=== PATIENT | female | born 1985 ===

== ENCOUNTER 2020-04-27 14:31 | Outpatient (REF) | payer MEDICAID, SELFPAY ==
--- NOTE | 2020-04-27 | US_ITS ---
EXAMINATION: MM DIAGNOSTIC DIGITAL BREAST TOMOSYNTHESIS, BILATERAL US DIAGNOSTIC ULTRASOUND BREAST, RIGHT CLINICAL INFORMATION: 35-year-old with subtle perceived discoloration skin just superolateral to right areola. No palpable mass or discharge. No prior breast imaging. No family history breast cancer. Mild bilateral nipple retraction is a chronic finding, not of current complaint. The lifetime risk of breast cancer based on the Tyrer-Cuzick Model is 9%. COMPARISON: None (current study represents initial baseline exam). TECHNIQUE: Digital breast tomosynthesis is performed in both the craniocaudal and mediolateral oblique views along with computer-aided detection (CAD). Synthesized 2D images are generated from the tomosynthesis. Ultrasound right breast is targeted to the area of clinical concern. Patient is able to point to area of concern at time of imaging. Grayscale imaging and color Doppler are performed without and with harmonics. FINDINGS: There are scattered areas of fibroglandular density (ACR BI-RADS breast composition Category b). Parenchymal pattern is unremarkable. There is no significant mass or duct ectasia, architectural abnormality, or abnormal calcifications. There is no adenopathy. No skin thickening or coarsening of the Saij's ligaments. There is mild bilateral nipple retraction, chronic unremarkable finding as noted by patient. Ultrasound right breast demonstrates no skin thickening or intradermal lesion. There is no duct ectasia or solid mass or architectural abnormality. No edema tracking in soft tissue planes. There are 2 incidental tiny cysts retroareolar right breast, 4 mm and 3 mm, respectively. Results are discussed with the patient at time of visit, using an control system computer scientist. IMPRESSION: 1. No mammographic evidence of malignancy or inflammatory changes. 2. Unremarkable targeted right breast ultrasound ASSESSMENT: BI-RADS 2: Benign RECOMMENDATION: 1. Patient's perceived skin changes may be managed based on the clinical impression. Dermatologic consult may be considered for further assessment. 2. Otherwise, routine annual screening mammography, beginning age 40, or earlier as clinical risk factors warrant. This patient's information was entered into a reminder system with a target due date for their next mammogram.
== END 2020-04-27 14:32 | disposition home or self-care (01) ==
LOC: HO.MAMMO 14:31
PROVIDERS: PCP Internal Medicine Geriatric Medicine; Visit Provider Internal Medicine Geriatric Medicine
DX: R23.4 Changes in skin texture (principal)
CPT/HCPCS: 76641; 77062; 77066; 78013

== ENCOUNTER 2020-05-06 10:07 | Outpatient (REF) | payer MEDICAID, SELFPAY | END 2020-05-06 10:08 | disposition home or self-care (01) | LOC: HO.LAB 10:07 | PROVIDERS: PCP Internal Medicine Geriatric Medicine; Visit Provider Internal Medicine | DX: Z20.828 Contact with and (suspected) exposure to other viral communicable diseases (principal) | CPT/HCPCS: 87635 ==

== ENCOUNTER 2020-05-15 16:03 | Outpatient (REF) | payer MEDICAID, SELFPAY | END 2020-05-15 16:04 | disposition home or self-care (01) | LOC: HO.LAB 16:03 | PROVIDERS: Visit Provider Internal Medicine | DX: Z20.828 Contact with and (suspected) exposure to other viral communicable diseases (principal) | CPT/HCPCS: U0003 ==

== ENCOUNTER 2020-05-23 14:04 | Outpatient (REF) | payer MEDICAID, SELFPAY | END 2020-05-23 14:05 | disposition home or self-care (01) | LOC: HO.LAB 14:04 | PROVIDERS: PCP Internal Medicine Geriatric Medicine; Visit Provider Internal Medicine | DX: Z20.828 Contact with and (suspected) exposure to other viral communicable diseases (principal) | CPT/HCPCS: C9803; U0003 ==

== ENCOUNTER 2020-07-24 16:35 | Outpatient (REF) | payer MEDICAID, SELFPAY | END 2020-07-24 16:36 | disposition home or self-care (01) | LOC: HO.LAB 16:35 | PROVIDERS: Visit Provider Internal Medicine | DX: Z20.828 Contact with and (suspected) exposure to other viral communicable diseases (principal) | CPT/HCPCS: 36415; C9803; U0003 ==

== ENCOUNTER 2020-10-18 14:09 | Emergency (ER) | payer MEDICAID, SELFPAY ==
--- NOTE | ~2020-10-18 | XR_ITS ---
EXAMINATION: XR CHEST CLINICAL INFORMATION: Intermittent chest pain and dizziness COMPARISON: 12/25/2017 TECHNIQUE: Frontal view of the chest was obtained. FINDINGS: No significant abnormality is noted involving the heart, lungs, mediastinum, bony thorax or soft tissues. XR/XR chest 1V IMPRESSION: Unremarkable examination.
[2020-10-18 15:06] VITALS: BP 121/72; PULSE 58; RESP 18; TEMP 36.8; O2SAT 100; BMI 32.3
[2020-10-18 16:18] LABS: MANUAL DIFF FLAG NO
[2020-10-18 16:23] LABS: Glucose Urine UA NEG (NEG); Leukocyte Esterase Urine 2+ (NEG); Nitrite Urine NEG (NEG); UACC Culture Trigger YES; Urine Blood NEG (NEG); Urine Ketones NEG (NEG); Urine Protein NEG (NEG-TRACE)
[2020-10-18 16:23] LABS: Basophils Percent Auto 0.7 % (0-2); Eosinophils Absolute Auto 0.1 X10*3/uL (0.0-0.4); Eosinophils Percent Auto 2.1 % (0-4); Hematocrit 39.1 % (37-47); Hemoglobin 13.2 g/dl (12.0-16.0); Imm Gran Abs Auto 0.01 X10*3/uL (0.00-0.03); Imm Gran Pct Auto 0.2 % (0.0-0.4); Lymphocytes Absolute Auto 2.2 X10*3/uL (1.2-4.9); Lymphocytes Percent Auto 36.5 % (20-40); Mean Corpuscular HGB Conc 33.8 g/dl (31.0-35.0); Mean Corpuscular Hemoglobin 30.1 pg (27.0-33.0); Mean Corpuscular Volume 89.3 fL (80-98); Mean Platelet Volume 9.8 fL (9.4-12.3); Monocytes Absolute Auto 0.5 X10*3/uL (0.1-1.2); Monocytes Percent Auto 8.5 % (2-11); Neutrophils Absolute Auto 3.2 X10*3/uL (2.0-8.3); Platelet Count 264 X10*3/uL (160-400); Red Blood Count 4.38 X10*6/uL (4.20-5.50); Red Cell Distribution Width 12.2 % (11.0-16.0); White Blood Count 6.1 X10*3/uL (4.8-10.8)
[2020-10-18 16:26] LABS: Appearance Urine HAZY; Color Urine YELLOW
[2020-10-18 16:42] LABS: Bacteria Urine 2+ /LPF; RBC Urine 0 /HPF (0); Squamous Epithelial Cell Urine 3+ /LPF
[2020-10-18 17:00] LABS: Blood Urea Nitrogen 16 mg/dL (9-16)
--- NOTE | 2020-10-18 17:06 | ECG_ITS ---
Test Reason : DIZZY Blood Pressure : / mmHG Vent. Rate : 050 BPM Atrial Rate : 050 BPM P-R Int : 150 ms QRS Dur : 080 ms QT Int : 462 ms P-R-T Axes : 032 -06 006 degrees QTc Int : 421 ms Sinus bradycardia Voltage criteria for left ventricular hypertrophy Abnormal ECG When compared with ECG of 25-DEC-2017 20:59, No significant change was found Referred By: Sherita Keita Electronically Signed By:LUIS MANUEL CHAPIN MD
--- NOTE | 2020-10-18 17:16 | ED.DIZZY ---
HPI - Dizziness General Chief Complaint: Dizziness Stated Complaint: DIZZY Time Seen by Provider: 10/18/20 16:39 Source: patient Mode of arrival: ambulatory History of Present Illness HPI Narrative: 35-year-old female with a past medical history of eclampsia, HTN, tubal ligation, appendectomy, presenting to the ED complaining intermittent room spinning dizziness worsen with position changes/fast movements. Also reports generalized fatigue, intermittent palpitations/chest discomfort & SOB x a couple days. Admits symptoms became more constant today. Denies associated headache, vision changes, nausea/vomiting Related Data Home Medications Medication Instructions Recorded Confirmed chlorthalidone 25 mg tablet 25 mg PO DAILY 05/15/20 fexofenadine 180 mg tablet 180 mg PO DAILY 05/15/20 Previous Rx's Medication Instructions Recorded meclizine 25 mg PO TID PRN #14 tab 10/18/20 nitrofurantoin monohyd/m-cryst 100 mg PO Q12H 5 Days #10 cap 10/18/20 [Macrobid] Allergies Allergy/AdvReac Type Severity Reaction Status Date / Time No Known Allergies Allergy Verified 05/15/20 14:18 Review of Systems Review of Systems: Constitutional: No Fever, No Chills, No Fatigue, No Malaise ENT/Mouth: No Hearing loss, No Ear Pain, No Swallowing Difficulty Eyes: No Eye Pain, +Intermittent Blurry vision Cardiovascular: + Chest Pain, + SOB, No Dyspnea on Exertion, No Edema, + Palpitations Respiratory: No Cough, No Dyspnea Gastrointestinal: No Nausea, No Vomiting, No Abdominal pain Genitourinary: No Dysuria, No Urinary Frequency, No Hematuria, No Flank Pain Musculoskeletal: No joint pain, No Myalgias, No Joint Swelling Skin: No Skin Lesions, No rash Neuro: +Generalized Weakness, No Paresthesias, No Loss of Consciousness, + Dizziness, No Headache Yes all other systems are reviewed and are negative Neurologic: Denies Abnormal speech present [facility] Past Medical History Attestation statement: The following information was validated with the patient. Medical History History of eclampsia History of high blood pressure Surgical History Hx of appendectomy Hx of tubal ligation Family History Family History Father CVD (cardiovascular disease) Mother Asthma History of anxiety History of fibromyalgia Social History Social History Alcohol intake: current Alcohol intake frequency: holidays/special occasions only Smoking Status: Never smoker Advance Directives: No Advance Directives Information Provided: Yes Sexual orientation: Straight/Heterosexual Gender identity: female Physical Exam Vital Signs: Vital Signs: Last Vital Signs Temp 98.2 F 10/18/20 15:06 Pulse 58 10/18/20 15:06 Resp 18 10/18/20 15:06 BP 121/72 10/18/20 15:06 Pulse Ox 100 10/18/20 15:06 Body Mass Index 32.3 Const: General: cooperative, healthy appearing, comfortable and no acute distress Orientation/consciousness: patient oriented x3 Limitations: no limitations HENMT: Head: Yes normal to inspection Ears: hearing grossly normal bilaterally General nose exam: Normal external nose present Face and sinus: Yes normal facial exam Mouth: Normal oral and palatal mucosa present Throat: Yes posterior oropharynx normal Eyes: General: appearance normal, both eyes and all related structures Pupils: Equal, round and reactive pupils present EOM: EOMs intact bilaterally Neck: Neck: Yes normal visual inspection and Yes no meningeal signs Resp: Effort & Inspection: normal respiratory effort Auscultation: clear to auscultation bilaterally Cardio: Rate: regular rate Heart sounds: S1 normal heart sound present and S2 normal heart sound present GI: Inspection: Yes normal to inspection Palpation (GI): Soft to palpation, nontender, no guarding and not rigid Skin: Rashes: no rashes Wounds: no wounds Neuro: General: patient oriented x3, gait normal, tone normal, moves all extremities, no meningeal signs, no focal motor deficits and CN's II-XI intact bilaterally Cranial nerves: Yes Equal, round and reactive pupils present Cognition (Neuro): normal cognition Speech: No Abnormal speech present Gait exam (Neuro): Normal gait present Motor exam (neuro): 5/5 motor strength present throughout, Pronator motor function not present and no tremor noted Coordination: [id number] test normal Extrem: General: Yes normal to inspection Course Course Course Narrative: -troponin negative, labs otherwise unremarkable -UA contaminated but with multiple wbc's and positive leuks > patient denies UTI symptoms however with shared decision making would like to have antibiotic prescribed at this time -1900--potassium slightly low at 3.2 > p.o. repletion ordered XR chest 1V IMPRESSION: Unremarkable examination -Results discussed with patient with ophthalmic pathologist, reports symptomatic improvement in the ED after medications. Recommended follow-up with PCP and ENT. Worrisome signs and symptoms and strict return precautions discussed. Patient verbalized understanding feel safe for discharge home -Orthostatic VS negative MDM - Dizziness MDM Narrative Medical decision making narrative: 35-year-old female with a past medical history of eclampsia, HTN, tubal ligation, appendectomy, presenting to the ED complaining intermittent room spinning dizziness worsen with position changes/fast movements. Also reports generalized fatigue, intermittent palpitations/chest discomfort & SOB x a couple days. On exam VSS, NAD, well appearing, no focal neuro deficits, ambulating with steady gait. Likely BPPV/vertigo. Lower concern for SAH/CVT or ICH/central vertigo causing dizziness as well as symptoms being intermittent. Rule out ACS/metabolic abnormalities vs viral syndrome/COVID-19 Plan: EKG, labs, UA, CXR, orthostatics, symptomatic treatment, reassess Medical Records Attestation: I reviewed the patient's medical records. Lab Data Attestation: I reviewed the patient's lab results. Result diagrams: 10/18/20 16:12 10/18/20 16:12 Labs: Lab Results 10/18/20 10/18/20 10/18/20 Range/Units 16:09 16:09 16:12 WBC 6.1 (4.8-10.8) X10*3/uL RBC 4.38 (4.20-5.50) X10*6/uL Hgb 13.2 (12.0-16.0) g/dl Hct 39.1 (37-47) % MCV 89.3 (80-98) fL MCH 30.1 (27.0-33.0) pg MCHC 33.8 (31.0-35.0) g/dl RDW 12.2 (11.0-16.0) % Plt Count 264 (160-400) X10*3/uL MPV 9.8 (9.4-12.3) fL Immature Gran % (Auto) 0.2 (0.0-0.4) % Neut % (Auto) 52.0 (45-73) % Lymph % (Auto) 36.5 (20-40) % [place] % (Auto) 8.5 (2-11) % Eos % (Auto) 2.1 (0-4) % Baso % (Auto) 0.7 (0-2) % Lymph # (Auto) 2.2 (1.2-4.9) X10*3/uL [place] # (Auto) 0.5 (0.1-1.2) X10*3/uL Eos # (Auto) 0.1 (0.0-0.4) X10*3/uL Baso # (Auto) 0.0 (0.0-0.2) X10*3/uL Abs Immat Gran (auto) 0.01 (0.00-0.03) X10*3/uL Absolute Neuts (auto) 3.2 (2.0-8.3) X10*3/uL Absolute Nucleated RBC 0.000 (0.0-0.012) X10*3/uL Nucleated RBC % (auto) 0.0 (0.0-0.2) /100WBC Hold Blue Top Sodium (135-145) mmol/L Potassium (3.3-5.1) mmol/L Chloride (96-108) mmol/L Carbon Dioxide (22-29) mmol/L Anion Gap (12-20) BUN (9-16) mg/dL Creatinine (0.5-1.4) mg/dL Estim Creat Clear Calc Estimated GFR Random Glucose (60-115) mg/dL Calcium (8.4-10.2) mg/dL Magnesium (1.6-2.6) mg/dL Total Bilirubin (0.0-1.0) mg/dL Direct Bilirubin (0.0-0.5) mg/dL AST (5-31) U/L ALT (0-31) U/L Alkaline Phosphatase (39-117) U/L Troponin I High Sens (<3.5-17.0) ng/L Total Protein (6.5-8.0) g/dL Albumin (3.5-5.0) g/dL Urine Color YELLOW Urine Appearance HAZY Urine pH 7.0 (5.0-8.0) Ur Specific [place] 1.020 (1.005-1.025) Urine Protein NEG (NEG-TRACE) MG/DL Urine Glucose (UA) NEG (NEG) MG/DL Urine Ketones NEG (NEG) MG/DL Urine Blood NEG (NEG) Urine Nitrite NEG (NEG) Ur Leukocyte Esterase 2+ H (NEG) Urine RBC 0 (0) /HPF Urine WBC 15-29 H (0-4) /HPF Ur Squamous Epith Cells 3+ /LPF Urine Bacteria 2+ /LPF Urine Test NEGATIVE (NEGATIVE) COVID-19 (FRACISCO) (Negative) COVID-19 Clin Com 10/18/20 10/18/20 10/18/20 Range/Units 16:12 16:12 16:12 WBC (4.8-10.8) X10*3/uL RBC (4.20-5.50) X10*6/uL Hgb (12.0-16.0) g/dl Hct (37-47) % MCV (80-98) fL MCH (27.0-33.0) pg MCHC (31.0-35.0) g/dl RDW (11.0-16.0) % Plt Count (160-400) X10*3/uL MPV (9.4-12.3) fL Immature Gran % (Auto) (0.0-0.4) % Neut % (Auto) (45-73) % Lymph % (Auto) (20-40) % [place] % (Auto) (2-11) % Eos % (Auto) (0-4) % Baso % (Auto) (0-2) % Lymph # (Auto) (1.2-4.9) X10*3/uL [place] # (Auto) (0.1-1.2) X10*3/uL Eos # (Auto) (0.0-0.4) X10*3/uL Baso # (Auto) (0.0-0.2) X10*3/uL Abs Immat Gran (auto) (0.00-0.03) X10*3/uL Absolute Neuts (auto) (2.0-8.3) X10*3/uL Absolute Nucleated RBC (0.0-0.012) X10*3/uL Nucleated RBC % (auto) (0.0-0.2) /100WBC Hold Blue Top SEE NOTE Sodium 139 (135-145) mmol/L Potassium 3.2 L (3.3-5.1) mmol/L Chloride 101 (96-108) mmol/L Carbon Dioxide 32 H (22-29) mmol/L Anion Gap 9 L (12-20) BUN 16 (9-16) mg/dL Creatinine 0.73 (0.5-1.4) mg/dL Estim Creat Clear Calc 96.9 Estimated GFR > 60 Random Glucose 79 (60-115) mg/dL Calcium 9.1 (8.4-10.2) mg/dL Magnesium 2.3 (1.6-2.6) mg/dL Total Bilirubin 0.3 (0.0-1.0) mg/dL Direct Bilirubin 0.2 (0.0-0.5) mg/dL AST 18 (5-31) U/L ALT 28 (0-31) U/L Alkaline Phosphatase 49 (39-117) U/L Troponin I High Sens < 3.5 (<3.5-17.0) ng/L Total Protein 7.5 (6.5-8.0) g/dL Albumin 4.4 (3.5-5.0) g/dL Urine Color Urine Appearance Urine pH (5.0-8.0) Ur Specific [place] (1.005-1.025) Urine Protein (NEG-TRACE) MG/DL Urine Glucose (UA) (NEG) MG/DL Urine Ketones (NEG) MG/DL Urine Blood (NEG) Urine Nitrite (NEG) Ur Leukocyte Esterase (NEG) Urine RBC (0) /HPF Urine WBC (0-4) /HPF Ur Squamous Epith Cells /LPF Urine Bacteria /LPF Urine Test (NEGATIVE) COVID-19 (FRACISCO) (Negative) COVID-19 Clin Com 10/18/20 Range/Units 18:12 WBC (4.8-10.8) X10*3/uL RBC (4.20-5.50) X10*6/uL Hgb (12.0-16.0) g/dl Hct (37-47) % MCV (80-98) fL MCH (27.0-33.0) pg MCHC (31.0-35.0) g/dl RDW (11.0-16.0) % Plt Count (160-400) X10*3/uL MPV (9.4-12.3) fL Immature Gran % (Auto) (0.0-0.4) % Neut % (Auto) (45-73) % Lymph % (Auto) (20-40) % [place] % (Auto) (2-11) % Eos % (Auto) (0-4) % Baso % (Auto) (0-2) % Lymph # (Auto) (1.2-4.9) X10*3/uL [place] # (Auto) (0.1-1.2) X10*3/uL Eos # (Auto) (0.0-0.4) X10*3/uL Baso # (Auto) (0.0-0.2) X10*3/uL Abs Immat Gran (auto) (0.00-0.03) X10*3/uL Absolute Neuts (auto) (2.0-8.3) X10*3/uL Absolute Nucleated RBC (0.0-0.012) X10*3/uL Nucleated RBC % (auto) (0.0-0.2) /100WBC Hold Blue Top Sodium (135-145) mmol/L Potassium (3.3-5.1) mmol/L Chloride (96-108) mmol/L Carbon Dioxide (22-29) mmol/L Anion Gap (12-20) BUN (9-16) mg/dL Creatinine (0.5-1.4) mg/dL Estim Creat Clear Calc Estimated GFR Random Glucose (60-115) mg/dL Calcium (8.4-10.2) mg/dL Magnesium (1.6-2.6) mg/dL Total Bilirubin (0.0-1.0) mg/dL Direct Bilirubin (0.0-0.5) mg/dL AST (5-31) U/L ALT (0-31) U/L Alkaline Phosphatase (39-117) U/L Troponin I High Sens (<3.5-17.0) ng/L Total Protein (6.5-8.0) g/dL Albumin (3.5-5.0) g/dL Urine Color Urine Appearance Urine pH (5.0-8.0) Ur Specific [place] (1.005-1.025) Urine Protein (NEG-TRACE) MG/DL Urine Glucose (UA) (NEG) MG/DL Urine Ketones (NEG) MG/DL Urine Blood (NEG) Urine Nitrite (NEG) Ur Leukocyte Esterase (NEG) Urine RBC (0) /HPF Urine WBC (0-4) /HPF Ur Squamous Epith Cells /LPF Urine Bacteria /LPF Urine Test (NEGATIVE) COVID-19 (FRACISCO) Negative (Negative) COVID-19 Clin Com See Note ECG Data Attestation: I personally reviewed and interpreted this ECG as follows: ECG interpretation date: 10/18/20 ECG interpretation time: 17:19 Interpretation: EKG sinus bradycardia with a rate of 50. Nonischemic, no STEMI, unchanged from priors Discharge Plan Discharge Clinical Impression: Dizziness, Generalized weakness Patient Disposition: Home, Self-Care Instructions: Dizziness (ED) Additional Instructions: Your blood work, chest x-ray were reassuring today in the emergency department. Her COVID-19 was negative. It is important that her stay hydrated at. Your urine was contaminated however did have elements of of an infection, Macrobid is an antibiotic, take as prescribed. Meclizine to help with nausea/dizziness. You need to follow-up with her primary care doctor as well as ENT specialist if your symptoms persist or worsen, become constant, chest pain, shortness of breath, nausea/or vomiting return to the ED Kim an?lisis de dara, la radiograf?a de t?rax fueron reconfortantes hoy en el departamento de emergencias. Kim COVID-19 fue negativo. Es importante que se mantenga hidratada. Kim orina estaba contaminada, sin embargo, ten?a elementos de gumaro infecci?n, Macrobid es un antibi?karen, t?chao seg?n lo prescrito. Meclizina para ayudar con las n?useas / mareos. Debe hacer un seguimiento con kim m?dico de atenci?n primaria y con el otorrinolaring?logo si luz s?ntomas persisten o empeoran, se vuelven constantes, dolor de pecho, dificultad para respirar, n?useas o v?mitos que regresan al servicio de urgencias Prescriptions: New nitrofurantoin monohyd/m-cryst [Macrobid] 100 mg capsule 100 mg PO Q12H 5 Days Qty: 10 RF: 0 meclizine 25 mg tablet 25 mg PO TID PRN (Reason: dizziness) Qty: 14 RF: 0 No Action fexofenadine [Jenny Allergy] 180 mg tablet 180 mg PO DAILY RF: 0 chlorthalidone 25 mg tablet 25 mg PO DAILY RF: 0 Referrals: Xavier Ferrera [Physician] - 1 week Name,MD Jemal [Primary Care Provider] - 2 days
[2020-10-18 17:34] LABS: Alanine Aminotransferase 28 U/L (0-31); Albumin Level 4.4 g/dL (3.5-5.0); Alkaline Phosphatase 49 U/L (39-117); Aspartate Amino Transferase 18 U/L (5-31); Bilirubin Direct 0.2 mg/dL (0.0-0.5); Bilirubin Total 0.3 mg/dL (0.0-1.0); Magnesium 2.3 mg/dL (1.6-2.6); Total Protein 7.5 g/dL (6.5-8.0)
[2020-10-18 17:59] LABS: Troponin-I High Sensitivity < 3.5 ng/L (<3.5-17.0)
[2020-10-18 18:03] LABS: UPreg QC Valid YES; Urine Pregnancy NEGATIVE (NEGATIVE)
[2020-10-18] MEDS: 0.9 % Sodium Chloride 1,000 ML 999 ML IVCONT (18:06)
[2020-10-18] MEDS: ondansetron HCL 4 MG/2 ML VIAL IVPUSH (18:06)
[2020-10-18] MEDS: diphenhydrAMINE HCL 50 MG/ML VIAL 12.5 MG IVPUSH (18:06)
[2020-10-18] MEDS: Meclizine HCl 25 MG TABLET PO (18:06)
[2020-10-18 18:32] LABS: COVID-19 Test Negative (Negative)
[2020-10-18 18:43] LABS: Anion Gap 9 (12-20); Calcium 9.1 mg/dL (8.4-10.2); Carbon Dioxide 32 mmol/L (22-29); Chloride 101 mmol/L (96-108); Creatinine Clr Calc Pharmacy 96.9; Estimated Glomerular Filt Rate > 60; Glucose Random 79 mg/dL (60-115); Potassium 3.2 mmol/L (3.3-5.1); Sodium 139 mmol/L (135-145)
[2020-10-18 19:09] VITALS: BP 130/79; PULSE 56
[2020-10-18 19:10] VITALS: BP 137/85; PULSE 57
[2020-10-18 19:12] VITALS: BP 123/77; PULSE 58
[2020-10-18 19:18] LABS: TSH reflex Free T4 1.13 uIU/mL (0.32-4.0)
== END 2020-10-18 19:37 | disposition home or self-care (01) ==
PROVIDERS: Physician Assistant; Emergency Provider Emergency Medicine; PCP Internal Medicine Geriatric Medicine
DX: R42 Dizziness and giddiness (principal); R53.1 Weakness; I10 Essential (primary) hypertension; Z20.822 Contact with and (suspected) exposure to COVID-19
CPT/HCPCS: 36415; 71045; 80048; 80076; 81001; 81003; 81025; 83735; 84443; 84484; 85025; 87086; 87147; 87635; 93005; 96365; 96375; 99283; 99284; J1200; J2405

== ENCOUNTER 2020-11-20 07:41 | Outpatient (REF) | payer MEDICAID, SELFPAY | END 2020-11-20 07:42 | disposition home or self-care (01) | LOC: HO.LAB 07:41 | PROVIDERS: Visit Provider Internal Medicine | DX: Z20.822 Contact with and (suspected) exposure to COVID-19 (principal) | CPT/HCPCS: C9803; U0003; U0005 ==

== ENCOUNTER 2021-03-09 15:13 | Emergency (ER) | payer MEDICAID, SELFPAY ==
--- NOTE | ~2021-03-09 | XR_ITS ---
EXAMINATION: XR CHEST CLINICAL INFORMATION: Chest pain COMPARISON: Previous chest x-ray October 2020 TECHNIQUE: Frontal view of the chest was obtained. FINDINGS: No significant abnormality is noted involving the heart, lungs, mediastinum, bony thorax or soft tissues. XR/XR chest 1V IMPRESSION: Unremarkable examination.
--- NOTE | 2021-03-09 15:21 | ECG_ITS ---
Test Reason : CHEST PAIN Blood Pressure : / mmHG Vent. Rate : 062 BPM Atrial Rate : 062 BPM P-R Int : 154 ms QRS Dur : 088 ms QT Int : 418 ms P-R-T Axes : 045 -01 021 degrees QTc Int : 424 ms Normal sinus rhythm Moderate voltage criteria for LVH, may be normal variant Borderline ECG When compared with ECG of 18-OCT-2020 17:19, No significant change was found Referred By: Generic ED Physician Electronically Signed By:THALIA NORTON
[2021-03-09 15:33] VITALS: BP 160/76; PULSE 66; RESP 18; TEMP 36.8; O2SAT 98; BMI 30.2
[2021-03-09 15:41] LABS: MANUAL DIFF FLAG NO
[2021-03-09 15:43] LABS: Basophils Percent Auto 0.4 % (0-2); Eosinophils Absolute Auto 0.2 X10*3/uL (0.0-0.4); Eosinophils Percent Auto 2.2 % (0-4); Hematocrit 38.8 % (37-47); Imm Gran Abs Auto 0.01 X10*3/uL (0.00-0.03); Imm Gran Pct Auto 0.1 % (0.0-0.4); Lymphocytes Absolute Auto 2.5 X10*3/uL (1.2-4.9); Lymphocytes Percent Auto 34.3 % (20-40); Mean Corpuscular HGB Conc 33.5 g/dl (31.0-35.0); Mean Corpuscular Hemoglobin 29.6 pg (27.0-33.0); Mean Corpuscular Volume 88.4 fL (80-98); Mean Platelet Volume 9.4 fL (9.4-12.3); Monocytes Absolute Auto 0.6 X10*3/uL (0.1-1.2); Monocytes Percent Auto 7.7 % (2-11); Neutrophils Percent Auto 55.3 % (45-73); Platelet Count 275 X10*3/uL (160-400); Red Blood Count 4.39 X10*6/uL (4.20-5.50); Red Cell Distribution Width 12.2 % (11.0-16.0); White Blood Count 7.2 X10*3/uL (4.8-10.8)
[2021-03-09 16:09] LABS: Anion Gap 11 (12-20); Blood Urea Nitrogen 15 mg/dL (9-16); Calcium 9.5 mg/dL (8.4-10.2); Carbon Dioxide 31 mmol/L (22-29); Chloride 103 mmol/L (96-108); Creatinine Clr Calc Pharmacy 89.9; Estimated Glomerular Filt Rate > 60; Glucose Random 83 mg/dL (60-115); Potassium 3.1 mmol/L (3.3-5.1); Sodium 142 mmol/L (135-145)
[2021-03-09 16:13] LABS: Troponin-I High Sensitivity < 3.5 ng/L (<3.5-17.0)
[2021-03-09 18:06] LABS: Influenza A PCR NEGATIVE (Negative); Influenza B PCR NEGATIVE (Negative); Resp Syncy Virus RNA Qual PCR NEGATIVE (Negative); SARS COV2 PCR INHOUSE NEGATIVE (Negative)
--- NOTE | 2021-03-09 19:20 | PC.NURSE ---
EKG OBTAINED PREVIOUSLY. PT ON MONITOR WITH HR 58, PT C/O CHEST PAIN, PT SPEAKING LITTLE ZAMBIAN. PT ALERT, RESPIRATIONS EASY, N/L. SKIN W/D. PT AWAITING FOR MD'S EVAL. WILL CONTINUE TO MONITOR PT.
--- NOTE | 2021-03-09 19:45 | ED.CHESTPAIN ---
HPI - Chest Pain General Chief Complaint: Chest Pain Stated Complaint: chest pain arm pain Time Seen by Provider: 03/09/21 19:45 Source: patient Mode of arrival: ambulatory History of Present Illness HPI narrative: 36F with history of hypertension presents with left upper anterior chest wall pain that has been ongoing since Friday and has not been associated with fever, chills, recent travel, control use, calf pain/swelling. Patient states that this has been intermittent and is exacerbated by deep inspiration as well as movement of the left upper extremity. 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 Pain is reproducible on palpation. Related Data Home Medications Medication Instructions Recorded Confirmed chlorthalidone 25 mg tablet 25 mg PO DAILY 05/15/20 fexofenadine 180 mg tablet 180 mg PO DAILY 05/15/20 (Jenny Allergy) Previous Rx's Medication Instructions Recorded meclizine 25 mg tablet 25 mg PO TID PRN #14 tab 10/18/20 nitrofurantoin 100 mg PO Q12H 5 Days #10 cap 10/18/20 monohydrate/macrocrystals 100 mg capsule (Macrobid) nitrofurantoin 100 mg PO Q12H 5 Days #10 cap 03/09/21 monohydrate/macrocrystals 100 mg capsule (Macrobid) Allergies Allergy/AdvReac Type Severity Reaction Status Date / Time No Known Allergies Allergy Verified 03/09/21 15:32 Review of Systems Review of Systems: Pertinent positives and negatives as stated in HPI 10 point review of systems is otherwise negative. [facility] Past Medical History Source: nursing notes reviewed Medical History History of eclampsia History of high blood pressure Surgical History Hx of appendectomy Hx of tubal ligation Family History Family History Father CVD (cardiovascular disease) Mother Asthma History of anxiety History of fibromyalgia Social History Social History Alcohol intake: current Alcohol intake frequency: holidays/special occasions only Advance Directives: No Advance Directives Information Provided: Yes Patient : No Sexual orientation: Straight/Heterosexual Gender identity: Female Physical Exam Vital Signs: Vital Signs: Last Vital Signs Temp 98.2 F 03/09/21 15:33 Pulse 66 03/09/21 15:33 Resp 18 03/09/21 15:33 BP 160/76 H 03/09/21 15:33 Pulse Ox 98 03/09/21 15:33 Body Mass Index 30.2 VITAL SIGNS: Reviewed. GENERAL: Well developed, well nourished, in no acute distress. HEAD: Normocephalic/atraumatic EYES: PERRLA, EOMI OROPHARYNX: no oral lesions noted, posterior pharynx clear LUNGS: Normal breath sounds. No adventitious sounds or accessory muscle use. SpO2<98>, tenderness on palpation at mid to outer upper left anterior chest wall without crepitus/deformity/erythema CARDIOVASCULAR: Regular rate and rhythm without noted murmurs ABDOMEN: Soft, non-tender, non-distended with bowel sounds. SKIN: Inspection of the skin reveals no rashes NEUROLOGIC: Alert and oriented x 4. Strength and sensation to light touch were grossly intact x 4. Course Course Course Narrative: 36-year-old female with history and clinical presentation most consistent with a costochondritis/anterior chest wall muscle strain and doubt cardiopulmonary etiology. On review of all investigations there are no acute findings, patient was treated with combination analgesics and re-evaluated. On review of urinalysis there is evidence of UTI and patient will be provided with initial antibiotics and then discharged on remaining course. MDM - Chest Pain Lab Data Result diagrams: 03/09/21 15:32 03/09/21 15:32 Labs: Lab Results 03/09/21 03/09/21 03/09/21 Range/Units 15:31 15:32 15:32 WBC 7.2 (4.8-10.8) X10*3/uL RBC 4.39 (4.20-5.50) X10*6/uL Hgb 13.0 (12.0-16.0) g/dl Hct 38.8 (37-47) % MCV 88.4 (80-98) fL MCH 29.6 (27.0-33.0) pg MCHC 33.5 (31.0-35.0) g/dl RDW 12.2 (11.0-16.0) % Plt Count 275 (160-400) X10*3/uL MPV 9.4 (9.4-12.3) fL Immature Gran % (Auto) 0.1 (0.0-0.4) % Neut % (Auto) 55.3 (45-73) % Lymph % (Auto) 34.3 (20-40) % [place] % (Auto) 7.7 (2-11) % Eos % (Auto) 2.2 (0-4) % Baso % (Auto) 0.4 (0-2) % Lymph # (Auto) 2.5 (1.2-4.9) X10*3/uL [place] # (Auto) 0.6 (0.1-1.2) X10*3/uL Eos # (Auto) 0.2 (0.0-0.4) X10*3/uL Baso # (Auto) 0.0 (0.0-0.2) X10*3/uL Abs Immat Gran (auto) 0.01 (0.00-0.03) X10*3/uL Absolute Neuts (auto) 4.0 (2.0-8.3) X10*3/uL Absolute Nucleated RBC 0.000 (0.0-0.012) X10*3/uL Nucleated RBC % (auto) 0.0 (0.0-0.2) /100WBC Sodium 142 (135-145) mmol/L Potassium 3.1 L (3.3-5.1) mmol/L Chloride 103 (96-108) mmol/L Carbon Dioxide 31 H (22-29) mmol/L Anion Gap 11 L (12-20) BUN 15 (9-16) mg/dL Creatinine 0.78 (0.5-1.4) mg/dL Estim Creat Clear Calc 89.9 Estimated GFR > 60 Random Glucose 83 (60-115) mg/dL Calcium 9.5 (8.4-10.2) mg/dL Troponin I High Sens < 3.5 (<3.5-17.0) ng/L Urine Color Urine Appearance Urine pH (5.0-8.0) Ur Specific [place] (1.005-1.025) Urine Protein (NEG-TRACE) MG/DL Urine Glucose (UA) (NEG) MG/DL Urine Ketones (NEG) MG/DL Urine Blood (NEG) Urine Nitrite (NEG) Ur Leukocyte Esterase (NEG) Urine RBC (0) /HPF Urine WBC (0-4) /HPF Ur Squamous Epith Cells /LPF Amorphous Sediment /LPF Urine Bacteria /LPF Urine Mucus /LPF Coronavirus (PCR) (Negative) Influenza Type A (PCR) (Negative) Influenza Type B (PCR) (Negative) RSV RNA Qual (PCR) (Negative) 03/09/21 03/09/21 Range/Units 15:36 20:21 WBC (4.8-10.8) X10*3/uL RBC (4.20-5.50) X10*6/uL Hgb (12.0-16.0) g/dl Hct (37-47) % MCV (80-98) fL MCH (27.0-33.0) pg MCHC (31.0-35.0) g/dl RDW (11.0-16.0) % Plt Count (160-400) X10*3/uL MPV (9.4-12.3) fL Immature Gran % (Auto) (0.0-0.4) % Neut % (Auto) (45-73) % Lymph % (Auto) (20-40) % [place] % (Auto) (2-11) % Eos % (Auto) (0-4) % Baso % (Auto) (0-2) % Lymph # (Auto) (1.2-4.9) X10*3/uL [place] # (Auto) (0.1-1.2) X10*3/uL Eos # (Auto) (0.0-0.4) X10*3/uL Baso # (Auto) (0.0-0.2) X10*3/uL Abs Immat Gran (auto) (0.00-0.03) X10*3/uL Absolute Neuts (auto) (2.0-8.3) X10*3/uL Absolute Nucleated RBC (0.0-0.012) X10*3/uL Nucleated RBC % (auto) (0.0-0.2) /100WBC Sodium (135-145) mmol/L Potassium (3.3-5.1) mmol/L Chloride (96-108) mmol/L Carbon Dioxide (22-29) mmol/L Anion Gap (12-20) BUN (9-16) mg/dL Creatinine (0.5-1.4) mg/dL Estim Creat Clear Calc Estimated GFR Random Glucose (60-115) mg/dL Calcium (8.4-10.2) mg/dL Troponin I High Sens (<3.5-17.0) ng/L Urine Color YELLOW Urine Appearance HAZY Urine pH 7.0 (5.0-8.0) Ur Specific [place] 1.025 (1.005-1.025) Urine Protein NEG (NEG-TRACE) MG/DL Urine Glucose (UA) NEG (NEG) MG/DL Urine Ketones NEG (NEG) MG/DL Urine Blood NEG (NEG) Urine Nitrite NEG (NEG) Ur Leukocyte Esterase 1+ H (NEG) Urine RBC 0-2 (0) /HPF Urine WBC 0-2 (0-4) /HPF Ur Squamous Epith Cells 2+ /LPF Amorphous Sediment 2+ /LPF Urine Bacteria NONE /LPF Urine Mucus 1+ /LPF Coronavirus (PCR) NEGATIVE (Negative) Influenza Type A (PCR) NEGATIVE (Negative) Influenza Type B (PCR) NEGATIVE (Negative) RSV RNA Qual (PCR) NEGATIVE (Negative) Discharge Plan Discharge Clinical Impression: Atypical chest pain, Costochondritis, UTI (urinary tract infection) Patient Disposition: Home, Self-Care Instructions: Urinary Tract Infection in Women (ED), Costochondritis (ED) Additional Instructions: 1. Reanude todos los medicamentos caseros seg?n lo prescrito. 2. Incrementar la hidrataci?n de los fluidos especialmente con agua. 3. Tylenol 1000 mg, por v?a oral, cada 6 horas seg?n sea necesario para controlar el dolor. No exceda los 4000 mg en 24 horas. 4. Ibuprofeno 400 mg, por v?a oral con leche o alimentos, cada 6 horas seg?n sea necesario para controlar el dolor. 5. Recomiende el parche de lidoca?na de venta trey, estos est?n disponibles en todos los [facility] / [facility] / [facility], apl?quelo en el ?hakeem de m?xima sensibilidad prateek se indica en el empaque exterior. 6. Realice un seguimiento con muñiz proveedor de atenci?n primaria en los pr?ximos 2-3 d?as para gumaro reevaluaci?n adicional para el manejo ambulatorio. Regrese a la padma de emergencias si luz s?ntomas empeoran de manera aguda. Prescriptions: New nitrofurantoin monohyd/m-cryst [Macrobid] 100 mg capsule 100 mg PO Q12H 5 Days Qty: 10 RF: 0 No Action nitrofurantoin monohyd/m-cryst [Macrobid] 100 mg capsule 100 mg PO Q12H 5 Days Qty: 10 RF: 0 meclizine 25 mg tablet 25 mg PO TID PRN (Reason: dizziness) Qty: 14 RF: 0 fexofenadine [Jenny Allergy] 180 mg tablet 180 mg PO DAILY RF: 0 chlorthalidone 25 mg tablet 25 mg PO DAILY RF: 0 Referrals: Jmeal Briggs MD [Primary Care Provider] - 2 days Print Language: Bermudian
[2021-03-09] MEDS: Acetaminophen 325 MG TABLET 975 MG PO (20:01)
[2021-03-09] MEDS: Lidocaine 4 % Patch ADH..PATCH 1 PATCH TRANSDERMA (20:02)
[2021-03-09] MEDS: Ibuprofen 400 MG TABLET PO (20:02)
[2021-03-09 20:28] LABS: Glucose Urine UA NEG (NEG); Leukocyte Esterase Urine 1+ (NEG); Nitrite Urine NEG (NEG); Specific Gravity - Urine 1.025 (1.005-1.025); UACC Culture Trigger YES; Urine Blood NEG (NEG); Urine Ketones NEG (NEG); Urine Protein NEG (NEG-TRACE)
[2021-03-09 20:29] LABS: Appearance Urine HAZY; Color Urine YELLOW
[2021-03-09 20:36] LABS: WBC Urine 0-2 /HPF (0-4)
[2021-03-09 20:37] LABS: Amorphous Sediment Urine 2+ /LPF; Mucus Urine 1+ /LPF; RBC Urine 0-2 /HPF (0); Squamous Epithelial Cell Urine 2+ /LPF
--- NOTE | 2021-03-09 20:47 | PC.NURSE ---
pt up to restroom for urine sample to lab for eval.
[2021-03-09] MEDS: Nitrofurantoin Monohyd/M-Cryst 100 MG CAPSULE PO (21:27)
[2021-03-09 21:29] VITALS: BP 109/78; PULSE 68; RESP 16; O2SAT 98
== END 2021-03-09 21:34 | disposition home or self-care (01) ==
PROVIDERS: Emergency Provider Student in an Organized Health Care Education/Training Program; PCP Internal Medicine Geriatric Medicine
DX: R07.89 Other chest pain (principal); M94.0 Chondrocostal junction syndrome [Tietze]; N39.0 Urinary tract infection, site not specified; Z20.822 Contact with and (suspected) exposure to COVID-19; I10 Essential (primary) hypertension; Z79.899 Other long term (current) drug therapy
CPT/HCPCS: 0241U; 36415; 71045; 80048; 81001; 84484; 85025; 87086; 93005; 99284

== ENCOUNTER → 2021-05-24 14:20 | Outpatient (BNVA) | payer MEDICAID, SELFPAY | PROVIDERS: PCP Internal Medicine Geriatric Medicine; Visit Provider Advanced Practice Midwife ==

== ENCOUNTER 2021-08-21 19:27 | Emergency (ER) | payer MEDICAID, SELFPAY ==
--- NOTE | 2021-08-21 | ECG_ITS ---
Test Reason : cp Blood Pressure : / mmHG Vent. Rate : 066 BPM Atrial Rate : 066 BPM P-R Int : 152 ms QRS Dur : 078 ms QT Int : 430 ms P-R-T Axes : 046 -06 000 degrees QTc Int : 450 ms Normal sinus rhythm Moderate voltage criteria for LVH, may be normal variant ( R in aVL , [place] product ) Borderline ECG When compared with ECG of 09-MAR-2021 15:23, No significant change was found Referred By: Generic ED Physician Electronically Signed By:Jhonathan Mason
--- NOTE | ~2021-08-21 | XR_ITS ---
EXAMINATION: XR CHEST CLINICAL INFORMATION: Left chest wall pain COMPARISON: 03/09 21 TECHNIQUE: 2 views of the chest were obtained. FINDINGS: The lungs are clear with no focal consolidation. No evidence of pneumothorax, pulmonary edema, or pleural effusions. The cardiomediastinal silhouette is unremarkable. No acute osseous findings. XR/XR chest 2V IMPRESSION: No acute cardiopulmonary findings.
[2021-08-21 19:36] VITALS: BP 136/78; PULSE 71; RESP 18; TEMP 36.9; O2SAT 98; BMI 30.8
[2021-08-21 19:55] LABS: Basophils Percent Auto 0.4 % (0-2); Eosinophils Absolute Auto 0.2 X10*3/uL (0.0-0.4); Eosinophils Percent Auto 2.6 % (0-4); Hematocrit 37.3 % (37.0-47.0); Imm Gran Abs Auto 0.01 X10*3/uL (0.00-0.03); Imm Gran Pct Auto 0.1 % (0.0-0.4); Lymphocytes Absolute Auto 2.6 X10*3/uL (1.2-4.9); Lymphocytes Percent Auto 33.3 % (20-40); MANUAL DIFF FLAG NO; Mean Corpuscular HGB Conc 34.9 g/dl (31.0-35.0); Mean Corpuscular Hemoglobin 30.5 pg (27.0-33.0); Mean Corpuscular Volume 87.6 fL (80.0-98.0); Mean Platelet Volume 9.8 fL (9.4-12.3); Monocytes Absolute Auto 0.7 X10*3/uL (0.1-1.2); Monocytes Percent Auto 9.4 % (2-11); Neutrophils Absolute Auto 4.2 x10*3/uL (2.0-8.3); Neutrophils Percent Auto 54.2 % (45-73); Platelet Count 268 X10*3/uL (160-400); Red Blood Count 4.26 X10*6/uL (4.20-5.50); Red Cell Distribution Width 12.5 % (11.0-16.0); White Blood Count 7.7 X10*3/uL (4.8-10.8)
[2021-08-21 20:12] LABS: Anion Gap 14 (12-20); Blood Urea Nitrogen 17 mg/dL (9-16); Calcium 9.6 mg/dL (8.4-10.2); Carbon Dioxide 29 mmol/L (22-29); Chloride 100 mmol/L (96-108); Creatinine Clr Calc Pharmacy 86.4; Estimated Glomerular Filt Rate > 60; Glucose Random 89 mg/dL (60-115); Sodium 140 mmol/L (135-145)
[2021-08-21 20:24] LABS: Troponin-I High Sensitivity < 3.5 ng/L (<3.5-17.0)
[2021-08-21 21:55] VITALS: BP 126/73; PULSE 61; RESP 18; TEMP 36.9; O2SAT 99
[2021-08-21 23:52] LABS: HCG Quantitative < 2 mIU/mL
[2021-08-22] VITALS: BP 127/68; PULSE 55; RESP 16; TEMP 36.7; O2SAT 100
--- NOTE | 2021-08-22 00:10 | ED_ITS ---
HPI - Chest Pain General Chief Complaint: Chest Pain Stated Complaint: chest pain Time Seen by Provider: 08/21/21 23:22 Source: patient and interpreter translator Mode of arrival: ambulatory History of Present Illness HPI narrative: 36-year-old female with history of hypertension who presents with onset of left anterior chest wall pain yesterday this started while she was at work and patient states that it is reproducible when palpated and increases with deep inspiration. She states that the pain radiates into her left arm but has not been associated with any shortness of breath, diaphoresis. She states her blood pressures have been under control and that the pain started again today. Patient also describes increased stress with her children's father and at work. Related Data Home Medications Medication Instructions Recorded Confirmed chlorthalidone 25 mg tablet 25 mg PO DAILY 05/15/20 fexofenadine 180 mg tablet 180 mg PO DAILY 05/15/20 (Jenny Allergy) Previous Rx's Medication Instructions Recorded meclizine 25 mg tablet 25 mg PO TID PRN #14 tab 10/18/20 hydroxyzine HCl 25 mg tablet 25 mg PO BID PRN #10 tab 08/22/21 Allergies Allergy/AdvReac Type Severity Reaction Status Date / Time No Known Allergies Allergy Verified 08/21/21 19:36 Review of Systems Review of Systems: Pertinent positives and negatives as stated in HPI 10 point review of systems is otherwise negative. REPLACED BY [facility] Past Medical History Source: nursing notes reviewed Medical History History of eclampsia History of high blood pressure Surgical History Hx of appendectomy Hx of tubal ligation Family History Family History Father CVD (cardiovascular disease) Mother Asthma History of anxiety History of fibromyalgia Social History Social History Alcohol intake: current Alcohol intake frequency: holidays/special occasions only Patient Tobacco Use Status: Never used Tobacco Advance Directives: No Patient : No Sexual orientation: Straight/Heterosexual Gender identity: Female Physical Exam Vital Signs: Vital Signs: Last Vital Signs Temp 98.1 F 08/22/21 00:00 Pulse 55 08/22/21 00:00 Resp 16 08/22/21 00:00 BP 127/68 08/22/21 00:00 Pulse Ox 100 08/22/21 00:00 BMI result Body Mass Index 30.8 VITAL SIGNS: Reviewed. GENERAL: Well developed, well nourished, in no acute distress. HEAD: Normocephalic/atraumatic EYES: PERRLA, EOMI OROPHARYNX: no oral lesions noted, posterior pharynx clear LUNGS: Normal breath sounds. No adventitious sounds or accessory muscle use. SpO2<99>; CHEST WALL: Reproducible pain on palpation over the left anterior chest wall without evidence of erythema CARDIOVASCULAR: Regular rate and rhythm without noted murmurs ABDOMEN: Soft, non-tender, non-distended with bowel sounds. SKIN: Inspection of the skin reveals no rashes NEUROLOGIC: Alert and oriented x 4. Strength and sensation to light touch were grossly intact x 4. Course Course Course Narrative: 36-year-old female with history and clinical presentation most consistent with musculoskeletal pain as well as component of anxiety/stress. On review of all investigations are no acute findings to suggest cardiopulmonary etiology. All results discussed with the patient at bedside and she was discharged home in stable condition. MDM - Chest Pain Lab Data Result diagrams: 08/21/21 19:46 08/21/21 19:46 Labs: Lab Results 08/21/21 08/21/21 08/21/21 Range/Units 19:46 19:46 19:46 WBC 7.7 (4.8-10.8) X10*3/uL RBC 4.26 (4.20-5.50) X10*6/uL Hgb 13.0 (12.0-16.0) g/dl Hct 37.3 (37.0-47.0) % MCV 87.6 (80.0-98.0) fL MCH 30.5 (27.0-33.0) pg MCHC 34.9 (31.0-35.0) g/dl RDW 12.5 (11.0-16.0) % Plt Count 268 (160-400) X10*3/uL MPV 9.8 (9.4-12.3) fL Immature Gran % (Auto) 0.1 (0.0-0.4) % Neut % (Auto) 54.2 (45-73) % Lymph % (Auto) 33.3 (20-40) % [place] % (Auto) 9.4 (2-11) % Eos % (Auto) 2.6 (0-4) % Baso % (Auto) 0.4 (0-2) % Lymph # (Auto) 2.6 (1.2-4.9) X10*3/uL [place] # (Auto) 0.7 (0.1-1.2) X10*3/uL Eos # (Auto) 0.2 (0.0-0.4) X10*3/uL Baso # (Auto) 0.0 (0.0-0.2) X10*3/uL Abs Immat Gran (auto) 0.01 (0.00-0.03) X10*3/uL Absolute Neuts (auto) 4.2 (2.0-8.3) x10*3/uL Absolute Nucleated RBC 0.000 (0.0-0.012) X10*3/uL Nucleated RBC % (auto) 0.0 (0.0-0.2) /100WBC Sodium 140 (135-145) mmol/L Potassium 3.0 L (3.3-5.1) mmol/L Chloride 100 (96-108) mmol/L Carbon Dioxide 29 (22-29) mmol/L Anion Gap 14 (12-20) BUN 17 H (9-16) mg/dL Creatinine 0.82 (0.5-1.4) mg/dL Estim Creat Clear Calc 86.4 Estimated GFR > 60 Random Glucose 89 (60-115) mg/dL Calcium 9.6 (8.4-10.2) mg/dL Troponin I High Sens < 3.5 (<3.5-17.0) ng/L Beta HCG, Quant < 2 mIU/mL 08/22/21 Range/Units 00:22 WBC (4.8-10.8) X10*3/uL RBC (4.20-5.50) X10*6/uL Hgb (12.0-16.0) g/dl Hct (37.0-47.0) % MCV (80.0-98.0) fL MCH (27.0-33.0) pg MCHC (31.0-35.0) g/dl RDW (11.0-16.0) % Plt Count (160-400) X10*3/uL MPV (9.4-12.3) fL Immature Gran % (Auto) (0.0-0.4) % Neut % (Auto) (45-73) % Lymph % (Auto) (20-40) % [place] % (Auto) (2-11) % Eos % (Auto) (0-4) % Baso % (Auto) (0-2) % Lymph # (Auto) (1.2-4.9) X10*3/uL [place] # (Auto) (0.1-1.2) X10*3/uL Eos # (Auto) (0.0-0.4) X10*3/uL Baso # (Auto) (0.0-0.2) X10*3/uL Abs Immat Gran (auto) (0.00-0.03) X10*3/uL Absolute Neuts (auto) (2.0-8.3) x10*3/uL Absolute Nucleated RBC (0.0-0.012) X10*3/uL Nucleated RBC % (auto) (0.0-0.2) /100WBC Sodium (135-145) mmol/L Potassium (3.3-5.1) mmol/L Chloride (96-108) mmol/L Carbon Dioxide (22-29) mmol/L Anion Gap (12-20) BUN (9-16) mg/dL Creatinine (0.5-1.4) mg/dL Estim Creat Clear Calc Estimated GFR Random Glucose (60-115) mg/dL Calcium (8.4-10.2) mg/dL Troponin I High Sens < 3.5 (<3.5-17.0) ng/L Beta HCG, Quant mIU/mL ECG Data ECG #1: Attestation: I personally reviewed and interpreted this ECG as follows: Prior ECG tracings: available for review Interpretation: NSR, HR -66, no STEMI, ME/QRS/QTC is within normal limits and voltage criteria is consistent with LVH. Discharge Plan Discharge Clinical Impression: Atypical chest pain, Hypokalemia, Anxiety Patient Disposition: Home, Self-Care Instructions: Hypokalemia (ED), Anxiety (ED), Chest Wall Pain (ED) Additional Instructions: 1. Fer morales los medicamentos caseros seg?n lo prescrito. 2. Recomendar aumentar las pulido diet?sandi de potasio. 3. Seguimiento con muñiz proveedor de atenci?n primaria seg?n lo programado. Regrese a la padma de emergencias si los s?ntomas empeoran. Prescriptions: New hydroxyzine HCl 25 mg tablet 25 mg PO BID PRN (Reason: anxiety) Qty: 10 0RF No Action meclizine 25 mg tablet 25 mg PO TID PRN (Reason: dizziness) Qty: 14 0RF fexofenadine [Jenny Allergy] 180 mg tablet 180 mg PO DAILY 0RF chlorthalidone 25 mg tablet 25 mg PO DAILY 0RF Print Language: Lithuanian
[2021-08-22] MEDS: Lidocaine 4 % Patch ADH..PATCH 1 PATCH TRANSDERMA (00:15)
[2021-08-22] MEDS: Potassium Chloride ER 20 MEQ TAB.ER.PRT 60 MEQ PO (00:17)
--- NOTE | 2021-08-22 00:19 | PC.NURSE ---
pt medicated as per nat. in room for eval. Repeat Trop being drawn at tbis time. will continue to monitor pt.
[2021-08-22 00:55] LABS: Troponin-I High Sensitivity < 3.5 ng/L (<3.5-17.0)
== END 2021-08-22 02:22 | disposition home or self-care (01) ==
PROVIDERS: Emergency Provider Student in an Organized Health Care Education/Training Program
DX: R07.89 Other chest pain (principal); E87.6 Hypokalemia; F41.1 Generalized anxiety disorder; F43.0 Acute stress reaction; F43.9 Reaction to severe stress, unspecified; Z79.899 Other long term (current) drug therapy
CPT/HCPCS: 36415; 71046; 80048; 84484; 84702; 85025; 93005; 99283

== ENCOUNTER → 2021-11-12 11:11 | Outpatient (REF) | payer MEDICAID, SELFPAY | LOC: HO.CARD 11:11 | PROVIDERS: PCP Internal Medicine Geriatric Medicine; Referring Provider Internal Medicine Geriatric Medicine; Visit Provider Internal Medicine | DX: R00.2 Palpitations (principal); R94.31 Abnormal electrocardiogram [ECG] [EKG]; R07.2 Precordial pain; I51.7 Cardiomegaly | CPT/HCPCS: 99202 ==

== ENCOUNTER → 2021-11-23 12:55 | Outpatient (REF) | payer MEDICAID, SELFPAY ==
--- NOTE | 2021-11-23 13:00 | ECG_ITS ---
Hook-up date: 2021-11-23 12:13:00 Duration: 47:59:00 Test Indications: PALPITATIONS Medications: 528337 QRS complexes 4 Ventricular ectopics which represent <1 % of total QRS comp. 13 Supraventricular ectopics which represent <1 % of total QRS comp. * Paced QRS complexs which represent % of total QRS comp. VENTRICULAR ECTOPY 4 Isolated 0 Bigeminal Cycles 0 Couplets 0 Runs 0 Beats in Runs * Beats LONGEST at * BPM at :: -- * Beats FASTEST at * BPM at :: -- SUPRAVENTRICULAR ECTOPY 6 Isolated 2 Couplets 1 Runs 3 Beats in Runs 3 Beats LONGEST at 78 BPM at 11:06:03 2021-11-24 3 Beats FASTEST at 78 BPM at 11:06:03 2021-11-24 HEART RATES 46 MIN at 04:36:49 2021-11-24 76 AVG 152 MAX at 21:12:25 2021-11-24 LONGEST RR 1.0320 secs at 04:36:39 2021-11-24 S-T LEVELS Channel 1 - 128 mm at 12:13:00 2021-11-23 - 128 mm at 12:13:00 2021-11-23 Channel 2 - 128 mm at 12:13:00 2021-11-23 - 128 mm at 12:13:00 2021-11-23 Channel 3 - 128 mm at 03:13:21 -- - 128 mm at 03:13:21 Basic rhythm Normal sinus rhythm No long pause or profound bradycardia Rare ectopics Patient reported symptoms correlated with NSR Referred By: Ernie Ford Overread By: LUIS MANUEL CHAPIN MD
== END ==
LOC: HO.CARD 12:55
PROVIDERS: PCP Internal Medicine Geriatric Medicine; Visit Provider Internal Medicine
DX: R00.2 Palpitations (principal)
CPT/HCPCS: 93225; 93226

== ENCOUNTER 2021-12-19 22:51 | Emergency (ER) | payer MEDICAID, SELFPAY ==
--- NOTE | ~2021-12-19 | CT_ITS ---
EXAMINATION: CT ABDOMEN AND PELVIS WITHOUT CONTRAST CLINICAL INFORMATION: Flank pain COMPARISON: 01/06/2019 TECHNIQUE: Multidetector volumetric imaging was performed from the superior aspect of the liver through the pubic symphysis. Sagittal and coronal reformatted images were obtained on the technologist's workstation. This CT examination was performed using dose optimization techniques as appropriate, variously including the following: *Automated exposure control *Adjustment of mA and/or kV according to patient size (this includes techniques or standardized protocols for targeted exams where dose is matched to indication/reason for exam; i.e. extremities or head) *Use of iterative reconstruction technique DLP: 628 mGy-cm FINDINGS: LUNG BASES: The visualized lung bases are unremarkable. LIVER, GALLBLADDER, AND BILIARY TREE: The liver is normal in size, shape, and attenuation. No focal hepatic lesion or biliary ductal dilatation is present. Gallbladder unremarkable. PANCREAS: Unremarkable. SPLEEN: Unremarkable. ADRENAL GLANDS: Unremarkable. KIDNEYS AND URETERS: There is a 2 mm calculus proximal left ureter, 4 cm distal to the ureteropelvic junction at the level of L3 associated with mild upstream hydroureter and pelvocaliectasis. No additional urinary calculi. The kidneys are normal in size, shape, and attenuation. No perinephric stranding. BLADDER: Unremarkable. GASTROINTESTINAL TRACT: Scattered left colonic diverticula. No evidence of diverticulitis. Appendectomy. Stomach and small bowel unremarkable. ABDOMINAL WALL: Small fat-containing umbilical hernia. LYMPH NODES: Normal. VASCULAR: Unremarkable. PELVIC VISCERA: Uterus and adnexa unremarkable. OSSEOUS STRUCTURES: Unremarkable. CT/CT abdomen pelvis wo con IMPRESSION: * There is a 2 mm calculus in the proximal LEFT ureter associated mild upstream hydroureter and pelvocaliectasis. * Scattered left colonic diverticula without evidence of diverticulitis. Fleischner guidelines were followed.
[2021-12-19 22:59] VITALS: BP 143/53; PULSE 70; O2SAT 100
[2021-12-19 23:02] VITALS: BP 128/68; PULSE 78; RESP 16; TEMP 36.7; O2SAT 98; BMI 30.4
[2021-12-19] MEDS: Ondansetron ODT 4 MG TAB.RAPDIS TRANSLINGU (23:07)
--- NOTE | 2021-12-19 23:12 | PC.NURSE ---
family translating for pt. pt c/o nausea in WR, medicated with 4mg ODT zofran. pt given urine cup. resting in w/c at this time
[2021-12-19 23:47] LABS: Appearance Urine CLOUDY; Color Urine YELLOW; Glucose Urine UA NEG (NEG); Leukocyte Esterase Urine NEG (NEG); Nitrite Urine NEG (NEG); Specific Gravity - Urine 1.025 (1.005-1.025); UACC Culture Trigger NO; Urine Blood 3+ (NEG); Urine Ketones NEG (NEG); Urine Protein NEG (NEG-TRACE)
[2021-12-19 23:55] LABS: Bacteria Urine TRACE /LPF; Calcium Oxalate Crystals Urine 2+ /LPF; Mucus Urine TRACE /LPF; RBC Urine 30-49 /HPF (0); Squamous Epithelial Cell Urine 1+ /LPF; WBC Urine 0 /HPF (0-4)
--- NOTE | 2021-12-20 00:59 | ED_ITS ---
HPI - Abdominal Pain General Chief Complaint: Abdominal Pain Stated Complaint: L Flank Pain Time Seen by Provider: 12/20/21 00:00 Source: patient Mode of arrival: ambulatory Limitations: no limitations History of Present Illness HPI narrative: Patient with history of recurrent kidney stones last episode was about 2 years of comes here for acute onset of left flank pain since 8 pm started left flank radiating to the left lower abdomen associated with nausea. No urinary symptoms no hematuria Related Data Home Medications Medication Instructions Recorded Confirmed chlorthalidone 25 mg tablet 25 mg PO DAILY 05/15/20 11/12/21 fexofenadine 180 mg tablet 180 mg PO DAILY 05/15/20 11/12/21 (Jenny Allergy) venlafaxine 37.5 mg 37.5 mg PO DAILY 11/12/21 11/12/21 capsule,extended release 24 hr Previous Rx's Medication Instructions Recorded meclizine 25 mg tablet 25 mg PO TID PRN dizziness #14 tabs 10/18/20 hydroxyzine HCl 25 mg tablet 25 mg PO BID PRN anxiety #10 tabs 08/22/21 Allergies Allergy/AdvReac Type Severity Reaction Status Date / Time No Known Allergies Allergy Verified 11/12/21 11:23 Review of Systems Review of Systems Yes all other systems are reviewed and are negative PMFSH Past Medical History Medical History Depressed History of eclampsia History of high blood pressure Surgical History Hx of appendectomy Hx of tubal ligation Family History Family History Father CVD (cardiovascular disease) Mother Asthma History of anxiety History of fibromyalgia Social History Social History Alcohol intake: current Alcohol intake frequency: does not drink Patient Tobacco Use Status: Never used Tobacco Use of substances other than those prescribed or required for medical reasons: No Advance Directives: No Advance Directives Information Provided: Yes Patient : No Sexual orientation: Straight/Heterosexual Gender identity: Female Physical Exam ED Vital Signs: Vital Signs - 24 hr 12/19/21 23:02 12/20/21 01:03 Temperature 98.1 F 98.2 F Pulse Rate 78 52 Respiratory Rate 16 20 Blood Pressure 128/68 123/75 Pulse Oximetry 98 100 Oxygen Delivery Method Room Air Room Air BMI result Body Mass Index 30.4 Appearance: Alert. Oriented X3. No acute distress. Eyes: PERRLA, No Nystagmus ENT: Pharynx normal. Oral Mucosa moist Neck: Normal inspection. Neck supple. CVS: Normal heart rate and rhythm. Pulses normal. Respiratory: No respiratory distress. Equal air entry bilateral, no wheezing/rales/rhonchi Abdomen: Soft and nontender. Bowel sounds are present, no mass palpable, L CVA tenderness++ Skin: Skin warm and dry. Normal skin color. Normal skin turgor. Extremities: No lower extremity edema. No calf tenderness Neuro: Oriented X 3. No motor deficit. No sensory deficit.No cerebellar signs , cranial nerves II-XII intact MDM - Abdominal Pain MDM Narrative Medical decision making narrative: Patient with left renal colic with history of kidney stone will check the CT scan pain management IV fluids patient signed out to Dr. Mon pending CT scan Lab Data Attestation: I reviewed the patient's lab results. Result diagrams: 12/20/21 01:22 12/20/21 01:22 Labs: Lab Results 12/19/21 12/20/21 12/20/21 Range/Units 23:25 01:22 01:22 WBC 7.0 (4.8-10.8) X10*3/uL RBC 4.35 (4.20-5.50) X10*6/uL Hgb 12.8 (12.0-16.0) g/dl Hct 39.0 (37.0-47.0) % MCV 89.7 (80.0-98.0) fL MCH 29.4 (27.0-33.0) pg MCHC 32.8 (31.0-35.0) g/dl RDW 12.8 (11.0-16.0) % Plt Count 268 (160-400) X10*3/uL MPV 9.4 (9.4-12.3) fL Immature Gran % (Auto) 0.3 (0.0-0.4) % Neut % (Auto) 49.2 (45-73) % Lymph % (Auto) 36.8 (20-40) % [place] % (Auto) 10.6 (2-11) % Eos % (Auto) 2.7 (0-4) % Baso % (Auto) 0.4 (0-2) % Lymph # (Auto) 2.6 (1.2-4.9) X10*3/uL [place] # (Auto) 0.7 (0.1-1.2) X10*3/uL Eos # (Auto) 0.2 (0.0-0.4) X10*3/uL Baso # (Auto) 0.0 (0.0-0.2) X10*3/uL Abs Immat Gran (auto) 0.02 (0.00-0.03) X10*3/uL Absolute Neuts (auto) 3.4 (2.0-8.3) x10*3/uL Absolute Nucleated RBC 0.000 (0.0-0.012) X10*3/uL Nucleated RBC % (auto) 0.0 (0.0-0.2) /100WBC Sodium 142 (135-145) mmol/L Potassium 3.6 (3.3-5.1) mmol/L Chloride 107 (96-108) mmol/L Carbon Dioxide 27 (22-29) mmol/L Anion Gap 12 (12-20) BUN 17 H (9-16) mg/dL Creatinine 0.80 (0.5-1.4) mg/dL Estim Creat Clear Calc 88.0 Estimated GFR > 60 Random Glucose 97 (60-115) mg/dL Calcium 9.1 (8.4-10.2) mg/dL Total Bilirubin < 0.2 (0.0-1.0) mg/dL AST 17 (5-31) U/L ALT 23 (0-31) U/L Alkaline Phosphatase 47 (39-117) U/L Total Protein 7.3 (6.5-8.0) g/dL Albumin 4.2 (3.5-5.0) g/dL Urine Color YELLOW Urine Appearance CLOUDY Urine pH 6.0 (5.0-8.0) Ur Specific [place] 1.025 (1.005-1.025) Urine Protein NEG (NEG-TRACE) MG/DL Urine Glucose (UA) NEG (NEG) MG/DL Urine Ketones NEG (NEG) MG/DL Urine Blood 3+ H (NEG) Urine Nitrite NEG (NEG) Ur Leukocyte Esterase NEG (NEG) Urine RBC 30-49 H (0) /HPF Urine WBC 0 (0-4) /HPF Ur Squamous Epith Cells 1+ /LPF Calcium Oxalate Crystal 2+ /LPF Urine Bacteria TRACE /LPF Urine Mucus TRACE /LPF Discharge Plan Discharge Clinical Impression: Calculus of kidney Patient Disposition: Still a Patient Prescriptions: No Action meclizine 25 mg tablet 25 mg PO TID PRN (Reason: dizziness) Qty: 14 0RF hydroxyzine HCl 25 mg tablet 25 mg PO BID PRN (Reason: anxiety) Qty: 10 0RF fexofenadine [Jenny Allergy] 180 mg tablet 180 mg PO DAILY chlorthalidone 25 mg tablet 25 mg PO DAILY venlafaxine 37.5 mg capsule,extended release 24hr 37.5 mg PO DAILY
[2021-12-20 01:03] VITALS: BP 123/75; PULSE 52; RESP 20; TEMP 36.8; O2SAT 100
[2021-12-20 01:26] LABS: Basophils Percent Auto 0.4 % (0-2); Eosinophils Absolute Auto 0.2 X10*3/uL (0.0-0.4); Eosinophils Percent Auto 2.7 % (0-4); Hemoglobin 12.8 g/dl (12.0-16.0); Imm Gran Abs Auto 0.02 X10*3/uL (0.00-0.03); Imm Gran Pct Auto 0.3 % (0.0-0.4); Lymphocytes Absolute Auto 2.6 X10*3/uL (1.2-4.9); Lymphocytes Percent Auto 36.8 % (20-40); MANUAL DIFF FLAG NO; Mean Corpuscular HGB Conc 32.8 g/dl (31.0-35.0); Mean Corpuscular Hemoglobin 29.4 pg (27.0-33.0); Mean Corpuscular Volume 89.7 fL (80.0-98.0); Mean Platelet Volume 9.4 fL (9.4-12.3); Monocytes Absolute Auto 0.7 X10*3/uL (0.1-1.2); Monocytes Percent Auto 10.6 % (2-11); Neutrophils Absolute Auto 3.4 x10*3/uL (2.0-8.3); Neutrophils Percent Auto 49.2 % (45-73); Platelet Count 268 X10*3/uL (160-400); Red Blood Count 4.35 X10*6/uL (4.20-5.50); Red Cell Distribution Width 12.8 % (11.0-16.0)
[2021-12-20 01:53] LABS: Alanine Aminotransferase 23 U/L (0-31); Albumin Level 4.2 g/dL (3.5-5.0); Alkaline Phosphatase 47 U/L (39-117); Anion Gap 12 (12-20); Aspartate Amino Transferase 17 U/L (5-31); Bilirubin Total < 0.2 mg/dL (0.0-1.0); Blood Urea Nitrogen 17 mg/dL (9-16); Calcium 9.1 mg/dL (8.4-10.2); Carbon Dioxide 27 mmol/L (22-29); Chloride 107 mmol/L (96-108); Estimated Glomerular Filt Rate > 60; Glucose Random 97 mg/dL (60-115); Potassium 3.6 mmol/L (3.3-5.1); Sodium 142 mmol/L (135-145); Total Protein 7.3 g/dL (6.5-8.0)
[2021-12-20 02:21] LABS: HCG Quantitative < 2 mIU/mL
[2021-12-20 02:54] VITALS: BP 117/76; PULSE 51; RESP 20; O2SAT 98
[2021-12-20] MEDS: 0.9 % Sodium Chloride 1,000 ML 999 ML IV (04:56)
[2021-12-20 04:59] VITALS: RESP 16
[2021-12-20] MEDS: Morphine Sulfate 4 MG/ML CARTRIDGE IVPUSH (04:59)
--- NOTE | 2021-12-20 05:05 | PC.NURSE ---
Pt given IV Morphine for 9/10 pain per EMR. Saline running.
[2021-12-20 05:09] VITALS: BP 105/53; PULSE 53; RESP 18; O2SAT 97
[2021-12-20] MEDS: Ondansetron ODT 4 MG TAB.RAPDIS TRANSLINGU (06:21)
[2021-12-20] MEDS: Ketorolac Tromethamine 15 MG/ML VIAL IM (06:22)
--- NOTE | 2021-12-20 06:51 | PC.NURSE ---
Immediately prior to discharge, pt pain increased and pt began vomiting. Zofran and Ketoralac were given per EMR and condition improved. Pt brought via wheelchair to ride home.
== END 2021-12-20 06:39 | disposition home or self-care (01) ==
PROVIDERS: Student in an Organized Health Care Education/Training Program; Emergency Provider Internal Medicine
DX: N20.2 Calculus of kidney with calculus of ureter (principal); R10.9 Unspecified abdominal pain
CPT/HCPCS: 36415; 74176; 80053; 81001; 84702; 85025; 96361; 96372; 96374; 99284; 99285; J1885; J2270

== ENCOUNTER 2022-02-19 13:20 | Outpatient (REF) | payer MEDICAID, SELFPAY ==
--- NOTE | ~2022-02-19 | XR_ITS ---
EXAMINATION: XR ANKLE, LEFT CLINICAL INFORMATION: Left ankle pain COMPARISON: None TECHNIQUE: AP, lateral, and mortise views of the left ankle. FINDINGS: No fracture or dislocation. The malleoli appear intact and the ankle mortise is symmetric. There is no ankle joint narrowing or erosive change or chondrocalcinosis. Talar dome shows no osteochondral lesion. Subtalar joint is unremarkable. The retrocalcaneal recess is preserved. No calcaneal spurring. XR/XR ankle LT min 3V IMPRESSION: Normal left ankle.
== END 2022-02-19 13:21 | disposition home or self-care (01) ==
LOC: HO.XRAY 13:20
PROVIDERS: PCP Internal Medicine Geriatric Medicine; Visit Provider Emergency Medicine
DX: M25.572 Pain in left ankle and joints of left foot (principal)
CPT/HCPCS: 73610

== ENCOUNTER 2022-04-13 12:54 | Emergency (ER) | payer MEDICAID, SELFPAY ==
[2022-04-13 13:29] VITALS: BP 120/64; PULSE 87; RESP 18; TEMP 36.4; O2SAT 99; BMI 30.8
[2022-04-13 13:55] LABS: Strep A Nucleic Acid Negative (Negative)
[2022-04-13 14:25] LABS: Influenza A PCR NEGATIVE (Negative); Influenza B PCR NEGATIVE (Negative); Resp Syncy Virus RNA Qual PCR NEGATIVE (Negative); SARS COV2 PCR INHOUSE NEGATIVE (Negative)
--- NOTE | 2022-04-13 15:29 | ED.GENADULT ---
HPI - General Adult General Chief complaint: Upper Respiratory Symptoms Stated complaint: sore throat headache Time Seen by Provider: 04/13/22 15:28 History of Present Illness HPI narrative: Patient complains of coughing sputum, sinus pain, mild headache, nasal congestion, greenish sputum from the nose and also when she coughs, as well as a sore throat, it hurts to swallow but she is able to swallow, no difficulty breathing no fever Related Data Home Medications Medication Instructions Recorded Confirmed chlorthalidone 25 mg tablet 25 mg PO DAILY 05/15/20 11/12/21 fexofenadine 180 mg tablet 180 mg PO DAILY 05/15/20 11/12/21 (Jenny Allergy) venlafaxine 37.5 mg 37.5 mg PO DAILY 11/12/21 11/12/21 capsule,extended release 24 hr Previous Rx's Medication Instructions Recorded meclizine 25 mg tablet 25 mg PO TID PRN dizziness #14 tabs 10/18/20 hydroxyzine HCl 25 mg tablet 25 mg PO BID PRN anxiety #10 tabs 08/22/21 ketorolac 10 mg tablet 10 mg PO Q6H PRN pain 5 days #20 12/20/21 tabs tamsulosin 0.4 mg capsule (Flomax) 0.4 mg PO BEDTIME #4 caps 12/20/21 acetaminophen 500 mg tablet 1,000 mg PO QID PRN pain #30 tabs 04/13/22 doxycycline hyclate 100 mg capsule 100 mg PO BID 7 days #14 caps 04/13/22 fexofenadine 180 mg tablet 180 mg PO DAILY #14 tabs 04/13/22 (Jenny Allergy) ibuprofen 600 mg tablet 600 mg PO Q6H PRN fever or pain 04/13/22 #20 tabs oxymetazoline 0.05 % nasal spray 2 spray intranasal Q12H PRN nasal 04/13/22 congestion 4 days #22 mL Allergies Allergy/AdvReac Type Severity Reaction Status Date / Time No Known Allergies Allergy Verified 11/12/21 11:23 Review of Systems Review of Systems: Positive for cough runny nose and sore throat Negative no fever no chills no dizziness or weakness no headache no stiff neck no chest pain no shortness of breath no abdominal pain no dysuria no skin rash Yes all other systems are reviewed and are negative PMFSH Past Medical History Source: nursing notes reviewed Medical History Depressed History of eclampsia History of high blood pressure Surgical History Hx of appendectomy Hx of tubal ligation Family History Family History Father CVD (cardiovascular disease) Mother Asthma History of anxiety History of fibromyalgia Social History Social History Alcohol intake: current Alcohol intake frequency: does not drink Patient Tobacco Use Status: Never used Tobacco Advance Directives: No Advance Directives Information Provided: No Sexual orientation: Straight/Heterosexual Gender identity: Female Physical Exam ED Vital Signs: Vital Signs - 24 hr 04/13/22 13:29 Temperature 97.6 F Pulse Rate 87 Respiratory Rate 18 Blood Pressure 120/64 Pulse Oximetry 99 Oxygen Delivery Method Room Air BMI result Body Mass Index 30.8 Genera The eyes no redness or discharge The ears normal The nose no sinus tenderness, but there was congestion The pharynx had redness but no swelling or exudate, voice was normal no drooling mucous membranes moist The neck was supple with no lymphadenopathy Chest clear to auscultation bilateral Heart no murmur Extremities for range of motion x4 Skin no rash Course Course Course Narrative: Well-appearing patient with negative strep negative flu and negative COVID tests was treated with antibiotic for persistent cough with sputum Medical Decision Making Lab Data Labs: Lab Results 04/13/22 04/13/22 Range/Units 13:32 13:33 Influenza Type A (PCR) NEGATIVE (Negative) Influenza Type B (PCR) NEGATIVE (Negative) RSV RNA Qual (PCR) NEGATIVE (Negative) SARS-CoV-2 RNA (RT-PCR) NEGATIVE (Negative) S. pyogenes GrpA RUFUS Negative (Negative) Discharge Plan Discharge Clinical Impression: Bronchitis Patient Disposition: Home, Self-Care Additional Instructions: We are using doxycycline antibiotic You can use decongestant Afrin Tylenol and or Motrin for aches and pains or fever We gave 1 dose of steroid in the emergency room which may relieve throat inflammation Return any time any worse condition or any concerns Follow with her doctor next week if not improving Prescriptions: New doxycycline hyclate 100 mg capsule 100 mg PO BID 7 Days Qty: 14 0RF acetaminophen 500 mg tablet 1,000 mg PO QID PRN (Reason: pain) Qty: 30 0RF oxymetazoline 0.05 % spray,non-aerosol 2 spray intranasal Q12H PRN (Reason: nasal congestion) 4 Days Qty: 22 0RF ibuprofen 600 mg tablet 600 mg PO Q6H PRN (Reason: fever or pain) Qty: 20 0RF fexofenadine [Jenny Allergy] 180 mg tablet 180 mg PO DAILY Qty: 14 0RF No Action meclizine 25 mg tablet 25 mg PO TID PRN (Reason: dizziness) Qty: 14 0RF hydroxyzine HCl 25 mg tablet 25 mg PO BID PRN (Reason: anxiety) Qty: 10 0RF ketorolac 10 mg tablet 10 mg PO Q6H PRN (Reason: pain) 5 Days Qty: 20 0RF Rx Instructions: Patient received Toradol in the emergency room. tamsulosin [Flomax] 0.4 mg capsule 0.4 mg PO BEDTIME Qty: 4 0RF fexofenadine [Jenny Allergy] 180 mg tablet 180 mg PO DAILY chlorthalidone 25 mg tablet 25 mg PO DAILY venlafaxine 37.5 mg capsule,extended release 24hr 37.5 mg PO DAILY Stand Alone Forms: Work/School Release Interventions: ED Discharge Assessment Last Done: 04/13/22 15:42 Discharge Date/Time: 04/13/22 15:42
[2022-04-13] MEDS: dexAMETHasone 2 MG TABLET 10 MG PO (15:40)
[2022-04-13] MEDS: Ibuprofen 600 MG TABLET PO (15:40)
== END 2022-04-13 15:42 | disposition home or self-care (01) ==
PROVIDERS: Emergency Provider Emergency Medicine; PCP Internal Medicine Geriatric Medicine
DX: J40 Bronchitis, not specified as acute or chronic (principal); Z20.822 Contact with and (suspected) exposure to COVID-19; J02.9 Acute pharyngitis, unspecified; R51.9 Headache, unspecified
CPT/HCPCS: 0241U; 87651; 99283; J8540

== ENCOUNTER 2022-09-06 13:07 | Outpatient (REF) | payer MEDICAID, SELFPAY ==
--- NOTE | ~2022-09-06 | MM_ITS ---
EXAMINATION: MM DIAGNOSTIC DIGITAL BREAST TOMOSYNTHESIS, BILATERAL US DIAGNOSTIC ULTRASOUND BREAST, BILATERAL CLINICAL INFORMATION: 37-year-old with one-month history bilateral breast pain, currently subsided. No palpable mass, erythema, discharge. No known family history breast cancer. TC score 8%. COMPARISON: Mammography: 04/27/2020, right breast ultrasound 04/27/2020. TECHNIQUE: Digital breast tomosynthesis is performed in both the craniocaudal and mediolateral oblique views along with computer-aided detection (CAD). Synthesized 2D images are generated from the tomosynthesis. Additional magnification right CC and magnification right ML views are obtained. Ultrasound bilateral breasts is targeted to the areas of clinical concern, outer left breast and outer right breast, respectively. Grayscale imaging and color Doppler are performed without and with harmonics. FINDINGS: The breasts are heterogeneously dense, which may obscure small masses (ACR BI-RADS breast composition Category c). Breast tissue composition borders on average fibroglandular. Left breast parenchymal pattern is similar to prior exam. There is no developing density or interval mass or architectural abnormality. No abnormal calcifications. The bilateral axilla and skin contours are unremarkable. No skin thickening or coarsening of the Saji's ligaments. Right breast has 2 3 tightly grouped calcifications posterior central 1:00 position. On additional magnification views, these are coarse and benign. Right tomography demonstrates circumscribed nodule mid 9:00 position under 1 cm with smaller adjacent satellite nodule. No architectural abnormality. Ultrasound left breast demonstrates no cystic or solid mass, architectural abnormality, or focal duct ectasia. No skin thickening or edema tracking in soft tissue planes. No hyperemia. Ultrasound right breast demonstrates anechoic bilobed cyst under 1 cm central breast with increased through-transmission of sound and no associated color flow corresponding to the mammographic finding on tomography there is no solid mass or architectural abnormality. No skin thickening or duct ectasia or focal hyperemia. Results are discussed with the patient at time of visit. MM/MM tomosynthesis diagnostic BI IMPRESSION: 1. No mammographic evidence of malignancy or inflammatory changes. 2. Incidental cyst central right breast under 1 cm. Left breast ultrasound unremarkable. ASSESSMENT: BI-RADS 2: Benign RECOMMENDATION: 1. Patient's mastodynia may be managed based on the clinical impression. 2. Otherwise, routine annual screening mammography, beginning age 40, or earlier as clinical risk factors warrant. This patient's information was entered into a reminder system with a target due date for their next mammogram.
== END 2022-09-06 13:08 | disposition home or self-care (01) ==
LOC: HO.MAMMO 13:07
PROVIDERS: Visit Provider Advanced Practice Midwife
DX: N64.4 Mastodynia (principal)
CPT/HCPCS: 76642; 77062; 77066

== ENCOUNTER 2022-09-18 13:57 | Outpatient (REF) | payer MEDICAID, SELFPAY ==
--- NOTE | ~2022-09-18 | US_ITS ---
EXAMINATION: US SOFT TISSUE HEAD/NECK CLINICAL INFORMATION: Tender lymph node on palpation. Right submandibular lump level 2/3. COMPARISON: None TECHNIQUE: Linear transducer grayscale and color Doppler examination of the right submandibular lump, level 2/3. FINDINGS: There are numerous lymph nodes seen at the right submandibular lump, level 2/3. The largest lymph node measures 2.6 x 1.2 x 1.5 cm with increased vascularity. US/US soft tiss head and/or neck IMPRESSION: Multiple lymph nodes in the right submandibular lump. The largest lymph node measures 2.6 x 1.2 x 1.5 cm. These may be secondary to inflammatory or infectious etiology. Correlate with clinical exam
== END 2022-09-18 13:58 | disposition home or self-care (01) ==
LOC: HO.US 13:57
PROVIDERS: PCP Internal Medicine Geriatric Medicine; Visit Provider Registered Nurse
DX: R59.1 Generalized enlarged lymph nodes (principal)
CPT/HCPCS: 76536

== ENCOUNTER 2022-09-18 14:59 | Outpatient (REF) | payer MEDICAID, SELFPAY ==
[2022-09-18 17:31] LABS: CT PCR NOT DETECTED (Not Detect.); NG PCR NOT DETECTED (Not Detect.)
[2022-09-19 09:38] LABS: BV Int Neg Control Negative (Negative)
[2022-09-19 09:39] LABS: BV Int Pos Control Positive (Positive)
== END 2022-09-18 15:00 | disposition home or self-care (01) ==
LOC: HO.LNP 14:59
PROVIDERS: Visit Provider Advanced Practice Midwife
DX: Z11.3 Encounter for screening for infections with a predominantly sexual mode of transmission (principal)
CPT/HCPCS: 0353U; 87480; 87510; 87660

== ENCOUNTER 2022-09-27 14:41 | Outpatient (REF) | payer MEDICAID, SELFPAY ==
--- NOTE | ~2022-09-27 | US_ITS ---
EXAMINATION: US PELVIS CLINICAL INFORMATION: Pelvic and perineal pain, LMP 09/21/2022. COMPARISON: CT abdomen/pelvis 12/20/2021. TECHNIQUE: Ultrasound of the pelvis is performed using both transabdominal and transvaginal transducers along with Doppler. Transvaginal imaging is performed due to inadequate visualization transabdominally. FINDINGS: Uterus is anteverted and anteflexed measuring 7.6 x 4.5 x 5.2 cm. No uterine lesion. Endometrium measures 0.5 cm in thickness without discrete focal abnormality. The ovaries are normal in morphology with preserved flow on color Doppler at the moment of this examination. The right ovary measures 4.3 x 1.9 x 2.1 cm, 9 mL and the left ovary measures 3.1 x 2 x 2.5 cm, 8.1 mL. Small amount of free fluid in the cul-de-sac, likely physiologic. Small nabothian cysts in the cervix. US/US pelvic and transvaginal IMPRESSION: No acute sonographic abnormalities to explain the patient's symptoms. If symptoms persist, consider correlation with a pelvic MRI.
== END 2022-09-27 14:42 | disposition home or self-care (01) ==
LOC: HO.US 14:41
PROVIDERS: PCP Internal Medicine Geriatric Medicine; Visit Provider Advanced Practice Midwife
DX: R10.2 Pelvic and perineal pain (principal)
CPT/HCPCS: 76830; 76856

== ENCOUNTER → 2022-10-31 09:03 | Outpatient (BNVA) | payer MEDICAID, SELFPAY | PROVIDERS: PCP Internal Medicine Geriatric Medicine; Visit Provider Advanced Practice Midwife | DX: R10.2 Pelvic and perineal pain (principal) | CPT/HCPCS: 99212 ==

== ENCOUNTER 2023-01-29 15:19 | Emergency (ER) | payer MEDICAID, SELFPAY ==
--- NOTE | ~2023-01-29 | US_ITS ---
EXAMINATION: US ABDOMEN LIMITED CLINICAL INFORMATION: Right upper quadrant pain. COMPARISON: CT abdomen/pelvis 12/20/2021. TECHNIQUE: Real-time imaging of the right upper quadrant abdominal viscera. FINDINGS: PANCREAS: Not well seen due to shadowing from overlying bowel gas. LIVER: The liver is normal in size. The liver contour is normal. Increased parenchymal echogenicity. No focal hepatic lesion. There is no intrahepatic biliary duct dilatation seen. GALLBLADDER: The gallbladder is physiologically distended. Large approximately 1.7 cm nonmobile calculus in the neck. No evidence of gallbladder wall thickening or pericholecystic fluid. COMMON BILE DUCT: Normal in caliber measuring 0.2 cm in diameter. RIGHT KIDNEY: Normal. No hydronephrosis. No renal calculi or focal parenchymal lesions. The kidney measures 9.7 cm in maximum dimension. FREE FLUID: None. US/US abdomen limited IMPRESSION: 1. Cholelithiasis without significant wall thickening or pericholecystic free fluid to suspected acute cholecystitis by ultrasound. 2. Increased hepatic parenchymal echogenicity is nonspecific and could be related with hepatic steatosis or hepatocellular disease. Correlate with liver function tests.
[2023-01-29 15:56] VITALS: BP 142/78; PULSE 84; RESP 16; TEMP 37; O2SAT 100; BMI 30.8
--- NOTE | 2023-01-29 15:56 | ED_ITS ---
HPI - Abdominal Pain General Chief Complaint: Abdominal Pain Stated Complaint: R upper quadrant pain Time Seen by Provider: 01/29/23 19:03 History of Present Illness MD elicited complaint: abdominal pain Pertinent past history: none Onset (ago): hour(s) (6) Pain Consistency: constant Location: RUQ Severity: severe Quality: stabbing Radiation: none Migration to: no migration Exacerbating factors: nothing Relieving factors: nothing Associated symptoms: nausea Related Data Home Medications Medication Instructions Recorded Confirmed chlorthalidone 25 mg tablet 25 mg PO DAILY 05/15/20 10/31/22 venlafaxine 37.5 mg 37.5 mg PO DAILY 11/12/21 10/31/22 capsule,extended release 24 hr Previous Rx's Medication Instructions Recorded meclizine 25 mg tablet 25 mg PO TID PRN dizziness #14 tabs 10/18/20 hydroxyzine HCl 25 mg tablet 25 mg PO BID PRN anxiety #10 tabs 08/22/21 ketorolac 10 mg tablet 10 mg PO Q6H PRN pain 5 days #20 12/20/21 tabs tamsulosin 0.4 mg capsule (Flomax) 0.4 mg PO BEDTIME #4 caps 12/20/21 acetaminophen 500 mg tablet 1,000 mg PO QID PRN pain #30 tabs 04/13/22 doxycycline hyclate 100 mg capsule 100 mg PO BID 7 days #14 caps 04/13/22 fexofenadine 180 mg tablet 180 mg PO DAILY #14 tabs 04/13/22 (Jenny Allergy) ibuprofen 600 mg tablet 600 mg PO Q6H PRN fever or pain 04/13/22 #20 tabs oxymetazoline 0.05 % nasal spray 2 spray intranasal Q12H PRN nasal 04/13/22 congestion 4 days #22 mL Allergies Allergy/AdvReac Type Severity Reaction Status Date / Time No Known Allergies Allergy Verified 01/29/23 15:56 Review of Systems Review of Systems CONSTITUTIONAL: Denies weight loss, fever and chills. HEENT: Denies changes in vision and hearing. RESPIRATORY: Denies SOB and cough. CV: Denies palpitations no CP. GI: + abdominal pain, nausea, - vomiting and diarrhea. : Denies dysuria and urinary frequency. MSK: Denies myalgia and joint pain. SKIN: Denies rash and pruritus. NEUROLOGICAL: Denies headache and syncope. PSYCHIATRIC: Denies recent changes in mood. Denies anxiety and depression. All other ROS are negative unless in HPI PMFSH Past Medical History Medical History Depressed History of eclampsia History of high blood pressure Surgical History Hx of appendectomy Hx of tubal ligation Family History Family History Father CVD (cardiovascular disease) Mother Asthma History of anxiety History of fibromyalgia Social History Social History Alcohol intake: current Alcohol intake frequency: does not drink Patient Tobacco Use Status: Never used Tobacco Sexual orientation: Straight/Heterosexual Gender identity: Female Physical Exam ED Vital Signs: Vital Signs - 24 hr 01/29/23 15:56 01/29/23 20:06 Temperature 98.6 F 98.4 F Pulse Rate 84 72 Respiratory Rate 16 16 Blood Pressure 142/78 H 129/85 Pulse Oximetry 100 99 Oxygen Delivery Method Room Air Room Air BMI result Body Mass Index 30.8 GEN: Well developed, no acute distress, alert, oriented HEENT: Normocephalic, atraumatic, normal external ears, nose appears normal, no oropharyngeal edema or exudates Eyes: Normal to appearance Neck: Supple, no lymphadenopathy Respiratory: Talks in complete sentences, no respiratory distress, clear to auscultation bilaterally Cardiovascular: Regular rate and rhythm, no murmurs rubs or gallops Abdomen: Soft, right upper quadrant tenderness, nondistended, no guarding, no rebound, positive Aquino sign Back: No CVA tenderness Extremities: No clubbing cyanosis or edema Neurologic: No focal neurologic deficits, cranial nerves 2-12 intact, strength is 5/5 bilaterally Skin: No rash Course Course Course Narrative: 38 year old korean speaking patient with history of appendectomy several years ago presents today with c/o 10/10 abdominal pain since last night with nausea. Denies fever, vomiting, diarrhea. Started as epigastric pain but now is generalized abdominal pain. Vital signs normal, bowel sounds throughout, abdomen soft. Plan: Basic labs. holding on imaging for now. Reevaluation(s) Reevaluation #1: The workup is complete. Ultrasounds consistent with gallstones. Patient is likely having biliary colic. We discussed treatment and referral to surgery. We also discussed reasons to return to the emergency department. We discussed appropriate diet. Time: 21:18 Medical Decision Making Medical Decision Making [facility] Narrative: 38-year-old female presents with abdominal pain. Pain started today associated with nausea. Examination revealed right upper quadrant tenderness with no rebound or guarding. There is a positive Aquino sign. She has a history of an appendectomy. Suspect biliary colic or acute cholecystitis. Plan will be to obtain routine laboratory analysis including a CBC, CMP, lipase. Will order an ultrasound as this is the most sensitive test for biliary colic. Differential Diagnosis Differential Diagnoses: The differential diagnosis associated with the presentation includes (See above) Biliary colic Admission/Observation Consideration of admission/observation: Escalation of care including admission/observation considered Lab Data [facility] Lab Attestation statement: I reviewed the patient's lab results. 01/29/23 16:17 01/29/23 16:17 Labs: Lab Results 01/29/23 01/29/23 01/29/23 Range/Units 16:17 16:17 17:24 WBC 12.2 H (4.8-10.8) X10*3/uL RBC 4.50 (4.20-5.50) X10*6/uL Hgb 13.4 (12.0-16.0) g/dl Hct 40.4 (37.0-47.0) % MCV 89.8 (80.0-98.0) fL MCH 29.8 (27.0-33.0) pg MCHC 33.2 (31.0-35.0) g/dl RDW 12.9 (11.0-16.0) % Plt Count 261 (160-400) X10*3/uL MPV 9.6 (9.4-12.3) fL Immature Gran % (Auto) 0.2 (0.0-0.4) % Neut % (Auto) 78.3 H (45-73) % Lymph % (Auto) 13.7 L (20-40) % [place] % (Auto) 6.8 (2-11) % Eos % (Auto) 0.8 (0-4) % Baso % (Auto) 0.2 (0-2) % Lymph # (Auto) 1.7 (1.2-4.9) X10*3/uL [place] # (Auto) 0.8 (0.1-1.2) X10*3/uL Eos # (Auto) 0.1 (0.0-0.4) X10*3/uL Baso # (Auto) 0.0 (0.0-0.2) X10*3/uL Abs Immat Gran (auto) 0.03 (0.00-0.03) X10*3/uL Absolute Neuts (auto) 9.5 H (2.0-8.3) x10*3/uL Absolute Nucleated RBC 0.000 (0.0-0.012) X10*3/uL Nucleated RBC % (auto) 0.0 (0.0-0.2) /100WBC Sodium 137 (135-145) mmol/L Potassium 4.0 (3.3-5.1) mmol/L Chloride 104 (96-108) mmol/L BUN 10 (9-16) mg/dL Creatinine 0.77 (0.5-1.4) mg/dL Estim Creat Clear Calc 90.2 Estimated GFR > 60 Random Glucose 87 (60-115) mg/dL Calcium 9.3 (8.4-10.2) mg/dL Magnesium 2.2 (1.6-2.6) mg/dL Total Bilirubin 0.8 (0.0-1.0) mg/dL Direct Bilirubin 0.3 (0.0-0.5) mg/dL AST 17 (5-31) U/L ALT 24 (0-31) U/L Alkaline Phosphatase 63 (39-117) U/L Total Protein 7.6 (6.5-8.0) g/dL Albumin 4.3 (3.5-5.0) g/dL Lipase 34 (8-78) U/L Urine Color Yellow Urine Appearance Cloudy Urine pH 6.0 (5.0-9.0) Ur Specific Lipan 1.025 (1.005-1.025) Urine Protein Trace (Neg-Trace) mg/dL Urine Glucose (UA) Negative (Negative) mg/dL Urine Ketones 15 (Negative) mg/dL Urine Blood Negative (Negative) Urine Nitrite Negative (Negative) Ur Leukocyte Esterase Trace H (Negative) Urine RBC 0-2 (0-2) /HPF Urine WBC 0-5 (0-5) /HPF Ur Squamous Epith Cells 11-20 (0-2) /HPF Urine Bacteria 4+ (None Seen) Hyaline Casts 0-2 (0-2) /LPF Urine Test (NEGATIVE) 01/29/23 Range/Units 17:24 WBC (4.8-10.8) X10*3/uL RBC (4.20-5.50) X10*6/uL Hgb (12.0-16.0) g/dl Hct (37.0-47.0) % MCV (80.0-98.0) fL MCH (27.0-33.0) pg MCHC (31.0-35.0) g/dl RDW (11.0-16.0) % Plt Count (160-400) X10*3/uL MPV (9.4-12.3) fL Immature Gran % (Auto) (0.0-0.4) % Neut % (Auto) (45-73) % Lymph % (Auto) (20-40) % [place] % (Auto) (2-11) % Eos % (Auto) (0-4) % Baso % (Auto) (0-2) % Lymph # (Auto) (1.2-4.9) X10*3/uL [place] # (Auto) (0.1-1.2) X10*3/uL Eos # (Auto) (0.0-0.4) X10*3/uL Baso # (Auto) (0.0-0.2) X10*3/uL Abs Immat Gran (auto) (0.00-0.03) X10*3/uL Absolute Neuts (auto) (2.0-8.3) x10*3/uL Absolute Nucleated RBC (0.0-0.012) X10*3/uL Nucleated RBC % (auto) (0.0-0.2) /100WBC Sodium (135-145) mmol/L Potassium (3.3-5.1) mmol/L Chloride (96-108) mmol/L BUN (9-16) mg/dL Creatinine (0.5-1.4) mg/dL Estim Creat Clear Calc Estimated GFR Random Glucose (60-115) mg/dL Calcium (8.4-10.2) mg/dL Magnesium (1.6-2.6) mg/dL Total Bilirubin (0.0-1.0) mg/dL Direct Bilirubin (0.0-0.5) mg/dL AST (5-31) U/L ALT (0-31) U/L Alkaline Phosphatase (39-117) U/L Total Protein (6.5-8.0) g/dL Albumin (3.5-5.0) g/dL Lipase (8-78) U/L Urine Color Urine Appearance Urine pH (5.0-9.0) Ur Specific Lipan (1.005-1.025) Urine Protein (Neg-Trace) mg/dL Urine Glucose (UA) (Negative) mg/dL Urine Ketones (Negative) mg/dL Urine Blood (Negative) Urine Nitrite (Negative) Ur Leukocyte Esterase (Negative) Urine RBC (0-2) /HPF Urine WBC (0-5) /HPF Ur Squamous Epith Cells (0-2) /HPF Urine Bacteria (None Seen) Hyaline Casts (0-2) /LPF Urine Test NEGATIVE (NEGATIVE) Independent Interpretation I performed an independent interpretation of an: Ultrasound (No gallbladder wall thickening or pericholecystic fluid. She does have gallstones.) Radiology Impression Discussion of test interpretation with radiology: I have reviewed the radiologist's reading. Radiologist Impression: US/US abdomen limited IMPRESSION: 1.? Cholelithiasis without significant wall thickening or pericholecystic free fluid to suspected acute cholecystitis by ultrasound. 2.? Increased hepatic parenchymal echogenicity is nonspecific and could be related with hepatic steatosis or hepatocellular disease. Correlate with liver function tests. ? Dictated By: Traci Tam Signed By: <Electronically signed by Traci? Anel in OV> 01/29/232026 Medications Administered Discontinued Medications Generic Name Dose Route Start Last Admin Trade Name Freq PRN Reason Stop Dose Admin Sodium Chloride 1,000 mls @ 999 mls/hr 01/29/23 19:15 01/29/23 19:55 Ns IV 01/29/23 20:15 999 mls/hr .Q1H1M JOSEPH Administration Ketorolac Tromethamine 15 mg 01/29/23 19:11 01/29/23 19:54 Ketorolac Tromethamine 15 Mg/Ml Vial IVPUSH 01/29/23 19:12 15 mg ONCE ONE Administration Ondansetron HCl 4 mg 01/29/23 19:11 01/29/23 19:54 Ondansetron Hcl 4 Mg/2 Ml Vial IVPUSH 01/29/23 19:12 4 mg ONCE ONE Administration Discharge Plan Discharge Clinical Impression: Biliary colic Patient Disposition: Home, Self-Care Instructions: Biliary Colic (ED), Gallstones (ED) Prescriptions: No Action meclizine 25 mg tablet 25 mg PO TID PRN (Reason: dizziness) Qty: 14 0RF hydroxyzine HCl 25 mg tablet 25 mg PO BID PRN (Reason: anxiety) Qty: 10 0RF ketorolac 10 mg tablet 10 mg PO Q6H PRN (Reason: pain) 5 Days Qty: 20 0RF Rx Instructions: Patient received Toradol in the emergency room. tamsulosin [Flomax] 0.4 mg capsule 0.4 mg PO BEDTIME Qty: 4 0RF doxycycline hyclate 100 mg capsule 100 mg PO BID 7 Days Qty: 14 0RF acetaminophen 500 mg tablet 1,000 mg PO QID PRN (Reason: pain) Qty: 30 0RF oxymetazoline 0.05 % spray,non-aerosol 2 spray intranasal Q12H PRN (Reason: nasal congestion) 4 Days Qty: 22 0RF ibuprofen 600 mg tablet 600 mg PO Q6H PRN (Reason: fever or pain) Qty: 20 0RF fexofenadine [Jenny Allergy] 180 mg tablet 180 mg PO DAILY Qty: 14 0RF chlorthalidone 25 mg tablet 25 mg PO DAILY venlafaxine 37.5 mg capsule,extended release 24hr 37.5 mg PO DAILY Referrals: Yudelka Brock MD [Physician] - 1 week Print Language: Romanian
[2023-01-29 16:23] LABS: MANUAL DIFF FLAG NO
[2023-01-29 16:35] LABS: Basophils Percent Auto 0.2 % (0-2); Eosinophils Absolute Auto 0.1 X10*3/uL (0.0-0.4); Eosinophils Percent Auto 0.8 % (0-4); Hematocrit 40.4 % (37.0-47.0); Hemoglobin 13.4 g/dl (12.0-16.0); Imm Gran Abs Auto 0.03 X10*3/uL (0.00-0.03); Imm Gran Pct Auto 0.2 % (0.0-0.4); Lymphocytes Absolute Auto 1.7 X10*3/uL (1.2-4.9); Lymphocytes Percent Auto 13.7 % (20-40); Mean Corpuscular HGB Conc 33.2 g/dl (31.0-35.0); Mean Corpuscular Hemoglobin 29.8 pg (27.0-33.0); Mean Corpuscular Volume 89.8 fL (80.0-98.0); Mean Platelet Volume 9.6 fL (9.4-12.3); Monocytes Absolute Auto 0.8 X10*3/uL (0.1-1.2); Monocytes Percent Auto 6.8 % (2-11); Neutrophils Absolute Auto 9.5 x10*3/uL (2.0-8.3); Neutrophils Percent Auto 78.3 % (45-73); Platelet Count 261 X10*3/uL (160-400); Red Cell Distribution Width 12.9 % (11.0-16.0); White Blood Count 12.2 X10*3/uL (4.8-10.8)
[2023-01-29 16:41] LABS: Alanine Aminotransferase 24 U/L (0-31); Albumin Level 4.3 g/dL (3.5-5.0); Alkaline Phosphatase 63 U/L (39-117); Aspartate Amino Transferase 17 U/L (5-31); Bilirubin Direct 0.3 mg/dL (0.0-0.5); Blood Urea Nitrogen 10 mg/dL (9-16); Calcium 9.3 mg/dL (8.4-10.2); Chloride 104 mmol/L (96-108); Creatinine Clr Calc Pharmacy 90.2; Estimated Glomerular Filt Rate > 60; Glucose Random 87 mg/dL (60-115); Lipase 34 U/L (8-78); Magnesium 2.2 mg/dL (1.6-2.6); Sodium 137 mmol/L (135-145); Total Protein 7.6 g/dL (6.5-8.0)
[2023-01-29 16:53] LABS: Bilirubin Total 0.8 mg/dL (0.0-1.0)
[2023-01-29 17:32] LABS: Appearance Urine Cloudy; Color Urine Yellow; Glucose Urine UA Negative (Negative); Leukocyte Esterase Urine Trace (Negative); Nitrite Urine Negative (Negative); Specific Gravity - Urine 1.025 (1.005-1.025); UMIC TRIGGER UACC YES; Urine Blood Negative (Negative); Urine Ketones 15 mg/dL (Negative); Urine Protein Trace mg/dL (Neg-Trace)
[2023-01-29 17:33] LABS: UPreg QC Valid YES; Urine Pregnancy NEGATIVE (NEGATIVE)
[2023-01-29 17:34] LABS: Bacteria Urine 4+ (None Seen); Hyaline Casts Urine 0-2 /LPF (0-2); RBC Urine 0-2 /HPF (0-2); WBC Urine 0-5 /HPF (0-5)
[2023-01-29] MEDS: ondansetron HCL 4 MG/2 ML VIAL IVPUSH (19:54)
[2023-01-29] MEDS: Ketorolac Tromethamine 15 MG/ML VIAL IVPUSH (19:54)
[2023-01-29] MEDS: 0.9 % Sodium Chloride 1,000 ML 999 ML IV (19:55)
[2023-01-29 20:06] VITALS: BP 129/85; PULSE 72; RESP 16; TEMP 36.9; O2SAT 99
[2023-01-29 21:35] LABS: Carbon Dioxide 20 mmol/L (22-29)
[2023-01-29 21:44] VITALS: BP 133/77; PULSE 70; RESP 18; TEMP 37; O2SAT 98
== END 2023-01-29 21:59 | disposition home or self-care (01) ==
PROVIDERS: Physician Assistant; Emergency Provider Emergency Medicine; PCP Internal Medicine Geriatric Medicine
DX: K80.50 Calculus of bile duct without cholangitis or cholecystitis without obstruction (principal); R10.11 Right upper quadrant pain; I10 Essential (primary) hypertension; Z79.899 Other long term (current) drug therapy
CPT/HCPCS: 36415; 76705; 80048; 80076; 81001; 81025; 83690; 83735; 85025; 96374; 96375; 99284; J1885; J2405

== ENCOUNTER 2023-01-29 17:44 | Outpatient (REF) | payer MEDICAID, SELFPAY | END 2023-01-29 17:45 | disposition home or self-care (01) | LOC: HO.HHCLNP 17:44 | PROVIDERS: PCP Internal Medicine; Visit Provider Internal Medicine | DX: R10.12 Left upper quadrant pain (principal) | CPT/HCPCS: 87086 ==

== ENCOUNTER 2023-02-04 14:39 | Outpatient (AMB) | payer MEDICAID, SELFPAY ==
[2023-02-04 14:43] VITALS: BP 153/88; PULSE 66; BMI 30.2
--- NOTE | 2023-02-04 14:43 | MHC.OFFVIS ---
Intake Vital Signs 02/04/23 14:43 Height 5 ft 1 in Weight 160 lb BMI 30.2 BP 153/88 H Blood Pressure Location Rt brachial Position Sitting Pulse 66 Intake Visit Reasons: Gallstones Intake Note: Patient referred for gallstones. Recent Abd US on 01-29-23. Patient report RUQ pain. On and off nausea. Family Support Specialist Required: No Accompanied by: Spouse Allergies No Known Allergies Allergy (Verified 02/04/23 14:45) HPI HPI Comments History of Present Illness Details Patient was recently seen emergency department for about of biliary colic. She has had episodes of right upper quadrant pain radiating around to her back. She is unsure there is diet related to this. She otherwise has regular bowel habits. She has never been jaundiced before. Chart was reviewed and patient evaluated. No prior surgeries. [facility], [facility] Medical History Depressed History of eclampsia History of high blood pressure Surgical History Hx of appendectomy Hx of tubal ligation Family History Father CVD (cardiovascular disease) Mother Asthma History of anxiety History of fibromyalgia Social History (Updated 02/04/23 @ 14:46 by JOSE Zimmer) Alcohol intake: current Alcohol intake frequency: holidays/special occasions only Patient Tobacco Use Status: Never used Tobacco Sexual orientation: Straight/Heterosexual Gender identity: Female Female Reproductive History Menstrual Age of Menarche: 10 Physical Exam Vital Signs: Last Vital Signs Pulse 66 02/04/23 14:43 BP 153/88 H 02/04/23 14:43 BMI result Body Mass Index 30.2 Eyes Other: Anicteric Chest Other: Chest sounds bilaterally, HS 1 in 2 GI Other: Abdomen soft, mildly corpulent, nontender. Assessment & Plan Assessment & Plan (1) Recurrent biliary colic: Code(s): K80.50 - Calculus of bile duct without cholangitis or cholecystitis without obstruction Plan Risks, benefits, alternatives of laparoscopic possible open cholecystectomy reviewed the patient and her significant other was present and included but not limited to bleeding, infection, recurrence of symptoms, numbness, pain, scarring, bowel or bile duct injury or leak and patient wishes to proceed. All questions were answered. Arrangements were made for this. Coding Level of Care Code New Pt Level 5 (67354) Diagnoses Recurrent biliary colic K80.50
== END 2023-02-04 15:04 | disposition home or self-care (01) ==
PROVIDERS: PCP Internal Medicine; Referring Provider Internal Medicine; Visit Provider Surgery
DX: K80.50 Calculus of bile duct without cholangitis or cholecystitis without obstruction (principal)
CPT/HCPCS: 99205

== ENCOUNTER → 2023-02-04 14:39 | Outpatient (BNVA) | payer MEDICAID, SELFPAY | PROVIDERS: PCP Internal Medicine; Referring Provider Internal Medicine; Visit Provider Surgery | DX: K80.50 Calculus of bile duct without cholangitis or cholecystitis without obstruction (principal) | CPT/HCPCS: 99202 ==

== ENCOUNTER 2023-02-28 07:33 | Day surgery (SDC) | payer MEDICAID, SELFPAY ==
[2023-02-26 09:49] VITALS: BMI 29.5
--- NOTE | 2023-02-27 09:33 | MHC.SHP ---
Pre-Procedural Eval Section A Date of Service: 02/27/23 The patient is an INPATIENT: No Changes since office visit: No Cold of Flu in the past 2 weeks, No New Medical Problems, No Changes in Medication and No Patient answered all questions The History & Physical has been completed within 30 days and I have reviewed it.: Yes Section B Chief Complaint: Calculus of bile duct without cholangitis or clara Allergies: Allergies Allergy/AdvReac Type Severity Reaction Status Date / Time No Known Allergies Allergy Verified 02/04/23 14:45 Plan I have reviewed the history and physical and performed a pertinent physical examination on my patient. No changes have occurred unless specified. Time Spent With Patient Time: Total time managing care of this patient today ____ minutes.
[2023-02-28] VITALS (17 sets, daily range): BP systolic 85–167; BP diastolic 39–94; PULSE 57–95; RESP 14–19; TEMP 36.1–36.5; O2SAT 94–100
[2023-02-28] MEDS: Lactated Ringers 1,000 ML 100 ML IVCONT (08:07)
--- NOTE | 2023-02-28 08:35 | P.CONAN_ITS ---
Documented by User: Helene Bucio NP 02/27/23 09:02 HPI - Anesthesia Eval Consult details Narrative: 38yo F for Cholecystectomy Laparoscopic,poss open Eval by cardiology 2021 for atypical CP. Nml Holter. No recurrance of symptoms since. PMFSH Active Problems Active Problems: All Active Problems (Updated 01/30/23 @ 00:02 by Hattie Westbrook) Recurrent biliary colic (Acute) Pelvic pain (Acute) Breast cancer screening (Acute) Cervical cancer screening (Acute) Well woman exam with routine gynecological exam (Acute) Encounter for annual routine gynecological examination (Acute) Heart palpitations (Acute) Abnormal EKG (Acute) Precordial chest pain (Acute) LVH (left ventricular hypertrophy) (Acute) Past Medical History Medical History Depressed History of eclampsia History of high blood pressure Family History Family History Father CVD (cardiovascular disease) Mother Asthma History of anxiety History of fibromyalgia Surgical History Surgical History Hx of appendectomy Hx of tubal ligation Social History Social History Are you a 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 critical care unit nurse to a 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 other at home: Yes Do you presently have visiting nurse or other home services: No Alcohol intake: current Alcohol intake frequency: a few times a month Patient Tobacco Use Status: Never used Tobacco Use of substances other than those prescribed or required for medical reasons: No Are you DNR?: No Advance Directives: No Advance Directives Information Provided: Yes Advance Directives on File: No Recently lost weight without trying: No Nutrition Risks: No Nutritional Risk Patient : No : No Poor oral hygiene: No Sexual orientation: Straight/Heterosexual Gender identity: Female Meds Allergies Allergy/AdvReac Type Severity Reaction Status Date / Time No Known Allergies Allergy Verified 02/04/23 14:45 Home Medications Medication Instructions Recorded Confirmed Last Taken Type chlorthalidone 25 mg tablet 25 mg PO DAILY 05/15/20 02/26/23 02/28/23 History Exam Exam Date and Time: February 27, 2023 0859 Height,Weight and Vital Signs: Height 5 ft 1 in Weight 70.76 kg Pertinent Lab Results Pertinent Lab Results: Laboratory Tests 01/29/23 01/29/23 16:17 16:17 WBC 12.2 H Hgb 13.4 Hct 40.4 Plt Count 261 Sodium 137 Potassium 4.0 Chloride 104 Carbon Dioxide 20 L BUN 10 Creatinine 0.77 Assessment and Plan Assessment Anesthesia Assessment: Chart Reviewed Documented by User: Arlen Yan DO 02/28/23 09:06 [facility] Past Medical History Medical History Depressed History of eclampsia History of high blood pressure Functional capacity: independent ambulation Family History Family History Father CVD (cardiovascular disease) Mother Asthma History of anxiety History of fibromyalgia Family history of problems with anesthesia: No Surgical History Surgical History Hx of appendectomy Hx of tubal ligation History of Problems with Anesthesia: No Social History Social History Are you a primary critical care unit nurse to a significant other at home: Yes Do you presently have visiting nurse or other home services: No Alcohol intake: current Alcohol intake frequency: a few times a month Patient Tobacco Use Status: Never used Tobacco Use of substances other than those prescribed or required for medical reasons: No Are you DNR?: No Advance Directives: No Advance Directives Information Provided: Yes Advance Directives on File: No Recently lost weight without trying: No Nutrition Risks: No Nutritional Risk Patient : No : No Poor oral hygiene: No Sexual orientation: Straight/Heterosexual Gender identity: Female Meds Allergies Allergy/AdvReac Type Severity Reaction Status Date / Time No Known Allergies Allergy Verified 02/04/23 14:45 Home Medications Medication Instructions Recorded Confirmed Last Taken Type chlorthalidone 25 mg tablet 25 mg PO DAILY 05/15/20 02/26/23 02/28/23 History Exam Exam Date and Time: February 28, 2023 0830 Height,Weight and Vital Signs: Height 5 ft 1 in Weight 70.76 kg Vital Signs Temperature 97.7 F 02/28/23 07:59 Pulse Rate 75 02/28/23 07:59 Respiratory Rate 16 02/28/23 07:59 Blood Pressure 134/86 02/28/23 07:59 Pulse Oximetry 97 02/28/23 07:59 Oxygen Delivery Method Room Air 02/28/23 07:59 Temperature 97.7 F 02/28/23 07:59 Pulse Rate 75 02/28/23 07:59 Respiratory Rate 16 02/28/23 07:59 Blood Pressure 134/86 02/28/23 07:59 Pulse Oximetry 97 02/28/23 07:59 Oxygen Delivery Method Room Air 02/28/23 07:59 Airway Mallampati Class: I TM Dist: >3cm Neck ROM: Full Loose/Missing/Broken Teeth: No Heart: S1S2 Lungs: CTAB Assessment and Plan Assessment Anesthesia Assessment: Anesthesia Plan Discussed and Chart Reviewed Final Anesthetic Review Family History of Problems with Anesthesia: No History of Problems with Anesthesia: No NPO: Yes ASA Class: II Final Preanesthetic Review: No Changes in Pt Med Stat, Meds/Allgs Chart Reviewed, Consent Obtained/Reviewed (real estate services coordinator at bedside for translation) and Anes Risks/Benef Reviewed Patient Risk: Low Procedure Risk: Low Anesthetic Plan Anesthetic Plan: GA and Agree w/ Assess. and Plan Disposition: Standard PACU
--- NOTE | 2023-02-28 09:29 | W.PM.OPN ---
Operative Note Operative Note Date of Service: 02/28/23 Narrative: Preoperative diagnosis: [] Recurrent biliary colic Postop diagnosis: [] Same Procedure [] laparoscopic cholecystectomy Surgeon: [] Mir Supervisor Packing Room: [] KWAKU Charles Type of Anesthesia: [] General Indication for surgery: [] Gallbladder with omental adhesions to it. Findings: [] Patient brought to the operating room, placed on operative table supine position, after adequate level of general anesthesia was induced, the patient's abdomen was prepped and draped in usual sterile fashion. Using a supraumbilical curvilinear incision, Calderon technique was used to insufflate the abdominal cavity to 15 mm of CO2. Upper midline and right subcostal ports were placed under direct laparoscopic view, and the patient was placed in reverse Trendelenburg position, and tilted to the left. Gallbladder was grasped using laparoscopic graspers, and retracted superiorly and laterally. Soft omental adhesions were swept off the gallbladder, where it's was hilum was approached. Common bile duct was identified and preserved throughout the procedure. Cystic artery and cystic duct were each identified, circumferentially skeletonized, each traced directly to the gallbladder, and critical view obtained. Each was clipped proximally x2, distally x1, and transected. Gallbladder was then cauterized from the gallbladder fossa using Bovie. Specimen was placed in an Endo-Catch bag, a retrieved through the umbilical port. The abdominal cavity was very copiously irrigated, and secured hemostasis. All ports removed under direct laparoscopic view. Wounds were closed in the following manner; umbilical wound had its fascia reapproximated using interrupted 0 Vicryl sutures. Skin wounds were closed using subcuticular 4-0 Vicryl sutures followed by Steri-Strips and sterile dressings. Wounds were infiltrated 0.5% Marcaine at completion. Sponge, needle, and instrument counts reported to be correct. Patient tolerated the procedure well and emerged anesthesia stable condition. EBL minimal
[2023-02-28] MEDS: fentaNYL citrate/PF 100 MCG/2 ML VIAL 50 MCG IVPUSH (09:55)
--- NOTE | 2023-02-28 12:19 | PC.NURSE ---
cleared by Dr. Warner and Dr. Yan for discharge
== END 2023-02-28 12:45 | disposition home or self-care (01) ==
PROVIDERS: PCP Internal Medicine Geriatric Medicine; Visit Provider Surgery
PROC: 0FT44ZZ Resection of Gallbladder, Percutaneous Endoscopic Approach (ICD-10-PCS; CPT 47562; principal; 2023-02-28 09:00)
DX: K80.10 Calculus of gallbladder with chronic cholecystitis without obstruction (principal); K82.8 Other specified diseases of gallbladder; I10 Essential (primary) hypertension; F32.A Depression, unspecified; Z79.899 Other long term (current) drug therapy
CPT/HCPCS: 47562; 88304; J0131; J0690; J1885; J2371; J2550; J3010

== ENCOUNTER → 2023-02-28 07:33 | Outpatient (BNV) | payer MEDICAID, SELFPAY | PROVIDERS: PCP Internal Medicine Geriatric Medicine; Visit Provider Surgery | DX: K80.50 Calculus of bile duct without cholangitis or cholecystitis without obstruction (principal) | CPT/HCPCS: 47562 ==

== ENCOUNTER 2023-03-10 10:05 | Outpatient (AMB) | payer MEDICAID, SELFPAY ==
[2023-03-10 10:12] VITALS: BP 144/84; PULSE 80
--- NOTE | 2023-03-10 10:12 | MHC.OFFVIS ---
Intake Vital Signs 03/10/23 10:12 BP 144/84 H Blood Pressure Location Lt brachial Position Sitting Pulse 80 Intake Visit Reasons: S/P lap clara Intake Note: Patient here s/p lap clara. Noticed some bleeding in one incision area after first night after procedure. C/o itching along scar. Allergies No Known Allergies Allergy (Verified 02/04/23 14:45) HPI HPI Comments History of Present Illness Details Patient presents for postop. She is doing well. She is slowly but steadily increasing her activity level. She is tolerating a diet. Having normal bowel habits. Patient has improving incisional discomfort. 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 All wounds clean dry and intact. Assessment & Plan Assessment & Plan (1) Recurrent biliary colic: Code(s): K80.50 - Calculus of bile duct without cholangitis or cholecystitis without obstruction Plan Patient will be given a note for 2 weeks off from work and then 2 weeks light duty when she recommenced this. Meantime, any issues or complaints she is to contact the office or will otherwise follow up p.r.n. Coding Level of Care Code Global (69753) Diagnoses Recurrent biliary colic K80.50
== END 2023-03-10 10:19 | disposition home or self-care (01) ==
PROVIDERS: PCP Internal Medicine; Visit Provider Surgery
DX: K80.50 Calculus of bile duct without cholangitis or cholecystitis without obstruction (principal)
CPT/HCPCS: 99024

== ENCOUNTER → 2023-03-10 10:05 | Outpatient (BNVA) | payer MEDICAID, SELFPAY | PROVIDERS: PCP Internal Medicine; Visit Provider Surgery ==

== ENCOUNTER 2023-07-12 22:41 | Emergency (ER) | payer MEDICAID, SELFPAY ==
[2023-07-13 00:16] VITALS: BP 146/79; PULSE 68; RESP 18; TEMP 36.7; O2SAT 98; BMI 30.9
[2023-07-13 00:40] LABS: MANUAL DIFF FLAG NO
[2023-07-13 00:42] LABS: Basophils Absolute Auto 0.1 X10*3/uL (0.0-0.2); Basophils Percent Auto 0.7 % (0-2); Eosinophils Absolute Auto 0.4 X10*3/uL (0.0-0.4); Eosinophils Percent Auto 5.1 % (0-4); Hematocrit 40.8 % (37.0-47.0); Imm Gran Abs Auto 0.01 X10*3/uL (0.00-0.03); Imm Gran Pct Auto 0.1 % (0.0-0.4); Lymphocytes Percent Auto 25.8 % (20-40); Mean Corpuscular HGB Conc 34.3 g/dl (31.0-35.0); Mean Corpuscular Hemoglobin 29.5 pg (27.0-33.0); Mean Corpuscular Volume 86.1 fL (80.0-98.0); Mean Platelet Volume 9.3 fL (9.4-12.3); Monocytes Absolute Auto 0.5 X10*3/uL (0.1-1.2); Monocytes Percent Auto 6.8 % (2-11); Neutrophils Absolute Auto 4.7 x10*3/uL (2.0-8.3); Neutrophils Percent Auto 61.5 % (45-73); Platelet Count 295 X10*3/uL (160-400); Red Blood Count 4.74 X10*6/uL (4.20-5.50); Red Cell Distribution Width 11.9 % (11.0-16.0); White Blood Count 7.6 X10*3/uL (4.8-10.8)
[2023-07-13 00:57] LABS: Alanine Aminotransferase 27 U/L (0-31); Albumin Level 4.3 g/dL (3.5-5.0); Alkaline Phosphatase 67 U/L (39-117); Anion Gap 14 (12-20); Aspartate Amino Transferase 20 U/L (5-31); Bilirubin Total 0.4 mg/dL (0.0-1.0); Blood Urea Nitrogen 11 mg/dL (9-16); Calcium 9.5 mg/dL (8.4-10.2); Carbon Dioxide 26 mmol/L (22-29); Chloride 104 mmol/L (96-108); Creatinine Clr Calc Pharmacy 97.9; Estimated Glomerular Filt Rate > 60; Glucose Random 97 mg/dL (60-115); Potassium 3.5 mmol/L (3.3-5.1); Sodium 140 mmol/L (135-145); Total Protein 7.9 g/dL (6.5-8.0)
[2023-07-13 05:28] VITALS: BP 143/72; PULSE 57; RESP 17; TEMP 36.5; O2SAT 97
== END 2023-07-13 08:00 | disposition left against medical advice (07) ==
PROVIDERS: Emergency Provider Emergency Medicine; PCP Internal Medicine Geriatric Medicine
DX: R11.2 Nausea with vomiting, unspecified (principal); R42 Dizziness and giddiness; Z79.899 Other long term (current) drug therapy
CPT/HCPCS: 36415; 80053; 85025; 99281; 99283

== ENCOUNTER 2023-07-14 18:14 | Emergency (ER) | payer MEDICAID, SELFPAY ==
--- NOTE | 2023-07-14 18:39 | ED_ITS ---
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 Patient states she has a cough which is productive of thick yellow sputum. Patient has had chest pain which she states is worse with breathing and with coughing. Patient has had nausea and vomiting. She is also complaining of room spinning dizziness. She states she has had vertigo in the past and the dizziness feels similar to her vertigo. She denied fever, chills, frequency, urgency or dysuria Related Data Home Medications Medication Instructions Recorded Confirmed chlorthalidone 25 mg tablet 25 mg PO DAILY 05/15/20 03/10/23 Previous Rx's Medication Instructions Recorded fexofenadine 180 mg tablet 180 mg PO DAILY #14 tabs 04/13/22 (Jenny Allergy) ibuprofen 600 mg tablet 600 mg PO Q6H PRN fever or pain 04/13/22 #20 tabs hydrocodone 5 mg-acetaminophen 325 1 tab PO Q4-6H PRN pain #30 tabs 02/28/23 mg tablet amoxicillin 500 mg capsule 1,000 mg (2 x 500 mg) PO TID 5 07/15/23 days #30 caps meclizine 25 mg tablet (Dramamine 25 mg PO TID PRN dizziness #20 tabs 07/15/23 Less Drowsy) ondansetron 4 mg disintegrating 4 mg PO Q6-8H PRN nausea and 07/15/23 tablet vomiting #14 tabs Allergies Allergy/AdvReac Type Severity Reaction Status Date / Time No Known Allergies Allergy Verified 07/14/23 18:44 Review of Systems 2 Review of Systems: Yes all other systems are reviewed and are negative [facility] Past Medical History [facility] Narrative: social history: She denies tobacco use. She occasionally drinks alcohol. She denies drug use. Onset Date is defined in the Problem List Problems that require an onset date and time if occurred within 24 hrs of arrival to the ED Aortic Dissection and Rupture; Neurologic impairment; Cardiopulmonary Arrest; Endotracheal Intubation; Insertion or Replacement of Mechanical Circulatory Assist Device Medical History Depressed History of eclampsia History of high blood pressure Surgical History History of laparoscopic cholecystectomy (02/28/23) Hx of appendectomy Hx of tubal ligation Family History Family History Father CVD (cardiovascular disease) Mother Asthma History of anxiety History of fibromyalgia Social History Social History 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: Yes Do you presently have visiting nurse or other home services: No Alcohol intake: current Alcohol intake frequency: a few times a month Patient Tobacco Use Status: Never used Tobacco Advance Directives: No Advance Directives Information Provided: No Sexual orientation: Straight/Heterosexual Gender identity: Female Physical Exam 2 Vital Signs: Vital Signs: Last Vital Signs Temp 97.1 F 07/14/23 18:41 Pulse 71 07/14/23 18:41 Resp 20 07/14/23 18:41 BP 153/85 H 07/14/23 18:41 Pulse Ox 98 07/14/23 18:41 O2 Del Method Room Air 07/14/23 18:41 BMI result Body Mass Index 30.9 Vital signs revealed elevated blood pressure 153/85 otherwise unremarkable exam: General: Awake, alert in no distress Head: Normocephalic, atraumatic EENT: PERRL, Lids normal, sclera normal, conjunctiva normal, nose normal , ears normal, throat without erythema or exudates Neck: Supple, no adenopathy, no trachea midline or C-spine tenderness Lung: breath sounds symmetric, no wheezing, rales or rhonchi Chest: symmetric movement, nontender Heart: regular rate and rhythm, normal S1, S2 no murmurs or rubs Abdomen: soft, non-tender, nondistended, normal bowel sounds Back: no vertebral tenderness, no CVAT Extremities: no deformities, moves all extremities symmetrically Neuro: Awake, alert, oriented, normal speech, cranial nerves intact, moves all extremities symmetrically , good coazim-ab-tbhf-to-finger, good rapid finger movement, normal heel to mcelroy, inducible vertigo with position change with lateral nystagmus Psych: Pleasant, cooperative Course Course Course Narrative: This is a rapid medical exam. Deferred additional HPI, ROS, PE to primary provider. 38 yo female with history of HTN, seasonal allergies here with complaints of nausea, dizziness, headache since 06/12 2pm. Recently had URI symptoms. Will obtain labs, EKG, viral testing, UA/ur preg VSS Medical Decision Making Medical Decision Making [facility] Narrative: 38-year-old female with history of hypertension and vertigo who presents emergency department for evaluation of 3 days of cough, pleuritic chest pain, headache, nausea, vomiting and vertigo. Vital signs revealed an elevated blood pressure otherwise unremarkable. Physical examination did reveal inducible vertigo with position change and this diagnosis. Following evaluation was ordered: CBC, BMP, liver panel, troponin, COVID-19, influenza, RSV, urinalysis, urine test, EKG 12:03 my interpretation patient's laboratory evaluation is as follows: CBC was normal. CMP was normal. High sensitive troponin I was below detectable limits. COVID-19, RSV and influenza were negative. Urine test was negative. Urinalysis and microscopic were consistent with non clean catch urine -patient is asymptomatic therefore I doubt urinary tract infection patient's symptoms are consistent with acute bronchitis which is triggered her vertigo. Patient was treated emergency depart with amoxicillin 1000 mg orally, meclizine 25 mg orally and Zofran ODT 4 mg orally. Patient was prescribed amoxicillin 1000 mg 3 times a day for 5 days, meclizine t.i.d. as needed for dizziness and Zofran ODT 4 mg every 6-8 hours as needed for nausea and vomiting. She was given printed and verbal instructions and discharged home Differential Diagnosis Differential Diagnoses: The differential diagnosis associated with the presentation includes differential diagnosis includes was not limited to pneumonia, bronchitis, vertigo Admission/Observation Consideration of admission/observation: Escalation of care including admission/observation considered Lab Data [facility] Lab Attestation statement: I reviewed the patient's lab results. see MDM above 07/14/23 19:24 07/14/23 19:24 Labs: Lab Results 07/14/23 07/14/23 Range/Units 19:24 21:39 WBC 7.6 (4.8-10.8) X10*3/uL RBC 4.48 (4.20-5.50) X10*6/uL Hgb 13.2 (12.0-16.0) g/dl Hct 38.9 (37.0-47.0) % MCV 86.8 (80.0-98.0) fL MCH 29.5 (27.0-33.0) pg MCHC 33.9 (31.0-35.0) g/dl RDW 12.2 (11.0-16.0) % Plt Count 264 (160-400) X10*3/uL MPV 9.2 L (9.4-12.3) fL Immature Gran % (Auto) 0.3 (0.0-0.4) % Neut % (Auto) 63.2 (45-73) % Lymph % (Auto) 23.2 (20-40) % [place] % (Auto) 7.2 (2-11) % Eos % (Auto) 5.4 H (0-4) % Baso % (Auto) 0.7 (0-2) % Lymph # (Auto) 1.8 (1.2-4.9) X10*3/uL [place] # (Auto) 0.6 (0.1-1.2) X10*3/uL Eos # (Auto) 0.4 (0.0-0.4) X10*3/uL Baso # (Auto) 0.1 (0.0-0.2) X10*3/uL Abs Immat Gran (auto) 0.02 (0.00-0.03) X10*3/uL Absolute Neuts (auto) 4.8 (2.0-8.3) x10*3/uL Absolute Nucleated RBC 0.000 (0.0-0.012) X10*3/uL Nucleated RBC % (auto) 0.0 (0.0-0.2) /100WBC Sodium 143 (135-145) mmol/L Potassium 3.7 (3.3-5.1) mmol/L Chloride 109 H (96-108) mmol/L Carbon Dioxide 28 (22-29) mmol/L Anion Gap 10 L (12-20) BUN 12 (9-16) mg/dL Creatinine 0.76 (0.5-1.4) mg/dL Estim Creat Clear Calc 91.5 Estimated GFR > 60 Random Glucose 105 (60-115) mg/dL Calcium 8.8 D (8.4-10.2) mg/dL Total Bilirubin 0.4 (0.0-1.0) mg/dL Direct Bilirubin 0.1 (0.0-0.5) mg/dL AST 19 (5-31) U/L ALT 24 (0-31) U/L Alkaline Phosphatase 63 (39-117) U/L Troponin I High Sens < 2.7 (<3.5-17.0) ng/L Total Protein 7.1 (6.5-8.0) g/dL Albumin 3.9 (3.5-5.0) g/dL Urine Color Yellow Urine Appearance Cloudy Urine pH 6.0 (5.0-9.0) Ur Specific [place] 1.025 (1.005-1.025) Urine Protein Negative (Neg-Trace) mg/dL Urine Glucose (UA) Negative (Negative) mg/dL Urine Ketones Negative (Negative) mg/dL Urine Blood Negative (Negative) Urine Nitrite Negative (Negative) Ur Leukocyte Esterase Trace H (Negative) Urine RBC 0-2 (0-2) /HPF Urine WBC 0-5 (0-5) /HPF Ur Squamous Epith Cells 6-10 (0-2) /HPF Urine Bacteria 4+ (None Seen) Hyaline Casts 0-2 (0-2) /LPF Urine Test NEGATIVE (NEGATIVE) Influenza Type A (PCR) NEGATIVE (Negative) Influenza Type B (PCR) NEGATIVE (Negative) RSV RNA Qual (PCR) NEGATIVE (Negative) SARS-CoV-2 RNA (RT-PCR) NEGATIVE (Negative) Independent Interpretation I performed an independent interpretation of an: EKG Interpretation: My independent interpretation patient's 12 EKG done at 19:37 hours is as follows: Sinus bradycardia with a rate of 59, normal ID interval, QRS duration QTC interval, no ST segment elevation, no ST segment depression, inverted T-wave in lead 3, no PACs, no PVCs Independent Historian Clinical information obtained from an independent historian. History obtained from or confirmed by: Parent Prescription Management I considered prescription management with: Antibiotic Chronic Conditions Patient?s care impacted by: Hypertension Discharge Plan Discharge Clinical Impression: Vertigo Acute bronchitis Qualifiers: Bronchitis organism: other organism Qualified Code(s): J20.8 - Acute bronchitis due to other specified organisms Vomiting Qualifiers: Vomiting type: unspecified Nausea presence: with nausea Qualified Code(s): R 11.2 - Nausea with vomiting, unspecified Patient Disposition: Home, Self-Care Instructions: Vertigo (ED), Acute Bronchitis (ED) Additional Instructions: your blood work was unremarkable. Your EKG was normal. Your COVID-19, influenza and RSV were negative. Your symptoms are consistent with bronchitis and vertigo. Take amoxicillin 500 mg pills, 2 pills, every 6 hours (3 times a day) for 5 days. Take meclizine 25 mg pills, 1 pill 3 times a day for the next 3 days for dizziness then as needed for dizziness. This medication will make you sleepy. Do not drive or work while taking this medication. Take Zofran ODT 4 mg pills, 1 pill dissolved in your mouth every 8 hours as needed for nausea and vomiting. Follow-up with your doctor in 2 days. Please return to the emergency department if your symptoms get worse or if you develop any symptoms that are concerning to you. Prescriptions: New amoxicillin 500 mg capsule 1,000 mg PO TID 5 Days Qty: 30 0RF meclizine [Dramamine Less Drowsy] 25 mg tablet 25 mg PO TID PRN (Reason: dizziness) Qty: 20 0RF ondansetron 4 mg tablet,disintegrating 4 mg PO Q6-8H PRN (Reason: nausea and vomiting) Qty: 14 0RF No Action ibuprofen 600 mg tablet 600 mg PO Q6H PRN (Reason: fever or pain) Qty: 20 0RF fexofenadine [Jenny Allergy] 180 mg tablet 180 mg PO DAILY Qty: 14 0RF hydrocodone-acetaminophen 5-325 mg tablet 1 tab PO Q4-6H PRN (Reason: pain) Qty: 30 0RF Rx Instructions: Partial Fill upon patient request. chlorthalidone 25 mg tablet 25 mg PO DAILY
[2023-07-14 18:41] VITALS: BP 153/85; PULSE 71; RESP 20; TEMP 36.2; O2SAT 98; BMI 30.9
--- NOTE | 2023-07-14 18:42 | ECG_ITS ---
Test Reason : dizziness Blood Pressure : / mmHG Vent. Rate : 059 BPM Atrial Rate : 059 BPM P-R Int : 144 ms QRS Dur : 090 ms QT Int : 446 ms P-R-T Axes : 048 005 033 degrees QTc Int : 441 ms Sinus bradycardia Minimal voltage criteria for LVH, may be normal variant ( R in aVL ) Borderline ECG When compared with ECG of 21-AUG-2021 19:45, Nonspecific T wave abnormality has replaced inverted T waves in Inferior leads Referred By: Esperanza Ji Electronically Signed By:Jhonathan Mason
[2023-07-14 19:29] LABS: MANUAL DIFF FLAG NO
[2023-07-14 19:30] LABS: Basophils Absolute Auto 0.1 X10*3/uL (0.0-0.2); Basophils Percent Auto 0.7 % (0-2); Eosinophils Absolute Auto 0.4 X10*3/uL (0.0-0.4); Eosinophils Percent Auto 5.4 % (0-4); Hematocrit 38.9 % (37.0-47.0); Hemoglobin 13.2 g/dl (12.0-16.0); Imm Gran Abs Auto 0.02 X10*3/uL (0.00-0.03); Imm Gran Pct Auto 0.3 % (0.0-0.4); Lymphocytes Absolute Auto 1.8 X10*3/uL (1.2-4.9); Lymphocytes Percent Auto 23.2 % (20-40); Mean Corpuscular HGB Conc 33.9 g/dl (31.0-35.0); Mean Corpuscular Hemoglobin 29.5 pg (27.0-33.0); Mean Corpuscular Volume 86.8 fL (80.0-98.0); Mean Platelet Volume 9.2 fL (9.4-12.3); Monocytes Absolute Auto 0.6 X10*3/uL (0.1-1.2); Monocytes Percent Auto 7.2 % (2-11); Neutrophils Absolute Auto 4.8 x10*3/uL (2.0-8.3); Neutrophils Percent Auto 63.2 % (45-73); Platelet Count 264 X10*3/uL (160-400); Red Blood Count 4.48 X10*6/uL (4.20-5.50); Red Cell Distribution Width 12.2 % (11.0-16.0); White Blood Count 7.6 X10*3/uL (4.8-10.8)
--- NOTE | 2023-07-14 19:42 | MHC.EDTECH ---
PATIENT BLOOD DRAWN AND RSV /COVID SWAB AND SENT TO LAB ,EKG TAKEN AND WAS READ BY PROVIDER.
[2023-07-14 19:52] LABS: Alanine Aminotransferase 24 U/L (0-31); Albumin Level 3.9 g/dL (3.5-5.0); Alkaline Phosphatase 63 U/L (39-117); Anion Gap 10 (12-20); Aspartate Amino Transferase 19 U/L (5-31); Bilirubin Direct 0.1 mg/dL (0.0-0.5); Bilirubin Total 0.4 mg/dL (0.0-1.0); Blood Urea Nitrogen 12 mg/dL (9-16); Calcium 8.8 mg/dL (8.4-10.2); Carbon Dioxide 28 mmol/L (22-29); Chloride 109 mmol/L (96-108); Creatinine Clr Calc Pharmacy 91.5; Estimated Glomerular Filt Rate > 60; Glucose Random 105 mg/dL (60-115); Potassium 3.7 mmol/L (3.3-5.1); Sodium 143 mmol/L (135-145); Total Protein 7.1 g/dL (6.5-8.0)
[2023-07-14 20:01] LABS: Troponin-I High Sensitivity < 2.7 ng/L (<3.5-17.0)
[2023-07-14 20:09] LABS: Influenza A PCR NEGATIVE (Negative); Influenza B PCR NEGATIVE (Negative); Resp Syncy Virus RNA Qual PCR NEGATIVE (Negative); SARS COV2 PCR INHOUSE NEGATIVE (Negative)
--- NOTE | 2023-07-14 21:40 | MHC.EDTECH ---
URINE SAMPLE COLLECTED AND SENT TO LAB .
[2023-07-14 22:01] LABS: Appearance Urine Cloudy; Color Urine Yellow; Glucose Urine UA Negative (Negative); Leukocyte Esterase Urine Trace (Negative); Nitrite Urine Negative (Negative); Specific Gravity - Urine 1.025 (1.005-1.025); UMIC TRIGGER UACC YES; UPreg QC Valid YES; Urine Blood Negative (Negative); Urine Ketones Negative (Negative); Urine Pregnancy NEGATIVE (NEGATIVE); Urine Protein Negative (Neg-Trace)
[2023-07-14 22:05] LABS: Bacteria Urine 4+ (None Seen); Hyaline Casts Urine 0-2 /LPF (0-2); RBC Urine 0-2 /HPF (0-2); WBC Urine 0-5 /HPF (0-5)
[2023-07-15] VITALS: BP 123/75; PULSE 66
[2023-07-15 00:01] VITALS: BP 134/74; PULSE 71
[2023-07-15 00:02] VITALS: BP 141/87; PULSE 69
[2023-07-15 00:03] VITALS: O2SAT 98
[2023-07-15] MEDS: Meclizine HCl 25 MG TABLET PO (00:12)
[2023-07-15] MEDS: Ondansetron ODT 4 MG TAB.RAPDIS TRANSLINGU (00:12)
[2023-07-15] MEDS: Amoxicillin 500 MG CAPSULE 1000 MG PO (00:12)
== END 2023-07-15 00:48 | disposition home or self-care (01) ==
PROVIDERS: Nurse Practitioner Family; Emergency Provider Emergency Medicine Emergency Medical Services; PCP Internal Medicine Geriatric Medicine
DX: R42 Dizziness and giddiness (principal); J20.8 Acute bronchitis due to other specified organisms; R11.2 Nausea with vomiting, unspecified; Z20.822 Contact with and (suspected) exposure to COVID-19; Z20.828 Contact with and (suspected) exposure to other viral communicable diseases; I10 Essential (primary) hypertension; Z79.899 Other long term (current) drug therapy
CPT/HCPCS: 0241U; 80048; 80076; 81001; 81003; 81025; 84484; 85025; 93005; 99283; 99285

== ENCOUNTER → 2023-07-14 18:42 | Outpatient (BNV) | payer MEDICAID, SELFPAY | PROVIDERS: Emergency Provider Emergency Medicine Emergency Medical Services; PCP Internal Medicine Geriatric Medicine; Visit Provider Internal Medicine Cardiovascular Disease | DX: R42 Dizziness and giddiness (principal) | CPT/HCPCS: 93010 ==

== ENCOUNTER 2023-10-20 14:05 | Outpatient (REF) | payer MEDICAID, SELFPAY ==
--- NOTE | ~2023-10-20 | US_ITS ---
EXAMINATION: US ABDOMEN COMPLETE CLINICAL INFORMATION: Epigastric pain. COMPARISON: Ultrasound abdomen 01/29/2023 TECHNIQUE: Real-time imaging of the abdominal viscera. FINDINGS: PANCREAS: Normal. ABDOMINAL AORTA: The proximal, mid, and distal segments are normal in caliber. INFERIOR VENA CAVA: Visualized portions are normal. LIVER: The liver is normal in size. The liver contour is normal. There is diffuse increased liver parenchymal echogenicity, consistent with hepatic steatosis. No focal hepatic lesion. There is no intrahepatic biliary duct dilatation seen. GALLBLADDER: Surgically absent since prior study of 01/29/2023. COMMON BILE DUCT: Normal in caliber measuring 0.5 cm in diameter. RIGHT KIDNEY: Normal. No hydronephrosis. No renal calculi or focal parenchymal lesions. The kidney measures 10.3 cm in maximum dimension. LEFT KIDNEY: No hydronephrosis. No renal calculi. 2 benign Bosniak class I renal cysts are noted, the largest measuring 1.2 cm which require no additional imaging or follow-up. No solid renal masses are seen. The kidney measures 10.6 cm in maximum dimension. SPLEEN: Normal. The spleen measures 9.5 cm in maximum dimension. FREE FLUID: None. US/US abdomen complete IMPRESSION: Hepatic steatosis.
== END 2023-10-20 14:06 | disposition home or self-care (01) ==
LOC: HO.HMGCX 14:05
PROVIDERS: PCP Internal Medicine Geriatric Medicine; Visit Provider Student in an Organized Health Care Education/Training Program
DX: R10.13 Epigastric pain (principal)
CPT/HCPCS: 76700

== ENCOUNTER 2023-10-31 14:52 | Outpatient (REF) | payer MEDICAID, SELFPAY ==
[2023-11-01 09:50] LABS: CT PCR NOT DETECTED (Not Detect.); NG PCR NOT DETECTED (Not Detect.)
[2023-11-01 13:08] LABS: BV Int Neg Control Negative (Negative); BV Int Pos Control Positive (Positive)
[2023-11-06 22:43] LABS: HPV 16 RNA NOT DETECTED (NOT DETECTED); HPV mRNA E6/E7 rflx Detected (Not Detected)
== END 2023-10-31 14:53 | disposition home or self-care (01) ==
LOC: HO.LNP 14:52
PROVIDERS: PCP Internal Medicine Geriatric Medicine; Visit Provider Advanced Practice Midwife
DX: Z01.419 Encounter for gynecological examination (general) (routine) without abnormal findings (principal); Z11.51 Encounter for screening for human papillomavirus (HPV); N89.8 Other specified noninflammatory disorders of vagina
CPT/HCPCS: 0353U; 87480; 87510; 87624; 87625; 87660; 88142; 99395

== ENCOUNTER 2023-10-31 14:52 | Outpatient (AMB) | payer MEDICAID, SELFPAY ==
--- NOTE | 2023-10-31 15:00 | A.OFFVIS_ITS ---
Vital Signs 10/31/23 15:03 Height 5 ft 1 in Weight 169 lb BMI 31.9 Intake Visit Reasons: Annual Intake Note: Has been having weird periods Wire Spiral Binder Required: Yes Wire Spiral Binder Language: Scottish Information Interpreted: non-clinical & clinical Prison Officer: Prison Officer Present (Lacey) Allergies No Known Allergies Allergy (Verified 10/31/23 15:05) Medication List - Last Reconciled 10/31/23 by Eva Canada CNM albuterol sulfate 90 mcg/actuation (Ventolin HFA) inhalation Q4H PRN chlorthalidone 25 mg PO DAILY fexofenadine (Jenny Allergy) 180 mg PO DAILY fluconazole 150 mg PO Q3D 2 doses fluticasone propionate 50 mcg/actuation intranasal hydrocodone-acetaminophen 5-325 mg 1 tab PO Q4-6H PRN ibuprofen 600 mg PO Q6H PRN ketotifen fumarate 0.025%(0.035%) 1 drp ophthalmic (eye) BID PRN meclizine (Dramamine Less Drowsy) 25 mg PO TID PRN montelukast 10 mg PO DAILY Is last menstrual period known: Yes Last menstrual period: 10/20/23 HPI HPI Annual: Details: 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 She has an partner for the last year feels like she has been getting infections like she was before with a previous partner things are very good with him. She showed me tattoos that she has that signified a relationship. At 1st she declined STI testing but there was a little bit of a yellowish bubbly discharge so I did recommend that we did the vaginal testing at least. She thought she had had a Pap smear last year but last Pap smear was in 2019. Her periods are normal. Though her last period came October 15 or and then stop for a day or 2 and then restarted again on the and finished on the 12t h. [facility] Medical History Depressed History of eclampsia History of high blood pressure Surgical History History of laparoscopic cholecystectomy (02/28/23) Hx of appendectomy Hx of tubal ligation Family History Father CVD (cardiovascular disease) Mother Asthma History of anxiety History of fibromyalgia Social History Are you a primary career services officer to a significant other at home: Yes Do you presently have visiting nurse or other home services: No Alcohol intake: current Alcohol intake frequency: a few times a month Patient Tobacco Use Status: Never used Tobacco Sexual orientation: Straight/Heterosexual Gender identity: Female Female Reproductive History Menstrual Age of Menarche: 10 Duration of menses: 3-5 days Date of last menstrual period: 10/20/23 control method: other (tubal ligation) Total pregnancies: 3 Full term: 2 Number of Living Children: 2 Date of last pap smear: 10/27/18 (negative) History of abnormal pap smear: No Date of Mammogram: 09/06/22 Physical Exam Vital Signs: BMI result Body Mass Index 31.9 Const General: healthy appearing, comfortable, no acute distress, well developed and alert Nutritional Appearance: average body habitus Orientation/consciousness: patient oriented x3 Limitations: no limitations HEENT Head: Yes normocephalic Neck Neck: Yes normal visual inspection Chest Chest palpation & inspection: normal inspection of the chest Breast/axilla inspection: normal inspection of the breasts and normal inspection of the axillae Breast/axilla palpation: normal palpation of the breasts and normal palpation of the axillae Resp Effort & Inspection: normal respiratory effort GI Inspection: Yes normal to inspection, No Abdominal wall edema and No distended Palpation (GI): Soft to palpation and nontender Other: External speculum exam within normal limits vagina pink and moist there was a slightly yellowish whitish bubbly discharge so testing was done today. Cervix is multiparous pink smooth mobile nontender uterus mobile nontender anteverted. Patient did have fear vaginal tone with attempted Kegel. Recommend she practice at home. General: Yes bladder normal to palpation External Female Exam: normal external appearance and normal appearance of the urethra Speculum Exam - Vagina: normal appearance of the vagina, normal palpation and normal vaginal discharge Speculum Exam - Cervix: normal appearance of the cervix, normal palpation and nontender Bimanual exam- vagina & uterus: normal bimanual exam, normal palpation, uterine size normal, bladder normal to palpation, consistency normal, normal palpation, uterine mobility normal, uterine shape normal, No Cervical tenderness present, non-tender and no cervical motion tenderness Bimanual Exam- Adnexa, other: normal adnexae, no masses, normal and No adnexal tenderness Neuro General: patient oriented x3 Assessment & Plan Assessment & Plan (1) Breast cancer screening: Code(s): Z12.39 - Encounter for other screening for malignant neoplasm of breast Category: Medical (2) Cervical cancer screening: Comment: pap neg 2019 w neg hpv, next pap 2023 Code(s): Z12.4 - Encounter for screening for malignant neoplasm of cervix Category: Medical (3) Well woman exam with routine gynecological exam: Code(s): Z01.419 - Encounter for gynecological examination (general) (routine) without abnormal findings Category: Medical (4) Vaginal discharge: Code(s): N89.8 - Other specified noninflammatory disorders of vagina Category: Medical Plan -----Discussed in this visit the following: healthy balanced diet, regular and consistent exercise, getting recommended health screens, doing the best she can for her particular health concerns, kegel exercises, pap smear screening and followup recommendations, mammography screening and SBE, normal changes in cycles in her life stage--- . She declined STI testing but I encouraged vaginal testing cuss her discharge was a little yellowish in bubbly. She did accept that but declined blood work. Pap smear was done as it was due. When she turns 39 in December she be due to start mammograms she says she has had a couple already and they were fine because she had some little finding. She is going to be scheduling a primary care appoint ment this year as somehow something happened with last year's appointment in it got missed but she will schedule that and she says that she will ask him about mammograms when that occurs. She had gallbladder surgery this past year and her symptoms overall have improved she does notice that is there something she which can cause her to still have to use the bathroom more often but that was worse before she had the surgery. Discussed some variation in normal menstrual cycles and there can often be a case were periods starts and then stops and starts again. she still describes it within the range of normal. 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
[2023-10-31 15:03] VITALS: BMI 31.9
== END 2023-10-31 15:41 | disposition home or self-care (01) ==
LOC: HO.HWSM 14:52
PROVIDERS: PCP Internal Medicine Geriatric Medicine; Visit Provider Advanced Practice Midwife
DX: Z12.39 Encounter for other screening for malignant neoplasm of breast (principal); Z12.4 Encounter for screening for malignant neoplasm of cervix; Z01.419 Encounter for gynecological examination (general) (routine) without abnormal findings; N89.8 Other specified noninflammatory disorders of vagina
CPT/HCPCS: 99395

== ENCOUNTER 2024-04-02 15:34 | Outpatient (REF) | payer MEDICAID, SELFPAY ==
--- NOTE | ~2024-04-02 | MM_ITS ---
EXAMINATION: MM SCREENING DIGITAL BREAST TOMOSYNTHESIS, BILATERAL CLINICAL INFORMATION: Screening. Asymptomatic. COMPARISON: Mammography: Comparison is made with available priors TECHNIQUE: Digital breast mammography with tomosynthesis is performed in both the craniocaudal and mediolateral oblique views along with computer-aided detection (CAD). FINDINGS: There are scattered areas of fibroglandular density (ACR BI-RADS breast composition Category b). There are no significant masses, abnormal calcifications, or other abnormalities. MM/MM tomosynthesis screening BI IMPRESSION: No mammographic evidence of malignancy. ASSESSMENT: BI-RADS BI-RADS 1 - Negative RECOMMENDATION: Routine annual mammography screening. 1 year F/U This examination should not preclude the clinical evaluation of a suspicious palpable abnormality. This patient's information was entered into a reminder system with a target due date for their next mammogram. Electronically signed by: Anabelle Quinones DO 04/15/2024 08:38 AM EDT
== END 2024-04-02 15:35 | disposition home or self-care (01) ==
LOC: HO.MAMMO 15:34
PROVIDERS: PCP Internal Medicine Geriatric Medicine; Visit Provider Internal Medicine Geriatric Medicine
DX: Z12.31 Encounter for screening mammogram for malignant neoplasm of breast (principal)
CPT/HCPCS: 77063; 77067

== ENCOUNTER → 2024-04-02 15:45 | Outpatient (BNV) | payer MEDICAID, SELFPAY | PROVIDERS: PCP Internal Medicine Geriatric Medicine; Visit Provider Internal Medicine | DX: Z12.31 Encounter for screening mammogram for malignant neoplasm of breast (principal) | CPT/HCPCS: 77063; 77067 ==

== ENCOUNTER 2024-04-27 15:25 | Outpatient (REF) | payer MEDICAID, SELFPAY ==
--- NOTE | ~2024-04-27 | XR_ITS ---
EXAMINATION: XR RIBS, LEFT and frontal chest x-ray CLINICAL INFORMATION: Left anterior rib pain COMPARISON: None available. TECHNIQUE: A frontal radiograph of the chest and 4 views of the left ribs were obtained. FINDINGS: Lungs are clear. No consolidation, pneumothorax, or pleural effusion. The cardiomediastinal silhouette and pulmonary vasculature are normal. Osseous structures are unremarkable. Ribs are intact. No fractures are identified. XR/XR ribs LT min 3V w CXR1V IMPRESSION: Unremarkable examination. Electronically signed by: Stephon Kurtz MD 04/27/2024 04:43 PM EDT
== END 2024-04-27 15:26 | disposition home or self-care (01) ==
LOC: HO.HHCX 15:25
PROVIDERS: Visit Provider Internal Medicine
DX: R07.81 Pleurodynia (principal)
CPT/HCPCS: 71101

== ENCOUNTER 2024-05-06 15:30 | Outpatient (REF) | payer MEDICAID, SELFPAY | END 2024-05-06 15:31 | disposition home or self-care (01) | LOC: HO.LNP 15:30 | PROVIDERS: PCP Internal Medicine Geriatric Medicine; Visit Provider Obstetrics & Gynecology | DX: R87.610 Atypical squamous cells of undetermined significance on cytologic smear of cervix (ASC-US) (principal); R87.810 Cervical high risk human papillomavirus (HPV) DNA test positive | CPT/HCPCS: 57454; 81025; 88305 ==

== ENCOUNTER 2024-05-06 15:30 | Outpatient (AMB) | payer MEDICAID, SELFPAY ==
--- NOTE | 2024-05-06 15:29 | MHC.OFFVIS ---
Vital Signs 05/06/24 15:32 Height 5 ft 1 in Weight 167 lb 8.821 oz BMI 31.7 Intake Visit Reasons: colpo Silviculture Professor Required: Yes Silviculture Professor Language: Associate Account Director Services: Silviculture Professor Present (in person) Silviculture Professor Name: Aurora GARCIA Information Interpreted: non-clinical & clinical Rn Flight: Rn Flight Present (Aurora GARCIA) Accompanied by: Self / Same As Patient Allergies No Known Allergies Allergy (Verified 05/06/24 15:34) Is last menstrual period known: Yes Last menstrual period: 04/28/24 HPI Comments Details: Presenting for abnormal Pap smear done in 11/04 showing ascus/HPV E6 E7 positive. The patient missed appointment because of insurance reasons. [facility] Medical History Depressed History of eclampsia History of high blood pressure Surgical History History of laparoscopic cholecystectomy (02/28/23) Hx of appendectomy Hx of tubal ligation Family History Father CVD (cardiovascular disease) Mother Asthma History of anxiety History of fibromyalgia Social History Are you a primary career services director to a significant other at home: Yes Do you presently have visiting nurse or other home services: No Alcohol intake: current Alcohol intake frequency: a few times a month Patient Tobacco Use Status: Never used Tobacco Sexual orientation: Straight/Heterosexual Gender identity: Female Female Reproductive History Menstrual Age of Menarche: 10 Date of last menstrual period: 04/28/24 Review of Systems Const All systems reviewed & are unremarkable except as noted in HPI and below Reports as per HPI and Reports no additional complaints GI Reports no additional complaints Reports no additional complaints Office Procedures Colposcopy Colposcopy: Pre-Procedure Counseling: Before beginning the procedure, I conducted comprehensive counseling with the patient. We thoroughly discussed the procedure itself, including its details, alternatives, and all associated risks. This included but not limited to the following complications such as bleeding, infection, and injury to the vagina, bladder, and vessels, as well as the potential need for transfusion with all its associated risks. Subsequently, the patient sign the consent. Pap smear result: Ascus/HPV E6 E7 positive. Urine test in office = Negative Procedure: During the procedure, the following steps were performed: A speculum was inserted, and acetic acid was applied. Colposcopy was conducted, allowing visualization of the transformation zone. Acetowhite lesions were identified at the 7+9+12+1+3 o'clock position. Cervical biopsies were obtained from the 7+9+12+1+3 o'clock position, followed by an endocervical curettage (ECC). Vaginoscopy of the upper vagina revealed no evidence of aceto-white lesions. Hemostasis was achieved using Monsel solution, and the patient tolerated the procedure well. Post-Procedure Instructions: The patient was advised to promptly contact the office or the after hours answering service or go to the emergency room if experiencing a temperature exceeding 100.4?F, abdominal pain, nausea/vomiting, or bleeding. Additionally, the patient was instructed to abstain from vaginal intercourse and bathtub use. The patient confirmed understanding of these instructions. Discharge Instructions: The patient was instructed to schedule a follow-up appointment in 2 weeks for further evaluation and management. Please note that this note was generated using a voice recognition program, and errors may have occurred during senior quality control inspector. 44791-Avoovlcyr of cervix including upper vagina with biopsy and ECC Procedure code (CPT) selection complete Assessment & Plan Assessment & Plan (1) ASCUS with positive high risk HPV cervical: Code(s): R87.610 - Atypical squamous cells of undetermined significance on cytologic smear of cervix (ASC-US); R87.810 - Cervical high risk human papillomavirus (HPV) DNA test positive Category: Medical Plan: Discussed with the patient the result of her abnormal pap, its significance, risk of progression, persistence, and regression. the false positive/negative rate of a Pap smear as a screening test in detecting cervical cancer and the indication for a diagnostic test -colposcopy, biopsy, endocervical curettage. The patient verbalized understanding and agreed with the plan, all questions answered. Colpo/ biopsy/ECC done, see procedure note Orders: Orders AMB HCG Urine Test Today Z32.02 - Encounter for test, result negative AMB Colposcopy Today R87.610 - Atypical squamous cells of undetermined significance on cytologic smear of cervix (ASC-US), R87.810 - Cervical high risk human papillomavirus (HPV) DNA test positive Coding Level of Care Code Procedure Only Diagnoses ASCUS with positive high risk HPV cervical R87.610; R87.810 CPT Codes Colposcopy - CPT: 28153-Nnjucrekh of cervix including upper vagina with biopsy and ECC ([id number])
[2024-05-06 15:32] VITALS: BMI 31.7
== END 2024-05-06 15:48 | disposition home or self-care (01) ==
PROVIDERS: PCP Internal Medicine Geriatric Medicine; Visit Provider Obstetrics & Gynecology
DX: R87.610 Atypical squamous cells of undetermined significance on cytologic smear of cervix (ASC-US) (principal); R87.810 Cervical high risk human papillomavirus (HPV) DNA test positive; Z32.02 Encounter for pregnancy test, result negative
CPT/HCPCS: 57454

== ENCOUNTER 2024-05-19 15:36 | Outpatient (REF) | payer MEDICAID, SELFPAY | END 2024-05-19 15:37 | disposition home or self-care (01) | LOC: HO.US 15:36 | PROVIDERS: PCP Internal Medicine Geriatric Medicine; Visit Provider Internal Medicine Geriatric Medicine | DX: M54.9 Dorsalgia, unspecified (principal) | CPT/HCPCS: 76775 ==

== ENCOUNTER 2024-05-27 16:17 | Outpatient (AMB) | payer MEDICAID, SELFPAY ==
--- NOTE | 2024-05-27 16:18 | MHC.OFFVIS ---
Intake Visit Reasons: colpo follow up Chairman & Ceo Required: Yes Chairman & Ceo Language: E Commerce Solution Architect Services: Chairman & Ceo Present (in person) Chairman & Ceo Name: Aurora GARCIA Information Interpreted: non-clinical & clinical Allergies No Known Allergies Allergy (Verified 05/06/24 15:34) HPI Comments Details: The patient is scheduled a telehealth visit post colpo for follow-up. The patient is doing well with no complaints. The pathology showed the following: A. Endocervix, curettage: - Low-grade squamous intraepithelial lesion (ANDERSON 1). - Fragments of endocervical epithelium within normal limits; mucoinflammatory material. B. Cervix, 1 o'clock, biopsy: Few superficial fragments of endocervical mucosa within normal limits; no squamous epithelium identified. C. Cervix, 3 o'clock, biopsy: Squamous epithelium within normal limits; no endocervical epithelium identified. D. Cervix, 7 o'clock, biopsy: Squamous epithelium within normal limits; no endocervical epithelium identified. E. Cervix, 9 o'clock, biopsy: Squamous epithelium within normal limits; scant strips of endocervical epithelium within normal limits. F. Cervix, 12 o'clock, biopsy: Inflamed cervical transformation zone mucosa with reactive changes. [facility] Medical History Depressed History of eclampsia History of high blood pressure Surgical History History of laparoscopic cholecystectomy (02/28/23) Hx of appendectomy Hx of tubal ligation Family History Father CVD (cardiovascular disease) Mother Asthma History of anxiety History of fibromyalgia Social History Are you a primary primary care sales representative to a significant other at home: Yes Do you presently have visiting nurse or other home services: No Alcohol intake: current Alcohol intake frequency: a few times a month Patient Tobacco Use Status: Never used Tobacco Sexual orientation: Straight/Heterosexual Gender identity: Female Female Reproductive History Menstrual Age of Menarche: 10 Review of Systems Const All systems reviewed & are unremarkable except as noted in HPI and below Reports as per HPI and Reports no additional complaints GI Reports no additional complaints Reports no additional complaints Telehealth Telehealth Telehealth Platform: Telephone Location of provider rendering services: practice address Location of patient: address on file Patient Identification confirmed using: Name, : Yes Telehealth method: video Patient verbally consented to treatment: Yes Patient verbally consented to billing insurance company: Yes Patient informed of any privacy concerns related to visit: Yes Assessment & Plan Assessment & Plan (1) Dysplasia of cervix, low grade (ANDERSON 1): Code(s): N87.0 - Mild cervical dysplasia Category: Medical Plan: Discussed with the patient the pathology results of the colposcopy biopsies & endocervical curettage ( mild dysplasia-ANDERSON 1). Discussed with the patient the sensitivity specificity, positive and negative predictive value in detecting cervical cancer in addition discussed the regression, persistence and progression rates. Recommended co-testing in 12 months, if cytology and or HPV are abnormal will proceed was colposcopy biopsy and endocervical curettage, if lesions gets worse or stays persistent for 2 years will proceed with loop electric excision procedure. Instructions given to the patient to schedule a co test appointment in 1 year. All questions answered the patient verbalized understanding. I spent a total of 20 minutes reviewing the chart, talking to the patient via video and documenting in the medical record. Coding Level of Care Code Tele Est Pt Level 1 (40188) Diagnoses Dysplasia of cervix, low grade (ANDERSON 1) N87.0
== END 2024-05-27 16:32 | disposition home or self-care (01) ==
LOC: HO.HWS 16:18
PROVIDERS: PCP Internal Medicine Geriatric Medicine; Visit Provider Obstetrics & Gynecology
DX: N87.0 Mild cervical dysplasia (principal)
CPT/HCPCS: 99211

== ENCOUNTER 2024-08-10 05:42 | Outpatient (REF) | payer MEDICAID, SELFPAY ==
--- NOTE | 2024-08-10 | EMG_ITS ---
Bilateral median and ulnar motor and sensory studies were performed. Bilateral radial and median and lateral antecubital brachial sensory studies were performed and paraspinal muscles were tested with a needle. IMPRESSION: 1. Mild right median neuropathy across carpal tunnel. 2. Mild left ulnar neuropathy across cubital tunnel. MD CORINA Paul/KORY / [id number]
== END 2024-08-10 05:43 | disposition home or self-care (01) ==
LOC: HO.NEURO 05:42
PROVIDERS: PCP Internal Medicine Geriatric Medicine; Visit Provider Internal Medicine Geriatric Medicine
DX: R20.0 Anesthesia of skin (principal)
CPT/HCPCS: 95886; 95913

== ENCOUNTER 2024-09-08 13:43 | Outpatient (AMB) | payer MEDICAID, SELFPAY ==
[2024-09-08 13:58] VITALS: BP 118/60; PULSE 73; BMI 32.5
--- NOTE | 2024-09-08 13:58 | MHC.OFFVIS ---
Vital Signs 09/08/24 13:58 Height 5 ft 1 in Weight 171 lb 15.369 oz BMI 32.5 BP 118/60 Blood Pressure Location Lt brachial Position Sitting Pulse 73 Pulse Source Monitor Intake Visit Reasons: f/u requested by dr diop dx: chest discomfort Restoration Ecologist Required: Yes Restoration Ecologist Name: LEIGH [id number] Allergies No Known Allergies Allergy (Verified 09/08/24 15:30) Medication List - Last Reconciled 09/08/24 by Ernie Ford MD albuterol sulfate 90 mcg/actuation (Ventolin HFA) inhalation Q4H PRN chlorthalidone 25 mg PO DAILY fexofenadine (Jenny Allergy) 180 mg PO DAILY fluticasone propionate 50 mcg/actuation intranasal hydrocodone-acetaminophen 5-325 mg 1 tab PO Q4-6H PRN ibuprofen 600 mg PO Q6H PRN ketotifen fumarate 0.025%(0.035%) 1 drp ophthalmic (eye) BID PRN meclizine (Dramamine Less Drowsy) 25 mg PO TID PRN montelukast 10 mg PO DAILY HPI Comments Details: Shannan has been referred back. In 2021, she was referred for palpitations. At that time, there was also concern for chest pressure. Echocardiogram and Holter were ordered but not pursued. She is now returning with complaints of chest discomfort. Can happen any time. With and without activity. Sometimes she feels that while at work. Overall, seems somewhat nonspecific. Not clear if it is all anxiety or something truly cardiac. However, no documented cardiac issues previously. On chlorthalidone for blood pressure. [facility] Medical History Depressed History of eclampsia History of high blood pressure Surgical History History of laparoscopic cholecystectomy (02/28/23) Hx of appendectomy Hx of tubal ligation Family History Father CVD (cardiovascular disease) Mother Asthma History of anxiety History of fibromyalgia Social History Are you a primary health care attorney to a significant other at home: Yes Do you presently have visiting nurse or other home services: No Alcohol intake: current Alcohol intake frequency: a few times a month Patient Tobacco Use Status: Never used Tobacco Sexual orientation: Straight/Heterosexual Gender identity: Female Female Reproductive History Menstrual Age of Menarche: 10 Review of Systems Const Denies weakness ENT Denies dizziness Card Reports chest pain, Denies chest pain with activity, Denies syncope, Denies rapid heart rate, Denies pedal edema, Denies edema, Denies leg edema, Denies lightheadedness, Denies palpitations, Reports dyspnea, Reports dyspnea on exertion and Denies orthopnea Resp Denies cough, Reports dyspnea and Reports dyspnea on exertion GI Denies hematochezia and Denies change in stool character Musc Denies abnormal gait, Denies muscle cramps, Denies muscle weakness, Denies numbness, Denies radiating pain into limb and Denies tingling Neuro Denies abnormal gait, Denies dizziness, Denies syncope, Denies numbness, Denies tingling and Denies weakness Endo Denies palpitations Physical Exam Vital Signs: Last Vital Signs Pulse 73 09/08/24 13:58 BP 118/60 09/08/24 13:58 BMI result Body Mass Index 32.5 Const General: comfortable and no acute distress Orientation/consciousness: patient oriented x3 HEENT Other: Unremarkable Head: Yes normal to inspection Neck Neck: Yes normal visual inspection Chest Chest palpation & inspection: normal inspection of the chest Resp Auscultation: clear to auscultation bilaterally Cardio Palpation: normal PMI Heart sounds: S1 normal heart sound present, S2 normal heart sound present, no gallops, no murmurs and no rubs GI Palpation (GI): Soft to palpation Back/Spine/Pelvis Other: unremarkable Skin General skin exam: no rashes or lesions noted Neuro General: patient oriented x3 Extrem General: Yes normal to inspection Psych Mental Status: mental status grossly normal Office Procedures EKG Details: EKG with underlying sinus rhythm at 73/Min; no significant ST-T changes and otherwise unremarkable. [place]. [id number], Complete Results AMB Urinalysis, Automated UA Leukoctes 15 Anthony/uL Last Edit by Norma Ortega on 09/08/24 15:09 UA Nitrite Negative Last Edit by Norma Ortega on 09/08/24 15:09 UA Urobilinogen 0.2 mg/dL Last Edit by Norma Ortega on 09/08/24 15:09 UA Protein 15 mg/dL Last Edit by Norma Fernandestiz on 09/08/24 15:09 UA pH 6.0 Last Edit by Norma Fernandestiz on 09/08/24 15:09 UA Blood 200 Ghulam/uL Last Edit by Norma Fernandestiz on 09/08/24 15:09 UA Specific [place] 1.025 Last Edit by Norma Fernandestiz on 09/08/24 15:09 UA Ketone Negative Last Edit by Norma Fernandestiz on 09/08/24 15:09 UA Bilirubin 1 mg/dL Last Edit by Norma Fernandestiz on 09/08/24 15:09 UA Glucose 0 mg/dL Last Edit by Norma Fernandestiz on 09/08/24 15:09 Assessment & Plan Assessment & Plan (1) Precordial chest pain: Code(s): R07.2 - Precordial pain Category: Medical Plan Today's EKG is unremarkable but can prior studies, there was evidence of left ventricular hypertrophy. Available high sensitivity troponins are unremarkable. Overall, atypical sounding chest pains. Obtain echocardiogram/ETT for further evaluation. If any overt abnormalities, we will assess. Orders: Orders CA echo transthoracic complete Today R07.2 - Precordial pain CA stress test Today R07.2 - Precordial pain Coding Level of Care Code New Pt Level 4 (20122) Diagnoses Precordial chest pain R07.2 CPT Codes EKG - CPT: 71388-Qsbogkyfrqotytros, Complete ([id number])
--- OUTSIDE RECORDS SUMMARY | 2024-09-08 16:52 | XMS_ITS | Encounter Summary ---
Author Organization [employer] Address [address] [facility] 7t [place] [address] Care Team Providers Care Medical And Health Services Manager Name Role Phone Name, Jemal HARMON Primary Care Provider [phone] Reason for Visit * Reason Onset Date Comments Follow-up 06/13/2022 Encounter Details Date Type Department Care Team ([facility] Contact Info) Description 06/13/[address] [facility] MEDIC[facility] [address] [place], [place] [phone] Name, MD Jemal [address] [place] [address] Follow-up Social History Tobacco Use Types Packs/Day Years Used Date Smoking Tobacco: Never Assessed Comments Unknown Sex and Gender Information Value Date Recorded Sex Assigned at Female 05/13/2022 10:33 AM EDT Legal Sex Female 10:33 AM EDT Gender Identity Female 05/13/2022 10:33 AM EDT Sexual Orientation Straight 05/13/2022 10 :33 AM EDT documented as of this encounter Miscellaneous Notes * Telephone Encounter - Freida Guzman RN - 06/13/2022 12:03 PM EST T/C to pt for status check and to assess current symptoms via [employer] #[id number]. sidney Padron/josie left to return call. * Telephone Encounter - Sully Chintan - 06/13/2022 10:09 AM EST Tc from Pt stated came in the Walk in [place] on 06/04 they found a Bacteria in the Urine. Pt statedprovider told her to contact PCP for follow up. PCP Name documented in this encounter Plan of Treatment Not on file documented as of this encounter Visit Diagnoses Not on filedocumented in this encounter Care Teams Medical And Health Services Manager Relationship Specialty Start Date End Date Name, MD Jemal [address] [place] [id number] PCP - General Family Medicine 12/24/17 documented as of this encounter
--- OUTSIDE RECORDS SUMMARY | 2024-09-08 16:53 | XMS_ITS | Encounter Summary ---
Author Organization [employer] Address [address] [facility] 7[address] [place] [address] Care Team Providers Care Human Resources Department Supervisor Name Role Phone Jemal Martin MD Primary Care Provider [phone] Reason for Referral * Consultation (Routine) - Authorized Specialty Diagnoses / Procedures Referred By Mindi miranda Referred To Contact Hand Surgery Diagnoses Carpal tunnel syndrome, unspecified laterality Jemal Martin MD [address] [place] [address] Phone: tel: fax: [facility] [address] [place] [address] Phone: tel: Referral ID Status Reason Start Date Expiration Date Visits Requested Visits Authorized [id number] Authorized Specialty Services Required 08/23/2024 08/23/2025 6 6 Reason for Visit * Reason Onset Date Comments Results 08/23/2024 Encounter Details Date Type Department Care Team (Late st Contact Info) Description 08/23/2024 Telephone [facility] MEDICINE [address] [place] [address] Jemal Martin MD [address] [place] [address] [phone] Results Social History Tobacco Use Types Packs/Day Years Used Date Smoking Tobacco: Never Passive Smoke Exposure: Never Smokeless Tobacco: Never Alcohol Use Standard Drinks/Week Comments Never 0 (1 standard drink = 0.6 oz pur e alcohol) Depression Answer Date Recorded Patient Health Questionnaire-9 Score 0 05/12/2024 Patient Health Questionnaire-9 Score 0 05/12/2024 Last PHQ-9: Questionnaire Data Not on file 1 Housing Stability Answer Date Recorded What is your housing situation today? I have nick marinelli 05/05/[address] you li ve. Do you have problems with any of the following? None of the above 05/05/2024 Food Insecurity Answer Date Recorded Within the past 12 months, y ou worried that your food would run out before you got money to buy more: Never True 05/05/2024 Within the past 12 months,th e food you bought just didn't last and you didn't have enough money to get more: Never True Transportation Answer Date Recorded In the past 12 months, has l ack of transportation kept you from medical appts, meetings, work or from getting things needed for daily living? No 05/05/2024 Utilities Answer Date Recorded In the past 12 months, has t he electric, gas, oil or water company threatened to shut off services in your home? No 05/05/2024 Depression Answer Date Recorded Patient Health Questionnaire-2 Score 0 05/12/2024 Internet Access Answer Date Recorded Internet Access Q1 Yes 05/05/2024 Internet Access Q2 Not on file 05/05/2024 Comments No Sex and Gender Information Value Date Recorded Sex Assigned at Female 05/13/2022 10:33 AM EDT Legal Sex Female 10:33 AM EDT Gender Identity Female 05/13/2022 10:33 AM EDT Sexual Orientation Straight 05/13/2022 10 :33 AM EDT documented as of this encounter Miscellaneous Notes * Addendum Note - Jemal Martin MD - 08/23/2024 12:18 PM ESTAddended by: JEMAL MARTIN on: 08/23/2024 12:18 PM Modules accepted: Orders * Telephone Encounter - Jemal Martin MD - 08/23/2024 12:16 PM EST I will refer to hand surgery She will be contacted with the appt as soon as possible * Telephone Encounter - Monica Fisher RN - 08/23/2024 12:00 PM EST TC placed to pt via [employer] rubbish collector (ID#) to advise of below PCP message, She had mild carpal tunnel syndrome as suspected on her previous visit. If she is not better with the use of wrist splint atbedtime I would suggest referral to hand surgeon for evaluation and treatment recommendations. Let me know. RN informed pt of above message from PCP. Pt reports she purchased a splint for her right hand and uses at bedtime. Pt reports she has not purchased a splint for the left hand due to the cost. Pt reports the splint has not provided relief and is experiencing a lot of discomfort. Pt qaincuj50/10 pain in the right hand and 8/10 pain in the left hand. 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 Message forwarded to PCP to review and advise. * Telephone Encounter - Jemal Martin MD - 08/23/2024 10:38 AM EST She had mild carpal tunnel syndrome as suspected on her previous visit. If she is not better with the use of wrist splint at bedtime I would suggest referral to hand surgeon for evaluation and treatment recommendations. Let me know. * Telephone Encounter - Tevin Marte - 08/23/2024 9:18 AM EST TC from pt requesting call back regarding Results. Type of results: Hand Test Date when done: 08/10/24 Facility: [facility] Contact pt at [phone] documented in this encounter Plan of Treatment Scheduled Referrals Name Type Priority Associated Diagnoses Orde r Schedule Referral to Hand Surgery Outpatient Referral Routine Carpal tunnel syndrome, unspecified laterality Expected: 08/23/2024 (Approximate), Expires: 08/23/2025 documented as of this encounter Visit Diagnoses Diagnosis Carpal tunnel syndrome, unspecified laterality- Primary documented in this encounter Additional Health Concerns Assessment Noted Time PHQ-9 Depression Total Score: 0 05/12/20 24 10:51 AM EDT documented as of this encounter Care Teams Human Resources Department Supervisor Relationship Specialty Start Date End Date Name, MD Jemal [address] [place] [address] PCP - General Family Medicine 12/24/17 documented as of this encounter
--- OUTSIDE RECORDS SUMMARY | 2024-09-08 16:53 | XMS_ITS | Encounter Summary ---
Author Organization [employer] Address [address] [place] [address] Care Team Providers Care Assistant Real Estate Manager Name Role Phone Name, Jemal HARMON Primary Care Provider Reason for Visit * Reason Onset Date Comments Results 07/22/2023 Encounter Details Date Type Department Care Team ([facility] Contact Info) Description 07/22/2023 Telephone [facility] MEDICINE [address] [place], [place] [phone] Name, MD Jemal [address] [place] [address] Results Social History Tobacco Use Types Packs/Day Years Used Date Smoking Tobacco: Never Passive Smoke Exposure: Never Alcohol Use Standard Drinks/Week Comments Never 0 (1 standard drink = 0.6 oz pur e alcohol) Depression Answer Date Recorded Patient Health Questionnaire-9 Score 0 02/04/2023 Housing Stability Answer Date Recorded What is your housing situation today? I have nikc marinelli 05/19/[address] you li ve. Do you have problems with any of the following? None of the above 05/19/2023 Food Insecurity Answer Date Recorded Within the past 12 months, y ou worried that your food would run out before you got money to buy more: Never True 05/19/2023 Within the past 12 months,th e food you bought just didn't last and you didn't have enough money to get more: Never True 12/2022 Transportation Answer Date Recorded In the past 12 months, has l ack of transportation kept you from medical appts, meetings, work or from getting things needed for daily living? No 05/19/2023 Utilities Answer Date Recorded In the past 12 months, has t he electric, gas, oil or water [employer] threatened to shut off services in your home? No 05/19/2023 Depression Answer Date Recorded Patient Health Questionnaire-2 Score 0 02/04/2023 Comments No Sex and Gender Information Value Date Recorded Sex Assigned at Female 05/13/2022 10:33 AM EDT Legal Sex Female 10:33 AM EDT Gender Identity Female 05/13/2022 10:33 AM EDT Sexual Orientation Straight 05/13/2022 10 :33 AM EDT documented as of this encounter Miscellaneous Notes * Telephone Encounter - Freida Guzman RN - 07/22/2023 4:35 PM EST T/c placed to pt via [employer] #[id number]. Advised of benign result for right cervicallymph node FNA biopsy. Pt verbalized understanding. Pt states she forgot to mention at appointment yesterday that she developed a a rash, tiny red bumps on her hands and legs 2 days after starting Amoxicillin rx in ED. Reports rash lasted 2 days and she completed 5 full days of Amoxicillin directed. Reports pmh of similar rash when previously rx amoxicillin for UTI. No s/s of rash currently. Advised will update pcp. * Telephone Encounter - Carolin Bolton - 07/22/2023 3:55 PM EST TC from pt requesting call back regarding Results. Type of results: biopsy Date when done: 07/16 Facility: [facility] Please contact pt at [phone] documented in this encounter Plan of Treatment Not on file documented as of this encounter Visit Diagnoses Not on filedocumented in this encounter Additional Health Concerns Assessment Noted Time PHQ-9 Depression Total Score: 0 02/05/20 23 9:16 AM EDT documented as of this encounter Care Teams Assistant Real Estate Manager Relationship Specialty Start Date End Date Name, MD Jemal [address] [place] [address] PCP - General Family Medicine 12/24/17 documented as of this encounter
--- OUTSIDE RECORDS SUMMARY | 2024-09-08 16:53 | XMS_ITS | Encounter Summary ---
Author Organization [employer] Address [address] [facility] [address] [address] [place] [address] Care Team Providers Care Day [employer] Unit Leader Name Role Phone Name, Jemal HARMON Primary Care Provider [phone] Reason for Visit * Reason Onset Date Comments Nurse Triage 08/12/2023 Encounter Details Date Type Department Care Team ([facility] Contact Info) Description 08/12/2023 Telephone [facility] MEDICINE [address] [place], [place] [phone] Name, MD Jemal [address] [place] [address] Nurse Triage Social History Tobacco Use Types Packs/Day Years Used Date Smoking Tobacco: Never Passive Smoke Exposure: Never Alcohol Use Standard Drinks/Week Comments Never 0 (1 standard drink = 0.6 oz pur e alcohol) Depression Answer Date Recorded Patient Health Questionnaire-9 Score 0 02/04/2023 Housing Stability Answer Date Recorded What is your housing situation today? I have nick marinelli 05/19/[address] you [...] t he electric, gas, oil or water [address] threatened to shut off services in your [...] encounter Miscellaneous Notes * Telephone Encounter - Randa Salas RN - 08/12/2023 12:03 PM EST Triage call with [employer] worker [place] [id number] Pt reports cough, sore throat. nasal congestion, ears with congestion and headache. Pt has started these symptoms about 2 days ago. 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 Pt has not tested for Covid. Pt denies fever, difficulty breathing or GI sx. Pt does report chest hurts with coughing and production of yellow sputum present. Pt is drinking water about 32 oz but is advised to increase liquids including warm drinks. Pt reports has been taking nyquil which helps Pt sleep but, Pt wakes up feeling worse. Pt is advised to come to [facility] today which is open till 8pm and Pt agrees with disposition and home care reviewed. Insurance is verified as active. Protocol Used: Cough (Adult) Protocol-Based Disposition: See in Office or Video Visit Today or Tomorrow Video visit not offered Positive Triage Question: * Patient wants to be seen * All higher-acuity triage questions were negative Care Advice Discussed: * Reassurance and Education - Cough * Cough Medicines * Coughing Spells * Prevent Dehydration * Humidifier * Reasons To Call Back - Difficulty breathing - Cough lasts more than 3 weeks - Fever lasts more than 3 days - You become worse * Telephone Encounter - Carolin Hoang - 08/12/2023 10:22 AM EST Symptoms: Cough, Sore Throat, Eye Pain - Not From Injury Outcome: Schedule an urgent appointment (within 4 hours) or talk to a nurse or provider soon Reason: Getting worse The caller accepted this outcome Please contact pt at [phone] (Ethiopian) documented in this encounter Plan of Treatment Not on file documented as of this encounter Visit Diagnoses Not on filedocumented in this encounter Additional Health Concerns Assessment Noted Time PHQ-9 Depression Total Score: 0 02/05/20 23 9:16 AM EDT documented as of this encounter Care Teams Day Camp Unit Leader Relationship Specialty Start Date End Date Name, MD Jemal [address] [place] [address] PCP - General Family Medicine 12/24/17 documented as of this encounter
--- OUTSIDE RECORDS SUMMARY | 2024-09-08 16:53 | XMS_ITS | Clinical Summary ---
Author Organization [employer] Address [address] [place] [address] Care Team Providers Care Police Records Clerk Name Role Phone Name, Jemal HARMON Primary Care Provider [phone] Allergies Active Allergy Reactions Criticality Noted Date Comments Gramineae Pollens 04/08/2024 Medications fexofenadine (Jenny) 180 MG tablet Take 1 tablet by mouth at bed time. 0 Active oxymetazoline (Afrin Nasal [place]) 0.05 % nasal spray Administer 2 sprays into each nostril every 12 (twelve) hours if needed for congestion for up to 2 days. Do not use for more than 3 days. 30 mL 4 Active omeprazole OTC (PriLOSEC OTC) 20 MG EC tablet Take 1 tablet (20 mg) by mouth before breakfast. Do not crush, chew, or split. 30 tablet 11 4 10/20/19 25 Active fluticasone (Flonase) 50 MCG/ACT nasal spray ADMINISTER 2 SPRAYS INTO EACH NOSTRIL TWICE A DAY. SHAKE GENTLY. BEFORE FIRST USE, PRIME PUMP. AFTER USE CLEAN TIP AND REPLACE CAP. 48 g 4 Active chlorthalidone (Hygroton) 25 MG tabletIndications :Essential hypertension TAKE 1 TABLET BY MOUTH EVERY DAY 90 tablet 1 4 Active montelukast (Singulair) 10 MG tablet TOME 1 TABLETA POR V A ORAL TODOS LOS D 4 Active meloxicam (Mobic) 15 MG tabletIndications :Rib pain on left side Take 1 tablet (15 mg) by mouth Once per day. 30 tablet 11 4 04/27/20 25 Active SUMAtriptan (Imitrex) 25 MG tabletIndications :Migraine without aura and without status migrainosus, not intractable TAKE 1 TABLET BY MOUTH 1 TIME IF NEEDED FOR MIGRAINE FOR UP TO 1 DOSE. MAY REPEAT DOSE ONCE IN 2 HOURS IF NO RELIEF. DO NOT EXCEED 2 DOSES IN 24 HOURS. 9 tablet 4 Active sodium chloride (Ray Nasal [place]) 0.65 % nasal sprayIndications: Nasal congestion 1-2 sprays on each nostril every 2-3 hours as needed for nasal congestion 30 mL 1 4 Active amitriptyline (Elavil) 10 MG tabletIndications :Migraine without aura and without status migrainosus, not intractable Take 1 tablet (10 mg) by mouth at bedtime. 30 tablet 11 5 11/03/19 25 Active Active Problems Problem Noted Date Diagnosed Date Migraine without aura and wi thout status migrainosus, not intractable 08/04/2024 Costochondritis, acute 05/27/2024 Assessment & Plan (05/27/2024 2:00 PM EST): Warm compress on affected area Ibuprofen PRN Short course of flexeril Rib pain on left side 04/27/2024 Assessment & Plan (04/27/2024 3:22 PM EDT): Symptomatology and exam suggestive of costochondritis Plan: Plain films left rib cage NSAIDS Follow up if no improvement EKG: NSR, early repo disturbance, referred for ECHO Chest discomfort 04/27/2024 Assessment & Plan (04/27/2024 3:18 PM EDT): 39 yr old female with a Pmhx significant for HTN, here today with c/o intermittent left sided chest discomfort, associated with intermittent palpitations. EKG today shows NSR, suggestive of repolarization disturbance Plan: At a minimum she would need an ECHO. Will also refer to cardiology for Holter monitor Left upper quadrant abdominal pain 01/29/2023 Right upper quadrant abdominal pain 01/29/2023 Assessment & Plan (01/29/2023 2:59 PM EDT): I decided to refer patient to the emergency room at [facility] case presented to provider Nolvia Left anterior fascicular block 08/06/2022 Left ventricular hypertrophy 08/06/2022 Mixed anxiety and depressive disorder 08/06/2022 Palpitations 08/06/2022 Seasonal allergic reaction 12/21/2018 Overview (04/08/2024): Following with NIKOLAY for allergy injections Assessment & Plan (04/08/2024 6:55 PM EDT): - No acute concerns on evaluation this evening, symptoms improved compared to initial reaction. Reassurance provided. - Encouraged to continue with Jenny and montelukast. Benadryl PRN - Also encouraged to discuss most recent rxn from injections and possible Epi Pen rx through circuit walker during upcoming appt in 1-2 weeks - Follow up precautions reviewed Kidney stone 02/10/2018 Essential hypertension 12/24/2017 Resolved Problems Problem Noted Date Diagnosed Date Resolved Date COVID-19 01/30/2023 04/07/2024 Assessment & Plan (03/03/2024 11:08 AM EDT): -COVID-19 positive, symptoms mild to moderate -no evidence of respiratory distress -discussed risk and benefits of Paxlovid, pt will decide if she wants to take it. -supportive care with fluids, rest and OTC analgesics -isolation discussed -work/school note given -seek medical attention for worsening symptoms Influenza due to influenza A virus 01/30/2023 04/07/2024 Viral upper respiratory tract infection 01/30/2023 04/07/2024 Inflammatory disorder of upp er respiratory tract 08/06/2022 04/07/2024 Encounters Date Type Department Care Team Description 08/23/2024 Telephone [facility] [address] [place] [address] Name, MD Jemal Results 08/04/2024 3:30 PM EST Office Visit [facility] [address] [place] [address] Name, MD Jemal Migraine without aura and without status migrainosus, not intractable (Primary Dx); Kidney stone; Bilateral hand numbness 07/13/2024 10:40 AM EST Office Visit [facility] [address] [place] [address] Amanda Yoder ANP Earache (Primary Dx); Nasal congestion; Acute cough 06/30/2024 7:00 PM EST Office Visit [facility] [address] [place] [address] Nathan Tejada MD Pain of left heel (Primary Dx) 06/30/2024 Travel 06/30/2024 Telephone [facility] [address] [place] [phone] Jemal Briggs MD Nurse Triage 06/09/2024 Refill [facility] [address] [place] [phone] Jemal Briggs MD Migraine without aura and without status migrainosus, not intractable from Last 3 Months Immunizations Name Administration Dates Next Due Influenza injectable quadriv alent IIV4 with preservative 05/12/2018 Influenza injectable quadrivalent preservative f ree 04/18/2020,07/21/2019 Influenza, seasonal, injectable, preservative fr ee 05/12/2024,05/07/2012 TD (adult), 2 Lf tetanus tox oid, preservative free, adsorbed 12/28/2021 Tdap 08/15/2011 Social History Tobacco Use Types Packs/Day Years Used Date Smoking Tobacco: Never Passive Smoke Exposure: Never Smokeless Tobacco: Never Tobacco Cessation:Counseling Given: Not Answered Alcohol Use Standard Drinks/Week Comments Never 0 [...] Orientation Straight 05/13/2022 10 :33 AM EDT Last Filed Vital Signs Vital Sign Reading Time Taken Comments Blood Pressure 132/83 08/04/2024 3:46 PM EST Pulse 83 08/04/2024 3:46 PM EST Temperature 35.6 ??C (96.1 ??F) 08/04/2024 3:46 PM ES T Respiratory Rate 16 08/04/2024 3:46 PM EST Oxygen Saturation 98% 08/04/2024 3:46 PM EST Inhaled Oxygen Concentration - - Weight 80.3 kg (177 lb) 08/04/2024 3:46 PM EST Height 154.9 cm (5' 1 ) 08/04/2024 3:46 PM EST Body Mass Index 33.44 08/04/2024 3:46 PM EST Plan of Treatment Health Maintenance Due Date Last Done Comments Family Planning (PISQ) 01/06/1999 Hepatitis B Vaccines (1 of 3 - 19+ 3-dose series) 01/06/2003 Cervical Cancer Screening 11/06/2023 HPV/Cotest 11/06/2023 11/05/2018 COVID-19 Vaccine ( season) 2024 05/15/2021, 04/24/2021 SDOH Screening 05/05/2025 05/05/2024 Alcohol/Substance Use Screening 05/12/2025 05/12/2024 Depression Screening 05/12/2025 05/12/2024, 05/12/20 Lipid Panel 07/24/2025 07/24/2020 Tobacco Screening 08/04/2025 08/04/2024 Mammogram 04/02/2026 04/02/2024, /10/2022, 09/06/2022, Additional history exists Pap Smear 10/30/2028 10/31/2023, 11/05/2018 DTaP/Tdap/Td Vaccines (3 - Td or Tdap) 12/29/2031 12/28/2021, 08/15/2011 Zoster Vaccines (1 of 2) 01/06/2034 RSV Patients and Patients Aged 60 years or older (1 - 1-dose 75+ series) 01/06/2059 HIV Screening Completed 08/09/2022 Hepatitis C Screening Completed 08/09/2022 Influenza Vaccine Completed 05/12/2024, , 07/21/2019, Additional history exists HIB Vaccines Aged Out No longer eligi ble based on patient's age to complete this topic HPV Vaccines Aged Out No longer eligi ble based on patient's age to complete this topic Hepatitis A Vaccines Aged Out No long er eligible based on patient's age to complete this topic IPV Vaccines Aged Out No longer eligi ble based on patient's age to complete this topic Meningococcal Vaccine Aged Out No claude giuseppe eligible based on patient's age to complete this topic Pneumococcal Vaccine: Pediatrics (0 to 5 Years) and At-Risk Patients (6 to 49) Years) Aged Out No longer eligible based on patient's age to complete this topic RSV under 20 months Aged Out No longe r eligible based on patient's age to complete this topic Rotavirus Vaccines Aged Out No longer eligible based on patient's age to complete this topic Procedures Procedure Name Priority Date/Time Associated Diagnosis Comments POCT INFLUENZA A (ID NOW RAPID MOLECULAR) Routine 07/13/2024 11:28 AM EST Nasal congestion POC RICO ID NOW STREP A Routine 07/13/2024 11:27 AM EST Nasal congestion POCT RAPID COVID ANTIGEN Routine 07/13/2024 11:27 AM EST Nasal congestion BI MAMMOGRAM SCREENING TOMOSYNTHESIS BILATERAL Routine 04/02/2024 3:45 PM EDT Encounter for screening mammogram for malignant neoplasm of breast PAP SMEAR Routine 10/31/2023 3:49 PM EDT HEPATITIS C AB W/REFL TO HCV RNA, QN, PCR Routine 08/09/2022 10:19 AM EST Vaginal discharge HIV 1/2 ANTIGEN/ANTIBODY, FOURTH GENERATION W/RFL Routine 08/09/2022 10:19 AM EST Vaginal discharge LIPID PANEL, STANDARD Routine 07/24/2020 3:40 PM EST HM PAP/HPV Routine 11/05/2018 from Last 3 Months or Most Recently Relevant to Health Maintenance Results * POCT Rapid Influenza A RICO ID NOW (07/13/2024 11:28 AM EST) Influenza A Negative Negative, Indeterminate [facility] QC Media Lot # [id number] [facility] Lot# Expiration Date [facility] Swab 07/13/2024 11:2 8 AM EST us Amanda HERNADEZ POINT OF CARE TEST ENTER/EDIT OR DERABLES Final Result [facility] [address] [place] [phone] * POCT Rapid Strep A RICO ID NOW (07/13/2024 11:27 AM EST) Rapid Strep A Screen Negative Negative, None Detected QC Media Lot # [id number] Lot# Expiration Date 925, Swab 07/13/2024 11:2 7 AM EST us Amanda Yoder ANP POINT OF CARE TEST ENTER/EDIT OR DERABLES Final Result * POCT Rapid Covid-19 BinaxNOW (07/13/2024 11:27 AM EST) Rapid COVID Ag Negative QC Media Lot # [id number] Lot# Expiration Date ,026 Swab 07/13/2024 11:2 7 AM EST us Amanda HERNADEZ POINT OF CARE TEST ENTER/EDIT OR DERABLES Final Result * BI Mammogram Screening Tomosynthesis Bilateral (04/02/2024 3:45 PM EDT) Anatomical Region Laterality Modality Breast Bilateral Mammography 04/02/2024 3:45 PM EDT Narrative 04/15/2024 8:41 AM EDT ? [facility] ? [address] ?[place] [address] ? Mammography Report ? Signed ? Patient: Jacobsen,Shannan ?MR#: [id number] ?? 08 ? : 1985 ?Acct:[id number] ? Age/Sex: 39 / F ?ADM Date: 04/02/ ? Loc: HO.MAMMO ? Attending Dr: Jemal Name MD ? Ordering Physician: Name,Jemal MD ?Results: 1Negative ? Date of Service: 04/02/ ?Follow Up: 1 Year From Orig ?? inal Mammogram ? Procedure(s): MM tomosynthesis screening BI ?? Accession Number(s): [id number] ? cc: Name,Jemal HARMON ? EXAMINATION: ?? MM SCREENING DIGITAL BREAST TOMOSYNTHESIS, BILATERAL ? CLINICAL INFORMATION: ? Screening. Asymptomatic. ? COMPARISON: ?? Mammography: Comparison is made with available priors ? TECHNIQUE: ?? Digital breast mammography with tomosynthesis is performed in both the ?? craniocaudal and mediolateral oblique views along with computer-aided ?? detection (CAD). ? FINDINGS: ?? There are scattered areas of fibroglandular density (ACR BI-RADS breast ?? composition Category b). ? There are no significant masses, abnormal calcifications, or other ?? abnormalities. ? MM/MM tomosynthesis screening BI ?? IMPRESSION: ?? No mammographic evidence of malignancy. ? ASSESSMENT: ? BI-RADS BI-RADS 1 - Negative ? RECOMMENDATION: ?? Routine annual mammography screening. ? 1 year F/U ? This examination should not preclude the clinical evaluation of a ?? suspicious palpable abnormality. ? This patient's information was entered into a reminder system with a ?? target due date for their next mammogram. ? Electronically signed by: ??Anabelle Quinones DO ??04/15/2024 08:38 AM EDT ? Dictated By: ?Anabelle Quinones DO ? Signed By: ?<Electronically signed by Anabelle Quinones DO in OV> ? 04/15/24 0838 ? DD/ 1545 ? TD/TT: 04/02/24 1604 ? Seasonal Warehouse Associate: ? Procedure Note Brigido, Image - 04/15/2024 [facility] [address] [place] [address] Dr. Saenz, JIMMY [address] Mammography Report Signed Patient: Yazmin Jacobsen#: [id number] 08 : 1985Acct:[id number] Age/Sex: 39 / FADM Date: 04/02/24 Loc: [facility] Attending Dr: Jemal Briggs MD Ordering Physician: Jemal Briggsesults: 1Negative Date of Service: 04/02/24Follow Up: 1 Year From [facility] Mammogram Procedure(s): MM tomosynthesis screening BI Accession Number(s): [id number] cc: Name,Jemal HARMON EXAMINATION: MM SCREENING DIGITAL BREAST TOMOSYNTHESIS, BILATERAL CLINICAL INFORMATION: Screening. Asymptomatic. COMPARISON: Mammography: Comparison is made with available priors TECHNIQUE: Digital breast mammography with tomosynthesis is performed in both the craniocaudal and mediolateral oblique views along with computer-aided detection (CAD). FINDINGS: There are scattered areas of fibroglandular density (ACR BI-RADS breast composition Category b). There are no significant masses, abnormal calcifications, or other abnormalities. MM/MM tomosynthesis screening BI IMPRESSION: No mammographic evidence of malignancy. ASSESSMENT: BI-RADS BI-RADS 1 - Negative RECOMMENDATION: Routine annual mammography screening. 1 year F/U This examination should not preclude the clinical evaluation of a suspicious palpable abnormality. This patient's information was entered into a reminder system with a target due date for their next mammogram. Electronically signed by: Anabelle Quinones DO 04/15/2024 08:38 AM EDT Dictated By: Anabelle Quinones DO Signed By: <Electronically signed by Anabelle Quinones DO in OV> 04/15/24 0838 DD/ 1545 TD/TT: 04/02/24 1604 Seasonal Warehouse Associate: Jemal CLOUD BI PROCEDURES Edited Result - Final * Pap Smear (10/31/2023 3:49 PM EDT) 10/31/2023 3:49 PM EDT 11/03/2023 11:30 AM EDT [facility] - 11/18/2023 4:52 PM EDT ----- ------- Name: Shannan Jacobsen ? Age/Sex: 38/F ? : 1985 Unit#: [id number] ?? Attend Dr: Eva Canada CNM ?Re10/31/23 ?Status: DEP REF ? Location: HO.LNP ?Disch: ? ----- ------- SPEC : [id number] ? RECD: 11/03/23-113 ? STATUS: ??SOUT ? REQ NUM: [id number] ? HERMELINDA: 10/31/23-1549 ? SUBM DR: Eva Canada CNM ? ENTERED: ??11/03/23-9904 ?SP TYPE: Pap Smr ?OTHR : NameJemal MD ? ORDERED: ??Pap Smear, PAP path review ? Interpretation ?? Satisfactory for evaluation; endocervical component present. ?? Atypical squamous of undetermined significance. ?? Coccobacilli consistent with shift in vaginal brynn. ? HPV mRNA E6/E7: ?DETECTED ? This assay detects E6/E7 viral messenger RNA (mRNA) from 14 high-risk HPV types (16, 18, ?? 31, 33, 35, 39, 45, 51, 52, 56, 58, 59, 66, 68) ? HPV Type 16 RNA: ?Not Detected ?? HPV Type 18/45 RNA: ? Not Detected ? HPV testing performed by [facility], [place], [place]. ??See reference laboratory ?? portion of the EMR for entire report. ?Clinical Information LMP: 10/20/23 Previous PAP test: 11/06/18, WNL ? Material Received ?? ThinPrep-Cervical Copies To: ?? Name,Jemal HARMON ?? [address] [facility] [facility] ?? [place] [id number] ?? [phone] ?? Eva Canada CNM ?? [address] [place] ?? [place] [address] ?? [phone] ----- ------- Signed (signature on file) Thania Savage MD 11/18/23 5916 ? ----- ------- ? END OF REPORT ? us Generic External Data Provider LAB CYTOLOGY BLANCA PETERSON Final Result Performing Organization Address City/[facility]/ZIP Co de Phone Number [facility] [address] [place] [phone] * Hepatitis C Antibody with Reflex to HCV, RNA, Quantitative, Real-Time PCR (08/09/2022 10:19 AM EST) Hepatitis C Antibody NON-REACT JOSE NON-REACT JOSE [facility] [employer] [place] [employer] Index <0.02 <1.00 [facility] [employer] Comment: HCV antibody was non-reactive. There is no laboratory evidence of HCV infection. In most cases, no further action is required. However, if recent HCV exposure is suspected, a test for HCV RNA (test code 23682) is suggested. For additional information please refer to http://education.Handpressions/faq/JAV80j7 (This link is being provided for informational/ educational purposes only.) Blood Venous blood specimen / Unknown 08/09/2022 10:19 AM EST 08/09/2022 10:20 AM EST Narrative [facility] - 08/12/2022 6:40 PM EST FASTING:UNKNOWN FASTING: UNKNOWN us Janet Mak [employer] LAB BLOOD ORDERABLES Final Res ult Performing Organization Address City/[facility]/ZIP Co de Phone Number [facility] [address] [facility], [place] [address] [facility] [employer] [place] [employer] [address] [facility], ([address]) [place] [address] * HIV-1/2 Antigen and Antibodies, Fourth Generation, with Reflexes (08/09/2022 10:19 AM EST) [facility] HIV Antigen/Antibody, 4th Generation NON-REAC TIVE NON-REAC TIVE [facility] Comment: HIV-1 antigen and HIV-1/HIV-2 antibodies were not detected. There is no laboratory evidence of HIV infection. PLEASE NOTE: This information has been disclosed to you from records whose confidentiality may be protected by state law. ??If your state requires such protection, then the state law prohibits you from making any further disclosure of the information without the specific written consent of the person to whom it pertains, or as otherwise permitted by law. A general authorization for the release of medical or other information is NOT sufficient for this purpose. ?? For additional information please refer to http://education.Handpressions/faq/XVJ234 (This link is being provided for informational/ educational purposes only.) The performance of this assay has not been clinically validated in patients less than 2 years old. Blood Venous blood specimen / Unknown 08/09/2022 10:19 AM EST 08/09/2022 10:20 AM EST Narrative [facility] - 08/12/2022 6:40 PM EST FASTING:UNKNOWN FASTING: UNKNOWN Janet Mak [facility] LAB BLOOD ORDERABLES Final Res ult [facility] [address], [place] [address] [facility] [address] [facility], ([address]) [place] [address] * (ABNORMAL) LIPID PANEL, STANDARD (07/24/2020 3:40 PM EST) [facility] Chol/HDLC Ratio 3.2 <5.0 (calc) [facility] Cholesterol, Total 159 <200 mg/dL [facility] HDL Cholesterol 49(L) > OR = 50 mg/dL [facility] LDL Cholesterol 88 mg/dL (calc) [facility] Comment: Reference range: <100 ?? Desirable range <100 mg/dL for primary prevention; ?? <70 mg/dL for patients with CHD or diabetic patients ?? with > or = 2 CHD risk factors. ?? LDL-C is now calculated using the Pastora ?? calculation, which is a validated novel method providing ?? better accuracy than the Friedewald equation in the ?? estimation of LDL-C. ?? Xavier CABRERA et al. SCOTT. 2013;310(19): 2798-5624 ?? (http://education.Nervogrid/faq/LMW666) Non-HDL Cholesterol 110 <130 mg/dL (calc) [facility] Comment: For patients with diabetes plus 1 major ASCVD risk ?? factor, treating to a non-HDL-C goal of <100 mg/dL ?? (LDL-C of <70 mg/dL) is considered a therapeutic ?? option. Triglycerides 128 <150 mg/dL [facility] 07/24/2020 3:40 PM EST Jemal Name LAB BLOOD ORDERABLES Final Resul t [facility] [address] * Pap Smear (11/05/2018) Pap Negative for intraephithelial lesion or malignancy Negative for intraephithelial lesion or malignancy, Other HPV Not Detected Undetected, Indeterminate, Quantitative, Not Detected Historical Provider HEALTH MAINTENANCE Final Result from Last 3 Months or Most Recently Relevant to Health Maintenance [facility] Care Teams Police Records Clerk Relationship Specialty Start Date End Date Name, MD Jemal [address] [place] [address] PCP - General Family Medicine 12/24/17
== END 2024-09-08 14:29 | disposition home or self-care (01) ==
PROVIDERS: PCP Internal Medicine Geriatric Medicine; Visit Provider Internal Medicine
DX: R07.2 Precordial pain (principal)
CPT/HCPCS: 93010; 99214

== ENCOUNTER → 2024-09-08 13:43 | Outpatient (BNVA) | payer MEDICAID, SELFPAY | PROVIDERS: PCP Internal Medicine Geriatric Medicine; Visit Provider Internal Medicine | DX: N20.0 Calculus of kidney (principal); R07.2 Precordial pain | CPT/HCPCS: 81003; 93005; 99212 ==

== ENCOUNTER 2024-09-08 14:46 | Outpatient (AMB) | payer MEDICAID, SELFPAY ==
--- NOTE | 2024-09-08 14:53 | MHC.OFFVIS ---
Intake Visit Reasons: nephrolithiasis Intake Note: New Patient presents for initial visit for nephrolithiasis Urology Medications: none Blood Thinner:none Rn Plastics Required: Yes Rn Plastics Services: Rn Plastics Present Rn Plastics Name: Christopher Rosario No Known Allergies Allergy (Verified 09/08/24 15:30) Medication List - Last Reconciled 09/08/24 by CRIS WuP- albuterol sulfate 90 mcg/actuation (Ventolin HFA) inhalation Q4H PRN chlorthalidone 25 mg PO DAILY fexofenadine (Jenny Allergy) 180 mg PO DAILY fluticasone propionate 50 mcg/actuation intranasal hydrocodone-acetaminophen 5-325 mg 1 tab PO Q4-6H PRN ibuprofen 600 mg PO Q6H PRN ketotifen fumarate 0.025%(0.035%) 1 drp ophthalmic (eye) BID PRN meclizine (Dramamine Less Drowsy) 25 mg PO TID PRN montelukast 10 mg PO DAILY HPI Comments Details: Shannan is a very pleasant 39-year-old Turkish-speaking female patient of . She has a past medical history of depression and hypertension. She presents to the office today as a new patient for question nephrolithiasis versus angiolipoma. In discussion with the patient today she reports having followed up with her PCP for ongoing back pain and flank pain she had been experiencing at which time a renal ultrasound was ordered and recommendations were made for urology referral for further assessment evaluation. These results were reviewed with the patient today. 06/06 right kidney with 0.7 cm mid pole hyper focus possibly representing nonobstructive calculus verses angiolipoma but difficult to characterize due to sizing. No hydronephrosis noted bilaterally. When asked she does continue to report bilateral flank pain left side greater than right. No CVA tenderness noted bilaterally. She does report a previous history of nephrolithiasis however never requiring surgical intervention. She does report following up with a previous urologist however is unaware as to who this provider was or where she went. When asked she currently denies any bothersome urinary issues. She denies urinary urgency, urinary frequency, incontinence, nocturia, hematuria, dysuria, foul smelling urine, changes to urinary stream, flank pain, fever, and or chills. She is happy with her current voiding parameters. In office urinalysis results reviewed with the patient today 3+ microscopic hematuria however patient reports currently being on her menses. We discussed at length angiolipoma verses nephrolithiasis. We discussed obtaining CT KUB for further assessment evaluation. She otherwise offers no other issues or concerns at this time. [facility] Medical History Depressed History of eclampsia History of high blood pressure Surgical History History of laparoscopic cholecystectomy (02/28/23) Hx of appendectomy Hx of tubal ligation Family History Father CVD (cardiovascular disease) Mother Asthma History of anxiety History of fibromyalgia Social History Are you a primary home care and home health aides teacher to a significant other at home: Yes Do you presently have visiting nurse or other home services: No Alcohol intake: current Alcohol intake frequency: a few times a month Patient Tobacco Use Status: Never used Tobacco Sexual orientation: Straight/Heterosexual Gender identity: Female Female Reproductive History Menstrual Age of Menarche: 10 Review of Systems Const All systems reviewed & are unremarkable except as noted in HPI and below Physical Exam Const General: cooperative, healthy appearing, comfortable, no acute distress, well developed, alert and awake Nutritional Appearance: overweight Orientation/consciousness: patient oriented x3 Limitations: no limitations HEENT Head: Yes normal to inspection, Yes normocephalic and Yes atraumatic Ears: hearing grossly normal bilaterally Eyes General: appearance normal, both eyes and all related structures Neck Neck: Yes normal visual inspection and Yes trachea midline Chest Chest palpation & inspection: normal inspection of the chest Resp Effort & Inspection: normal respiratory effort and able to speak in complete sentences Cardio Rate: regular rate GI Inspection: Yes normal to inspection General: Yes no CVA tenderness Back/Spine/Pelvis Back: no CVA tenderness Skin General skin exam: no rashes or lesions noted Neuro General: patient oriented x3 Extrem General: Yes normal to inspection Psych Appearance: grossly normal and well kempt Mental Status: mental status grossly normal Speech and movement: Normal speech and movement present and Clear speech present Affect: normal affect Attitude: cooperative Thought process: Normal thought process present Thought content: Normal thought content present Insight: Fair insight present (Psych) Judgement: Fair judgement present (Psych) Results AMB Urinalysis, Automated UA Leukoctes 15 Anthony/uL Last Edit by Crystal Ortega on 09/08/24 15:09 UA Nitrite Negative Last Edit by Crystal Ortega on 09/08/24 15:09 UA Urobilinogen 0.2 mg/dL Last Edit by Crystal Ortega on 09/08/24 15:09 UA Protein 15 mg/dL Last Edit by Crystal Ortega on 09/08/24 15:09 UA pH 6.0 Last Edit by Crystal Ortega on 09/08/24 15:09 UA Blood 200 Ghulam/uL Last Edit by Crystal Ortega on 09/08/24 15:09 UA Specific [place] 1.025 Last Edit by Crystal Ortega on 09/08/24 15:09 UA Ketone Negative Last Edit by Crystal Ortega on 09/08/24 15:09 UA Bilirubin 1 mg/dL Last Edit by Crystal Ortega on 09/08/24 15:09 UA Glucose 0 mg/dL Last Edit by Crystal Ortega on 09/08/24 15:09 Results Reviewed Results Reviewed: Laboratory Last Values Urine pH (Auto) 6.0 09/08/24 14:54 Specific [place] (Auto) 1.025 09/08/24 14:54 Urine Protein (Auto) 15 mg/dL 09/08/24 14:54 Glucose (UA)(Auto) 0 mg/dL 09/08/24 14:54 Urine Ketones (Auto) Negative 09/08/24 14:54 Urine Blood (Auto) 200 Ghulam/uL 09/08/24 14:54 Urine Nitrite (Auto) Negative 09/08/24 14:54 Urine Bilirubin (Auto) 1 mg/dL 09/08/24 14:54 Urine Urobilinogen (Auto) 0.2 mg/dL 09/08/24 14:54 Leukocyte Esterase (Auto) 15 Anthony/uL 09/08/24 14:54 Date of Service: 05/19/24 EXAMINATION: US RETROPERITONEAL LIMITED (RENAL ONLY) FINDINGS: RIGHT KIDNEY: 10.7 x 6.3 x 5.4 cm (SAG x AP x TRV). RIGHT renal 0.7 cm midpole hyperechoic focus, possibly representing a nonobstructive calculus versus echogenic renal lesion such as an angiomyolipoma, but difficult to characterize due to small size and limited visualization. No hydronephrosis. Renal cortical thickness is normal. Limited visualization. LEFT KIDNEY: 10.8 x 5.4 x 4.8 cm (SAG x AP x TRV). No hydronephrosis. No renal calculi. Renal cortical thickness is normal. Limited visualization. A 1.0 cm lower pole cyst with benign features. There is no indication for follow-up imaging. IMPRESSION: RIGHT renal 0.7 cm midpole hyperechoic focus, possibly representing a nonobstructive calculus versus echogenic renal lesion such as an angiomyolipoma, but difficult to characterize due to small size and limited visualization. This lesion was not identified on prior exams. No hydronephrosis. Assessment & Plan Assessment & Plan (1) Calculus of kidney: Code(s): N20.0 - Calculus of kidney Category: Medical Plan In office urinalysis results reviewed with the patient today; she is currently on her menses Recent renal imaging results reviewed with the patient today; as noted above. Will obtain CT KUB for further assessment evaluation. We discussed at length importance of adequate hydration relation to nephrolithiasis as well as overall health and well-being. She currently denies any bothersome lower urinary tract symptoms. She reports be happy with current voiding parameters. Follow-up in 1-3 months with imaging to be completed prior; or sooner with any issues, concerns, and or questions. Orders: Orders AMB Urinalysis Automated Today Z13.9 - Encounter for screening, unspecified CT kidney stone Today D17.9 - Benign lipomatous neoplasm, unspecified, N20.0 - Calculus of kidney, R10.9 - Unspecified abdominal pain Patient Instructions: The patient had an opportunity to ask questions regarding the treatment plan. All questions were answered. Physical exam, labs, and imaging were discussed and reviewed in detail. As well as risks, benefits, and discussion of treatment choices. No major barriers to understanding were identified. The patient expressed understanding and agreement with the above treatment plan. The patient was made aware they should contact our office by phone for worsening of their current condition, the appearance of new symptoms, or with any questions or concerns. Compliance is encouraged with any medications and follow up testing that is ordered. It is a privilege to be allowed the opportunity to participate in? your urological care.? Again, if you have any questions or concerns If you have any questions or concerns please do not hesitate to contact me. The office is [phone]. This note is constructed using voice recognition software. While every effort has been made to ensure accuracy career technical education teacher errors may have been included. Yours sincerely, NADIA Wu Coding Level of Care Code New Pt Level 3 (94113) Diagnoses Calculus of kidney N20.0
--- OUTSIDE RECORDS SUMMARY | 2024-09-08 18:13 | XMS_ITS | Encounter Summary ---
Author Organization [employer] Address [address] [facility] 7t [place] [address] Care Team Providers Care Grooving Lathe Tender Name Role Phone Name, Jemal HARMON Primary Care Provider [phone] Reason for Visit * Reason Onset Date Comments Follow-up 06/13/2022 Encounter Details Date Type Department Care Team ([facility] Contact Info) Description 06/13/2022 Telephone [facility] [address] [place], [place] [phone] Name, MD Jemal [address] [place] [address] Follow-up Social History Tobacco Use Types Packs/Day [...] check and to assess current symptoms via [employer] Manager Donell #[id number]. sidney Padron/josie left to return call. * Telephone Encounter - Sully Chintan - 06/13/2022 10:09 AM EST Tc from Pt stated came in the Walk in [place] on 06/04 they found a Bacteria in the Urine. Pt statedprovider told her to contact PCP for follow up. PCP Name documented in this encounter Plan of Treatment Not on file documented as of this encounter Visit Diagnoses Not on filedocumented in this encounter Care Teams Grooving Lathe Tender Relationship Specialty Start Date End Date Name, MD Jemal [address] [place] [phone] PCP - General Family Medicine 12/24/17 documented as of this encounter
--- OUTSIDE RECORDS SUMMARY | 2024-09-08 18:14 | XMS_ITS | Encounter Summary ---
Author Organization [employer] Address [address] [facility] 7t [place] [address] Care Team Providers Care Furnace Puncher Name Role Phone Jemal Martin MD Primary Care Provider [phone] Reason for Referral * Consultation (Routine) - Authorized Specialty Diagnoses / Procedures Referred By Mindi miranda Referred To Contact Hand Surgery Diagnoses Carpal tunnel syndrome, unspecified laterality Jemal Martin MD [address] [place] [address] Phone: tel: fax: [facility] [address] [place] [address] Phone: tel: Referral ID Status Reason Start Date Expiration Date Visits Requested Visits Authorized [id number] Authorized Specialty Services Required 08/23/2024 08/23/2025 6 6 Reason for Visit * Reason Onset Date Comments Results 08/23/2024 Encounter Details Date Type Department Care Team (Late st Contact Info) Description 08/23/2024 Telephone [facility] [address] [place] [address] Jemal Martin MD [address] [place] [address] [phone] Results Social History Tobacco Use Types Packs/Day [...] PM EST TC placed to pt via [employer] iso coordinator (ID#) to advise of below PCP message, [...] is experiencing a lot of discomfort. Pt [id number] pain in the right hand and 8/10 [...] Hand Test Date when done: 08/10/24 Facility: [facility] Contact pt at [phone] documented in this encounter Plan of Treatment [...] documented as of this encounter Care Teams Furnace Puncher Relationship Specialty Start Date End Date Name, MD Jemal [address] [place] [address] PCP - General Family Medicine 12/24/17 documented as of this encounter
--- OUTSIDE RECORDS SUMMARY | 2024-09-08 18:14 | XMS_ITS | Encounter Summary ---
Author Organization [employer] Address [address] [facility] [address] [place] [address] Care Team Providers Care Validation Architect Name Role Phone Name, Jemal HARMON Primary Care Provider [phone] Reason for Visit * Reason Onset Date Comments Nurse Triage 08/12/2023 Encounter Details Date Type Department Care Team ([facility] Contact Info) Description 08/12/2023 Telephone [facility] [address] [place], [place] [phone] Name, MD Jemal [address] [place] [address] Nurse Triage Social History Tobacco Use Types [...] t he electric, gas, oil or water [employer] threatened to shut off services in your [...] 08/12/2023 12:03 PM EST Triage call with my[employer]Helper diplomatic interpreter [place] [id number] Pt reports cough, sore throat. nasal congestion, [...] worse. Pt is advised to come to [facility] today which is open till 8pm and [...] accepted this outcome Please contact pt at [phone] (Cypriot) documented in this encounter Plan of Treatment Not on file documented as of this encounter Visit Diagnoses Not on filedocumented in this encounter Additional Health Concerns Assessment Noted Time PHQ-9 Depression Total Score: 0 02/05/20 23 9:16 AM EDT documented as of this encounter Care Teams Validation Architect Relationship Specialty Start Date End Date Name, MD Jemal [address] [place] [address] PCP - General Family Medicine 12/24/17 documented as of this encounter
--- OUTSIDE RECORDS SUMMARY | 2024-09-08 18:14 | XMS_ITS | Encounter Summary ---
Author Organization [employer] Address [address] [facility] [address] [place] [address] Care Team Providers Care Frit Coater Name Role Phone Name, Jemal HARMON Primary Care Provider [phone] Reason for Visit * Reason Onset Date Comments Results 07/22/2023 Encounter Details Date Type Department Care Team ([facility] Contact Info) Description 07/22/2023 Telephone [facility] [address] [place], [place] [phone] Name, MD Jemal 230 [place] [address] Results Social History Tobacco Use Types Packs/Day [...] t he electric, gas, oil or water [employer] threatened to shut off services in your [...] PM EST T/c placed to pt via [employer] #[id number]. Advised of benign result for right cervicallymph [...] Facility: [facility] Please contact pt at [phone] documented in this encounter Plan of Treatment Not on file documented as of this encounter Visit Diagnoses Not on filedocumented in this encounter Additional Health Concerns Assessment Noted Time PHQ-9 Depression Total Score: 0 02/05/20 23 9:16 AM EDT documented as of this encounter Care Teams Frit Coater Relationship Specialty Start Date End Date Name, MD Jemal [address] [place] [address] PCP - General Family Medicine 12/24/17 documented as of this encounter
--- OUTSIDE RECORDS SUMMARY | 2024-09-08 18:14 | XMS_ITS | Clinical Summary ---
Author Organization [employer] Address [address] [facility] [address] 7t [place] [address] Care Team Providers Care Banquet Chef Name Role Phone Name, Jemal HARMON Primary Care Provider [phone] Allergies Active Allergy Reactions Criticality Noted Date Comments Gramineae Pollens 04/08/2024 Medications fexofenadine (Jenny) 180 MG tablet Take 1 tablet by mouth at bed time. 0 Active oxymetazoline (Afrin Nasal [place]) 0.05 % nasal spray Administer 2 sprays [...] HOURS. 9 tablet 4 Active sodium chloride (Garretson Nasal [place]) 0.65 % nasal sprayIndications: Nasal congestion 1-2 [...] refer patient to the emergency room at [facility] case presented to provider Nolvia Left anterior [...] injections and possible Epi Pen rx through machine tender during upcoming appt in 1-2 weeks - [...] Type Department Care Team Description 08/23/2024 Telephone [facility] [address] [place] [address] Name, MD Jemal Results 08/04/2024 3:30 PM EST Office Visit [facility] [address] [place] [address] Name, MD Jemal Migraine without aura and without status migrainosus, not intractable (Primary Dx); Kidney stone; Bilateral hand numbness 07/13/2024 10:40 AM EST Office Visit [facility] [address] [place] [address] Amanda Yoder ANP Earache (Primary Dx); Nasal congestion; Acute cough 06/30/2024 7:00 PM EST Office Visit [facility] [address] [place] [address] Nathan Tejada MD Pain of left heel (Primary Dx) 06/30/2024 Travel 06/30/2024 Telephone [facility] [address] [place] [address] Jemal Briggs MD Nurse Triage 06/09/2024 Refill [facility] [address] [place] [address] Jemal Briggs MD Migraine without aura and [...] AM EST) Influenza A Negative Negative, Indeterminate [facility] QC Media Lot # [id number] [facility] Lot# Expiration Date [facility] Swab 07/13/2024 11:2 8 AM EST us Amanda HERNADEZ POINT OF CARE TEST ENTER/EDIT OR DERABLES Final Result [facility] [address] [place] [phone] * POCT Rapid Strep A RICO ID NOW (07/13/2024 11:27 AM EST) Rapid Strep A Screen Negative Negative, None Detected QC Media Lot # [id number] Lot# Expiration Date 873, Swab 07/13/2024 11:2 7 AM EST us [...] EDT Narrative 04/15/2024 8:41 AM EDT ? [facility] ? [address] ?[place] [address] ? Mammography Report ? Signed ? Patient: Jacobsen,Shannan ?MR#: [id number] ?? 08 ? : 1985 ?Acct:[id number] ? Age/Sex: 39 / F ?ADM Date: 04/02/ ? Loc: HO.MAMMO ? Attending Dr: Jemal Name MD ? Ordering Physician: Name,Jemal MD ?Results: 1Negative ? Date of Service: 04/02/ ?Follow Up: 1 Year From Orig ?? inal Mammogram ? Procedure(s): MM tomosynthesis screening BI ?? Accession Number(s): [id number] ? cc: Name,Jemal HARMON ? EXAMINATION: ?? [...] DD/ 1545 ? TD/TT: 04/02/24 1604 ? Wire Mesh Filter Fabricator: ? Procedure Note Brigido, Image - 04/15/2024 [facility] [address] [place] [address] Dr. [place], [place] [address] Mammography Report Signed Patient: Yazmin Jacobsen#: [id number] 08 : 1985Acct:[id number] Age/Sex: 39 / FADM Date: 04/02/24 Loc: [facility] Attending Dr: Jemal Briggs MD Ordering Physician: Jemal Briggsesults: 1Negative Date of Service: 04/02/24Follow Up: 1 Year From [facility] Mammogram Procedure(s): MM tomosynthesis screening BI Accession Number(s): [id number] cc: Name,Jemal HARMON EXAMINATION: MM SCREENING DIGITAL [...] 04/15/24 0838 DD/ 1545 TD/TT: 04/02/24 1604 Wire Mesh Filter Fabricator: Jemal CLOUD BI PROCEDURES Edited Result - Final * Pap Smear (10/31/2023 3:49 PM EDT) 10/31/2023 3:49 PM EDT 11/03/2023 11:30 AM EDT [facility] - 11/18/2023 4:52 PM EDT ----- ------- Name: Shannan Jacobsen ? Age/Sex: 38/F ? : 1985 Unit#: [id number] ?? Attend Dr: Eva Canada CNM ?Re10/31/23 ?Status: DEP REF ? Location: HO.LNP ?Disch: ? ----- ------- SPEC : [id number] ? RECD: 11/03/23-113 ? STATUS: ??SOUT ? REQ NUM: [id number] ? HERMELINDA: 10/31/23-1549 ? SUBM DR: Eva Canada CNM ? ENTERED: ??11/03/23-8549 ?SP TYPE: Pap Smr ?OTHR : NameJemal [...] Not Detected ? HPV testing performed by [facility], [place], [place]. ??See reference laboratory ?? portion of the EMR for entire report. ?Clinical Information LMP: 10/20/23 Previous PAP test: 11/06/18, WNL ? Material Received ?? ThinPrep-Cervical Copies To: ?? Name,Jemal HARMON ?? [address] [facility] ?? [place] [address] ?? [phone] ?? Eva Canada CNM ?? [address] [place] [place] ?? [place] [address] ?? [phone] ----- ------- Signed (signature on file) Thania Savage MD 11/18/23 1328 ? ----- ------- ? END OF REPORT ? us Generic External Data Provider LAB CYTOLOGY BLANCA PETERSON Final Result Performing Organization Address City/[facility]/ZIP Co de Phone Number [facility] [address] [place] [phone] * Hepatitis C Antibody with Reflex to HCV, RNA, Quantitative, Real-Time PCR (08/09/2022 10:19 AM EST) Hepatitis C Antibody NON-REACT JOSE NON-REACT JOSE [facility] [place] [employer] Index <0.02 <1.00 [facility] [place] [employer] Comment: HCV antibody was non-reactive. There is no laboratory evidence of HCV infection. In most cases, no further action is required. However, if recent HCV exposure is suspected, a test for HCV RNA (test code 51883) is suggested. For additional information please refer to http://education.Racemi/faq/FVD94i2 (This link is being provided for informational/ educational purposes only.) Blood Venous blood specimen / Unknown 08/09/2022 10:19 AM EST 08/09/2022 10:20 AM EST Narrative [facility] - 08/12/2022 6:40 PM EST FASTING:UNKNOWN FASTING: UNKNOWN us Janet Mak DIE SINKING MACHINE OPERATOR LAB BLOOD ORDERABLES Final Res ult Performing Organization Address City/[facility]/ZIP Co de Phone Number [facility] [address] [facility], [place] [address] [facility] [place] [employer] [address] [facility], (Nl2) [place] [address] * HIV-1/2 Antigen and Antibodies, Fourth Generation, with Reflexes (08/09/2022 10:19 AM EST) [facility] HIV Antigen/Antibody, 4th Generation NON-REAC TIVE NON-REAC TIVE [facility] Comment: HIV-1 antigen and HIV-1/HIV-2 antibodies [...] ?? For additional information please refer to http://education.Racemi/faq/QQO927 (This link is being provided for informational/ educational purposes only.) The performance of this assay has not been clinically validated in patients less than 2 years old. Blood Venous blood specimen / Unknown 08/09/2022 10:19 AM EST 08/09/2022 10:20 AM EST Narrative [facility] - 08/12/2022 6:40 PM EST FASTING:UNKNOWN FASTING: UNKNOWN Janet Mak [facility] LAB BLOOD ORDERABLES Final Res ult [facility] [address], [place] [address] [facility] [address] [facility], (Nl2) [place] [address] * (ABNORMAL) LIPID PANEL, STANDARD (07/24/2020 3:40 PM EST) [facility] Chol/HDLC Ratio 3.2 <5.0 (calc) [facility] [...] ?? Xavier CABRERA et al. SCOTT. 2013;310(19): 8285-7250 ?? (http://education.Deluux/faq/XKR960) Non-HDL Cholesterol 110 <130 mg/dL (calc) [facility] Comment: For patients with diabetes plus 1 major ASCVD risk ?? factor, treating to a non-HDL-C goal of <100 mg/dL ?? (LDL-C of <70 mg/dL) is considered a therapeutic ?? option. Triglycerides 128 <150 mg/dL [facility] 07/24/2020 3:40 PM EST Jemal Name LAB BLOOD ORDERABLES Final Resul t [facility] Any[address] * Pap Smear (11/05/2018) Pap Negative for intraephithelial lesion or malignancy Negative for intraephithelial lesion or malignancy, Other HPV Not Detected Undetected, Indeterminate, Quantitative, Not Detected Historical Provider HEALTH MAINTENANCE Final Result from Last 3 Months or Most Recently Relevant to Health Maintenance [facility] Care Teams Banquet Chef Relationship Specialty Start Date End Date Name, MD Jemal [address] [place] [address] PCP - General Family Medicine 12/24/17
== END 2024-09-08 15:32 | disposition home or self-care (01) ==
PROVIDERS: PCP Internal Medicine Geriatric Medicine; Visit Provider Nurse Practitioner Family
DX: Z13.9 Encounter for screening, unspecified (principal); N20.0 Calculus of kidney
CPT/HCPCS: 99203

== ENCOUNTER → 2024-09-30 15:05 | Outpatient (REF) | payer MEDICAID, SELFPAY ==
--- NOTE | 2024-09-30 15:13 | CA_ITS ---
Transthoracic Echocardiogram Patient (Last, First, Middle): Shannan Jacobsen, Gender: Female Date of : 1985 Age: 39 Procedure Date: 09/30/2024 Procedure Type: Transthoracic Echocardiogram Location: OP Height: 154.94 cm Weight: 77.11 kg BSA: 1.76 m2 Heart Rate: bpm BP: 110 / 60 mmHg Asp Developer: TO Referring MD: Ernie Ford MD Hearing Screener: Oumar Macias MD Symptoms: R07.2 - Precordial pain Study Quality: Fair ECG Rhythm: Sinus Conclusions: - Normal study Findings Left Ventricle Normal left ventricular size, thickness, and systolic function. The visually estimated ejection fraction is between 60-65%. Spectral Doppler is indicative of a normal filling pattern. Right Ventricle Normal right ventricular cavity size and systolic function. Atria Both atria are normal in size. There is no evidence of interatrial shunt. Aortic Valve Normal aortic valve structure and function. There is no aortic valve stenosis. There is no aortic valve regurgitation. Mitral Valve Normal mitral valve structure and function. There is trace mitral valve regurgitation. There is no mitral valve stenosis. Pulmonic Valve The pulmonic valve is likely normal. There is no pulmonic valve regurgitation. Tricuspid Valve Normal tricuspid valve structure. There is trace tricuspid valve regurgitation. The right ventricular systolic pressure is normal. The right ventricular systolic pressure is 20 mmHg. Normal right atrial pressure. There is no evidence of pulmonary hypertension. Great Vessels All visible segments of the aorta are normal in size. The pulmonary artery was not well visualized. Venous The inferior vena cava is normal in size and collapses greater than 50% with inspiration. Pericardium/Pleural There is no evidence of pericardial effusion. Prior Study Comparison No prior study available for comparison. Measurements 2D Linear Measurements IVSd: 0.95 0.6-0.9/0.6-1.0 cm LVIDd: 4.34 3.9-5.3/4.2-5.9 cm LVIDd Index: 2.47 2.4-3.2/2.2-3.1 cm/m2 LVIDs: 2.69 2.0-3.6 cm LVPWd: 0.75 0.7-1.1 cm LA Diam: 3.60 2.7-3.8/3.0-4.0 cm LAIDs Index: 2.05 1.5-2.3 cm/m2 LV Mass: 143.69 67-162/88-224 g LV Mass Index: 81.64 43-95/49-115 g/m2 LVOT Diam: 2.00 3.0+(-)1.3 cm 2D Systolic Function EF 4C: 59.50 >55% EF 2C: 66.20 >55% EF BiP: 63.20 >55% Mitral Valve MV Pk E: 0.74 MV PK A: 0.48 MV Decel Time: 180.00 E/A: 1.50 E'Lateral: 12.60 E'Medial: 8.70 E/E' Med: 8.50 E/E' Lat: 5.90 PHT: 53.00 MVA PHT: 4.15 Decel [place]: 4.11 Aortic Valve AoV Pk Stan: 1.65 AoV Mn Stan: 1.09 AoV VTI: 0.34 AoV Pk Grad: 11.00 Aov Mn Grad: 5.00 DORY Cont.VTI: 2.36 LVOT LVOT Pk Stan: 1.23 LVOT Mn Stan: 0.80 LVOT VTI: 0.26 LVOT Pk Grad: 6.00 LVOT Mn Grad: 3.00 LVOT Diam: 2.00 LVOT Area: 3.14 Diastolic Function MV Pk E: 0.74 MV Pk A: 0.48 E/A: 1.50 E'Medial: 8.70 E/E' Med: 8.50 E' Laterial: 12.60 E/E' Lat: 5.90 Right Ventricle TAPSE (mm): 20.00 TVS' Stan: 13.20 Tricuspid Valve TR Pk Stan: 1.74 TR Pk Grad: 12.00 RA Press: 8.00 RVSP: 20.00 Great Vessels Aorta Sinus of Valsalva: 2.63 2.0-3.5 cm Ao Asc: 2.50 2.1-3.4 cm Ao Arch: 2.50 Updated in Other Vendor System with Status of Final Oumar Macias MD electronically signed on 10/01/2024 1:25:50 PM with status of Final
--- OUTSIDE RECORDS SUMMARY | 2024-09-30 17:29 | XMS_ITS | Clinical Summary ---
Author Organization [employer] Address [address] [facility] [address] 7t [place] [address] Care Team Providers Care Water Systems Engineer Name Role Phone Name, Jemal HARMON Primary Care Provider [phone] Allergies Active Allergy Reactions Criticality Noted Date Comments Gramineae Pollens 04/08/2024 Medications fexofenadine (Jenny) 180 MG tablet Take 1 tablet by mouth at bed time. 0 Active oxymetazoline (Afrin Nasal [place]) 0.05 % nasal spray Administer 2 sprays [...] HOURS. 9 tablet 4 Active sodium chloride ([place] Nasal [place]) 0.65 % nasal sprayIndications: Nasal congestion 1-2 [...] refer patient to the emergency room at [facility] case presented to provider Nolvia Left anterior [...] injections and possible Epi Pen rx through operator/assistant foreman during upcoming appt in 1-2 weeks - [...] Encounters Date Type Department Care Team Description 09/24/2024 Population Health Risk Score Community [facility] (C3) Department [address] [place] [id number] Provider, Population Health Generic 08/23/2024 Telephone [facility] [address] [place] [address] Name, MD Jemal Results 08/04/2024 3:30 PM EST Office Visit [facility] [address] [place] [address] Brigitte, MD Jemal Migraine without aura and without status migrainosus, not intractable (Primary Dx); Kidney stone; Bilateral hand numbness 07/13/2024 10:40 AM EST Office Visit [facility] [address] [place] [address] Amanda Yoder ANP Earache (Primary Dx); Nasal congestion; Acute cough from Last 3 Months Immunizations Name Administration [...] is your housing situation today? I have nickmarcy marinelli 05/05/[address] you [...] 05/12/2025 05/12/2024 Depression Screening 05/12/2025 05/12/2024, 05/12/20 24 Lipid Panel 07/24/2025 07/24/2020 Tobacco Screening 08/04/2025 08/04/2024 Mammogram 04/02/2026 04/02/2024, 02/2 10/2022, 09/06/2022, Additional history exists Pap Smear 10/30/2028 [...] RICO ID NOW (07/13/2024 11:28 AM EST) [facility] Influenza A Negative Negative, Indeterminate [facility] QC Media Lot # [id number] [facility] Lot# Expiration Date [facility] Swab 07/13/2024 11:2 8 AM EST us Amanda HERNADEZ POINT OF CARE TEST ENTER/EDIT OR DERABLES Final Result [facility] [address] [place] [address] [phone] * POCT Rapid Strep A RICO ID NOW (07/13/2024 11:27 AM EST) [facility] Rapid Strep A Screen Negative Negative, None Detected QC Media Lot # [id number] Lot# Expiration Date 9,026 Swab 07/13/2024 11:2 7 AM EST us Amanda Yoder ANP POINT OF CARE TEST ENTER/EDIT OR DERABLES Final Result * POCT Rapid Covid-19 BinaxNOW (07/13/2024 11:27 AM EST) [facility] Rapid COVID Ag Negative QC Media Lot # [id number] Lot# Expiration Date 608,026 Swab 07/13/2024 11:2 7 AM EST us Amanda Yoder ANP POINT OF CARE TEST ENTER/EDIT OR DERABLES Final Result * BI Mammogram Screening Tomosynthesis Bilateral (04/02/2024 3:45 PM EDT) Anatomical Region Laterality Modality Breast Bilateral Mammography 04/02/2024 3:45 PM EDT Narrative 04/15/2024 8:41 AM EDT ? [facility] ? [address] ?[place] [address] ? Mammography Report ? Signed ? Patient: Jacobsen,Shannan ?MR#: [id number] ?? 08 ? : 1985 ?Acct:[id number] ? Age/Sex: 39 / F ?ADM Date: 04/02/24 ? Loc: HO.MAMMO ? Attending Dr: Jemal Name MD ? Ordering Physician: Name,Jemal MD ?Results: 1Negative ? Date of Service: 04/02/24 ?Follow Up: 1 Year From Orig ?? inal Mammogram ? Procedure(s): MM tomosynthesis screening BI ?? Accession Number(s): [id number] ? cc: Name,Jeaml ? EXAMINATION: ?? MM SCREENING DIGITAL BREAST [...] ? Signed By: ?<Electronically signed by Anabelle Quinones, DO in OV> ? 04/15/2438 ? DD/ 1545 ? TD/TT: 04/02/24 1604 ? Making Machine Operator: ? Procedure Note Ralph Fofana - 04/15/2024 [facility] [address] [place] [address] Mammography Report Signed Patient: Yazmin Jacobsen#: [id number] 08 : 1985Acct:[id number] Age/Sex: 39 / FADM Date: 04/02/24 Loc: B[facility] Attending Dr: Jemal Briggs MD Ordering Physician: Jemal Briggs MDResults: 1Negative Date of Service: 04/02/24Follow Up: 1 Year From Orig inal Mammogram Procedure(s): MM tomosynthesis screening BI Accession Number(s): [id number] cc: Jemal Briggs MD EXAMINATION: MM SCREENING DIGITAL BREAST TOMOSYNTHESIS, BILATERAL [...] 04/15/24 0838 DD/ 1545 TD/TT: 04/02/24 1604 Making Machine Operator: us Jemal Name MD BUSTAMANTE BI PROCEDURES Edited Result - Final * Pap Smear (10/31/2023 3:49 PM EDT) 10/31/2023 3:49 PM EDT 11/03/2023 11:30 AM EDT [facility] - 11/18/2023 4:52 PM EDT ----- ------- Name: Shannan Jacobsen ? Age/Sex: 38/F ? : 1985 Unit#: [id number] ?? Attend Dr: Eva Canada CNM ?Re10/31/23 ?Status: DEP REF ? Location: HO.LNP ?Disch: ? ----- ------- SPEC : [id number] ? RECD: 11/03/23-1130 ? STATUS: ??SOUT ? REQ NUM: [id number] ? HERMELINDA: 10/31/23-1549 ? SUBM DR: Eva Canada CNM ? ENTERED: ??11/03/23-1404 ?SP TYPE: Pap Smr ?OTHR DR: NameJemal MD ? ORDERED: ??Pap Smear, PAP [...] Not Detected ? HPV testing performed by [facility], [place], [place]. ??See reference laboratory ?? portion of the EMR for entire report. ?Clinical Information LMP: 10/20/23 Previous PAP test: 11/06/18, WNL ? Material Received ?? ThinPrep-Cervical Copies To: ?? Name,Jemal HARMON ?? [address] [facility] ?? [place] [address] ?? [phone] ?? MillerEva Borja CNM ?? [address] [facility] [address] [place] [facility] ?? [place] [address] ?? [phone] ----- ------- Signed (signature on file) Thania Savage MD 11/18/231651 ? ----- ------- ? END OF REPORT ? Generic External Data Provider LAB CYTOLOGY BLANCA PETERSON Final Result [facility] [address] [place], [place] [phone] * Hepatitis C Antibody with Reflex to HCV, RNA, Quantitative, Real-Time PCR (08/09/2022 10:19 AM EST) Hepatitis C Antibody NON-REACT JOSE NON-REACT JOSE [facility] [place] [facility] Index <0.02 <1.00 [facility] [place] [facility] Comment: HCV antibody was non-reactive. There is no laboratory evidence of HCV infection. In most cases, no further action is required. However, if recent HCV exposure is suspected, a test for HCV RNA (test code 20856) is suggested. For additional information please refer to http://Peeky.Playroll/faq/LXM54s4 (This link is being provided for informational/ educational purposes only.) Blood Venous blood specimen / Unknown 08/09/2022 10:19 AM EST 08/09/2022 10:20 AM EST Narrative [facility] - 08/12/2022 6:40 PM EST FASTING:UNKNOWN FASTING: UNKNOWN Janet Mak PRODUCT EXAMINER LAB BLOOD ORDERABLES Final Res ult Performing Organization Address City/[facility]/ZIP Co de Phone Number [facility] [address], [place] [address] [facility] [place] [address] [facility], (Nl2) [place] [address] * HIV-1/2 Antigen and Antibodies, Fourth Generation, with Reflexes (08/09/2022 10:19 AM EST) HIV Antigen/Antibody, 4th Generation NON-REAC TIVE NON-REAC TIVE [facility] [place] [facility] Comment: HIV-1 antigen and HIV-1/HIV-2 antibodies were [...] ?? For additional information please refer to http://Peeky.Playroll/faq/PXS561 (This link is being provided for informational/ educational purposes only.) The performance of this assay has not been clinically validated in patients less than 2 years old. Blood Venous blood specimen / Unknown 08/09/2022 10:19 AM EST 08/09/2022 10:20 AM EST Narrative [facility] - 08/12/2022 6:40 PM EST FASTING:UNKNOWN FASTING: UNKNOWN Janet Mak [facility] LAB BLOOD ORDERABLES Final Res ult [facility] [address], [place] [address] [facility] [address] [facility], (Nl[address]) [place] [address] * (ABNORMAL) LIPID PANEL, STANDARD (07/24/2020 3:40 PM EST) [facility] Signature Chol/HDLC Ratio 3.2 <5.0 (calc) [facility] [...] ?? Xavier CABRERA et al. SCOTT. 2013;310(19): 0501-7551 ?? (http://education.Zoodak.Matthew Kenney Cuisine/faq/DQM490) Non-HDL Cholesterol 110 <130 mg/dL (calc) [facility] Comment: For patients with diabetes plus 1 major ASCVD risk ?? factor, treating to a non-HDL-C goal of <100 mg/dL ?? (LDL-C of <70 mg/dL) is considered a therapeutic ?? option. Triglycerides 128 <150 mg/dL [facility] 07/24/2020 3:40 PM EST Jemal Name LAB BLOOD ORDERABLES Final Resul t [facility] [address] * Pap Smear (11/05/2018) Pap Negative for intraephithelial lesion or malignancy Negative for intraephithelial lesion or malignancy, Other HPV Not Detected Undetected, Indeterminate, Quantitative, Not Detected Historical Provider HEALTH MAINTENANCE Final Result from Last 3 Months or Most Recently Relevant to Health Maintenance Insurance [employer] C3 Care Teams Water Systems Engineer Relationship Specialty Start Date End Date Name, MD Jemal [address] [place] [phone] PCP - General Family Medicine 12/24/17
--- OUTSIDE RECORDS SUMMARY | 2024-09-30 17:29 | XMS_ITS | Encounter Summary ---
Author Organization [employer] Address [address] [facility] [address] [place] [address] Care Team Providers Care Oil Dispenser Name Role Phone Name, Jemal HARMON Primary Care Provider [phone] Reason for Visit * Reason Onset Date Comments Nurse Triage 08/12/2023 Encounter Details Date Type Department Care Team ([facility] Contact Info) Description 08/12/2023 Telephone [facility] MEDICINE [address] [place], [place] [phone] Name, MD Jemal [address] [place] [address] Nurse Triage Social History Tobacco Use Types [...] t he electric, gas, oil or water [employer] threatened to shut off services in your [...] 08/12/2023 12:03 PM EST Triage call with [employer] trend investigator [place] [id number] Pt reports cough, sore throat. nasal congestion, [...] worse. Pt is advised to come to [facility] today which is open till 8pm [...] accepted this outcome Please contact pt at [phone] ([place]) documented in this encounter Plan of Treatment Not on file documented as of this encounter Visit Diagnoses Not on filedocumented in this encounter Additional Health Concerns Assessment Noted Time PHQ-9 Depression Total Score: 0 02/05/20 23 9:16 AM EDT documented as of this encounter Care Teams Oil Dispenser Relationship Specialty Start Date End Date Name, MD Jemal [address] [place] [address] PCP - General Family Medicine 12/24/17 documented as of this encounter
--- OUTSIDE RECORDS SUMMARY | 2024-09-30 17:29 | XMS_ITS | Encounter Summary ---
Author Organization [employer] Address [address] [facility] [address] [place] [address] Care Team Providers Care Hospitalist Program Director Name Role Phone Name, Jemal HARMON Primary Care Provider [phone] Reason for Visit * Reason Onset Date Comments Follow-up 06/13/2022 Encounter Details Date Type Department Care Team ([facility] Contact Info) Description 06/13/2022 Telephone [facility] MEDICINE [address] [place], [place] [phone] Name, MD Jemal [address] [place] [address] Follow-up Social History Tobacco Use Types Packs/Day [...] check and to assess current symptoms via [employer] Client Experience Manager Donell #[id number]. sidney Padron/josie left to return call. * Telephone Encounter - Sully Chintan - 06/13/2022 10:09 AM EST Tc from Pt stated came in the [place] on 06[place]04 they found a Bacteria in the Urine. Pt statedprovider told her to contact PCP for follow up. PCP Name documented in this encounter Plan of Treatment Not on file documented as of this encounter Visit Diagnoses Not on filedocumented in this encounter Care Teams Hospitalist Program Director Relationship Specialty Start Date End Date Name, MD Jemal [address] [place] [id number] PCP - General Family Medicine 12/24/17 documented as of this encounter
--- OUTSIDE RECORDS SUMMARY | 2024-09-30 17:29 | XMS_ITS | Encounter Summary ---
Author Organization [employer] Address [address] [facility] [address] [place] [address] Care Team Providers Care Surgical Services Director Name Role Phone Name, Jemal HARMON Primary Care Provider [phone] Encounter Details Date Type Department Care Team ([facility] st Contact Info) Description 09/24/2024 Population Health Risk Score [facility] ([facility]) Department [address] [facility] [address] [place] [id number] Provider, Population Health Generic Social History Tobacco Use Types Packs/Day Years [...] AM EDT documented as of this encounter Plan of Treatment Not on file documented as of this encounter Visit Diagnoses Not on filedocumented in this encounter Additional Health Concerns Assessment Noted Time PHQ-9 Depression Total Score: 0 05/12/20 24 10:51 AM EDT documented as of this encounter Care Teams Surgical Services Director Relationship Specialty Start Date End Date Name, MD Jemal [address] [place] [id number] PCP - General Family Medicine 12/24/17 documented as of this encounter
--- OUTSIDE RECORDS SUMMARY | 2024-09-30 17:29 | XMS_ITS | Encounter Summary ---
Author Organization [employer] Address [address] [facility] [address] [place] [address] Care Team Providers Care Furniture Sales Associate Name Role Phone Name, Jemal HARMON Primary Care Provider [phone] Reason for Visit * Reason Onset Date Comments Results 07/22/2023 Encounter Details Date Type Department Care Team ([facility] Contact Info) Description 07/22/2023 Telephone [facility] MEDICINE [address] [place], [place] [phone] Name, MD Jemal [address] [place] [address] Results Social History Tobacco Use Types Packs/Day [...] t he electric, gas, oil or water [employer] threatened to shut off services in your [...] PM EST T/c placed to pt via [employer] #[id number]. Advised of benign result for right cervicallymph [...] Facility: [facility] Please contact pt at [phone] documented in this encounter Plan of Treatment Not on file documented as of this encounter Visit Diagnoses Not on filedocumented in this encounter Additional Health Concerns Assessment Noted Time PHQ-9 Depression Total Score: 0 02/05/20 23 9:16 AM EDT documented as of this encounter Care Teams Furniture Sales Associate Relationship Specialty Start Date End Date Name, MD Jemal [address] [place] [address] PCP - General Family Medicine 12/24/17 documented as of this encounter
== END ==
LOC: HO.CARD 15:05
PROVIDERS: PCP Internal Medicine Geriatric Medicine; Visit Provider Internal Medicine
DX: R07.2 Precordial pain (principal)
CPT/HCPCS: 93306

== ENCOUNTER → 2024-09-30 15:13 | Outpatient (BNV) | payer MEDICAID, SELFPAY | PROVIDERS: PCP Internal Medicine Geriatric Medicine; Visit Provider Internal Medicine Cardiovascular Disease | DX: R07.2 Precordial pain (principal) | CPT/HCPCS: 93306 ==

== ENCOUNTER → 2024-10-01 09:38 | Outpatient (REF) | payer MEDICAID, SELFPAY ==
--- NOTE | 2024-10-01 09:42 | CA_ITS ---
Acquisition Time: 2024-10-01 09:44:18 Total Exercise Time: 00:06:00 Test Indications: Precordial Chest pain Medications: Protocol: PHILIP Max HR: 162 BPM 90% of Pred: 180 BPM Max BP: 144/82 mmHG Max Work Load: 7.0 METS Exercise Stress Test with exercise 6 mins of Philip Protocol, achieving 90% MPHR, with reports of intermittent left sided sharp chest pain mores so with deep breaths and mild dizziness, without any arrythmias, with normotensive response to exercise. Without EKG changes meeting criteria for ischemia. In recovery, the chest discomfort resolved quickly. Will order stress echo to further evaluate the chest pain. Test reviewed with Dr. Mason. Referred By: Ernie Ford Electronically Signed By: Fer Mora
== END ==
LOC: HO.CARD 09:38
PROVIDERS: PCP Internal Medicine Geriatric Medicine; Visit Provider Internal Medicine
DX: R07.2 Precordial pain (principal)
CPT/HCPCS: 93017

== ENCOUNTER → 2024-10-01 09:42 | Outpatient (BNV) | payer MEDICAID, SELFPAY | PROVIDERS: PCP Internal Medicine Geriatric Medicine | DX: R07.2 Precordial pain (principal) | CPT/HCPCS: 93016; 93018 ==

== ENCOUNTER 2024-10-08 14:44 | Outpatient (AMB) | payer MEDICAID, SELFPAY ==
--- NOTE | 2024-10-08 14:46 | MHC.OFFVIS ---
Vital Signs 10/08/24 14:59 Height 5 ft 1 in Weight 171 lb BMI 32.3 Handedness Right Intake Visit Reasons: [facility]- B/L CTS, recent EMG done Intake Note: Shannan is a 39 year old right hand dominant female who presents today as a new patient with complaints of bilateral hand pain numbness. EMG done. She states that her numbness is ongoing for more than 6 months. Her right hand is worse than the left. Patient states that she has trouble twisting a door nob. She notices pain when she is lifting heavy items and her pain radiates up to her elbow. Patient notices that her right middle finger locks and catches through out the day for about a month now. Hx of an injury in her left pinky finger. EMG done 08/10/24: IMPRESSION: 1. Mild right median neuropathy across carpal tunnel. 2. Mild left ulnar neuropathy across cubital tunnel. Contract Engineer Services: Contract Engineer Present ([employer] ([id number])) Allergies aspirin Allergy (Verified 10/08/24 14:59) Unknown HPI HPI [facility]- B/L CTS, recent EMG done: Details: Shannan is a 39 year old right hand dominant female who presents today as a new patient with complaints of right hand pain numbness and bilateral hand pain. EMG done. She states that her numbness is ongoing for more than 6 months. Her right hand is worse than the left. Patient states that she has trouble twisting a door nob. She notices pain when she is lifting heavy items and her pain radiates up to her elbow. Patient notices that her right middle finger locks and catches through out the day for about a month now. Hx of an injury in her left pinky finger. Denies any numbness or tingling in the left hand, particularly in the small finger. EMG done 08/10/24: IMPRESSION: 1. Mild right median neuropathy across carpal tunnel. 2. Mild left ulnar neuropathy across cubital tunnel. [facility] Medical History Depressed History of eclampsia History of high blood pressure Surgical History History of laparoscopic cholecystectomy (02/28/23) Hx of appendectomy Hx of tubal ligation Family History Father CVD (cardiovascular disease) Mother Asthma History of anxiety History of fibromyalgia Social History (Updated 10/08/24 @ 14:58 by Jorge Simmons) Are you a primary housekeeper child care to a significant other at home: Yes Do you presently have visiting nurse or other home services: No Alcohol intake: current Alcohol intake frequency: a few times a month Patient Tobacco Use Status: Never used Tobacco Current occupational status: employed 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 Good APB muscle firing and good finger cross. Vascular: Capillary refill brisk. ROM: Patient can make a fist and extend all their digits. Skin: No lacerations or abrasions noted. General: No ecchymosis. No erythema or evidence of infection. Results Reviewed Results Reviewed: EMG done 08/10/24: IMPRESSION: 1. Mild right median neuropathy across carpal tunnel. 2. Mild left ulnar neuropathy across cubital tunnel. Assessment & Plan Assessment & Plan (1) Right carpal tunnel syndrome: Code(s): G56.01 - Carpal tunnel syndrome, right upper limb Category: Medical (2) Cubital tunnel syndrome on left: Code(s): G56.22 - Lesion of ulnar nerve, left upper limb Category: Medical Plan 1. Carpal tunnel syndrome, right Symptoms intermittent, daily, worse at night Patient is educated about this condition Patient is educated about the typical treatment course This time, patient states that she is interested in surgical intervention, but she will need to hold off as she does not feel that she can accommodate this surgical recovery period with her current work schedule Therefore, patient was will follow-up in 6 weeks for discussion of potential surgical intervention, as she feels she might be in a better place to discuss surgery at that time 2. Cubital tunnel syndrome, left Asymptomatic, no numbness or tingling in the ulnar nerve distribution of the left hand Patient is educated about this condition Patient is educated that due to the fact that she is asymptomatic, there is no acute intervention indicated at this time Patient was educated that if she does begin to experience numbness or tingling in the ring and small fingers of the left hand, she should call us for re-evaluation and discussion of treatment options Patient was amenable to this plan Coding Level of Care Code New Pt Level 3 (09038) Diagnoses Right carpal tunnel syndrome G56.01 Cubital tunnel syndrome on left G56.22
[2024-10-08 14:59] VITALS: BMI 32.3
== END 2024-10-08 15:16 | disposition home or self-care (01) ==
LOC: HO.HOS 14:45
PROVIDERS: PCP Internal Medicine Geriatric Medicine
DX: G56.01 Carpal tunnel syndrome, right upper limb (principal); G56.22 Lesion of ulnar nerve, left upper limb
CPT/HCPCS: 99203

== ENCOUNTER → 2024-10-08 14:44 | Outpatient (BNVA) | payer MEDICAID, SELFPAY | PROVIDERS: PCP Internal Medicine Geriatric Medicine | DX: G56.22 Lesion of ulnar nerve, left upper limb (principal); G56.01 Carpal tunnel syndrome, right upper limb | CPT/HCPCS: 99212 ==

== ENCOUNTER 2024-11-02 14:58 | Outpatient (REF) | payer MEDICAID, SELFPAY ==
--- NOTE | ~2024-11-02 | XR_ITS ---
EXAMINATION: XR CHEST CLINICAL INFORMATION: ongoing productive cough,decrase breast sounds at bases COMPARISON: April 27, 2024. TECHNIQUE: 2 views of the chest were obtained. FINDINGS: No consolidation, pleural effusion or pneumothorax. No hyperinflation. Cardiomediastinal silhouette size is normal. Osseous structures are intact. Vascular clips right upper quadrant abdomen and likely cholecystectomy. Patient's large body habitus/obesity. XR/XR chest 2V IMPRESSION: No acute airspace disease. Stable chest. Electronically signed by: Rusty Hawk MD 11/02/2024 03:55 PM EDT
--- OUTSIDE RECORDS SUMMARY | 2024-11-02 17:52 | XMS_ITS | Encounter Summary ---
Author Organization [employer] Address [address] [facility] [address] [place] [address] Care Team Providers Care Photographic Equipment Inspector Name Role Phone Name, Jemal HARMON Primary Care Provider [phone] Reason for Visit * Reason Onset Date Comments Follow-up 06/13/2022 Encounter Details Date Type Department Care Team ([facility] Contact Info) Description 06/13/2022 Telephone [facility] MEDICINE [address] [place], [place] [phone] Name, MD Jemal [address] [place] [address] Follow-up Social History Tobacco Use Types Packs/Day [...] check and to assess current symptoms via [employer] Religious Studies Professor Donell #[id number]. sidney Padron/josie left to return call. * Telephone Encounter - Sully Chintan - 06/13/2022 10:09 AM EST Tc from Pt stated came in the [place] on 06/04 they found a Bacteria in the Urine. Pt statedprovider told her to contact PCP for follow up. PCP Name documented in this encounter Plan of Treatment Not on file documented as of this encounter Visit Diagnoses Not on filedocumented in this encounter Care Teams Photographic Equipment Inspector Relationship Specialty Start Date End Date Name, MD Jemal [address] [place] [id number] PCP - General Family Medicine 12/24/17 documented as of this encounter
--- OUTSIDE RECORDS SUMMARY | 2024-11-02 17:52 | XMS_ITS | Clinical Summary ---
Author Organization [employer] Address [address] [place] [address] Care Team Providers Care Coil Strapper Name Role Phone Name, Jemal HARMON Primary Care Provider [phone] Allergies Active Allergy Reactions Criticality Noted Date Comments Gramineae Pollens 04/08/2024 Medications fexofenadine (Jenny) 180 MG tablet Take 1 tablet by mouth at bed time. 03/06/20 20 Active omeprazole OTC (PriLOSEC OTC) 20 MG EC tablet Take 1 tablet (20 mg) by mouth before breakfast. Do not crush, chew, or split. 30 tablet 11 10/20/19 24 Active fluticasone (Flonase) 50 MCG/ACT nasal spray ADMINISTER 2 SPRAYS INTO EACH NOSTRIL TWICE A DAY. SHAKE GENTLY. BEFORE FIRST USE, PRIME PUMP. AFTER USE CLEAN TIP AND REPLACE CAP. 48 g 11/07/19 24 Active chlorthalidone (Hygroton) 25 MG tabletIndicatio ns:Essential hypertension TAKE 1 TABLET BY MOUTH EVERY DAY 90 tablet 1 03/17/20 24 Active montelukast (Singulair) 10 MG tablet TOME 1 TABLETA POR V A ORAL TODOS LOS D 03/09/20 24 Active meloxicam (Mobic) 15 MG tabletIndicatio ns:Rib pain on left side Take 1 tablet (15 mg) by mouth Once per day. 30 tablet 11 04/27/20 24 2024 Active SUMAtriptan (Imitrex) 25 MG tabletIndicatio ns:Migraine without aura and without status migrainosus, not intractable TAKE 1 TABLET BY MOUTH 1 TIME IF NEEDED FOR MIGRAINE FOR UP TO 1 DOSE. MAY REPEAT DOSE ONCE IN 2 HOURS IF NO RELIEF. DO NOT EXCEED 2 DOSES IN 24 HOURS. 9 tablet 06/09/20 24 Active amitriptyline (Elavil) 10 MG tabletIndicatio ns:Migraine without aura and without status migrainosus, not intractable Take 1 tablet (10 mg) by mouth at bedtime. 30 tablet 11 08/04/19 25 Active Additional Information Patient not taking.Reported on 11/02/2024 dextromethorpha n 15 MG/5ML syrupIndication s:Cough, unspecified type Take 10 mL (30 mg) by mouth if needed in the morning, at noon, in the evening, and at bedtime for cough for up to 7 days. 120 mL 11/03/19 25 2024 Active sodium chloride (Riley Nasal Hankinson) 0.65 % nasal sprayIndication s:Cough, unspecified type,Nasal congestion 1-2 sprays on each nostril every 2-3 hours as needed for nasal congestion 30 mL 1 11/03/19 25 Active oxymetazoline (Afrin Nasal Hankinson) 0.05 % nasal spray Administer 2 sprays into each nostril every 12 (twelve) hours if needed for congestion for up to 2 days. Do not use for more than 3 days. 30 mL 07/21/19 24 2024 Discontinued(O ther) sodium chloride (Riley Nasal Hankinson) 0.65 % nasal sprayIndication s:Nasal congestion 1-2 sprays on each nostril every 2-3 hours as needed for nasal congestion 30 mL 1 07/13/20 24 2024 Discontinued(R eorder (will not trigger notification to Pharmacy)) Active Problems Problem Noted Date Diagnosed Date [...] refer patient to the emergency room at [facility] case presented to provider Nolvia Left anterior [...] injections and possible Epi Pen rx through roof bolter during upcoming appt in 1-2 weeks - [...] Encounters Date Type Department Care Team Description 11/02/2024 1:30 PM EDT Office Visit [facility] [address] [place] [address] Molly De Leon MD Cough, unspecified type; Nasal congestion 11/02/2024 Travel 09/24/2024 Population Health Risk Score [facility] (C[facility]) Department [address] [address] Provider, Population Health Generic 08/23/2024 Telephone [facility] [address] [place] [address] Jemal Briggs MD Results 08/04/2024 3:30 PM EST Office Visit [facility] [address] [place] [address] Jemal Briggs MD Migraine without aura and without status migrainosus, not intractable (Primary Dx); Kidney stone; Bilateral hand numbness from Last 3 Months Immunizations Name Administration [...] Sign Reading Time Taken Comments Blood Pressure 130/85 11/02/2024 1:44 PM EDT Pulse 84 11/02/2024 1:44 PM EDT Temperature 37.2 ??C (98.9 ??F) 11/02/2024 1:44 PM ED T Respiratory Rate 20 11/02/2024 1:44 PM EDT Oxygen Saturation 98% 11/02/2024 1:44 PM EDT Inhaled Oxygen Concentration - - Weight 79.8 kg (176 lb) 11/02/2024 1:44 PM EDT Height 154.9 cm (5' 1 ) 08/04/2024 3:46 PM EST Body Mass Index 33.25 08/04/2024 3:46 PM EST Plan of Treatment Health Maintenance Due Date Last Done Comments Family Planning (PISQ) 01/06/1999 Hepatitis B Vaccines (1 of 3 - 19+ 3-dose series) 01/06/2003 Cervical Cancer Screening 11/06/2023 HPV/Cotest 11/06/2023 11/05/2018 COVID-19 Vaccine ( - season) 2024 05/15/2021, 04/24/2021 SDOH Screening 05/05/2025 05/05/2024 Alcohol/Substance Use Screening 05/12/2025 05/12/2024 Depression Screening 05/12/2025 05/12/2024, 05/12/20 Lipid Panel 07/24/2025 07/24/2020 Tobacco Screening 08/04/2025 08/04/2024 Mammogram 04/02/2026 04/02/2024, 08/15, 09/06/2022, Additional history exists Pap Smear 10/30/2028 [...] Procedure Name Priority Date/Time Associated Diagnosis Comments XR CHEST 2 VIEWS Routine 11/02/2024 2:58 PM EDT Cough, unspecified type POCT INFLUENZA B Routine 11/02/2024 1:58 PM EDT Cough, unspecified type POCT INFLUENZA A Routine 11/02/2024 1:57 PM EDT Cough, unspecified type POCT RAPID COVID ANTIGEN Routine 11/02/2024 1:56 PM EDT Cough, unspecified type BI MAMMOGRAM SCREENING TOMOSYNTHESIS BILATERAL Routine 04/02/2024 [...] Recently Relevant to Health Maintenance Results * XR Chest 2 Views (11/02/2024 2:58 PM EDT) Anatomical Region Laterality Modality Chest Radiographic Melissa ging 11/02/2024 2:58 PM EDT Narrative 11/02/2024 3:57 PM EDT ?[facility] ?[address] ?[place] [address] ?XRay Report ? Signed ? Patient: Jacobsen,Shannan ?MR#: [id number] ?? 08 ? : 1985 ?Acct:[id number] ? Age/Sex: 39 / F ?ADM Date: 04/22/25 ? Loc: HO.HHCX ? Attending Dr: Molly Tolentino MD ? Ordering Physician: Molly De Leon MD ?? Date of Service: 11/02/24 ?? Procedure(s): XR chest 2V ?? Accession Number(s): [id number] ? cc: Molly De Leon MD ? EXAMINATION: ?? XR CHEST ? CLINICAL INFORMATION: ?? ongoing productive cough,decrase breast sounds at bases ? COMPARISON: ?? April 27, 2024. ? TECHNIQUE: ?? 2 views of the chest were obtained. ? FINDINGS: ?? No consolidation, pleural effusion or pneumothorax. No hyperinflation. ?? Cardiomediastinal silhouette size is normal. Osseous structures are ?? intact. Vascular clips right upper quadrant abdomen and likely ?? cholecystectomy. Patient's large body habitus/obesity. ? XR/XR chest 2V ?? IMPRESSION: ?? No acute airspace disease. Stable chest. ? Electronically signed by: ??Rusty Hawk MD ??11/02/2024 03:55 PM ?? EDT ? Dictated By: ?Rusty Schwarz MD ? Signed By: ?<Electronically signed by Rusty Bolton MD in OV> ? 11/02/24 1555 ? DD/ 1458 ? TD/TT: 11/02/24 1500 ? Desk Operator: ? Procedure Note Brigido, Ralph - 11/02/2024 [place] [address] XRay Report Signed Patient: Yazmin Jacobsen#: [id number] 08 : 1985Acct:[id number] Age/Sex: 39 / FADM Date: 11/02/24 Loc: HO.HHCX Attending Dr: Molly Tolentino MD Ordering Physician: Molly De Leon MD Date of Service: 11/02/24 Procedure(s): XR chest 2V Accession Number(s): [id number] cc: Molly De Leon MD EXAMINATION: XR CHEST CLINICAL INFORMATION: ongoing productive cough,decrase breast sounds at bases COMPARISON: April 27, 2024. TECHNIQUE: 2 views of the chest were obtained. FINDINGS: No consolidation, pleural effusion or pneumothorax. No hyperinflation. Cardiomediastinal silhouette size is normal. Osseous structures are intact. Vascular clips right upper quadrant abdomen and likely cholecystectomy. Patient's large body habitus/obesity. XR/XR chest 2V IMPRESSION: No acute airspace disease. Stable chest. Electronically signed by: Rusty Hawk MD 11/02/2024 03:55 PM EDT RP Dictated By: Rusty Schwarz MD Signed By: <Electronically signed by Rusty Bolton MDin OV> 11/02/24 1555 DD/ 1458 TD/TT: 11/02/24 1500 Desk Operator: Result [facility] Molly Tolentino MD IMG XR PROCEDURES Final Result * POCT Influenza B manually resulted (11/02/2024 1:58 PM EDT) [facility] Rapid Influenza B Ag Negative Negative, Indeterminate QC Media Lot # [id number] Lot# Expiration Date Swab 11/02/2024 1:58 PM EDT Result [facility] Molly Tolentino MD POINT OF CARE SONIA T ENTER/EDIT ORDERABLES Final Result * POCT Influenza A manually resulted (11/02/2024 1:57 PM EDT) [facility] Rapid Influenza A Ag Negative Negative, Indeterminate QC Media Lot # [id number] Lot# Expiration Date Swab Nasopharyngeal structure / Unknown 11/02/2024 1:57 PM EDT Result [facility] Molly Tolentino MD POINT OF CARE TEST ENTER/EDIT ORDERABLES Edited Result - Final * POCT Rapid COVID Ag (11/02/2024 1:56 PM EDT) [facility] Rapid COVID Ag Negative QC Media Lot # [id number] Lot# Expiration Date Swab 11/02/2024 1:56 PM EDT us Molly Tolentino MD POINT OF CARE SONIA T ENTER/EDIT ORDERABLES Final Result * BI Mammogram Screening Tomosynthesis Bilateral (04/02/2024 3:45 PM EDT) Anatomical Region Laterality Modality Breast Bilateral Mammography 04/02/2024 3:45 PM EDT Narrative 04/15/2024 8:41 AM EDT ? [facility] ? [address] ?[place], [place] [address] ? Mammography Report ? Signed ? Patient: Jacobsen,Shnanan ?MR#: [id number] ?? 08 ? : 1985 ?Acct:[id number] ? Age/Sex: 39 / F ?ADM Date: 04/02/24 ? Loc: HO.MAMMO ? Attending Dr: Jemal Name MD ? Ordering Physician: Name,Jemal MD ?Results: 1Negative ? Date of Service: 04/02/24 ?Follow Up: 1 Year From Orig ?? inal Mammogram ? Procedure(s): MM tomosynthesis screening BI ?? Accession Number(s): [id number] ? cc: Name,Jemal ? EXAMINATION: ?? MM SCREENING DIGITAL BREAST [...] by Anabelle Quinones, DO in OV> ? 04/15/24 0838 ? DD/ 1545 ? TD/TT: 04/02/24 1604 ? Desk Operator: ? Procedure Note Brigido, Image - 04/15/2024 [facility] [address] [place] [address] Mammography Report Signed Patient: Yazmin Jacobsen#: [id number] 08 : 1985Acct:[id number] Age/Sex: 39 / FADM Date: 04/02/24 Loc: [facility] Attending Dr: Jemal Briggs MD Ordering Physician: Jemal Briggsesults: 1Negative Date of Service: 04/02/24Follow Up: 1 Year From Orig inal Mammogram Procedure(s): MM tomosynthesis screening BI Accession Number(s): [id number] cc: Jemal Briggs MD EXAMINATION: MM SCREENING [...] 04/15/24 0838 DD/ 1545 TD/TT: 04/02/24 1604 Desk Operator: us Jemal BUSTAMANTE BI PROCEDURES Edited Result - Final * Pap Smear (10/31/2023 3:49 PM EDT) 10/31/2023 3:49 PM EDT 11/03/2023 11:30 AM EDT [facility] - 11/18/2023 4:52 PM EDT ----- ------- Name: Shannan Jacobsen ? Age/Sex: 38/F ? : 1985 Unit#: [id number] ?? Attend Dr: Eva Canada CNM ?Re10/31/23 ?Status: DEP REF ? Location: HO.LNP ?Disch: ? ----- ------- SPEC : [id number] ? RECD: 11/03/23-1130 ? STATUS: ??SOUT ? REQ NUM: [id number] ? HERMELINDA: 10/31/23-1549 ? SUBM DR: Eva Canada CNM ? ENTERED: ??11/03/23-1404 ?SP TYPE: Pap Smr ?OTHR : NameJemal [...] Not Detected ? HPV testing performed by [employer] [place], [place]. ??See reference laboratory ?? portion of the EMR for entire report. ?Clinical Information LMP: 10/20/23 Previous PAP test: 11/06/18, WNL ? Material Received ?? ThinPrep-Cervical Copies To: ?? Name,Jemal HARMON ?? [address] [facility] ?? [place] [address] ?? [phone] ?? Eva Canada CNM ?? [address] [facility] ?? [place] [address] ?? [phone] ----- ------- Signed (signature on file) Thania Savage MD 11/18/23 4752 ? ----- ------- ? END OF REPORT ? Generic External Data Provider LAB CYTOLOGY BLANCA PETERSON Final Result Performing Organization Address City/[facility]/ZIP Co de Phone Number [facility] [address] [place] [address] [phone] * Hepatitis C Antibody with Reflex to HCV, RNA, Quantitative, Real-Time PCR (08/09/2022 10:19 AM EST) Hepatitis C Antibody NON-REACT JOSE NON-REACT JOSE [facility] [facility] [place] [employer] Index <0.02 <1.00 [employer] [facility] Comment: HCV antibody was non-reactive. There is no laboratory evidence of HCV infection. In most cases, no further action is required. However, if recent HCV exposure is suspected, a test for HCV RNA (test code 18044) is suggested. For additional information please refer to http://education.Boundless/faq/YUO66j9 (This link is being provided for informational/ educational purposes only.) Blood Venous blood specimen / Unknown 08/09/2022 10:19 AM EST 08/09/2022 10:20 AM EST Narrative [facility] - 08/12/2022 6:40 PM EST FASTING:UNKNOWN FASTING: UNKNOWN Janet Mak FRENCH FOLDING MACHINE OPERATOR LAB BLOOD ORDERABLES Final Res ult Performing Organization Address City/[facility] Co de Phone Number [facility] [address] [facility], [address]rd [address], [place] [address] [employer] [facility] [place] [employer] [address] , ([address]) [place] [address] * HIV-1/2 Antigen and Antibodies, Fourth Generation, with Reflexes (08/09/2022 10:19 AM EST) Pathologist [facility] HIV Antigen/Antibody, 4th Generation NON-REAC TIVE NON-REAC TIVE [employer] Comment: HIV-1 antigen and HIV-1/HIV-2 antibodies were [...] ?? For additional information please refer to http://PasswordBox.Boundless/faq/QGT455 (This link is being provided for informational/ educational purposes only.) The performance of this assay has not been clinically validated in patients less than 2 years old. Blood Venous blood specimen / Unknown 08/09/2022 10:19 AM EST 08/09/2022 10:20 AM EST Narrative [facility] - 08/12/2022 6:40 PM EST FASTING:UNKNOWN FASTING: UNKNOWN Janet Mak [facility] LAB BLOOD ORDERABLES Final Res ult [facility] [address], [place] [address] [facility] [facility] [address] [facility], ([address]) [place] [address] * (ABNORMAL) LIPID PANEL, STANDARD (07/24/2020 3:40 PM EST) Chol/HDLC Ratio 3.2 <5.0 (calc) [facility] [...] ?? Xavier CABRERA et al. SCOTT. 2013;310(19): 9633-4228 ?? (http://education.[employer]/faq/EFO541) Non-HDL Cholesterol 110 <130 mg/dL (calc) [facility] Comment: For patients with diabetes plus 1 major ASCVD risk ?? factor, treating to a non-HDL-C goal of <100 mg/dL ?? (LDL-C of <70 mg/dL) is considered a therapeutic ?? option. Triglycerides 128 <150 mg/dL [facility] 07/24/2020 3:40 PM EST Jemal Name LAB BLOOD ORDERABLES Final Resul t [facility] [address] * Pap Smear (11/05/2018) Pap Negative for intraephithelial lesion or malignancy Negative for intraephithelial lesion or malignancy, Other HPV Not Detected Undetected, Indeterminate, Quantitative, Not Detected Historical Provider HEALTH MAINTENANCE Final Result from Last 3 Months or Most Recently Relevant to Health Maintenance Insurance [facility] C3 Care Teams Coil Strapper Relationship Specialty Start Date End Date Name, MD Jemal [address] [place] [address] PCP - General Family Medicine 12/24/17
--- OUTSIDE RECORDS SUMMARY | 2024-11-02 17:52 | XMS_ITS | Encounter Summary ---
Author Organization [employer] Address [address] [place] [address] Care Team Providers Care Director Integrated Name Role Phone Name, Jemal HARMON Primary Care Provider [phone] Reason for Visit * Reason Onset Date Comments Results 07/22/2023 Encounter Details Date Type Department Care Team ([facility] Contact Info) Description 07/22/2023 Telephone [facility] [address] [place], [place] [phone] Name, MD Jemal [address] [place] [address] Results Social History Tobacco Use Types Packs/Day [...] t he electric, gas, oil or water [employer] threatened to shut off services in your [...] PM EST T/c placed to pt via [employer] #[id number]. Advised of benign result for right cervicallymph [...] Facility: [facility] Please contact pt at [phone] documented in this encounter Plan of Treatment Not on file documented as of this encounter Visit Diagnoses Not on filedocumented in this encounter Additional Health Concerns Assessment Noted Time PHQ-9 Depression Total Score: 0 02/05/20 23 9:16 AM EDT documented as of this encounter Care Teams Director Integrated Relationship Specialty Start Date End Date Name, MD Jemal [address] [place] [address] PCP - General Family Medicine 12/24/17 documented as of this encounter
--- OUTSIDE RECORDS SUMMARY | 2024-11-02 17:52 | XMS_ITS | Encounter Summary ---
Author Organization [employer] Address [address] [facility] 7t [place] [address] Care Team Providers Care Enterprise Analyst Name Role Phone Name, Jemal HARMON Primary Care Provider [phone] Reason for Visit * Reason Comments cought and chest discomfort Encounter Details Date Type Department Care Team ([facility] Contact Info) Description 11/02/2024 1:30 PM EDT Office Visit [facility] [address] [place] [address] Molly De Leon MD [address] [place] [address] Cough, unspecified type; Nasal congestion Social History Tobacco Use Types Packs/Day Years [...] AM EDT documented as of this encounter Last Filed Vital Signs Vital Sign Reading Time Taken Comments Blood Pressure 130/85 11/02/2024 1:44 PM EDT Pulse 84 11/02/2024 1:44 PM EDT Temperature 37.2 ??C (98.9 ??F) 11/02/2024 1:44 PM ED T Respiratory Rate 20 11/02/2024 1:44 PM EDT Oxygen Saturation 98% 11/02/2024 1:44 PM EDT Inhaled Oxygen Concentration - - Weight 79.8 kg (176 lb) 11/02/2024 1:44 PM EDT Height - - Body Mass Index 33.25 08/04/2024 3:46 PM EST documented in this encounter Plan of Treatment Scheduled Orders Name Type Priority Associated Diagnoses Orde r Schedule Respiratory Viral Panel PCR Lab Routine Cough, unspecified type Ordered: 11/02/2024 documented as of this encounter Procedures Procedure Name Priority Date/Time Associated Diagnosis Comments XR CHEST 2 VIEWS Routine 11/02/2024 2:58 PM EDT Cough, unspecified type POCT INFLUENZA B Routine 11/02/2024 1:58 PM EDT Cough, unspecified type POCT INFLUENZA A Routine 11/02/2024 1:57 PM EDT Cough, unspecified type POCT RAPID COVID ANTIGEN Routine 11/02/2024 1:56 PM EDT Cough, unspecified type documented in this encounter Results * XR Chest 2 Views (11/02/2024 2:58 PM EDT) Anatomical Region Laterality Modality Chest Radiographic Melissa ging 11/02/2024 2:58 PM EDT Narrative 11/02/2024 3:57 PM EDT ?[facility] ?[address] ?[place] [address] ?XRay Report ? Signed ? Patient: Jacobsen,Shannan ?MR#: [id number] ?? 08 ? : 1985 ?Acct:[id number] ? Age/Sex: 39 / F ?ADM Date: 11/02/24 ? Loc: HO.HHCX ? Attending Dr: Molly Tolentino MD ? Ordering Physician: Molly De Leon MD ?? Date of Service: 11/02/24 ?? Procedure(s): XR chest 2V ?? Accession Number(s): [id number] ? cc: Molly De Leon MD ? [...] Hawk MD ??11/02/2024 03:55 PM ?? EDT RP ? Dictated By: ?Rusty Schwarz MD ? Signed By: ?<Electronically signed by Rusty Bolton MD in OV> ? 11/02/24 1555 ? DD/ 1458 ? TD/TT: 11/02/24 1500 ? Rn Plastic Surgery: ? Procedure Note Brigido, Image - 11/02/2024 [facility] [address] [place] [address] XRay Report Signed Patient: Yazmin Jacobsen#: [id number] 08 : 1985Acct:[id number] Age/Sex: 39 / FADM Date: 11/02/24 Loc: HO.HHCX Attending Dr: Molly Tolentino MD Ordering Physician: Molly De Leon MD Date of Service: 11/02/24 Procedure(s): XR chest 2V Accession Number(s): [id number] cc: Molly De Leon MD EXAMINATION: XR [...] Rusty Hawk MD 11/02/2024 03:55 PM EDT Dictated By: Rusty Schwarz MD Signed By: <Electronically signed by Rusty Bolton MDin OV> 11/02/24 1555 DD/ 1458 TD/TT: 11/02/24 1500 Rn Plastic Surgery: us Molly Tolentino MD IMG XR PROCEDURES Final Result * POCT Influenza B manually resulted (11/02/2024 1:58 PM EDT) Rapid Influenza B Ag Negative Negative, Indeterminate QC Media Lot # [id number] Lot# Expiration Date , Swab 11/02/2024 1:58 PM EDT Molly Tolentino MD POINT OF CARE SONIA T ENTER/EDIT ORDERABLES Final Result * POCT Influenza A manually resulted (11/02/2024 1:57 PM EDT) Rapid Influenza A Ag Negative Negative, Indeterminate QC Media Lot # [id number] Lot# Expiration Date Swab Nasopharyngeal structure / Unknown 11/02/2024 1:57 PM EDT Molly Tolentino MD POINT OF CARE TEST ENTER/EDIT ORDERABLES Edited Result - Final * POCT Rapid COVID Ag (11/02/2024 1:56 PM EDT) [facility] Rapid COVID Ag Negative QC Media Lot # [id number] Lot# Expiration Date Swab 11/02/2024 1:56 PM EDT Molly Tolentino MD POINT OF CARE SONIA T ENTER/EDIT ORDERABLES Final Result documented in this encounter Visit Diagnoses Diagnosis Cough, unspecified type Nasal congestion Other diseases of nasal cavity and sinuses documented in this encounter Additional Health Concerns Assessment Noted Time PHQ-9 Depression Total Score: 0 05/12/20 24 10:51 AM EDT documented as of this encounter Care Teams Enterprise Analyst Relationship Specialty Start Date End Date Name, MD Jemal [address] [place] [address] PCP - General Family Medicine 12/24/17 documented as of this encounter
--- OUTSIDE RECORDS SUMMARY | 2024-11-02 17:52 | XMS_ITS | Encounter Summary ---
Author Organization [employer] Address [address] [facility] [address] [place] [address] Care Team Providers Care Sorting Cows Worker Name Role Phone Name, Jemal HARMON Primary Care Provider [phone] Reason for Visit * Reason Onset Date Comments Nurse Triage 08/12/2023 Encounter Details Date Type Department Care Team ([facility] Contact Info) Description 08/12/2023 Telephone [facility] [address] [place], [place] [phone] Name, MD Jemal [address] [place] [address] Nurse Triage Social History Tobacco Use Types [...] t he electric, gas, oil or water [employer] threatened to shut off services in your [...] 08/12/2023 12:03 PM EST Triage call with [employer] official court interpreter [place] [id number] Pt reports cough, sore throat. nasal congestion, [...] worse. Pt is advised to come to [facility] today which is open till 8pm [...] You become worse * Telephone Encounter - aCrolin Hoang - 08/12/2023 10:22 AM EST Symptoms: Cough, Sore Throat, Eye Pain - Not From Injury Outcome: Schedule an urgent appointment (within 4 hours) or talk to a nurse or provider soon Reason: Getting worse The caller accepted this outcome Please contact pt at [phone] (Gibraltarian) documented in this encounter Plan of Treatment Not on file documented as of this encounter Visit Diagnoses Not on filedocumented in this encounter Additional Health Concerns Assessment Noted Time PHQ-9 Depression Total Score: 0 02/05/20 23 9:16 AM EDT documented as of this encounter Care Teams Sorting Cows Worker Relationship Specialty Start Date End Date Name, MD Jemal [address] [place] [address] PCP - General Family Medicine 12/24/17 documented as of this encounter
--- OUTSIDE RECORDS SUMMARY | 2024-11-02 17:52 | XMS_ITS | Encounter Summary ---
Author Organization [employer] Address [address] [facility] [address] [place] [address] Care Team Providers Care Anode Machine Operator Name Role Phone Name, Jemal HARMON Primary Care Provider [phone] Encounter Details Date Type Department Care Team (Latest Contact Info) Description 11/02/2024 Travel Social History Tobacco Use Types Packs/Day Years [...] is your housing situation today? I have ncik marinelli 05/05/[address] you [...] documented as of this encounter Care Teams Anode Machine Operator Relationship Specialty Start Date End Date Name, MD Jemal [address] [place] [address] PCP - General Family Medicine 12/24/17 documented as of this encounter
== END 2024-11-02 14:59 | disposition home or self-care (01) ==
LOC: HO.HHCX 14:58
PROVIDERS: Visit Provider Student in an Organized Health Care Education/Training Program
DX: R05.9 Cough, unspecified (principal)
CPT/HCPCS: 71046; 87633

== ENCOUNTER → 2024-11-02 14:58 | Outpatient (BNV) | payer MEDICAID, SELFPAY | PROVIDERS: Visit Provider Radiology Diagnostic Radiology | DX: R05.9 Cough, unspecified (principal) | CPT/HCPCS: 71046 ==

== ENCOUNTER 2024-11-19 15:10 | Outpatient (AMB) | payer MEDICAID, SELFPAY ==
--- NOTE | 2024-11-19 15:15 | MHC.OFFVIS ---
Vital Signs 11/19/24 15:21 Height 5 ft 1 in Weight 171 lb BMI 32.3 Handedness Right Intake Visit Reasons: OV Discuss R CTR Intake Note: Shannan is a 39 year old right hand dominant female who presents today to discuss a right carpal tunnel release. Patient has been having sharp pain in her elbow when she is carrying something heavy like her work back. She notices increase on pain when she is doing over head IMPRESSION: 1. Mild right median neuropathy across carpal tunnel. 2. Mild left ulnar neuropathy across cubital tunnel. Dry End Operator Required: Yes Dry End Operator Language: Felling Bucking Supervisor Services: Dry End Operator Present Dry End Operator Name: JOSE Ramsay/LM Allergies aspirin Allergy (Verified 11/19/24 15:21) Unknown HPI HPI OV Discuss R CTR: Details: Shannan is a 39 year old right hand dominant female who presents today to discuss a right carpal tunnel release. Patient has been having sharp pain in her elbow when she is carrying something heavy like her work back. She notices increase on pain when she is doing over head IMPRESSION: 1. Mild right median neuropathy across carpal tunnel. 2. Mild left ulnar neuropathy across cubital tunnel. [facility] Medical History Depressed History of eclampsia History of high blood pressure Surgical History History of laparoscopic cholecystectomy (02/28/23) Hx of appendectomy Hx of tubal ligation Family History Father CVD (cardiovascular disease) Mother Asthma History of anxiety History of fibromyalgia Social History Are you a primary critical care cns to a significant other at home: Yes Do you presently have visiting nurse or other home services: No Alcohol intake: current Alcohol intake frequency: a few times a month Patient Tobacco Use Status: Never used Tobacco Current occupational status: employed 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 Good APB muscle firing and good finger cross. Vascular: Capillary refill brisk. ROM: Patient can make a fist and extend all their digits. Positive Cozen's test on the left Skin: No lacerations or abrasions noted. General: No ecchymosis. No erythema or evidence of infection. Assessment & Plan Assessment & Plan (1) Lateral epicondylitis: Code(s): M77.10 - Lateral epicondylitis, unspecified elbow Category: Medical (2) Right carpal tunnel syndrome: Code(s): G56.01 - Carpal tunnel syndrome, right upper limb Category: Medical (3) Cubital tunnel syndrome on left: Code(s): G56.22 - Lesion of ulnar nerve, left upper limb Category: Medical Plan 1. Carpal tunnel syndrome, right Symptoms intermittent, daily, worse at night Patient is educated about this condition Patient is educated about the typical treatment course I educated the patient about the condition. I discussed both operative and nonoperative treatment options. The patient would like to proceed with surgery. [] The risks and benefits of operative treatment were discussed with the patient and the patient wishes to proceed with surgery. These risks include, but are not limited to, risk of damage to blood vessels, nerves, tendons, infection, recurrence, incomplete relief of preoperative symptoms, persistent pain, possible need for further surgery, and the risks associated with regional blocks and/or anesthesia. Plan is to take the patient to the operating room at some point in the next few weeks for the following procedures: 1. Right carpal tunnel release under local All of the preoperative paperwork including the consent was discussed today. All of the patient's questions were answered in the clinic today. The patient understands that they will be in contact with our surgical scrub technician to discuss scheduling their procedure. Patient denies diabetes, blood thinners, asthma, heart issues, lung issues, kidney issues, or current smoking. 2. Cubital tunnel syndrome, left Asymptomatic, no numbness or tingling in the ulnar nerve distribution of the left hand Patient is educated about this condition Patient is educated that due to the fact that she is asymptomatic, there is no acute intervention indicated at this time Patient was educated that if she does begin to experience numbness or tingling in the ring and small fingers of the left hand, she should call us for re-evaluation and discussion of treatment options Patient was amenable to this plan 3. Lateral epicondylitis of right elbow Patient is educated about this condition Patient is educated about the typical recovery course At this time, patient is referred to occupational therapy for treatment of lateral epicondylitis Patient is amenable to this plan Follow-up as needed Orders: Orders OT Evaluation and Treatment Today M77.10 - Lateral epicondylitis, unspecified elbow Coding Level of Care Code Est Pt Level 4 (42425) Diagnoses Lateral epicondylitis M77.10 Right carpal tunnel syndrome G56.01 Cubital tunnel syndrome on left G56.22
[2024-11-19 15:21] VITALS: BMI 32.3
== END 2024-11-19 15:40 | disposition home or self-care (01) ==
LOC: HO.HOS 15:10
PROVIDERS: PCP Internal Medicine Geriatric Medicine
DX: M77.10 Lateral epicondylitis, unspecified elbow (principal); G56.01 Carpal tunnel syndrome, right upper limb; G56.22 Lesion of ulnar nerve, left upper limb
CPT/HCPCS: 99214

== ENCOUNTER → 2024-11-19 15:10 | Outpatient (BNVA) | payer MEDICAID, SELFPAY | PROVIDERS: PCP Internal Medicine Geriatric Medicine | DX: M77.11 Lateral epicondylitis, right elbow (principal); G56.01 Carpal tunnel syndrome, right upper limb; G56.22 Lesion of ulnar nerve, left upper limb | CPT/HCPCS: 99212 ==

== ENCOUNTER → 2024-11-24 08:37 | Outpatient (REF) | payer MEDICAID, SELFPAY ==
--- NOTE | ~2024-11-24 | CT_ITS ---
CLINICAL HISTORY: N20.0 - Calculus of kidney CT abdomen and pelvis without contrast Comparison: None Findings: The lung bases are clear. The patient is status post cholecystectomy. Tiny nonobstructing calculi seen in the lower pole of the right kidney. There is no evidence of obstructive uropathy. There is hepatic steatosis. The rest of the solid organs are unremarkable. No bowel obstruction, pneumoperitoneum, or pneumatosis. There is colonic diverticulosis without evidence of diverticulitis. The patient is status post appendectomy. No acute fracture. The rest of the GI tract is unremarkable. IMPRESSION: 1. Tiny nonobstructing calculi seen in the lower pole of the right kidney. There is no evidence of obstructive uropathy. 2. There is hepatic steatosis. 3. There is colonic diverticulosis without evidence of diverticulitis. This document has been electronically signed by: Cristian Davila MD on 11/25/2024 11:52:50
--- NOTE | 2024-11-24 08:40 | CA_ITS ---
Acquisition Time: 2024-11-24 09:08:41 Total Exercise Time: 00:07:00 Test Indications: CP Medications: ALBTEROL CHLORTHALIDONE FEXOFENADINE FLONASE MECLIZINE SINGULAIR Protocol: ANTONIO Max HR: 169 BPM 93% of Pred: 180 BPM Max BP: 112/70 mmHG Max Work Load: 8.5 METS Exercise stress test with exercise 7 mins of Antonio Protocol, achieving 92% MPHR, with mild SOB, no chest pain, without any arrythmias, with normotensive response to exercise. Without EKG changes meeting criteria for ischemia. Echo images obtained by tech at rest and post peak exercise. Definity contrast utilized. In recovery, breathing returned to baseline. Test reviewed with Dr. Macias. Referred By: Fer Mora Electronically Signed By: Fer Mora
--- OUTSIDE RECORDS SUMMARY | 2024-11-24 08:53 | XMS_ITS | Encounter Summary ---
Author Organization [employer] Address [address] [facility] 7[address] [place] [address] Care Team Providers Care Technical System Analyst Name Role Phone Name, Jemal HARMON Primary Care Provider [phone] Reason for Visit * Reason Onset Date Comments Results 07/22/2023 Encounter Details Date Type Department Care Team ([facility] Contact Info) Description 07/22/2023 Telephone [facility] [address] [place], [place] [phone] Name, MD Jemal [address] [place] [address] Results Social History Tobacco Use Types Packs/Day [...] t he electric, gas, oil or water [employer] threatened to shut off services in your [...] PM EST T/c placed to pt via Marinelayerer Shawn #[id number]. Advised of benign result for right cervicallymph [...] Facility: [facility] Please contact pt at [phone] documented in this encounter Plan of Treatment Not on file documented as of this encounter Visit Diagnoses Not on filedocumented in this encounter Additional Health Concerns Assessment Noted Time PHQ-9 Depression Total Score: 0 02/05/20 23 9:16 AM EDT documented as of this encounter Care Teams Technical System Analyst Relationship Specialty Start Date End Date Name, MD Jemal [address] [place] [address] PCP - General Family Medicine 12/24/17 documented as of this encounter
--- OUTSIDE RECORDS SUMMARY | 2024-11-24 08:53 | XMS_ITS | Encounter Summary ---
Author Organization [employer] Address [address] 7[address] [place] [address] Care Team Providers Care Shank Maker Name Role Phone Name, Jemal HARMON Primary Care Provider Reason for Visit * Reason Onset Date Comments Nurse Triage 08/12/2023 Encounter Details Date Type Department Care Team ([facility] Contact Info) Description 08/12/2023 Telephone [facility] [address] [place], [place] [phone] Name, MD Jemal [address] [place] [address] Nurse Triage Social History Tobacco Use Types [...] t he electric, gas, oil or water [employer] threatened to shut off services in your [...] 08/12/2023 12:03 PM EST Triage call with pacific associate loan officer [place] [id number] Pt reports cough, sore throat. nasal congestion, [...] worse. Pt is advised to come to [facility] today which is open till [...] accepted this outcome Please contact pt at [phone] (Greek) documented in this encounter Plan of Treatment Not on file documented as of this encounter Visit Diagnoses Not on filedocumented in this encounter Additional Health Concerns Assessment Noted Time PHQ-9 Depression Total Score: 0 02/05/20 23 9:16 AM EDT documented as of this encounter Care Teams Shank Maker Relationship Specialty Start Date End Date Name, MD Jemal [address] [place] [address] PCP - General Family Medicine 12/24/17 documented as of this encounter
--- OUTSIDE RECORDS SUMMARY | 2024-11-24 08:53 | XMS_ITS | Clinical Summary ---
Author Organization [employer] Address [address] [place] [address] Care Team Providers Care Distribution Field Technician Name Role Phone Name, Jemal HARMON Primary Care Provider [phone] Allergies Active Allergy Reactions Criticality Noted Date [...] Additional Information Patient not taking.Reported on 11/02/2024 sodium chloride (George Mason Nasal [place]) 0.65 % nasal sprayIndication s:Cough, unspecified type,Nasal congestion 1-2 sprays on each nostril every 2-3 hours as needed for nasal congestion 30 mL 1 11/03/19 25 Active oxymetazoline (Afrin Nasal [place]) 0.05 % nasal spray Administer 2 sprays into each nostril every 12 (twelve) hours if needed for congestion for up to 2 days. Do not use for more than 3 days. 30 mL 07/21/19 24 2024 Discontinued(O ther) sodium chloride (George Mason Nasal [place]) 0.65 % nasal sprayIndication s:Nasal congestion 1-2 sprays on each nostril every 2-3 hours as needed for nasal congestion 30 mL 1 07/13/20 24 2024 Discontinued(R eorder (will not trigger notification to Pharmacy)) dextromethorpha n 15 MG/5ML syrupIndication s:Cough, unspecified type Take 10 mL (30 mg) by mouth if needed in the morning, at noon, in the evening, and at bedtime for cough for up to 7 days. 120 mL 11/03/19 25 2024 Active Problems Problem Noted Date Diagnosed Date Cough 11/02/2024 Assessment & Plan (11/02/2024 11:13 PM EDT): Patient with 3 days of cough is main complain. Notable for questionable decreased breath sounds in bilateral bases. No findings on exam for sinusitis Flu and COVID 19 Neg here today -dextromethorphane -ocean nasal spay -tylenol prn -Obtained today RSV panel -CXR ordered today - Advised patient mask use, hand hygiene, excuse work letter for 48 hours unless still feeling sick Migraine without aura and wi thout status [...] refer patient to the emergency room at [facility] case presented to provider Nolvia Left anterior [...] injections and possible Epi Pen rx through underwriting internship during upcoming appt in 1-2 weeks - [...] Encounters Date Type Department Care Team Description 11/03/2024 Telephone [facility] [address] [place] [phone] Molly De Leon MD test not perform 11/02/2024 1:30 PM EDT Office Visit [facility] [address] [place] [address] Molly De Leon MD Cough, unspecified type; Nasal congestion 11/02/2024 Travel 09/24/2024 Population Health Risk Score [facility] () Department [address] [place] [phone] Provider, Population Health Generic from Last 3 Months Immunizations Immunization Administration Dates Next Due Influenza injectable quadriv [...] PM EDT Narrative 11/02/2024 3:57 PM EDT ?[place] [facility] ?[address] ?[place] [address] ?XRay Report ? Signed ? Patient: Jacobsen,Shannan ?MR#: [id number] ?? 08 ? : 1985 ?Acct:[id number] ? Age/Sex: 39 / F ?ADM Date: 11/02/24 ? Loc: HO.HHCX ? Attending Dr: Molly Tolentino MD ? Ordering Physician: Molly De Leon MD ?? Date of Service: 11/02/24 ?? Procedure(s): XR chest 2V ?? Accession Number(s): [id number] ? cc: Molly De Leon MD ? [...] DD/ 1458 ? TD/TT: 11/02/24 1500 ? Hadoop Engineer: ? Procedure Note Ralph Fofana - 11/02/[address] [address] XRay Report Signed Patient: Yazmin Jacobsen#: [id number] [birth year] : 1985Acct:[id number] Age/Sex: 39 / FADM Date: 11/02/24 Loc: HO.HHCX Attending Dr: Molly Tolentino MD Ordering Physician: Molly De Leon MD Date of Service: 11/02/24 Procedure(s): XR chest 2V Accession Number(s): [id number] cc: Molly De Leon MD EXAMINATION: XR [...] 11/02/24 1555 DD/ 1458 TD/TT: 11/02/24 1500 Hadoop Engineer: Molly Tolentino MD IMG XR PROCEDURES Final Result * POCT Influenza B manually resulted (11/02/2024 1:58 PM EDT) Rapid Influenza B Ag Negative Negative, Indeterminate QC Media Lot # [id number] Lot# Expiration Date Swab 11/02/2024 1:58 PM EDT Molly Tolentino MD POINT OF CARE SONIA T ENTER/EDIT ORDERABLES Final Result * POCT Influenza A manually resulted (11/02/2024 1:57 PM EDT) Rapid Influenza A Ag Negative Negative, Indeterminate QC Media Lot # [id number] Lot# Expiration Date Swab Nasopharyngeal structure / Unknown 11/02/2024 1:57 PM EDT Molly Tolentino MD POINT OF CARE TEST ENTER/EDIT ORDERABLES Edited Result - Final * POCT Rapid COVID Ag (11/02/2024 1:56 PM EDT) Rapid COVID Ag Negative QC Media Lot # [id number] Lot# Expiration Date [id number] Swab 11/02/2024 1:56 PM EDT us Molly Tolentino MD POINT OF CARE SONIA T ENTER/EDIT ORDERABLES Final Result * BI Mammogram Screening Tomosynthesis Bilateral (04/02/2024 3:45 PM EDT) Anatomical Region Laterality Modality Breast Bilateral Mammography 04/02/2024 3:45 PM EDT Narrative 04/15/2024 8:41 AM EDT ? [facility] ? [address] ?[place] [address] ? Mammography Report ? Signed ? Patient: Jacobsen,Shannan ?MR#: [id number] ?? [birth year] ? : 1985 ?Acct:[id number] ? Age/Sex: 39 / F ?ADM Date: 04/02/ ? Loc: HO.MAMMO ? Attending Dr: Jemal Name MD ? Ordering Physician: Name,Jemal MD ?Results: 1Negative ? Date of Service: 04/02/ ?Follow Up: 1 Year From Orig ?? inal Mammogram ? Procedure(s): MM tomosynthesis screening BI ?? Accession Number(s): [id number] ? cc: Name,Jemal ? EXAMINATION: ?? MM [...] DD/ 1545 ? TD/TT: 04/02/24 1604 ? Hadoop Engineer: ? Procedure Note Brigido, Image - 04/15/2024 [facility] [address] [place] [address] Dr. Saenz, JIMMY [address] Mammography Report Signed Patient: Yazmin Jacobsen#: [id number] [birth year] : 1985Acct:[id number] Age/Sex: 39 / FADM Date: 04/02/24 Loc: [facility] Attending DrDejan Briggs MD Ordering Physician: Jemal Briggsults: 1Negative Date of Service: 04/02/24Follow Up: 1 Year From Orig formerly [facility] Mammogram Procedure(s): MM tomosynthesis screening BI Accession Number(s): [id number] cc: Name,Jemal HARMON EXAMINATION: MM SCREENING DIGITAL [...] 04/15/24 0838 DD/ 1545 TD/TT: 04/02/24 1604 Hadoop Engineer: Jemal Briggs MD [facility] BI PROCEDURES Edited Result - Final * Pap Smear (10/31/2023 3:49 PM EDT) 10/31/2023 3:49 PM EDT 11/03/2023 11:30 AM EDT [facility] - 11/18/2023 4:52 PM EDT ----- ------- Name: Shannan Jacobsen ? Age/Sex: 38/F ? : 1985 Unit#: [id number] ?? Attend Dr: Eva [place] CNM ?Re10/31/23 ?Status: DEP REF ? Location: HO.LNP ?Disch: ? ----- ------- SPEC : [id number] ? RECD: 11/03/23-1129 ? STATUS: ??SOUT ? REQ NUM: [id number] ? HERMELINDA: 10/31/23-1549 ? SUBM DR: Eva [place] CNM ? ENTERED: ??11/03/23-1409 ?SP TYPE: Pap Smr ?OTHR : NameJemal [...] Not Detected ? HPV testing performed by [employer], [place], [place]. ??See reference laboratory ?? portion of the EMR for entire report. ?Clinical Information LMP: 10/20/23 Previous PAP test: 11/06/18, WNL ? Material Received ?? ThinPrep-Cervical Copies To: ?? Name,Jemal HARMON ?? [address] [facility] ?? [place] [address] ?? [phone] ?? Eva [place] CNM ?? [address] [place] [facility] ?? [place] [address] ?? [phone] ----- ------- Signed (signature on file) Thania Savage MD 11/18/23 7849 ? ----- ------- ? END OF REPORT ? Generic External Data Provider LAB CYTOLOGY BLANCA PETERSON Final Result Performing Organization Address City/[facility]/ZIP Co de Phone Number [facility] [address] [place] [address] [phone] * Hepatitis C Antibody with Reflex to HCV, RNA, Quantitative, Real-Time PCR (08/09/2022 10:19 AM EST) Hepatitis C Antibody NON-REACT JOSE NON-REACT JOSE [employer] Index <0.02 <1.00 [employer] Comment: HCV antibody was non-reactive. There is no laboratory evidence of HCV infection. In most cases, no further action is required. However, if recent HCV exposure is suspected, a test for HCV RNA (test code 23008) is suggested. For additional information please refer to http://education.Plickers/faq/FEC24o8 (This link is being provided for informational/ educational purposes only.) Blood Venous blood specimen / Unknown 08/09/2022 10:19 AM EST 08/09/2022 10:20 AM EST Narrative [facility] - 08/12/2022 6:40 PM EST FASTING:UNKNOWN FASTING: UNKNOWN Janet Mak THERMOMETER PRODUCTION WORKER LAB BLOOD ORDERABLES Final Res ult Performing Organization Address City/[facility]/ZIP Co de Phone Number [facility] [address], [place] [address] [employer] [address] [facility], ([address]) [place] [address] * HIV-1/2 Antigen and Antibodies, Fourth Generation, with Reflexes (08/09/2022 10:19 AM EST) [facility] HIV Antigen/Antibody, 4th Generation NON-REAC TIVE NON-REAC TIVE [employer] [facility] Comment: HIV-1 antigen and HIV-1/HIV-2 antibodies [...] ?? For additional information please refer to http://education.Plickers/faq/QXB472 (This link is being provided for informational/ educational purposes only.) The performance of this assay has not been clinically validated in patients less than 2 years old. Blood Venous blood specimen / Unknown 08/09/2022 10:19 AM EST 08/09/2022 10:20 AM EST Narrative [facility] - 08/12/2022 6:40 PM EST FASTING:UNKNOWN FASTING: UNKNOWN Janet Mak [facility] LAB BLOOD ORDERABLES Final Res ult [facility] [address], [place] [address] [employer] [facility] [employer] [address] [facility], ([address]) [place] [address] * (ABNORMAL) LIPID PANEL, STANDARD (07/24/2020 3:40 PM EST) [facility] Chol/HDLC Ratio 3.2 <5.0 (calc) [facility] [...] ?? LDL-C is now calculated using the Xavier-Hein ?? calculation, which is a validated novel method providing ?? better accuracy than the Friedewald equation in the ?? estimation of LDL-C. ?? Xavier CABRERA et al. SCOTT. 2013;310(19): 0628-9829 ?? (http://Contix.eDossea/faq/MCW512) Non-HDL Cholesterol 110 <130 mg/dL (calc) [facility] Comment: For patients with diabetes plus 1 major ASCVD risk ?? factor, treating to a non-HDL-C goal of <100 mg/dL ?? (LDL-C of <70 mg/dL) is considered a therapeutic ?? option. Triglycerides 128 <150 mg/dL [facility] 07/24/2020 3:40 PM EST Jemal Briggs MD LAB BLOOD ORDERABLES Final Resul t [facility] [address] * Pap Smear (11/05/2018) Pap Negative for intraephithelial lesion or malignancy Negative for intraephithelial lesion or malignancy, Other HPV Not Detected Undetected, Indeterminate, Quantitative, Not Detected Historical Provider HEALTH MAINTENANCE Final Result from Last 3 Months or Most Recently Relevant to Health Maintenance Insurance [email or web address] Care Teams Distribution Field Technician Relationship Specialty Start Date End Date Name, MD Jemal [address] [place] [id number] PCP - General Family Medicine 12/24/17
--- OUTSIDE RECORDS SUMMARY | 2024-11-24 08:53 | XMS_ITS | Encounter Summary ---
Author Organization [employer] Address [address] [facility] [address]t [place] [address] Care Team Providers Care Mud Plant Operator Name Role Phone Name, Jemal HARMON Primary Care Provider [phone] Reason for Visit * Reason Onset Date Comments Follow-up 06/13/2022 Encounter Details Date Type Department Care Team ([facility] Contact Info) Description 06/13/2022 Telephone [facility] [address] [place] [address] Name, MD Jemal [address] [place] [address] Follow-up Social History Tobacco Use Types Packs/Day [...] check and to assess current symptoms via [employer] Health And Safety Leader Donell #[id number]. sidney Padron/josie left to return call. * Telephone Encounter - Sully Chintan - 06/13/2022 10:09 AM EST Tc from Pt stated came in the Walk [place] on 11/22 they found a Bacteria in the Urine. Pt statedprovider told her to contact PCP for follow up. PCP Dr. Briggs documented in this encounter Plan of Treatment Not on file documented as of this encounter Visit Diagnoses Not on filedocumented in this encounter Care Teams Mud Plant Operator Relationship Specialty Start Date End Date Name, MD Jemal [address] [place] [address] PCP - General Family Medicine 12/24/17 documented as of this encounter
== END ==
LOC: HO.CARD 08:37
PROVIDERS: PCP Internal Medicine Geriatric Medicine
DX: N20.0 Calculus of kidney (principal); R10.9 Unspecified abdominal pain; D17.9 Benign lipomatous neoplasm, unspecified; R07.2 Precordial pain; R94.39 Abnormal result of other cardiovascular function study
CPT/HCPCS: 74176; 93350; Q9957

== ENCOUNTER → 2024-11-24 08:40 | Outpatient (BNV) | payer MEDICAID, SELFPAY | PROVIDERS: PCP Internal Medicine Geriatric Medicine | DX: R06.02 Shortness of breath (principal); R07.9 Chest pain, unspecified | CPT/HCPCS: 93016; 93018; 93350; 93352 ==

== ENCOUNTER → 2024-11-24 15:36 | Outpatient (BNV) | payer MEDICAID, SELFPAY | PROVIDERS: PCP Internal Medicine Geriatric Medicine; Visit Provider Radiology Diagnostic Radiology | DX: N20.0 Calculus of kidney (principal) | CPT/HCPCS: 74176 ==

== ENCOUNTER 2024-12-03 14:59 | Outpatient (AMB) | payer MEDICAID, SELFPAY ==
--- OUTSIDE RECORDS SUMMARY | 2024-12-03 15:01 | XMS_ITS | Encounter Summary ---
Author Organization [employer] Address [address] [facility] [address] [place] [address] Care Team Providers Care Teradata Developer Name Role Phone Name, Jemal HARMON Primary Care Provider [phone] Reason for Visit * Reason Onset Date Comments Follow-up 06/13/2022 Encounter Details Date Type Department Care Team ([facility] Contact Info) Description 06/13/2022 Telephone [facility] MEDICINE [address], [place] [id number] Name, MD Jemal [address] [place] [address] Follow-up Social History Tobacco Use Types Packs/Day [...] check and to assess current symptoms via [place] Property Valuer Donell #[id number]. sidney Padron/josie left to return call. * Telephone Encounter - Sully Chintan - 06/13/2022 10:09 AM EST Tc from Pt stated came in the Walk in [place] on 06/04 they found a Bacteria in the Urine. Pt statedprovider told her to contact PCP for follow up. PCP Name documented in this encounter Plan of Treatment Not on file documented as of this encounter Visit Diagnoses Not on filedocumented in this encounter Care Teams Teradata Developer Relationship Specialty Start Date End Date Name, MD Jemal [address] [place] [address] PCP - General Family Medicine 12/24/17 documented as of this encounter
--- NOTE | 2024-12-03 15:03 | A.OFFVIS_ITS ---
Vital Signs 12/03/24 15:04 Height 5 ft 1 in Weight 176 lb 5.917 oz BMI 33.3 BP 110/64 Blood Pressure Location Lt brachial Position Sitting Pulse 95 Pulse Source Pulse Oximeter Intake Visit Reasons: f/up testing-echo, stress, stress echo Intake Note: f/cf-ymdxna-iahv/stress test Customer Service Sales Associate Required: Yes Customer Service Sales Associate Language: Condominium Association Manager Name: [email or web address] Accompanied by: Self / Same As Patient Allergies aspirin Allergy (Verified 11/19/24 15:21) Unknown Medication List - Last Reconciled 12/03/24 by Fer Mora NP albuterol sulfate 90 mcg/actuation (Ventolin HFA) inhalation Q4H PRN chlorthalidone 25 mg PO DAILY fexofenadine (Jenny Allergy) 180 mg PO DAILY fluticasone propionate 50 mcg/actuation intranasal hydrocodone-acetaminophen 5-325 mg 1 tab PO Q4-6H PRN ibuprofen 600 mg PO Q6H PRN ketotifen fumarate 0.025%(0.035%) 1 drp ophthalmic (eye) BID PRN montelukast 10 mg PO DAILY HPI Comments Details: This is a 39-year-old female patient who comes in for a follow-up visit. Pat ient with no known history of cardiomyopathy, ischemic disease, or coronary artery disease. Patient was previously seen in the office for atypical chest discomfort for which patient underwent an echocardiogram and a stress test. Today, patient is reporting that she has having some left-sided chest discomfort but she is noticing it with positional changes or movement with that left arm. The chest pain is not exertional and is not associated with any other symptoms including exertional shortness of breath, palpitations, dizziness, orthopnea, PND, leg edema, presyncope, or syncope. [facility] Medical History Depressed History of eclampsia History of high blood pressure Surgical History History of laparoscopic cholecystectomy (02/28/23) Hx of appendectomy Hx of tubal ligation Family History Father CVD (cardiovascular disease) Mother Asthma History of anxiety History of fibromyalgia Social History Are you a primary home care nurse to a significant other at home: Yes Do you presently have visiting nurse or other home services: No Alcohol intake: current Alcohol intake frequency: a few times a month Patient Tobacco Use Status: Never used Tobacco Current occupational status: employed 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 Sexual orientation: Straight/Heterosexual Gender identity: Female Female Reproductive History Menstrual Age of Menarche: 10 Review of Systems Const Denies chills, Denies fatigue, Denies fever(s), Denies frequent falls, Denies weakness, Denies weight gain and Denies weight loss ENT Denies dizziness Card Denies chest pain, Denies leg edema, Denies lightheadedness, Denies palpitations, Denies dyspnea and Denies dyspnea on exertion Resp Denies cough, Denies dyspnea and Denies dyspnea on exertion GI Denies hematochezia Musc Denies abnormal gait, Denies muscle weakness, Denies numbness, Denies radiating pain into limb and Denies tingling Neuro Denies abnormal gait, Denies dizziness, Denies frequent falls, Denies numbness, Denies tingling and Denies weakness Endo Denies fatigue and Denies palpitations Physical Exam Vital Signs: Last Vital Signs Pulse 95 12/03/24 15:04 BP 110/64 12/03/24 15:04 BMI result Body Mass Index 33.3 Const General: cooperative, healthy appearing, comfortable and no acute distress Orientation/consciousness: patient oriented x3 HEENT Head: Yes normal to inspection Neck Neck: Yes normal visual inspection, Yes trachea midline and Yes supple Chest Chest palpation & inspection: normal inspection of the chest Resp Effort & Inspection: normal respiratory effort Auscultation: clear to auscultation bilaterally, no crackles, no rales, no rhonchi and no wheezes Cardio Jugular venous distension: no JVD Palpation: normal PMI Rate: regular rate Rhythm: regular rhythm Heart sounds: S1 normal heart sound present, S2 normal heart sound present, no click, no gallops, no murmurs and no rubs Peripheral pulses: Peripheral pulses 2+ throughout GI Inspection: Yes normal to inspection Palpation (GI): Soft to palpation Auscultation: normal bowel sounds Skin General skin exam: no rashes or lesions noted Neuro General: patient oriented x3 Extrem General: Yes normal to inspection, No no pedal edema and No calf tenderness Psych Appearance: grossly normal Mental Status: mental status grossly normal Speech and movement: Normal speech and movement present Assessment & Plan Assessment & Plan (1) Precordial chest pain: Code(s): R07.2 - Precordial pain Category: Medical Plan: 09/30/24-patient underwent an echo study that showed normal LV systolic function with an ejection fraction between 60-65%, with no wall motion abnormalities or valvular pathology. 11/24/2024-patient had a stress echocardiogram which was negative with moderate workload. Given these findings and her symptoms reproducible with positional changes, etiology less likely cardiac and more likely musculoskeletal. Advised exploring pain pain management strategies such as APAP and topical NSAID gel,. Blood pressure within control. Ideally, BP goal less than 130/80 and LDL goal less than 100. Advised heart healthy diet, regular exercise, losing weight, and management of vascular risk factors. Patient will follow up in the office on an as-needed basis. In the interim, patient will call the office with any concerns or change in symptoms. Advised patient to seek ER care in case of exertional chest pain not resolved with rest. This note was generated using voice recognition software. While every effort has been made to ensure accuracy and proper building tech, there may be occasional errors that could affect the content or meaning of the described symptoms. Coding Level of Care Code Est Pt Level 3 (53863) Complex EM visit Add On G2211 Diagnoses Precordial chest pain R07.2 Time Spent (min) 28 Comment Time spent in reviewing the chart, test results, assessment, counseling and documentation.
[2024-12-03 15:04] VITALS: BP 110/64; PULSE 95; BMI 33.3
== END 2024-12-03 15:43 | disposition home or self-care (01) ==
LOC: HO.HCS 14:59
DX: R07.2 Precordial pain (principal)
CPT/HCPCS: 99213

== ENCOUNTER → 2024-12-03 14:59 | Outpatient (BNVA) | payer MEDICAID, SELFPAY | DX: R07.2 Precordial pain (principal) | CPT/HCPCS: 99212 ==

== ENCOUNTER 2024-12-08 15:03 | Outpatient (AMB) | payer MEDICAID, SELFPAY ==
--- NOTE | 2024-12-08 15:07 | MHC.OFFVIS ---
Intake Visit Reasons: 3m/CT KUB(set) Intake Note: Patient presents today for a 3 month follow up/CT KUB Urology Medications: none Blood Thinner:none Senior Database Administrator Required: Yes Senior Database Administrator Services: Senior Database Administrator Present Senior Database Administrator Name: Molly De Leon Allergies aspirin Allergy (Verified 12/08/24 15:44) Unknown Medication List - Last Reconciled 12/08/24 by NADIA Wu albuterol sulfate 90 mcg/actuation (Ventolin HFA) inhalation Q4H PRN chlorthalidone 25 mg PO DAILY fexofenadine (Jenny Allergy) 180 mg PO DAILY fluticasone propionate 50 mcg/actuation intranasal hydrocodone-acetaminophen 5-325 mg 1 tab PO Q4-6H PRN ketotifen fumarate 0.025%(0.035%) 1 drp ophthalmic (eye) BID PRN montelukast 10 mg PO DAILY HPI Comments Details: Shannan is a very pleasant 39-year-old Nepali-speaking female patient of Dr. Briggs who was accompanied by her partner at today's office visit. She has a past medical history of depression and hypertension. She presents to the office today for follow-up of her nephrolithiasis. In discussion with the patient today she reports to be doing and feeling well. She reports bilateral flank pain she had been experiencing has since subsided since her last office visit here. Recent CT results were reviewed with the patient and her partner today 12/05 tiny nonobstructing calculi seen in the lower pole of the right kidney. There is no evidence of obstructive uropathy. She currently denies any bothersome urinary issues. She reports be happy with current voiding parameters. Patient was previously noted to have microscopic hematuria during last office visit however was on her menses. In office urinalysis results reviewed with the patient today no microscopic hematuria noted. She denies urinary urgency, urinary frequency, incontinence, nocturia, hematuria, dysuria, foul smelling urine, changes to urinary stream, flank pain, fever, and or chills. All questions were answered. She otherwise offers no other issues or concerns at this time. [facility] Medical History Depressed History of eclampsia History of high blood pressure Surgical History History of laparoscopic cholecystectomy (02/28/23) Hx of appendectomy Hx of tubal ligation Family History Father CVD (cardiovascular disease) Mother Asthma History of anxiety History of fibromyalgia Social History Are you a primary career services coordinator to a significant other at home: Yes Do you presently have visiting nurse or other home services: No Alcohol intake: current Alcohol intake frequency: a few times a month Patient Tobacco Use Status: Never used Tobacco Current occupational status: employed 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 Sexual orientation: Straight/Heterosexual Gender identity: Female Female Reproductive History Menstrual Age of Menarche: 10 Review of Systems Const All systems reviewed & are unremarkable except as noted in HPI and below Physical Exam Const General: cooperative, healthy appearing, comfortable, no acute distress, well developed, alert and awake Nutritional Appearance: overweight Orientation/consciousness: patient oriented x3 Limitations: no limitations HEENT Head: Yes normal to inspection, Yes normocephalic and Yes atraumatic Ears: hearing grossly normal bilaterally Eyes General: appearance normal, both eyes and all related structures Neck Neck: Yes normal visual inspection and Yes trachea midline Chest Chest palpation & inspection: normal inspection of the chest Resp Effort & Inspection: normal respiratory effort and able to speak in complete sentences Cardio Rate: regular rate GI Inspection: Yes normal to inspection General: Yes no CVA tenderness Back/Spine/Pelvis Back: no CVA tenderness Skin General skin exam: no rashes or lesions noted Neuro General: patient oriented x3 Extrem General: Yes normal to inspection Psych Appearance: grossly normal and well kempt Mental Status: mental status grossly normal Speech and movement: Normal speech and movement present and Clear speech present Affect: normal affect Attitude: cooperative Thought process: Normal thought process present Thought content: Normal thought content present Insight: Fair insight present (Psych) Judgement: Fair judgement present (Psych) Results Reviewed Results Reviewed: Date of Service: 11/24/24 Procedure(s): CT kidney stone Findings: The lung bases are clear. The patient is status post cholecystectomy. Tiny nonobstructing calculi seen in the lower pole of the right kidney. There is no evidence of obstructive uropathy. There is hepatic steatosis. The rest of the solid organs are unremarkable. No bowel obstruction, pneumoperitoneum, or pneumatosis. There is colonic diverticulosis without evidence of diverticulitis. The patient is status post appendectomy. No acute fracture. The rest of the GI tract is unremarkable. IMPRESSION: 1. Tiny nonobstructing calculi seen in the lower pole of the right kidney. There is no evidence of obstructive uropathy. 2. There is hepatic steatosis. 3. There is colonic diverticulosis without evidence of diverticulitis. Assessment & Plan Assessment & Plan (1) Angiolipoma: Code(s): D17.9 - Benign lipomatous neoplasm, unspecified Category: Medical (2) Calculus of kidney: Code(s): N20.0 - Calculus of kidney Category: Medical Plan In office urinalysis results reviewed with the patient today; as noted above. Recent CT results reviewed with the patient today; as noted above. We discussed the importance of adequate hydration relation to nephrolithiasis as well as overall health and well-being. She currently denies any bothersome urinary issues or concerns. She reports be happy with current voiding parameters. Will continue with surveillance monitoring. Will obtain renal ultrasound in 6 months. Follow-up in 6 months with imaging to be completed prior; or sooner with any issues, concerns, and or questions. Orders: Orders AMB Urinalysis Automated Today Z13.9 - Encounter for screening, unspecified Patient Instructions: The patient had an opportunity to ask questions regarding the treatment plan. All questions were answered. Physical exam, labs, and imaging were discussed and reviewed in detail. As well as risks, benefits, and discussion of treatment choices. No major barriers to understanding were identified. The patient expressed understanding and agreement with the above treatment plan. The patient was made aware they should contact our office by phone for worsening of their current condition, the appearance of new symptoms, or with any questions or concerns. Compliance is encouraged with any medications and follow up testing that is ordered. It is a privilege to be allowed the opportunity to participate in? your urological care.? Again, if you have any questions or concerns If you have any questions or concerns please do not hesitate to contact me. The office is [phone]. This note is constructed using voice recognition software. While every effort has been made to ensure accuracy human resources generalist errors may have been included. Yours sincerely, NADIA Wu Coding Level of Care Code Est Pt Level 3 (54430) Diagnoses Angiolipoma D17.9 Calculus of kidney N20.0
--- OUTSIDE RECORDS SUMMARY | 2024-12-08 15:47 | XMS_ITS | Encounter Summary ---
Author Organization [employer] Address [address] [facility] 7[address] [place] [address] Care Team Providers Care Analytical Chemistry Teacher Name Role Phone Name, Jemal HARMON Primary Care Provider [phone] Reason for Visit * Reason Onset Date Comments Follow-up 06/13/2022 Encounter Details Date Type Department Care Team ([facility] Contact Info) Description 06/13/2022 Telephone [facility] MEDICINE [address] [place], [place] [phone] Name, MD Jemal [address] [place] [address] Follow-up Social History Tobacco Use Types Packs/Day [...] check and to assess current symptoms via [place] [facility] Veter[facility] Technician Donell #[id number]. sidney Padron/josie left to return call. * Telephone Encounter - Sully Chintan - 06/13/2022 10:09 AM EST Tc from Pt stated came in the Walk in [place] on 06/04 they found a Bacteria in the Urine. Pt statedprovider told her to contact PCP for follow up. PCP Name documented in this encounter Plan of Treatment Not on file documented as of this encounter Visit Diagnoses Not on filedocumented in this encounter Care Teams Analytical Chemistry Teacher Relationship Specialty Start Date End Date Name, MD Jemal [address] [place] [address] PCP - General Family Medicine 12/24/17 documented as of this encounter
== END 2024-12-08 15:40 | disposition home or self-care (01) ==
LOC: HO.HUSH 15:04
PROVIDERS: PCP Internal Medicine Geriatric Medicine; Visit Provider Nurse Practitioner Family
DX: D17.9 Benign lipomatous neoplasm, unspecified (principal); N20.0 Calculus of kidney; Z13.9 Encounter for screening, unspecified
CPT/HCPCS: 99213

== ENCOUNTER → 2024-12-08 15:03 | Outpatient (BNVA) | payer MEDICAID, SELFPAY | PROVIDERS: PCP Internal Medicine Geriatric Medicine; Visit Provider Nurse Practitioner Family | DX: N20.0 Calculus of kidney (principal); D17.9 Benign lipomatous neoplasm, unspecified | CPT/HCPCS: 81003; 99212 ==

== ENCOUNTER 2025-01-18 14:50 | Outpatient (REF) | payer MEDICAID, SELFPAY ==
[2025-01-18 18:51] LABS: CT PCR NOT DETECTED (Not Detect.); NG PCR NOT DETECTED (Not Detect.)
== END 2025-01-18 14:51 | disposition home or self-care (01) ==
LOC: HO.LNP 14:50
PROVIDERS: PCP Internal Medicine Geriatric Medicine; Visit Provider Obstetrics & Gynecology
DX: Z01.411 Encounter for gynecological examination (general) (routine) with abnormal findings (principal); R87.610 Atypical squamous cells of undetermined significance on cytologic smear of cervix (ASC-US); R87.810 Cervical high risk human papillomavirus (HPV) DNA test positive; R10.2 Pelvic and perineal pain; Z98.51 Tubal ligation status
CPT/HCPCS: 81002; 81025; 87491; 87591; 87626; 88175; 99212; 99396

== ENCOUNTER 2025-01-18 14:50 | Outpatient (AMB) | payer MEDICAID, SELFPAY ==
--- NOTE | 2025-01-18 15:07 | MHC.OFFVIS ---
Vital Signs 01/18/25 15:19 Height 5 ft 1 in Weight 174 lb BMI 32.9 BP 122/74 Intake Visit Reasons: annual/cotest/do not reschedule Drafter Electronic Required: Yes Drafter Electronic Language: Facilitator Services: Drafter Electronic Present (in person) Drafter Electronic Name: Aurora GARCIA Information Interpreted: non-clinical & clinical Embroidery Patternmaker: Embroidery Patternmaker Present (Aurora GARCIA) Accompanied by: Self / Same As Patient Allergies aspirin Allergy (Verified 01/18/25 15:21) Unknown Is last menstrual period known: Yes HPI Comments Details: Presenting for annual exam. Complaining of left lower quadrant pain during her menstrual cycle let results afterwards, last 2 months no associated GI or symptoms no fever or chills Last Pap/HPV was in 11/04 ascus HPV positive, colpo biopsy ECC showed ANDERSON 1 Last Mammogram was in 04/06 BI-RADS 1 [facility] Medical History Dysplasia of cervix, low grade (ANDERSON 1) Depressed History of eclampsia History of high blood pressure Surgical History History of laparoscopic cholecystectomy (02/28/23) Hx of appendectomy Hx of tubal ligation Family History Father CVD (cardiovascular disease) Mother Asthma History of anxiety History of fibromyalgia Social History Are you a primary health care law specialist to a significant other at home: Yes Do you presently have visiting nurse or other home services: No Alcohol intake: current Alcohol intake frequency: a few times a month Patient Tobacco Use Status: Never used Tobacco Current occupational status: employed 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 Sexual orientation: Straight/Heterosexual Gender identity: Female Female Reproductive History Menstrual Age of Menarche: 10 Total pregnancies: 3 Full term: 2 Ab spontaneous: 1 Date of last pap smear: 10/31/23 (+HPV ) Date of Mammogram: 03/19/24 (bi rad 1) Review of Systems Const All systems reviewed & are unremarkable except as noted in HPI and below Card Reports as per HPI Resp Reports as per HPI GI Reports as per HPI and Reports no additional complaints Reports as per HPI Physical Exam Vital Signs: Last Vital Signs BP 122/74 01/18/25 15:19 BMI result Body Mass Index 32.9 Const General: cooperative, healthy appearing and comfortable Chest Chest palpation & inspection: normal inspection of the chest and normal palpation of entire chest wall Breast/axilla inspection: normal inspection of the breasts and normal inspection of the axillae Breast/axilla palpation: normal palpation of the breasts, normal palpation of the axillae and no axillary lymphadenopathy Resp Effort & Inspection: normal respiratory effort Auscultation: clear to auscultation bilaterally Percussion: percussion normal Cardio Palpation: normal PMI Rate: regular rate Rhythm: regular rhythm Heart sounds: no murmurs and no rubs Peripheral pulses: Peripheral pulses 2+ throughout GI Inspection: Yes normal to inspection Palpation (GI): Soft to palpation, nontender, no guarding, not rigid and No hepatosplenomegaly present Percussion: Yes normal to percussion Auscultation: normal bowel sounds Rectal Exam - Female: deferred General: Yes bladder normal to palpation External Female Exam: No lesion Speculum Exam - Vagina: normal appearance of the vagina, normal palpation, normal vaginal discharge and not erythematous Speculum Exam - Cervix: normal appearance of the cervix and normal palpation Bimanual exam- vagina & uterus: normal bimanual exam, normal palpation, uterine size normal, bladder normal to palpation, consistency normal and normal palpation Bimanual Exam- Adnexa, other: normal adnexae, no masses and no tenderness Results AMB Test Urine AMB Test Urine Negative Last Edit by Aurora Rene CMA on 01/18/25 15:41 Assessment & Plan Assessment & Plan (1) Well woman exam with routine gynecological exam: Comment: 11/04 ANDERSON 1 Code(s): Z01.419 - Encounter for gynecological examination (general) (routine) without abnormal findings Category: Medical Plan: Cotesting done. Instructions given the patient to schedule next screening Mammogram in 04/07. Counseled the patient about the recommended dietary allowance of 1000 mg of Calcium & 600 IU of vitamin D. The patient was instructed to perform monthly self-breast exams and to schedule an annual exam in a year; All questions answered and the patient verbalized understanding. Instructed the patient to schedule annual exam in a year (2) Pelvic pain: Comment: Left side Code(s): R10.2 - Pelvic and perineal pain Category: Medical Plan: Urine dip and test done in the office were both negative. GC and chlamydia taken and pelvic ultrasound ordered. Discussed with the patient the differential diagnosis of pelvic pain including but not limited to adnexal, uterine masses, pelvic infections (PID), GI the (Irritable bowel syndrome, diverticulitis, others), musculoskeletal, myofascial pain abdominal wall , adhesions, endometriosis, psychological and others causes. Will check results and treat accordingly. All questions answered, the patient verbalized understanding. Instructed the patient to schedule an ultrasound and a follow-up appointment in 2 weeks. All questions answered, the patient verbalized understanding and agreed with the plan. Orders: Orders Pap Smear Today R87.610 - Atypical squamous cells of undetermined significance on cytologic smear of cervix (ASC-US), R87.810 - Cervical high risk human papillomavirus (HPV) DNA test positive, Z01.419 - Encounter for gynecological examination (general) (routine) without abnormal findings AMB Urinalysis Dipstick Today R10.2 - Pelvic and perineal pain US pelvic and transvaginal Today R10.2 - Pelvic and perineal pain HPV High risk Today R87.610 - Atypical squamous cells of undetermined significance on cytologic smear of cervix (ASC-US), R87.810 - Cervical high risk human papillomavirus (HPV) DNA test positive, Z01.419 - Encounter for gynecological examination (general) (routine) without abnormal findings CT NG by PCR Vag/Cerv Today R87.610 - Atypical squamous cells of undetermined significance on cytologic smear of cervix (ASC-US), R87.810 - Cervical high risk human papillomavirus (HPV) DNA test positive, Z01.419 - Encounter for gynecological examination (general) (routine) without abnormal findings AMB HCG Urine Test Today Z32.02 - Encounter for test, result negative Coding Level of Care Code Est Pt Level 3 (78701) Est Pt Prev Care 40-64y(18255) Diagnoses Well woman exam with routine gynecological exam Z01.419 Pelvic pain R10.2
[2025-01-18 15:19] VITALS: BP 122/74; BMI 32.9
--- OUTSIDE RECORDS SUMMARY | 2025-01-18 15:40 | XMS_ITS | Encounter Summary ---
Author Organization [employer] Address [address] [facility] 7t [place] [address] Care Team Providers Care Dust Collector Ore Crushing Name Role Phone Name, Jemal HARMON Primary Care Provider [phone] Reason for Visit * Reason Onset Date Comments Follow-up 06/13/2022 Encounter Details Date Type Department Care Team ([facility] Contact Info) Description 06/13/2022 Telephone [facility] MEDICINE [address] [place] [address] Name, MD Jemal [address] [place] [address] Follow-up Social History Tobacco Use Types Packs/Day [...] check and to assess current symptoms via [employer] Developer Automatic Donell #[id number]. sidney Padron/josie left to return call. * Telephone Encounter - Sully Chintan - 06/13/2022 10:09 AM EST Tc from Pt stated came in the Walk in [place] on 06/04 they found a Bacteria in the Urine. Pt statedprovider told her to contact PCP for follow up. PCP Name documented in this encounter Plan of Treatment Not on file documented as of this encounter Visit Diagnoses Not on filedocumented in this encounter Care Teams Dust Collector Ore Crushing Relationship Specialty Start Date End Date Name, MD Jemal [address] [place] [address] PCP - General Family Medicine 12/24/17 documented as of this encounter
== END 2025-01-18 15:43 | disposition home or self-care (01) ==
LOC: HO.HWS 14:56
PROVIDERS: PCP Internal Medicine Geriatric Medicine; Visit Provider Obstetrics & Gynecology
DX: Z01.419 Encounter for gynecological examination (general) (routine) without abnormal findings (principal); R10.2 Pelvic and perineal pain; Z32.02 Encounter for pregnancy test, result negative
CPT/HCPCS: 99213; 99396; 99459

== ENCOUNTER 2025-01-19 12:36 | Outpatient (REF) | payer MEDICAID, SELFPAY ==
[2025-01-19 13:10] LABS: MANUAL DIFF FLAG NO
--- OUTSIDE RECORDS SUMMARY | 2025-01-19 13:27 | XMS_ITS | Encounter Summary ---
Author Organization [employer] Address [address] [facility] 7t [place] [address] Care Team Providers Care Global Implementation Manager Name Role Phone Name, Jemal HARMON Primary Care Provider Reason for Visit * Reason Onset Date Comments Follow-up 06/13/2022 Encounter Details Date Type Department Care Team ([facility] Contact Info) Description 06/13/2022 Telephone [facility] MEDICINE [address] [place] [address] Name, MD Jemal [address] [place] [address] Follow-up Social History Tobacco Use Types Packs/Day [...] check and to assess current symptoms via [facility] Administrator Donell #[id number]. sidney Padron/josie left to return call. * Telephone Encounter - Sully Chintan - 06/13/2022 10:09 AM EST Tc from Pt stated came in the Walk in [place] on 06/04 they found a Bacteria in the Urine. Pt statedprovider told her to contact PCP for follow up. PCP Name documented in this encounter Plan of Treatment Not on file documented as of this encounter Visit Diagnoses Not on filedocumented in this encounter Care Teams Global Implementation Manager Relationship Specialty Start Date End Date Name, MD Jemal [address] [place] [address] PCP - General Family Medicine 12/24/17 documented as of this encounter
[2025-01-19 13:41] LABS: Hematocrit 41.6 % (37.0-47.0); Hemoglobin 14.2 g/dl (12.0-16.0); Imm Gran Abs Auto 0.02 X10*3/uL (0.00-0.03); Imm Gran Pct Auto 0.3 % (0.0-0.4); Lymphocytes Absolute Auto 2.3 X10*3/uL (1.2-4.9); Mean Corpuscular HGB Conc 34.1 g/dl (31.0-35.0); Mean Corpuscular Hemoglobin 29.0 pg (27.0-33.0); Mean Corpuscular Volume 85.1 fL (80.0-98.0); NRBC Abs Auto 0.000 X10*3/uL (0.0-0.012); NRBC Pct Auto 0.0 /100WBC (0.0-0.2); Platelet Count 330 X10*3/uL (160-400); Red Blood Count 4.89 X10*6/uL (4.20-5.50); White Blood Count 7.5 X10*3/uL (4.8-10.8)
[2025-01-19 14:06] LABS: Alanine Aminotransferase 60 U/L (0-31); Albumin Level 4.7 g/dL (3.5-5.0); Alkaline Phosphatase 59 U/L (39-117); Anion Gap 13 (12-20); Aspartate Amino Transferase 35 U/L (5-31); Blood Urea Nitrogen 12 mg/dL (9-16); Calcium 9.8 mg/dL (8.4-10.2); Carbon Dioxide 30 mmol/L (22-29); Chloride 102 mmol/L (96-108); Estimated Glomerular Filt Rate > 60; Potassium 3.0 mmol/L (3.3-5.1); Sodium 142 mmol/L (135-145); Total Protein 7.7 g/dL (6.5-8.0)
[2025-01-20 18:09] LABS: Thyroglobulin Antibodies <1 IU/mL (< or = 1)
[2025-01-21 16:14] LABS: Prot Elec - Albumin 4.6 g/dL (3.8-4.8); Prot Elec - Alpha1 0.3 g/dL (0.2-0.3); Prot Elec - Alpha2 0.7 g/dL (0.5-0.9); Prot Elec - Beta 1 0.6 g/dL (0.4-0.6); Prot Elec - Beta 2 0.5 g/dL (0.2-0.5); Prot Elec - Gamma 1.2 g/dL (0.8-1.7); Prot Elec - Total Protein 7.8 g/dL (6.1-8.1)
== END 2025-01-19 12:37 | disposition home or self-care (01) ==
LOC: HO.LAB 12:36
PROVIDERS: PCP Internal Medicine Geriatric Medicine; Visit Provider Allergy & Immunology
DX: Z01.419 Encounter for gynecological examination (general) (routine) without abnormal findings (principal); R87.610 Atypical squamous cells of undetermined significance on cytologic smear of cervix (ASC-US); R87.810 Cervical high risk human papillomavirus (HPV) DNA test positive; L29.9 Pruritus, unspecified; L50.9 Urticaria, unspecified
CPT/HCPCS: 36415; 80053; 83520; 84165; 85025; 85652; 86376; 86800

== ENCOUNTER 2025-01-20 10:05 | Day surgery (SDC) | payer MEDICAID, SELFPAY ==
--- OUTSIDE RECORDS SUMMARY | 2024-12-17 07:58 | XMS_ITS | Encounter Summary ---
Author Organization [employer] Address [address] [facility] [address] [place] [address] Care Team Providers Care Product Safety Tester Name Role Phone Name, Jemal HARMON Primary Care Provider Reason for Visit * Reason Onset Date Comments Follow-up 06/13/2022 Encounter Details Date Type Department Care Team ([facility] Contact Info) Description 06/13/2022 Telephone [facility] MEDICINE [address] [place], [place] [phone] Name, MD Jemal [address] [place] [address] Follow-up Social History Tobacco Use Types Packs/Day [...] check and to assess current symptoms via [place] Drapery Installer Donell #[id number]. sidney Padron/josie left to return call. * Telephone Encounter - Sully Chintan - 06/13/2022 10:09 AM EST Tc from Pt stated came in the Walk in [place] on 06/04 they found a Bacteria in the Urine. Pt statedprovider told her to contact PCP for follow up. PCP Name documented in this encounter Plan of Treatment Not on file documented as of this encounter Visit Diagnoses Not on filedocumented in this encounter Care Teams Product Safety Tester Relationship Specialty Start Date End Date Name, MD Jemal [address] [place] [address] PCP - General Family Medicine 12/24/17 documented as of this encounter
[2025-01-20 10:51] VITALS: BP 117/73; PULSE 77; RESP 16; TEMP 36.3; O2SAT 98; BMI 32.7
--- NOTE | 2025-01-20 12:08 | MHC.SHP ---
Pre-Procedural Eval Section A - 24 Hr Update-Section A only Date of Service: 01/20/25 The patient is an INPATIENT: No Changes since office visit: No Cold of Flu in the past 2 weeks, No New Medical Problems, No Changes in Medication and No Patient answered all questions The patient has been examined within 24 hours of the surgical procedure. The History & Physical has been completed within 30 days and I have reviewed it.: Yes Section B - Complete if H&P > 30 days Chief Complaint: Carpal tunnel syndrome, right upper limb Allergies: Allergies Allergy/AdvReac Type Severity Reaction Status Date / Time aspirin Allergy Unknown Verified 01/18/25 15:21 Plan Diagnosis/Plan: Unchanged I have reviewed the history and physical and performed a pertinent physical examination on my patient. No changes have occurred unless specified. Time Spent With Patient Time: Total time managing care of this patient today ____ minutes.
--- NOTE | 2025-01-20 12:09 | P.OP_ITS ---
Operative Note Operative Note Date of Service: 01/20/25 Narrative: Preop diagnosis: 1. Right Carpal tunnel syndrome Postop diagnosis: same Procedure: 1. Right Carpal tunnel release Surgeon: Antoinette Sheth MD Die Designer Apprentice: Frank AMES Anesthesia: local block using 1% lidocaine with epinephrine Findings: Thickened transverse carpal ligament. EBL: Less than 5 mL Specimens: None Complications: None Disposition: Brought to recovery room in stable condition Plan: Follow-up for 10-14 days for wound check and suture removal Indications: The patient is 40 years old, with right carpal tunnel syndrome that has been unresponsive to nonoperative management. The risks and benefits of operative treatment including but not limited to risk of damage to blood vessels, nerves, tendons, infection, persistent pain, persistent symptoms, or possible need for additional surgery were discussed with the patient and the patient wishes to proceed with surgery. Procedure: Once consent was obtained a local block was performed using a combination of 1% lidocaine with epinephrine. The patient was then brought back to the operating suite and placed on the operative table in supine position. The right upper extremity was prepped and draped in a standard surgical fashion. Once assured that we had a good block, a 2.0 cm longitudinal incision was made centered over the carpal tunnel. The incision was made through the skin to the subcutaneous tissues using a #15 blade. Dissection was made down to the level of the transverse carpal ligament with care being taken to protect the palmar cutaneous nerve. Once the transverse carpal ligament was clearly visualized, a longitudinal incision was made in the transverse carpal ligament 1st using a #15 blade, then using tenotomy scissors under direct visualization. Care was taken to look for and protect the motor branch of the median nerve when seen in this area. Once satisfied with our carpal tunnel release the wound was copiously irrigated with normal saline and hemostasis was obtained with a brief period of local pressure. The skin edges were reapproximated with some 5.0 nylon suture material and a sterile dressing was applied. The patient appears to have tolerated the procedure well and with no complications. All digits were well vascularized at the conclusion of the case.
[2025-01-20 13:19] VITALS: BP 133/78; PULSE 64; RESP 16; O2SAT 100
== END 2025-01-20 13:21 | disposition home or self-care (01) ==
PROVIDERS: PCP Internal Medicine Geriatric Medicine; Visit Provider Orthopaedic Surgery
PROC: (CPT 64721; principal; 2025-01-20 11:40)
DX: G56.01 Carpal tunnel syndrome, right upper limb (principal); M25.521 Pain in right elbow; M77.11 Lateral epicondylitis, right elbow; Z86.79 Personal history of other diseases of the circulatory system; F32.A Depression, unspecified; Z79.899 Other long term (current) drug therapy; Z90.49 Acquired absence of other specified parts of digestive tract; Z98.51 Tubal ligation status
CPT/HCPCS: 64721; J0165; J2003

== ENCOUNTER → 2025-01-20 10:05 | Outpatient (BNV) | payer MEDICAID, SELFPAY | PROVIDERS: PCP Internal Medicine Geriatric Medicine; Visit Provider Orthopaedic Surgery | DX: G56.01 Carpal tunnel syndrome, right upper limb (principal) | CPT/HCPCS: 64721 ==

== ENCOUNTER 2025-02-02 11:30 | Outpatient (AMB) | payer MEDICAID, SELFPAY ==
--- NOTE | 2025-02-02 11:41 | A.OFFVIS_ITS ---
Intake Visit Reasons: PO RT CTR 01/20/25 AR Intake Note: Shannan is a 40 year old right hand dominant female who presents today for a post operative appointment s/p Right Carpal Tunnel Release 01/20/25. Sutures removed & steri strips applied. Patient reports numbness and tingling has improved, however at night she reports swelling. Rental Car Ferry Driver Required: Yes Rental Car Ferry Driver Language: Shutdown Planner Services: Rental Car Ferry Driver Present Rental Car Ferry Driver Name: NormanJOSE sexton/SOPHIE Information Interpreted: clinical only Allergies aspirin Allergy (Verified 02/02/25 11:41) Unknown HPI HPI PO RT CTR 01/20/25 AR: Details: Shannan is a 40 year old right hand dominant female who presents today for a post operative appointment s/p Right Carpal Tunnel Release 01/20/25. Sutures removed & steri strips applied. Patient reports numbness and tingling has improved, however at night she reports swelling. [facility] Medical History Dysplasia of cervix, low grade (ANDERSON 1) Depressed History of eclampsia History of high blood pressure Surgical History History of laparoscopic cholecystectomy (02/28/23) Hx of appendectomy Hx of tubal ligation Family History Father CVD (cardiovascular disease) Mother Asthma History of anxiety History of fibromyalgia Social History Are you a primary personal care aide to a significant other at home: Yes Do you presently have visiting nurse or other home services: No Alcohol intake: current Alcohol intake frequency: a few times a month Patient Tobacco Use Status: Never used Tobacco Current occupational status: employed 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 Good APB muscle firing and good finger cross. Vascular: Capillary refill brisk. ROM: Patient can make a fist and extend all their digits. Skin: Well approximated and well healing incision noted on the volar right wrist No lacerations or abrasions noted. General: No ecchymosis. No erythema or evidence of infection. Assessment & Plan Assessment & Plan (1) Right carpal tunnel syndrome: Code(s): G56.01 - Carpal tunnel syndrome, right upper limb Category: Medical Plan 1. Status post right carpal tunnel release DOS 01/20/2025 Patient appears to be recovering well postoperatively Patient is educated about the typical recovery course At this time, no acute follow-up indicated for her right carpal tunnel release, as she is recovering well Patient is amenable to this plan Follow-up as needed Coding Level of Care Code Global (79189) Diagnoses Right carpal tunnel syndrome G56.01
--- OUTSIDE RECORDS SUMMARY | 2025-02-02 12:28 | XMS_ITS | Clinical Summary ---
Author Organization [facility] Address [address] [place], [place] [id number] Phone Care Team Providers Care Clinical Care Manager Name Role Phone Name, Jemal HARMON Primary Care Provider [phone] Social History Tobacco Use Types Packs/Day Years Used Date Smoking Tobacco: Never Assessed Education Answer Date Recorded Are you interested in more education? Not on aditi e 07/16/2023 Are you concerned about learning? Not on file 07/16/2023 No 07/16/2023 No 07/16/2023 Digital Access Answer Date Recorded No 07/16/2023 No 07/16/2023 Reliable internet access at home? Not on file 07/16/2023 Device with a working camera? Not on file Comments Unknown Sex and Gender Information Value Date Recorded Sex Assigned at Not on file Legal Sex Female 11:21 AM EST Gender Identity Not on file Sexual Orientation Not on file Plan of Treatment Not on file Medical Devices Not on file Insurance [facility] [address] [place] [address] [place] [address] [place] [address] [place] [address] C3 ACO [facility] C3 ACO Care Teams Clinical Care Manager Relationship Specialty Start Date End Date Name, MD Jemal [address] [place] [phone] PCP - General Internal Medicine 07/16/23 Additional Source Comments The information contained in this document represents components of the legal health record. It is not the complete legal health record.[facility]
== END 2025-02-02 11:55 | disposition home or self-care (01) ==
LOC: HO.HOS 11:31
PROVIDERS: PCP Internal Medicine Geriatric Medicine
DX: G56.01 Carpal tunnel syndrome, right upper limb (principal)
CPT/HCPCS: 99024

== ENCOUNTER → 2025-02-02 11:30 | Outpatient (BNVA) | payer MEDICAID, SELFPAY | PROVIDERS: PCP Internal Medicine Geriatric Medicine | DX: Z48.811 Encounter for surgical aftercare following surgery on the nervous system (principal); Z98.890 Other specified postprocedural states | CPT/HCPCS: 99212 ==

== ENCOUNTER 2025-02-28 10:33 | Outpatient (REF) | payer MEDICAID, SELFPAY ==
--- OUTSIDE RECORDS SUMMARY | 2025-02-28 11:34 | XMS_ITS | Clinical Summary ---
Author Organization [facility] Address [address] [place], [place] [address] Phone Care Team Providers Care Cable Engineer Name Role Phone Name, Jemal HARMON Primary Care Provider [phone] Social History Tobacco Use Types Packs/Day Years [...] file Medical Devices Not on file Insurance [facility] [address] [place] [address] [place] [address] [place] [address] [address] C3 ACO [facility] C3 ACO Care Teams Cable Engineer Relationship Specialty Start Date End Date Name, MD Jemal [address] [place] [phone] PCP - General Internal Medicine 07/16/23 Additional Source Comments The information contained in this document represents components of the legal health record. It is not the complete legal health record.[facility]
--- OUTSIDE RECORDS SUMMARY | 2025-02-28 11:34 | XMS_ITS | Encounter Summary ---
Author Organization [employer] Address [address] [facility] 7t [place] [address] Care Team Providers Care Project Manager Name Role Phone Name, Jemal HARMON Primary Care Provider [phone] Reason for Visit * Reason Onset Date Comments Follow-up 06/13/2022 Encounter Details Date Type Department Care Team ([facility] Contact Info) Description 06/13/2022 Telephone [facility] MEDICINE [address] [place], [place] [phone] Name, MD Jemal [address] [place] [address] Follow-up Social History Tobacco Use Types Packs/Day [...] check and to assess current symptoms via [employer] Charge Nurse Donell #[id number]. sidney Padron/josie left to return call. * Telephone Encounter - Sully Chintan - 06/13/2022 10:09 AM EST Tc from Pt stated came in the Walk in [place] on 06/04 they found a Bacteria in the Urine. Pt statedprovider told her to contact PCP for follow up. PCP Dr. Briggs documented in this encounter Plan of Treatment Upcoming Encounters Date Type Department Care Team (Late st Contact Info) Description 05/26/2025 9:00 AM EST Office Visit [facility] MEDICINE [address] [place] [address] Name, MD Jemal [address] [place] [address] documented as of this encounter Visit Diagnoses Not on filedocumented in this encounter Care Teams Project Manager Relationship Specialty Start Date End Date NameJemal MD [address] [place] [address] PCP - General Family Medicine 12/24/17 documented as of this encounter
[2025-02-28 12:11] LABS: Hemoglobin A1C 185.6695 umol/L; Total Hemoglobin (HGBA1C) 4358.0250 umol/L
[2025-02-28 12:24] LABS: Alanine Aminotransferase 50 U/L (0-31); Albumin Level 4.3 g/dL (3.5-5.0); Alkaline Phosphatase 61 U/L (39-117); Anion Gap 15 (12-20); Aspartate Amino Transferase 30 U/L (5-31); Blood Urea Nitrogen 15 mg/dL (9-16); Calcium 9.1 mg/dL (8.4-10.2); Carbon Dioxide 29 mmol/L (22-29); Chloride 101 mmol/L (96-108); Estimated Glomerular Filt Rate > 60; Potassium 2.9 mmol/L (3.3-5.1); Sodium 142 mmol/L (135-145); Total Protein 7.0 g/dL (6.5-8.0)
== END 2025-02-28 10:34 | disposition home or self-care (01) ==
LOC: HO.HHCL 10:33
PROVIDERS: PCP Internal Medicine Geriatric Medicine; Visit Provider Internal Medicine Geriatric Medicine
DX: R63.5 Abnormal weight gain (principal)
CPT/HCPCS: 36415; 80053; 83036; 84443

== ENCOUNTER 2025-03-03 08:09 | Outpatient (AMB) | payer MEDICAID, SELFPAY ==
--- NOTE | 2025-03-03 08:15 | A.OFFVIS_ITS ---
Vital Signs 03/03/25 08:17 Height 5 ft 1 in Weight 173 lb BMI 32.7 Intake Visit Reasons: PO RT CTR 01/20/25 AR Intake Note: Shannan is a 40 year old right hand dominant female who presents today post- operatively status post right carpal tunnel release, DOS: 01/20/[address] Sheth. Patient reports she continues to have difficulty making a full fist. She is currently on work restrictions and wishes to discuss these today as she is expecte to return to work today. Advanced Clinical Specialist Required: Yes Advanced Clinical Specialist Language: Lab Manager Services: Advanced Clinical Specialist Present Advanced Clinical Specialist Name: JOSE [place]/LM Allergies aspirin Allergy (Verified 03/03/25 08:21) Unknown HPI HPI PO RT CTR 01/20/25 AR: Details: Shannan is a 40 year old right hand dominant female who presents today post- operatively status post right carpal tunnel release, DOS: 01/20/[address] Sheth. Patient reports she continues to have difficulty making a full fist. She is currently on work restrictions and wishes to discuss these today as she is expecte to return to work today. Patient states that she would like to postpone any evaluation and treatment of her right middle finger trigger finger, as she would like to return to work. No other acute complaints or concerns at this time. [facility] Medical History Dysplasia of cervix, low grade (ANDERSON 1) Depressed History of eclampsia History of high blood pressure Surgical History History of laparoscopic cholecystectomy (02/28/23) Hx of appendectomy Hx of tubal ligation Family History Father CVD (cardiovascular disease) Mother Asthma History of anxiety History of fibromyalgia Social History Are you a primary continuum of care manager to a significant other at home: Yes Do you presently have visiting nurse or other home services: No Alcohol intake: current Alcohol intake frequency: a few times a month Patient Tobacco Use Status: Never used Tobacco Current occupational status: employed 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 Good APB muscle firing and good finger cross. Vascular: Capillary refill brisk. ROM: Patient can make a fist and extend all their digits, reports some discomfort in the posterior aspect of the 2nd through 5th digits when doing so Skin: Well approximated and well healing incision noted on the volar right wrist No lacerations or abrasions noted. General: No ecchymosis. No erythema or evidence of infection. Assessment & Plan Assessment & Plan (1) Right carpal tunnel syndrome: Code(s): G56.01 - Carpal tunnel syndrome, right upper limb Category: Medical Plan 1. Status post right carpal tunnel release DOS 01/20/2025 Patient appears to be recovering well postoperatively Patient is educated about the typical recovery course Patient is provided with a Velcro wrist splint to wear when she is doing any heavy lifting in order to support her wrist and prevent worsening of pain Patient is educated she should call occupational therapy again to Patient is amenable to this plan Follow-up as needed Coding Level of Care Code Global (69788) Diagnoses Right carpal tunnel syndrome G56.01
[2025-03-03 08:17] VITALS: BMI 32.7
== END 2025-03-03 08:44 | disposition home or self-care (01) ==
PROVIDERS: PCP Internal Medicine Geriatric Medicine
DX: G56.01 Carpal tunnel syndrome, right upper limb (principal)
CPT/HCPCS: 99024

== ENCOUNTER → 2025-03-03 08:09 | Outpatient (BNVA) | payer MEDICAID, SELFPAY | PROVIDERS: PCP Internal Medicine Geriatric Medicine | DX: G56.01 Carpal tunnel syndrome, right upper limb (principal) | CPT/HCPCS: 99212 ==

== ENCOUNTER 2025-04-11 13:35 | Outpatient (REF) | payer MEDICAID, SELFPAY ==
--- NOTE | ~2025-04-11 | US_ITS ---
EXAMINATION: US RETROPERITONEUM HISTORY: R10.9 - Unspecified abdominal pain TECHNIQUE: Real-time grayscale ultrasound imaging of the kidneys was performed and images were reviewed. COMPARISON: Comparison is made with the prior examination dated 05/19/2024. FINDINGS: Right kidney: The right kidney measures 11.1 x 5.3 x 6.0 cm. Renal parenchymal echotexture and thickness are normal. There are no masses. There is no hydronephrosis or renal calculi. Left Kidney: The left kidney measures 11.0 x 5.9 x 5.2 cm. Renal parenchymal echotexture and thickness are normal. There is an 8 x 10 x 8 mm cyst in the interpolar region. There is no hydronephrosis or renal calculi. The urinary bladder is unremarkable. Bilateral ureteral jets are identified. Before voiding, the urinary bladder measured 7.3 x 4.8 x 7.6 cm, for an estimated volume of 139 mL. After voiding, the urinary bladder measured 2.8 x 1.2 x 2.4 cm, for an estimated volume of 4.3 mL. US/US retroperitoneal comp IMPRESSION: 1. 10 mm left renal cyst. Otherwise unremarkable retroperitoneal ultrasound. 2. Post void bladder residual of 4.3 mL. Electronically signed by: Diogo Bernard MD 04/11/2025 02:13 PM EDT
--- OUTSIDE RECORDS SUMMARY | 2025-04-11 15:07 | XMS_ITS | Encounter Summary ---
Author Organization [employer] Address [address] [facility] 7t [place] [address] Care Team Providers Care Manager Spring Name Role Phone Name, Jemal HARMON Primary Care Provider [phone] Reason for Visit * Reason Onset Date Comments Results 07/22/2023 Encounter Details Date Type Department Care Team ([facility] Contact Info) Description 07/22/2023 Telephone [facility] MEDICINE [address] [place], [place] [phone] Name, MD Jemal [address] [place] [address] Results Social History Tobacco Use Types Packs/Day [...] t he electric, gas, oil or water [employer] threatened to shut off services in your [...] PM EST T/c placed to pt via [employer] #[id number]. Advised of benign result for right cervicallymph [...] Facility: [facility] Please contact pt at [phone] documented in this encounter Plan of Treatment Upcoming Encounters Date Type Department Care Team (Late st Contact Info) Description 04/26/2025 2:30 PM EDT Nutrition [facility] DIABETES/NUTRITION [address] [place], [place] [phone] [address] [place] [address] 05/26/2025 9:00 AM EST Office Visit [facility] MEDICINE [address] [place], [place] [phone] Name, MD Jemal [address] [place] [address] documented as of this encounter Visit Diagnoses Not on filedocumented in this encounter Additional Health Concerns Assessment Noted Time PHQ-9 Depression Total Score: 0 02/05/20 23 9:16 AM EDT documented as of this encounter Care Teams Manager Spring Relationship Specialty Start Date End Date Name, MD Jemal [address] [place] [address] PCP - General Family Medicine 12/24/17 documented as of this encounter
--- OUTSIDE RECORDS SUMMARY | 2025-04-11 15:07 | XMS_ITS | Encounter Summary ---
Author Organization [employer] Address [address] [facility] [address] 7t [place] [address] Care Team Providers Care Geothermal Installer Name Role Phone Name, Jemal HARMON Primary Care Provider [phone] Reason for Visit * Reason Onset Date Comments Nurse Triage 08/12/2023 Encounter Details Date Type Department Care Team ([facility] Contact Info) Description 08/12/2023 Telephone [facility] MEDICINE [address] [place], [place] [phone] Name, MD Jemal [address] [place] [address] Nurse Triage Social History Tobacco Use Types [...] t he electric, gas, oil or water [employer] threatened to shut off services in your [...] 12:03 PM EST Triage call with pacific gear inspector [place] [id number] Pt reports cough, sore throat. nasal congestion, [...] worse. Pt is advised to come to [facility] today which is open till 8pm [...] accepted this outcome Please contact pt at [phone] ([place]ian) documented in this encounter Plan of Treatment Upcoming Encounters Date Type Department Care Team (Late st Contact Info) Description 04/26/2025 2:30 PM EDT Nutrition [facility] DIABETES/NUTRITION [address] [place] [address] [place] [address] 05/26/2025 9:00 AM EST Office Visit [facility] MEDICINE [address] [place] [address] Name, MD Jemal [address] [place] [address] documented as of this encounter Visit Diagnoses Not on filedocumented in this encounter Additional Health Concerns Assessment Noted Time PHQ-9 Depression Total Score: 0 02/05/20 23 9:16 AM EDT documented as of this encounter Care Teams Geothermal Installer Relationship Specialty Start Date End Date Name, MD Jemal [address] [place] [address] PCP - General Family Medicine 12/24/17 documented as of this encounter
--- OUTSIDE RECORDS SUMMARY | 2025-04-11 15:07 | XMS_ITS | Encounter Summary ---
Author Organization [employer] Address [address] [facility] 7t [place] [address] Care Team Providers Care Metalizing Machine Operator Name Role Phone Name, Jemal HARMON Primary Care Provider [phone] Reason for Visit * Reason Onset Date Comments Follow-up 06/13/2022 Encounter Details Date Type Department Care Team ([facility] Contact Info) Description 06/13/2022 Telephone [facility] MEDICINE [address] [place], [place] [phone] Name, MD Jemal [address] [place] [address] Follow-up Social History Tobacco Use Types Packs/Day [...] check and to assess current symptoms via [place] [employer] Fumigator Donell #[id number]. sidney Padron/josie left to return call. * Telephone Encounter - Sully Chintan - 06/13/2022 10:09 AM EST Tc from Pt stated came in the Walk in [place] on 06/04 they found a Bacteria in the Urine. Pt statedprovider told her to contact PCP for follow up. PCP Dr. Briggs documented in this encounter Plan of Treatment Upcoming Encounters Date Type Department Care Team ([facility] st Contact Info) Description 04/26/2025 2:30 PM EDT Nutrition [facility] DIABETES/NUTRITION [address] [place] [phone] [place] [address] 05/26/2025 9:00 AM EST Office Visit [facility] MEDICINE [address] [place] [phone] Jemal Briggs MD [address] [place] [address] documented as of this encounter Visit Diagnoses Not on filedocumented in this encounter Care Teams Metalizing Machine Operator Relationship Specialty Start Date End Date Jemal Briggs MD [address] [place] [phone] PCP - General Family Medicine 12/24/17 documented as of this encounter
--- OUTSIDE RECORDS SUMMARY | 2025-04-11 15:08 | XMS_ITS | Encounter Summary ---
Author Organization [employer] Address [address] [place] [address] Care Team Providers Care Mobile Development Manager Name Role Phone Name, Jemal HAMRON Primary Care Provider [phone] Encounter Details Date Type Department Care Team ([facility] Contact Info) Description 04/11/2025 Orders Only [facility] External Provider, [facility] Social History Tobacco Use Types Packs/Day Years [...] as of this encounter Plan of Treatment Upcoming Encounters Date Type Department Care Team (Late st Contact Info) Description 04/26/2025 2:30 PM EDT Nutrition [facility] DIABETES/NUTRITION [address] [place] [phone] [place] [address] 05/26/2025 9:00 AM EST Office Visit [facility] MEDICINE [address] [place] [address] Name, MD Jemal [address] [place] [address] documented as of this encounter Procedures Procedure Name Priority Date/Time Associated Diagnosis Comments US RETROPERITONEAL COMPLETE Routine 04/11/2025 1:49 PM EDT documented in this encounter Results * US Retroperitoneal Complete (04/11/2025 1:49 PM EDT) Anatomical Region Laterality Modality Ultrasound 04/11/2025 1:49 PM EDT Narrative 04/11/2025 2:16 PM EDT [address] [address] Ultrasound Report Signed Patient: Shannan Jacobsen MR#: [id number] [birth year] : 1985 Acct:[id number] Age/Sex: 40 / F ADM Date: 04/11/25 Loc: HO.US Attending Dr: Jazmín ZUNIGA Ordering Physician: Jazmín Courtney Date of Service: 04/11/25 Procedure(s): US retroperitoneal comp Accession Number(s): [id number] cc: Jazmín Courtney [facility]; Name,Jemal HARMON Reason for Exam: R10.9 - Unspecified abdominal pain EXAMINATION: US RETROPERITONEUM HISTORY: R10.9 - Unspecified abdominal pain TECHNIQUE: Real-time grayscale ultrasound imaging of the kidneys was performed and images were reviewed. COMPARISON: Comparison is made with the prior examination dated 05/19/2024. FINDINGS: Right kidney: The right kidney measures 11.1 x 5.3 x 6.0 cm. Renal parenchymal echotexture and thickness are normal. There are no masses. There is no hydronephrosis or renal calculi. Left Kidney: The left kidney measures 11.0 x 5.9 x 5.2 cm. Renal parenchymal echotexture and thickness are normal. There is an 8 x 10 x 8 mm cyst in the interpolar region. There is no hydronephrosis or renal calculi. The urinary bladder is unremarkable. Bilateral ureteral jets are identified. Before voiding, the urinary bladder measured 7.3 x 4.8 x 7.6 cm, for an estimated volume of 139 mL. After voiding, the urinary bladder measured 2.8 x 1.2 x 2.4 cm, for an estimated volume of 4.3 mL. US/US retroperitoneal comp IMPRESSION: 1. 10 mm left renal cyst. Otherwise unremarkable retroperitoneal ultrasound. 2. Post void bladder residual of 4.3 mL. Electronically signed by: Diogo Bernard MD 04/11/2025 02:13 PM EDT Dictated By: Diogo Bernard MD Signed By: <Electronically signed by Diogo Bernard MD in OV> 04/11/25 1413 DD/ 1349 TD/TT: 04/11/25 1401 Garden Implement Mechanic: Procedure Note Donotuseinterpreter, Image - 04/11/[address] [address] Ultrasound Report Signed Patient: Yazmin Jacobsen#: [id number] [birth year] : 1985Acct:[id number] Age/Sex: 40 / FADM Date: 04/11/25 Loc: HO.US Attending Dr: Jazmín ZUNIGA Ordering Physician: Jazmín Courtney Date of Service: 04/11/25 Procedure(s): US retroperitoneal comp Accession Number(s): [id number] cc: Jazmín Courtney; Name,Jemal HARMON Reason for Exam: R10.9 - Unspecified abdominal pain EXAMINATION: US RETROPERITONEUM HISTORY: R10.9 - Unspecified abdominal pain TECHNIQUE: Real-time grayscale ultrasound imaging of the kidneys was performed and images were reviewed. COMPARISON: Comparison is made with the prior examination dated 05/19/2024. FINDINGS: Right kidney: The right kidney measures 11.1 x 5.3 x 6.0 cm. Renal parenchymal echotexture and thickness are normal. There are no masses. There is no hydronephrosis or renal calculi. Left Kidney: The left kidney measures 11.0 x 5.9 x 5.2 cm. Renal parenchymal echotexture and thickness are normal. There is an 8 x 10 x 8 mm cyst in the interpolar region. There is no hydronephrosis or renal calculi. The urinary bladder is unremarkable. Bilateral ureteral jets are identified. Before voiding, the urinary bladder measured 7.3 x 4.8 x 7.6 cm, for an estimated volume of 139 mL. After voiding, the urinary bladder measured 2.8 x 1.2 x 2.4 cm, for an estimated volume of 4.3 mL. US/US retroperitoneal comp IMPRESSION: 1. 10 mm left renal cyst. Otherwise unremarkable retroperitoneal ultrasound. 2. Post void bladder residual of 4.3 mL. Electronically signed by: Diogo Bernard MD 04/11/2025 02:13 PM EDT Dictated By: Diogo Bernard MD Signed By: <Electronically signed by Diogo Bernard MD in OV> 04/11/25 1413 DD/ 1349 TD/TT: 04/11/25 1401 Garden Implement Mechanic: [facility] External Provider IMG US PROCEDURES Final Result documented in this encounter Visit Diagnoses Not on filedocumented in this encounter Additional Health Concerns Assessment Noted Time PHQ-9 Depression Total Score: 0 05/12/20 24 10:51 AM EDT documented as of this encounter Care Teams Mobile Development Manager Relationship Specialty Start Date End Date Name, MD Jemal [address] [place] [address] PCP - General Family Medicine 12/24/17 documented as of this encounter
--- OUTSIDE RECORDS SUMMARY | 2025-04-11 15:08 | XMS_ITS | Encounter Summary ---
Author Organization [employer] Address [address] [place] [address] Care Team Providers Care Fish And Wildlife Scientific Aid Name Role Phone Name, Jemal HARMON Primary Care Provider [phone] Encounter Details Date Type Department Care Team ([facility] Contact Info) Description 02/09/2025 Orders Only [facility] CHC MED & PEDS [address] [place], [place] [phone] ProviderNadya MD Social History Tobacco Use Types Packs/Day Years [...] 04/26/2025 2:30 PM EDT Nutrition [facility] DIABETES/NUTRITION [address] [place] [address] [place] [address] 05/26/2025 9:00 AM EST Office Visit [facility] MEDICINE [address] [place] [address] NameJemal MD [address] [place] [address] documented as of this encounter Procedures Procedure Name Priority Date/Time Associated Diagnosis Comments COLPOSCOPY Routine 05/06/2024 11:02 AM EDT documented in this encounter Results * Colposcopy (05/06/2024 11:02 AM EDT) us Historical Provider IN CLINIC/BEDSIDE ORDERAB LES Final Result documented in this encounter Visit Diagnoses Not on filedocumented in this encounter Additional Health Concerns Assessment Noted Time PHQ-9 Depression Total Score: 0 05/12/20 10:51 AM EDT documented as of this encounter Care Teams Fish And Wildlife Scientific Aid Relationship Specialty Start Date End Date NameJemal MD [address] [place] [phone] PCP - General Family Medicine 12/24/17 documented as of this encounter
--- OUTSIDE RECORDS SUMMARY | 2025-04-11 15:08 | XMS_ITS | Encounter Summary ---
Author Organization [employer] Address [address] [place] [address] Care Team Providers Care Hospice Volunteer Name Role Phone Name, Jemal HARMON Primary Care Provider [phone] Reason for Visit * Reason Onset Date Comments Appointment Request 03/28/2025 Encounter Details Date Type Department Care Team ([facility] Contact Info) Description 03/28/2025 Telephone [facility] MEDICINE [address] [place], [place] [phone] Name, MD Jmeal [address] [place] [address] Appointment Request Social History Tobacco Use Types Packs/Day Years [...] encounter Miscellaneous Notes * Telephone Encounter - Jemal Raya - 03/28/2025 2:38 PM EDT Tc from pt requesting an apt with the 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 Contact pt at [phone] documented in this encounter Plan of Treatment Upcoming Encounters Date Type Department Care Team (Late st Contact Info) Description 04/26/2025 2:30 PM EDT Nutrition [facility] DIABETES/NUTRITION [address] [place] [address] [address], [address] [place] [address] 05/26/2025 9:00 AM EST Office Visit [facility] MEDICINE [address] [place] [address] Name, MD Jemal [address] [place] [address] documented as of this encounter Visit Diagnoses Not on filedocumented in this encounter Additional Health Concerns Assessment Noted Time PHQ-9 Depression Total Score: 0 05/12/20 24 10:51 AM EDT documented as of this encounter Care Teams Hospice Volunteer Relationship Specialty Start Date End Date NameJemal MD [address] [place] [address] PCP - General Family Medicine 12/24/17 documented as of this encounter
--- OUTSIDE RECORDS SUMMARY | 2025-04-11 15:08 | XMS_ITS | Clinical Summary ---
Author Organization [employer] Address [address] [facility] 7t [place] [address] Care Team Providers Care Menswear Salesperson Name Role Phone Name, Jemal HARMON Primary Care Provider [phone] Allergies Active Allergy Reactions Criticality Noted Date Comments Gramineae Pollens 04/08/2024 Medications fexofenadine (Jenny) 180 MG tablet Take 1 tablet by mouth at bed time. 0 Active omeprazole OTC (PriLOSEC OTC) 20 MG EC tablet Take 1 tablet (20 mg) by mouth before breakfast. Do not crush, chew, or split. 30 tablet 11 4 Active fluticasone (Flonase) 50 MCG/ACT nasal spray ADMINISTER 2 SPRAYS INTO EACH NOSTRIL TWICE A DAY. SHAKE GENTLY. BEFORE FIRST USE, PRIME PUMP. AFTER USE CLEAN TIP AND REPLACE CAP. 48 g 4 Active montelukast (Singulair) 10 MG tablet [...] HOURS. 9 tablet 4 Active sodium chloride ([place] Nasal [place]) 0.65 % nasal sprayIndications: Cough, unspecified type,Nasal congestion 1-2 sprays on each nostril every 2-3 hours as needed for nasal congestion 30 mL 1 5 Active chlorthalidone (Hygroton) 25 MG tabletIndications :Essential hypertension TOME 1 TABLETA POR VIA ORAL TODOS [place] 90 tablet 1 5 Active amitriptyline (Elavil) 10 MG tabletIndications :Migraine without aura and without status migrainosus, not intractable Take 1 tablet (10 mg) by mouth at bedtime. 30 tablet 11 5 05/29/20 25 Active potassium chloride CR (Klor-Con M20) 20 MEQ ER tabletIndications :Hypokalemia Take 1 tablet (20 mEq) by mouth Once per day. Do not crush or chew. 30 tablet 5 02/29/20 26 Active Active Problems Problem Noted Date Diagnosed [...] refer patient to the emergency room at [facility] case presented to provider Nolvia Left anterior [...] injections and possible Epi Pen rx through mud plant operator during upcoming appt in 1-2 weeks - [...] Encounters Date Type Department Care Team Description 04/11/2025 Orders Only [facility] External Provider, [facility] 03/30/2025 Telephone [facility] [address] [place] [address] Nutrition appt 03/28/[address] [address] Jemal Briggs MD Appointment Request 02/28/2025 10:00 AM EDT Office Visit [address] [address] Jemal Briggs MD Migraine without aura and without status migrainosus, not intractable (Primary Dx); Atypical squamous cells of undetermined significance on cytologic smear of cervix (ASC-US); Weight gain; Obesity (BMI 30-39.9) 02/28/2025 Results Follow-Up [address] [address] Jemal Briggs MD Comprehensive Metabolic Panel, Hemoglobin A1c, TSH W/Reflex to FT4 02/28/[address] [address] Beronica King, JOHNATHAN 02/28/2025 Telephone [facility] [address] [place] [phone] Jemal Briggs MD Critical Potassium 02/28/2025 Travel 02/25/[address] [phone] Ania Folr MA Chart Prep 02/21/2025 Patient Outreach [facility] [address] [place], [place] [phone] Jemal Briggs MD Pre-visit Planning ([facility] unable to reach LVM ) 02/09/2025 Orders Only [facility] [address] [place], [place] [phone] ProviderNadya MD 01/22/[address] [phone] Jemal Briggs MD Essential hypertension 01/18/2025 Orders Only GENERIC EXTERNAL DATA DEPARTMENT Provider, Generic External Data from Last 3 Months Immunizations Immunization Administration [...] Sign Reading Time Taken Comments Blood Pressure 144/82 02/28/2025 10:13 AM EDT Pulse 73 02/28/2025 10:13 AM EDT Temperature 36.5 C (97.7 F) 02/28/2025 10:13 AM EDT Respiratory Rate 18 02/28/2025 10:13 AM EDT Oxygen Saturation 98% 02/28/2025 10:13 AM EDT Inhaled Oxygen Concentration - - Weight 81.6 kg (180 lb) 02/28/2025 10:13 AM EDT Height 157.5 cm (5' 2 ) 02/28/2025 10:13 AM EDT Body Mass Index 32.92 02/28/2025 10:13 AM EDT Plan of Treatment Upcoming Encounters Date Type Department Care Team (Late st Contact Info) Description 04/26/2025 2:30 PM EDT Nutrition [facility] DI[facility]ETES/NUTRITION [address] [place] [address] Janel Wilkes, JOSE [address] [place] [address] 05/26/2025 9:00 AM EST Office Visit [facility] [address] [place], [place] [phone] Name, MD Jemal [address] [place] [address] Health Maintenance Due Date Last Done Comments Family Planning (PISQ) 01/06/1999 HPV Vaccines (1 - 3-dose series) 01/06/1999 Hepatitis B Vaccines (1 of 3 - 19+ 3-dose series) 01/06/2003 Colposcopy 01/19/2025 05/06/2024 COVID-19 Vaccine ( - 2024- season) 2025 05/15/2021, 04/24/2021 Influenza Vaccine (#1) 2025 , 04/18/2020, 07/21/2019, Additional history exists SDOH Screening 05/05/2025 05/05/2024 Alcohol/Substance Use Screening 05/12/2025 05/12/2024 Depression Screening 05/12/2025 05/12/2024, 05/12/20 Lipid Panel 07/24/2025 07/24/2020 Cervical Cancer Screening 01/18/2026 HPV/Cotest 01/18/2026 01/18/2025, 11/05/2018 Pap Smear 01/18/2026 01/18/2025, 10/12, 11/05/2018 Diabetes: Hemoglobin A1C 02/28/2026 02/28/2025, 05/15 Disability Screening 02/28/2026 02/28/2025 Tobacco Screening 02/28/2026 02/28/2025 Mammogram 04/02/2026 04/02/2024, 08/15, 09/06/2022, Additional history exists DTaP/Tdap/Td Vaccines (3 - Td or Tdap) 12/29/2031 12/28/2021, 08/15/2011 Zoster Vaccines (1 of 2) 01/06/2034 RSV Patients and Patients Aged 60 years or older (1 - 1-dose 75+ series) 01/06/2059 HIV Screening Completed 08/09/2022 Hepatitis C Screening Completed 08/09/2022 HIB Vaccines Aged Out No longer eligi ble based on patient's age to complete this topic Hepatitis A Vaccines Aged Out No long er eligible based on patient's age to complete this topic IPV Vaccines Aged Out No longer eligi ble based on patient's age to complete this topic Meningococcal B Vaccine Aged Out No l onger eligible based on patient's age to complete this topic Meningococcal Vaccine Aged Out No claude giuseppe eligible based on patient's age to complete this topic Pneumococcal Vaccine: Pediatrics (0 to 5 Years) and At-Risk Patients (6 to 49) Years Aged Out No longer eligible based on patient's age to complete this topic RSV under 20 months Aged Out No longe r eligible based on patient's age to complete this topic Rotavirus Vaccines Aged Out No longer eligible based on patient's age to complete this topic Procedures Procedure Name Priority Date/Time Associated Diagnosis Comments US RETROPERITONEAL COMPLETE Routine 04/11/2025 1:49 PM EDT TSH W/REFLEX TO FT4 Routine 02/28/2025 1 0:42 AM EDT Weight gain HEMOGLOBIN A1C Routine 02/28/2025 10:42 AM EDT Weight gain COMPREHENSIVE METABOLIC PANEL Routine 02/28/2025 10:42 AM EDT Weight gain PAP SMEAR Routine 01/18/2025 3:30 PM EDT HPV DNA, LOW/HIGH RISK Routine 3:30 PM EDT CHLAMYDIA/N. GONORRHOEAE RNA, TMA, UROGENITAL Routine 01/18/2025 2:50 PM EDT COLPOSCOPY Routine 05/06/2024 11:02 AM EDT BI MAMMOGRAM SCREENING TOMOSYNTHESIS BILATERAL Routine 04/02/2024 3:45 PM EDT Encounter for screening mammogram for malignant neoplasm of breast HEPATITIS C AB W/REFL TO HCV RNA, QN, PCR Routine 08/09/2022 10:19 AM EST Vaginal discharge HIV 1/2 ANTIGEN/ANTIBODY, FOURTH GENERATION W/RFL Routine 08/09/2022 10:19 AM EST Vaginal discharge LIPID PANEL, STANDARD Routine 07/24/2020 3:40 PM EST from Last 3 Months or Most Recently Relevant to Health Maintenance Results * US Retroperitoneal Complete (04/11/2025 1:49 PM EDT) Anatomical Region Laterality Modality Ultrasound 04/11/2025 1:49 PM EDT Narrative 04/11/2025 2:16 PM [address]T [address] [address] Ultrasound Report Signed Patient: Shannan Jacobsen MR#: [id number] 08 : 1985 Acct:[id number] Age/Sex: 40 / F ADM Date: 04/11/25 Loc: HO.US Attending Dr: Jazmín JONES Ordering Physician: Jazmín Courtney Date of Service: 04/11/25 Procedure(s): US retroperitoneal comp Accession Number(s): [id number] cc: Jazmín Courtney; Name,Jemal HARMON Reason for [...] 04/11/25 1413 DD/ 1349 TD/TT: 04/11/25 1401 Information Clerk Cashier: Procedure Note Donotuseinterpreter, Image - 04/11/[address] [address] Ultrasound Report Signed Patient: Yazmin Jacobsen#: [id number] 08 : 1985Acct:[id number] Age/Sex: 40 / FADM Date: 04/11/25 Loc: . Attending Dr: Jazmín ZUNIGA Ordering Physician: Jazmín Courtney Date of Service: 04/11/25 Procedure(s): US retroperitoneal comp Accession Number(s): [id number] cc: Jazmín Courtney; Name,Jemal HARMON Reason for [...] 04/11/25 1413 DD/ 1349 TD/TT: 04/11/25 1401 Information Clerk Cashier: [facility] External Provider IMG US PROCEDURES Final Result * TSH W/Reflex to FT4 (02/28/2025 10:42 AM EDT) TSH reflex Free T4 2.01 0.32 - 4.0 uIU/mL [facility] Blood Venous blood specimen / Unknown 02/28/2025 10:42 AM EDT 02/28/2025 11:15 AM EDT Jemal Briggs MD LAB BLOOD ORDERABLES Final Resul t Performing Organization Address [facility] de Phone Number [facility] [address] [place] [phone] * Hemoglobin A1c (02/28/2025 10:42 AM EDT) Hemoglobin A1c 6.0 <6.0 % [facility] Comment:Hemoglobin A1C Refer ence Range Adults: 4.8 - 6.0 % Non diabetic: < 6.0 % Goal: < 7.0 %Additional Action Suggested: > 8.0 %Note: Hemoglobin A1c results are invalid for patients with abnormal amounts of HbF. Blood transfusions may impact the HbA1c concentration in the patient sample. Estimated Average Glucose 126 mg/dL [facility] Comment:eAG = Estimated ave rage glucose which is %A1C expressed asaverage glucose, using the formula of the N5A-VtnznryAtlvgki Glucose study (ADAG), Diabetes Care, Vol.31,#8,Feb. 2007 Blood Venous blood specimen / Unknown 02/28/2025 10:42 AM EDT 02/28/2025 11:15 AM EDT Jemal Briggs MD LAB BLOOD ORDERABLES Final Resul t Performing Organization Address [facility] de Phone Number [facility] [address] [place] [phone] * (ABNORMAL) Comprehensive Metabolic Panel (02/28/2025 10:42 AM EDT) Sodium 142 135 - 145 mmol/L [facility] Potassium 2.9(LL) 3.3 - 5.1 mmol/L [facility] Comment:Critical value for t est(s): K Results called to and readback by: JENIFFER Wiley RN Person calling: ROLLYLILOate:02/28/2025 Time:12:20 Chloride 101 96 - 108 mmol/L [facility] Carbon Dioxide 29 22 - 29 mmol/L [facility] Anion Gap 15 12 - 20 [facility] Urea Nitrogen (BUN) 15 9 - 16 mg/dL [facility] Creatinine, Serum 0.65 0.5 - 1.4 mg/dL [facility] Estimated Glomerular Filt Rate >60 [facility] Comment:Chronic Kidney Disea se: Estimated GFR < 60 mL/min/1.28d3Hpcpab Kidney Disease: Estimated GFR < 15 mL/min/1.73m2 Glucose 123(H) 60 - 115 mg/dL [facility] Calcium 9.1 8.4 - 10.2 mg/dL [facility] Bilirubin, Total 0.5 0.0 - 1.0 mg/dL [facility] Aspartate Amino Transferase 30 5 - 31 U/L [facility] Alanine Aminotransferase 50(H) 0 - 31 U/L [facility] Total Protein 7.0 6.5 - 8.0 g/dL [facility] Albumin Level 4.3 3.5 - 5.0 g/dL [facility] Alkaline Phosphatase 61 39 - 117 U/L [facility] Blood Venous blood specimen / Unknown 02/28/2025 10:42 AM EDT 02/28/2025 11:15 AM EDT us Jemal Name LAB BLOOD ORDERABLES Final Resul t [facility] [address] [place] [phone] * (ABNORMAL) HPV DNA, Low/High Risk (01/18/2025 3:30 PM EDT) HPV High Risk Negative Negative [facility] HPV Genotype 16 Positive(A) Negative [facility] HPV Genotype 18 Negative Negative [facility] Comment:HPV testing performe d at [facility] (CLIA#[id number]), [address] [place] [phone].Testing for HPV was performed using the Kim MADONNA 6800system. The presence of HPV in the female genital tract isassociated with a number of diseases, including cervicalcarcinoma. The HPV DNA high risk pool tests for HPV 31, 33,35, 39, 45, 51, 52, 56, 58, 59, 66 and 68. The testing forHPV 16 and 18 genotypes has also been performed. A positiveresult indicates detection of nucleic acid sequences fromone or more subtypes, whereas a negative result indicatessuch sequences were not detected. 01/18/2025 3:30 PM EDT 01/19/2025 8:30 AM EDT us Generic External Data Provider LAB BLOOD ORDERAB LES Final Result [facility] [address] [place] [phone] * Pap Smear (01/18/2025 3:30 PM EDT) 01/18/2025 3:30 PM EDT 01/19/2025 8:30 AM EDT Narrative [facility] - 01/25/2025 2:41 PM EDT ----- ------- Name: Shannan Jacobsen Age/Sex: 40/F : 1985 Unit#: [id number] Attend Dr: Porfirio Rendon MD Re01/18/25 Status: DEP REF Location: [facility] Disch: ----- ------- SPEC : [id number] RECD: 01/19/25 STATUS: ANTONIO TUTTLE NUM: [id number] HERMELINDA: 01/18/[address] [facility] [address]: Porfirio Rendon MD ENTERED: 01/19/25 SP TYPE: Pap Smr OTHR DR: Jemal Briggs MD ORDERED: Pap Smear, PAP path review Interpretation General Category: Epithelial cell abnormality. Adequacy: Endocervical component present. Interpretation: Atypical squamous cells of undetermined significance. Shift in vaginal brynn. HPV High Risk: Negative HPV Genotyping 16: Positive HPV Genotyping 18: Negative Clinical Information LMP: Unknown date Previous PAP test: 11/03/2023, ASCUS, HPV+ Other history: ASCUS with positive high risk HPV cervical, encounter for well woman exam with routine gynecological exam Material Received ThinPrep-Cervical PAP Disclaimer As of May 05, 2024, the technical services to include automated prescreening performed by the ThinPrep Imaging System, PAP screening and HPV testing will be performed at [facility] (IA #[id number]), [address] [place] [address]. Testing for HPV was performed using the Kim MADONNA 6800 system. The presence of HPV in the female genital tract is associated with a number of diseases, including cervical carcinoma. The HPV DNA high risk pool tests for HPV 31, 33, 35, 39, 45, 51, 52, 56, 58, 59, 66 and 68. The testing for HPV 16 and 18 genotypes has also been performed. A positive result indicates detection of nucleic acid sequences from one or more subtypes, whereas a negative result indicates such sequences were not detected. All professional services are performed by [facility] ([address] [place] [phone]; ; [place] #[id number]). The PAP Test is a screening procedure with the inherent possibility of both false negative and false positive results. Results should be interpreted in the context of historic and current clinical findings. Reliability of the PAP Test is enhanced by performing the test on a regular repetitive basis. CONTINUED ON NEXT PAGE ----- ------- Name: Shannan Jacobsen Age/Sex: 40/F : 1985 Unit#: [id number] Attend Dr: Porfirio Rendon MD Re01/18/25 Status: DEP REF Location: [facility] Disch: ----- ------- SPEC : [id number] RECD: 01/19/25 STATUS: ANTONIO TUTTLE NUM: [id number] HERMELINDA: 01/18/25-[address] [facility] [address]: Porfirio Rendon MD ENTERED: 01/19/25 SP TYPE: Pap Smr OTHR DR: Jemal Briggs MD ORDERED: Pap Smear, PAP path review Copies To: Jemal Briggs MD [address] [place] [address] Porfirio Rendon MD [facility] Women's Services [address] [place] [address] [address] [place] [phone] ----- ------- Signed (signature on file) Raul Hollingsworth MD 01/25/25 1441 ----- ------- END OF REPORT us Generic External Data Provider LAB CYTOLOGY BLANCA PETERSON Final Result [facility] [address] [place] [phone] * Chlamydia/N. Gonorrhoeae RNA, TMA, Urogenitial (01/18/2025 2:50 PM EDT) Pathologist [facility] CT PCR NOT DETECTED Not Detect. [facility] Comment:A not detected test result does not exclude the possibilityof infection because test results can be affected byimproper specimen collection, concurrent antibiotic therapy,or the number of organisms in the specimen which may bebelow the sensitivity of the test. As with many diagnostictests, results from the Xpert CT/NG assay should beinterpreted in conjunction with other laboratory andclinical data available to the clinician.Xpert CT/NG performance has not been evaluated in patientsless than 14 years of age. The assay should not be used forthe evaluationof suspected sexual abuse or for other medico-legalindications. Additional testing is recommended in anycircumstance when false positive or false negative resultscould lead to adverse medical, social or psychologicalconsequences. NG PCR NOT DETECTED Not Detect. [facility] Comment:A not detected test result does not exclude the possibilityof infection because test results can be affected byimproper specimen collection, concurrent antibiotic therapy,or the number of organisms in the specimen which may bebelow the sensitivity of the test. As with many diagnostictests, results from the Xpert CT/NG assay should beinterpreted in conjunction with other laboratory andclinical data available to the clinician.Xpert CT/NG performance has not been evaluated in patientsless than 14 years of age. The assay should not be used forthe evaluationof suspected sexual abuse or for other medico-legalindications. Additional testing is recommended in anycircumstance when false positive or false negative resultscould lead to adverse medical, social or psychologicalconsequences. 01/18/2025 2:50 PM EDT 01/18/2025 5:06 PM EDT us Generic External Data Provider LAB MICROBIOLOGY - GENERAL ORDERABLES Final Result [facility] [address] [place] [phone] * Colposcopy (05/06/2024 11:02 AM EDT) Historical Provider MD IN CLINIC/BEDSIDE ORDERAB LES Final Result * BI Mammogram Screening Tomosynthesis Bilateral (04/02/2024 3:45 PM EDT) Anatomical Region Laterality Modality Breast Bilateral Mammography 04/02/2024 3:45 PM EDT Narrative 04/15/2024 8:41 AM EDT [facility] [address] [place] [address] Mammography Report Signed Patient: Shannan Jacobsen MR#: [id number] 08 : 1985 Acct:[id number] Age/Sex: 39 / F ADM Date: 04/02/24 Loc: HO.ARIELO Attending Dr: Jemal Briggs MD Ordering Physician: Jemal Briggs MD Results: 1Negative Date of Service: 04/02/24 Follow Up: 1 Year From Orig inal Mammogram Procedure(s): MM tomosynthesis screening BI Accession Number(s): [id number] cc: Jemal Briggs MD EXAMINATION: MM SCREENING [...] 04/15/24 0838 DD/ 1545 TD/TT: 04/02/24 1604 Information Clerk Cashier: Procedure Note Donotuseinterpreter, Image - 04/15/2024 [facility] [address] [place], [place] [address] Mammography Report Signed Patient: Yazmin Jacobsen#: [id number] 08 : 1985Acct:[id number] Age/Sex: 39 / FADM Date: 04/02/24 Loc: HO.MAMMO Attending Dr: Jemal Briggs MD Ordering Physician: Jemal Briggs MDResults: 1Negative Date of Service: 04/02/24Follow Up: 1 Year From Orig inal Mammogram Procedure(s): MM tomosynthesis screening BI Accession Number(s): [id number] cc: Jemal Briggs MD EXAMINATION: MM SCREENING [...] 04/15/24 0838 DD/ 1545 TD/TT: 04/02/24 1604 Information Clerk Cashier: us Jemal Name MD BUSTAMANTE BI PROCEDURES Edited Result - Final * Hepatitis C Antibody with Reflex to HCV, RNA, Quantitative, Real-Time PCR (08/09/2022 10:19 AM EST) Hepatitis C Antibody NON-REACT JOSE NON-REACT JOSE [employer] Index <0.02 <1.00 [employer] Comment: HCV antibody was non-reactive. There is no laboratory evidence of HCV infection. In most cases, no further action is required. However, if recent HCV exposure is suspected, a test for HCV RNA (test code 88088) is suggested. For additional information please refer to http://education.[employer]/faq/LIU97m9 (This link is being provided for informational/ educational purposes only.) Blood Venous blood specimen / Unknown 08/09/2022 10:19 AM EST 08/09/2022 10:20 AM EST Narrative [facility] - 08/12/2022 6:40 PM EST FASTING:UNKNOWN FASTING: UNKNOWN Janet Mak [facility] LAB BLOOD ORDERABLES Final Res ult [facility] [address], [place] [phone] [facility] [place] [facility] [address] [facility], (Nl2) [place] [address] * HIV-1/2 Antigen and Antibodies, Fourth Generation, with Reflexes (08/09/2022 10:19 AM EST) [facility] HIV Antigen/Antibody, 4th Generation NON-REAC TIVE NON-REAC TIVE [facility] [place] [facility] Comment: HIV-1 antigen and HIV-1/HIV-2 antibodies were not detected. There is no laboratory evidence of HIV infection. PLEASE NOTE: This information has been disclosed to you from records whose confidentiality may be protected by state law. If your state requires such protection, then the state law prohibits you from making any further disclosure of the information without the specific written consent of the person to whom it pertains, or as otherwise permitted by law. A general authorization for the release of medical or other information is NOT sufficient for this purpose. For additional information please refer to http://education.[employer]/faq/TJS289 (This link is being provided for informational/ educational purposes only.) The performance of this assay has not been clinically validated in patients less than 2 years old. Blood Venous blood specimen / Unknown 08/09/2022 10:19 AM EST 08/09/2022 10:20 AM EST Narrative [facility] - 08/12/2022 6:40 PM EST FASTING:UNKNOWN FASTING: UNKNOWN [facility] BLOOD ORDERABLES Final Res ult [facility] [address], [place] [address] [facility] [place] [employer] [address] [facility], (Nl2) [place] [address] * (ABNORMAL) LIPID PANEL, STANDARD (07/24/2020 3:40 PM EST) Chol/HDLC Ratio 3.2 <5.0 (calc) [facility] Cholesterol, Total 159 <200 mg/dL [facility] HDL Cholesterol 49(L) > OR = 50 mg/dL [facility] LDL Cholesterol 88 mg/dL (calc) [facility] Comment: Reference range: <100 Desirable range <100 mg/dL for primary prevention; <70 mg/dL for patients with CHD or diabetic patients with > or = 2 CHD risk factors. LDL-C is now calculated using the Pastora calculation, which is a validated novel method providing better accuracy than the Friedewald equation in the estimation of LDL-C. Xavier SS et al. SCOTT. 2013;310(19): 3881-6168 (http://education.[employer]Stream[employer].OnApp/faq/UOF595) Non-HDL Cholesterol 110 <130 mg/dL (calc) [facility] Comment: For patients with diabetes plus 1 major ASCVD risk factor, treating to a non-HDL-C goal of <100 mg/dL (LDL-C of <70 mg/dL) is considered a therapeutic option. Triglycerides 128 <150 mg/dL [facility] 07/24/2020 3:40 PM EST us Jemal Briggs MD LAB BLOOD ORDERABLES Final Resul t [facility] [address] from Last 3 Months or Most Recently Relevant to Health Maintenance Insurance [id number]ites C3 Care Teams Menswear Salesperson Relationship Specialty Start Date End Date Name, MD Jemal [address] [place] [address] PCP - General Family Medicine 12/24/17
--- OUTSIDE RECORDS SUMMARY | 2025-04-11 15:08 | XMS_ITS | Clinical Summary ---
Author Organization [facility] Address [address] [place], [place] [phone] Phone Care Team Providers Care Operating Table Assembler Name Role Phone Name, Jemal HARMON Primary Care Provider [phone] Social History Tobacco Use Types Packs/Day Years [...] file Medical Devices Not on file Insurance [facility] [employer] C3 ACO * Guarantor: Shannan Goldstein Account Type Relation to Patient Date of Phone Billing Address Personal/Family Self 1985 [address] [facility] [address] C3 ACO * Guarantor: Shannan Goldstein Account Type Relation to Patient Date of Phone Billing Address Personal/Family Self 1985 [address] [facility] [address] [place], [place] [id number] [place] [address] C3 ACO * Guarantor: Shannan Goldstein Account Type Relation to Patient Date of Phone Billing Address Personal/Family Self 1985 [address] [facility] [address] [place], [place] [id number] [place] [address] C3 ACO [facility] C3 ACO Care Teams Operating Table Assembler Relationship Specialty Start Date End Date Name, MD Jemal [address] [place] [phone] PCP - General Internal Medicine 07/16/23 Additional Source Comments The information contained in this document represents components of the legal health record. It is not the complete legal health record.[facility]
== END 2025-04-11 13:36 | disposition home or self-care (01) ==
LOC: HO.US 13:35
PROVIDERS: PCP Internal Medicine Geriatric Medicine; Visit Provider Nurse Practitioner Family
DX: R10.9 Unspecified abdominal pain (principal)
CPT/HCPCS: 76770

== ENCOUNTER → 2025-04-11 13:37 | Outpatient (BNV) | payer MEDICAID, SELFPAY | PROVIDERS: PCP Internal Medicine Geriatric Medicine; Visit Provider Radiology Diagnostic Radiology | DX: N28.1 Cyst of kidney, acquired (principal) | CPT/HCPCS: 76770 ==

== ENCOUNTER 2025-04-28 15:07 | Outpatient (RCR) | payer MEDICAID, SELFPAY ==
--- NOTE | 2025-03-24 11:28 | MHC.OT.DC ---
[facility] Office [address] [facility] [address] [facility] [phone] F: [phone] F: [phone] Occupational Therapy Discharge Note Patient Name: Shannan Jacobsen Provider: Frank Tapia Diagnosis: (R)CTR Date of Surgery: 01/20/25 Date of Evaluation: 03/22/25 Date of Discharge: Treatments to Date: 1 Cancellations to Date: No Shows to Date: Discharge Status: Discharge Summary: Patient had to leave early to picker feeder her son. Please see OT assessment Electronically Signed By: Helene Mcwilliams OTR/L, CLT Reviewed/agree with student documentation: Therapist: Please Sign and return to therapist, thank you for your referral.
--- NOTE | 2025-04-28 15:38 | MHC.OT.DC ---
[facility] Office [address] [phone] F: [phone] F: [phone] Occupational Therapy Discharge Note Patient Name: Shannan Jacobsen Provider: Frank Taipa Diagnosis: (R)CTR Date of Surgery: 01/20/25 Date of Evaluation: 03/22/25 Date of Discharge: Treatments to Date: 5 Cancellations to Date: No Shows to Date: Discharge Status: Achieved Goals Improved Function Independent with HEP Discharge Summary: Patient is d/c'd from skilled OT as she achieved all of her LTGs. Her trigger finger has been addressed and protocol has been established. She demonstrated understanding and will contact CORE therapy if needed and will contact physician if her trigger finger symptoms persist. Thank you for your referral, patient was a pleasure to work with. Electronically Signed By: Helene Mcwilliams OTR/L, CLT Reviewed/agree with student documentation: Therapist: Please Sign and return to therapist, thank you for your referral.
== END 2025-04-28 15:39 | disposition home or self-care (01) ==
LOC: HO.OT 15:07
PROVIDERS: PCP Internal Medicine Geriatric Medicine
DX: G56.01 Carpal tunnel syndrome, right upper limb (principal)
CPT/HCPCS: 97035; 97110; 97165; 97535

== ENCOUNTER 2025-05-13 15:08 | Outpatient (REF) | payer MEDICAID, SELFPAY ==
--- OUTSIDE RECORDS SUMMARY | 2025-05-13 16:01 | XMS_ITS | Encounter Summary ---
Author Organization [employer] Address [address] [place] [address] Care Team Providers Care Union Carpenter Name Role Phone Name, Jemal HARMON Primary Care Provider [phone] Encounter Details Date Type Department Care Team ([facility] Contact Info) Description 02/09/2025 Orders Only [facility] MED & PEDS [address] [place], [place] [phone] ProviderNadya MD Social History Tobacco Use Types [...] Description 05/26/2025 9:00 AM EST Office Visit [facility] MEDICINE [address] [place] [phone] Jemal Briggs MD [address] [place] [address] 06/17/2025 3:00 PM EST Clinical Support [facility] DIABETES/NUTRITION [address] [place] [address] Janel Wilkes, JOSE [address] [place] [address] documented as of this encounter Procedures Procedure [...] documented as of this encounter Care Teams Union Carpenter Relationship Specialty Start Date End Date Jemal Briggs MD [address] [place] [phone] PCP - General Family Medicine 12/24/17 documented as of this encounter
--- OUTSIDE RECORDS SUMMARY | 2025-05-13 16:01 | XMS_ITS | Encounter Summary ---
Author Organization [employer] Address [address] [place] [address] Care Team Providers Care Director Advertising Name Role Phone Name, Jemal HARMON Primary Care Provider [phone] Reason for Visit * Reason Onset Date Comments Appointment Request 03/28/2025 Encounter Details Date Type Department Care Team ([facility] Contact Info) Description 03/28/2025 Telephone [facility] MEDICINE [address] [place], [place] [phone] Name, MD Jemal [address] [place] [address] Appointment Request Social History Tobacco Use Types [...] from pt requesting an apt with the massotherapist. Contact pt at [phone] documented in this encounter Plan of Treatment Upcoming Encounters Date Type Department Care Team (Late st Contact Info) Description 05/26/2025 9:00 AM EST Office Visit [facility] MEDICINE [address] [place] [phone] NameJemal MD [address] [place] [address] 06/17/2025 3:00 PM EST Clinical Support [facility] DIABETES/NUTRITION [address] [place] [phone] [place] [phone] documented as of this encounter Visit Diagnoses Not on filedocumented in this encounter Additional Health Concerns Assessment Noted Time PHQ-9 Depression Total Score: 0 05/12/20 24 10:51 AM EDT documented as of this encounter Care Teams Director Advertising Relationship Specialty Start Date End Date NameJemal MD [address] [place] [address] PCP - General Family Medicine 12/24/17 documented as of this encounter
--- OUTSIDE RECORDS SUMMARY | 2025-05-13 16:01 | XMS_ITS | Clinical Summary ---
Author Organization [employer] Address [address] [facility] 7t [place] [address] Care Team Providers Care Tenant Coordinator Name Role Phone Name, Jemal HARMON Primary Care Provider [phone] Allergies Active Allergy Reactions Criticality Noted Date [...] A ORAL TODOS LOS D 4 Active SUMAtriptan (Imitrex) 25 MG tabletIndication s:Migraine without aura and without status migrainosus, not intractable TAKE 1 TABLET BY MOUTH 1 TIME IF NEEDED FOR MIGRAINE FOR UP TO 1 DOSE. MAY REPEAT DOSE ONCE IN 2 HOURS IF NO RELIEF. DO NOT EXCEED 2 DOSES IN 24 HOURS. 9 tablet 4 Active sodium chloride ([place] Nasal [place]) 0.65 % nasal sprayIndications :Cough, unspecified type,Nasal congestion 1-2 sprays on each nostril every 2-3 hours as needed for nasal congestion 30 mL 1 5 Active chlorthalidone (Hygroton) 25 MG tabletIndication s:Essential hypertension TOME 1 TABLETA POR VIA ORAL TODOS LOS ROSENBERG 90 tablet 1 5 Active amitriptyline (Elavil) 10 MG tabletIndication s:Migraine without aura and without status migrainosus, not intractable Take 1 tablet (10 mg) by mouth at bedtime. 30 tablet 11 5 05/29/20 25 Active potassium chloride CR (Klor-Con M20) 20 MEQ ER tabletIndication s:Hypokalemia Take 1 tablet (20 mEq) by mouth Once per day. Do not crush or chew. 30 tablet 5 02/29/20 26 Active meloxicam (Mobic) 15 MG tabletIndication s:Rib pain on left side Take 1 tablet (15 mg) by mouth Once per day. 30 tablet 11 4 04/27/20 25 Active Problems Problem Noted Date Diagnosed Date [...] refer patient to the emergency room at [facility] case presented to [...] injections and possible Epi Pen rx through prefitter doors during upcoming appt in 1-2 weeks - [...] Encounters Date Type Department Care Team Description 04/26/2025 2:30 PM EDT Nutrition [facility] DIABETES/[place] [address] Obesity (BMI 30-39.9) 04/26/2025 Travel 04/11/2025 Orders Only [facility] External Provider, [facility] 03/30/2025 Telephone [facility] [address] [place] [address] Nutrition appt 03/28/[address] [address] Jemal Briggs MD Appointment Request 02/28/2025 10:00 AM EDT Office Visit [address] [phone] Jemal Briggs MD Migraine without aura and without status migrainosus, not intractable (Primary Dx); Atypical squamous cells of undetermined significance on cytologic smear of cervix (ASC-US); Weight gain; Obesity (BMI 30-39.9) 02/28/2025 Results Follow-Up [address] [address] Jemal Briggs MD Comprehensive Metabolic Panel, Hemoglobin A1c, TSH W/Reflex to FT4 02/28/[address] [phone] Beronica King, JOHNATHAN 02/28/2025 Telephone [facility] PEDIATRICS [address] [place] [address] Jemal Briggs MD Critical Potassium 02/28/2025 Travel 02/25/2025 Telephone [facility] MEDICINE [address] [place] [phone] Ania Flor MA Chart Prep 02/21/2025 Patient Outreach [facility] MED & PEDS [address] [place], [place] [phone] Jemal Briggs MD Pre-visit Planning ([facility] reach [facility] ) from Last 3 Months Immunizations Immunization Administration [...] EDT Inhaled Oxygen Concentration - - Weight 80.8 kg (178 lb 3.2 oz) 04/28/2025 4:50 P M EDT Height 157.5 cm (5' 2 ) 04/28/2025 4:50 PM EDT Body Mass Index 32.59 04/28/2025 4:50 PM EDT Plan of Treatment Upcoming Encounters Date Type Department Care Team (Late st Contact Info) Description 05/26/2025 9:00 AM EST Office Visit [facility] MEDICINE [address] [place] [address] Name, MD Jemal [address] [place] [address] 06/17/2025 3:00 PM EST Clinical Support [facility] DIABETES/NUTRITION [address] [place] [address] [place] [address] Health Maintenance Due Date Last Done Comments Alcohol/Substance Use Screening 1996 Family Planning (PISQ) 01/06/1999 HPV Vaccines (1 - 3-dose series) 01/06/1999 Hepatitis B Vaccines (1 of 3 - 19+ 3-dose series) 01/06/2003 Colposcopy 01/19/2025 05/06/2024 COVID-19 Vaccine ( - 2024- season) 2025 05/15/2021, 04/24/2021 Influenza Vaccine (#1) 2025 , 04/18/2020, 07/21/2019, Additional history exists SDOH Screening 05/05/2025 05/05/2024 Depression Screening 05/12/2025 05/12/2024, 05/12/20 Lipid Panel 07/24/2025 07/24/2020 Cervical Cancer Screening 01/18/2026 HPV/Cotest 01/18/2026 01/18/2025, 11/05/2018 Pap Smear 01/18/2026 01/18/2025, 0403/2024, 11/05/2018 Diabetes: Hemoglobin A1C 02/28/2026 02/28/2025, 05/15 [...] Routine 02/28/2025 10:42 AM EDT Weight gain HPV DNA, LOW/HIGH RISK Routine 3:30 PM EDT PAP SMEAR Routine 01/18/2025 3:30 PM EDT COLPOSCOPY Routine 05/06/2024 11:02 AM [...] PM EDT Narrative 04/11/2025 2:16 PM EDT [place] [address] Ultrasound Report Signed Patient: Shannan Jacobsen MR#: [id number] 08 : 1985 Acct:[id number] Age/Sex: 40 / F ADM Date: 04/11/25 Loc: HO.US Attending Dr: Jazmín ZUNIGA Ordering Physician: Jazmín Courtney Date of Service: 04/11/25 Procedure(s): US retroperitoneal comp Accession Number(s): [id number] cc: Jazmín Courtney; Name,Jemal HARMON Reason for [...] 04/11/25 1413 DD/ 1349 TD/TT: 04/11/25 1401 [employer] Director: Procedure Note Donotuseinterpreter, Image - 04/11/[address] [address] Ultrasound Report Signed Patient: Yazmin Jacobsen#: [id number] 08 : 1985Acct:[id number] Age/Sex: 40 / FADM Date: 04/11/25 Loc: HO.US Attending Dr: Jazmín Courtney [facility] Ordering Physician: Jazmín Courtney [facility] Date of Service: 04/11/25 Procedure(s): US retroperitoneal comp Accession Number(s): [id number] cc: Jazmín Courtney [facility]; Name,Jemal HARMON Reason for Exam: R10.9 [...] 04/11/25 1413 DD/ 1349 TD/TT: 04/11/25 1401 [employer]al Agency Director: [facility] External Provider IMG US PROCEDURES Final Result * TSH W/Reflex to FT4 (02/28/2025 10:42 AM EDT) TSH reflex Free T4 2.01 0.32 - 4.0 uIU/mL [facility] Blood Venous blood specimen / Unknown 02/28/2025 10:42 AM EDT 02/28/2025 11:15 AM EDT us Jemal Briggs MD LAB BLOOD ORDERABLES Final Resul t Performing Organization Address [facility] de Phone Number [facility] [address] [place] [phone] * Hemoglobin A1c (02/28/2025 10:42 AM EDT) Hemoglobin A1c 6.0 <6.0 % [facility] Comment:Hemoglobin A1C Refer ence Range Adults: 4.8 - 6.0 % Non diabetic: < 6.0 % Goal: < 7.0 %Additional Action Suggested: > 8.0 %Note: Hemoglobin A1c results are invalid for patients with abnormal amounts of HbF. Blood transfusions may impact the HbA1c concentration in the patient sample. Estimated Average Glucose 126 mg/dL [facility] Comment:eAG = Estimated ave rage glucose which is %A1C expressed asaverage glucose, using the formula of the N2L-RqssyevIyiylxn Glucose study (ADAG), Diabetes Care, Vol.31,#8,Feb. 2007 Blood Venous blood specimen / Unknown 02/28/2025 10:42 AM EDT 02/28/2025 11:15 AM EDT us Jemal Briggs MD LAB BLOOD ORDERABLES Final Resul t Performing Organization Address [facility] de Phone Number [facility] [address] [place] [phone] * (ABNORMAL) Comprehensive Metabolic Panel (02/28/2025 10:42 AM EDT) Sodium 142 135 - 145 mmol/L [facility] Potassium 2.9(LL) 3.3 - 5.1 mmol/L [facility] Comment:Critical value for t est(s): K Results called to and readback by: JENIFFER Wilye RN Person calling: LYNate:02/28/2025 Time:12:20 Chloride 101 96 - 108 mmol/L [facility] Carbon Dioxide 29 22 - 29 mmol/L [facility] Anion Gap 15 12 - 20 [facility] Urea Nitrogen (BUN) 15 9 - 16 mg/dL [facility] Creatinine, Serum 0.65 0.5 - 1.4 mg/dL [facility] Estimated Glomerular Filt Rate >60 [facility] Comment:Chronic Kidney Disea se: Estimated GFR < 60 mL/min/1.28z2Yimlre Kidney Disease: Estimated GFR < 15 mL/min/1.73m2 Glucose 123(H) 60 - 115 mg/dL [facility] Calcium 9.1 8.4 - 10.2 mg/dL [facility] Bilirubin, Total 0.5 0.0 - 1.0 mg/dL [facility] Aspartate Amino Transferase 30 5 - 31 U/L [facility] Alanine Aminotransferase 50(H) 0 - 31 U/L [facility] Total Protein 7.0 6.5 - 8.0 g/dL [facility] Albumin Level 4.3 3.5 - 5.0 g/dL [facility] Alkaline Phosphatase 61 39 - 117 U/L [facility] Blood Venous blood specimen / Unknown 02/28/2025 10:42 AM EDT 02/28/2025 11:15 AM EDT us Jemal Name LAB BLOOD ORDERABLES Final Resul t [facility] [address] [place] [phone] * (ABNORMAL) HPV DNA, Low/High Risk (01/18/2025 3:30 PM EDT) HPV High Risk Negative Negative [facility] HPV Genotype 16 Positive(A) Negative [facility] HPV Genotype 18 Negative Negative [facility] Comment:HPV testing performe d at [facility] (CLIA#[id number]), [address] [place] [address].Testing for HPV was performed using the Kim [...] Provider LAB BLOOD ORDERAB LES Final Result [facility] [address] [place] [phone] * Pap Smear (01/18/2025 3:30 PM EDT) 01/18/2025 3:3 0 PM EDT 01/19/2025 8:30 AM EDT Narrative [facility] - 01/25/2025 2:41 PM EDT ----- ------- Name: Shannan Jacobsen Age/Sex: 40/F : 1985 Unit#: [id number] Attend Dr: Porfirio Rendon MD Re01/18/25 Status: DEP REF Location: [facility] Disch: ----- ------- SPEC : [id number] RECD: 01/19/25 STATUS: ANTONIO TUTTLE NUM: [id number] HERMELINDA: 01/18/[address] [facility] [address]: Porfirio Rendon MD ENTERED: 01/19/25 SP TYPE: Pap Smr OT DR: Jemal Briggs MD ORDERED: Pap Smear, [...] and HPV testing will be performed at [facility] (CLIA #[id number]), [address] [place] [address]. Testing for HPV was performed using the [...] detected. All professional services are performed by [facility] ([address] [place] [address], [place] [address]; ; CLIA #[id number]). The PAP Test is a screening procedure with the inherent possibility of both false negative and false positive results. Results should be interpreted in the context of historic and current clinical findings. Reliability of the PAP Test is enhanced by performing the test on a regular repetitive basis. CONTINUED ON NEXT PAGE ----- ------- Name: Shannan Jacobsen Age/Sex: 40/F : 1985 Unit#: [id number] Attend Dr: Porfirio Rendon MD Re01/18/25 Status: [facility] REF Location: [facility] Disch: ----- ------- SPEC : [id number] RECD: 01/19/25 STATUS: ANTONIO TUTTLE NUM: [id number] HERMELINDA: 01/18/25-[address] [facility] [address]: Porfirio Rendon MD ENTERED: 01/19/25 SP TYPE: Pap Smr OTHR DR: Jemal Briggs MD ORDERED: Pap Smear, PAP path review Copies To: Jemal Briggs MD [address] [place] [phone] Porfirio Rendon MD [facility] Women's Services [address] [place] [address] [place] [phone] ----- ------- Signed (signature on file) Raul Hollingsworth MD 01/25/25 1441 ----- ------- END OF REPORT Generic External Data Provider LAB CYTOLOGY BLANCA PETERSON Final Result [facility] [address] [place] [phone] * Colposcopy (05/06/2024 11:02 AM EDT) Historical Provider MD IN CLINIC/BEDSIDE ORDERAB LES Final Result * BI Mammogram Screening Tomosynthesis Bilateral (04/02/2024 3:45 PM EDT) Anatomical Region Laterality Modality Breast Bilateral Mammography 04/02/2024 3:45 PM EDT Narrative 04/15/2024 8:41 AM EDT [address] [place] [address] Mammography Report Signed Patient: Shannan Jacobsen MR#: [id number] 08 : 1985 Acct:[id number] Age/Sex: 39 / F ADM Date: 04/02/24 Loc: [facility] Attending Dr: Jemal Briggs MD Ordering Physician: NameJemal MD Results: 1Negative Date of Service: 04/02/24 Follow Up: 1 Year From Orig inal Mammogram Procedure(s): MM tomosynthesis screening BI Accession Number(s): [id number] cc: Jemal Briggs MD EXAMINATION: MM SCREENING [...] 04/15/24 0838 DD/ 1545 TD/TT: 04/02/24 1604 [employer]al Agency Director: Procedure Note Donotuseinterpreter, Image - 04/15/2024 [facility] [address] [place] [address] Mammography Report Signed Patient: Yazmin Jacobsen#: [id number] 08 : 1985Acct:[id number] Age/Sex: 39 / FADM Date: 04/02/24 Loc: .MAMMO Attending Dr: Jemal Briggs MD Ordering Physician: Jemal Briggs MDResults: 1Negative Date of Service: 04/02/24Follow Up: 1 Year From Orig ina Mammogram Procedure(s): MM tomosynthesis screening BI Accession Number(s): [id number] cc: Jemal Briggs MD EXAMINATION: MM SCREENING [...] 04/15/24 0838 DD/ 1545 TD/TT: 04/02/24 1604 [employer]al Agency Director: Jemal BUSTAMANTE BI PROCEDURES Edited Result - Final * Hepatitis C Antibody with Reflex to HCV, RNA, Quantitative, Real-Time PCR (08/09/2022 10:19 AM EST) Hepatitis C Antibody NON-REACT JOSE NON-REACT JOSE [employer] Index <0.02 <1.00 [employer] Comment: HCV antibody was non-reactive. There is no laboratory evidence of HCV infection. In most cases, no further action is required. However, if recent HCV exposure is suspected, a test for HCV RNA (test code 11207) is suggested. For additional information please refer to http://education.GenePeeks/faq/YWV76x3 (This link is being provided for informational/ educational purposes only.) Blood Venous blood specimen / Unknown 08/09/2022 10:19 AM EST 08/09/2022 10:20 AM EST Narrative [facility] - 08/12/2022 6:40 PM EST FASTING:UNKNOWN FASTING: UNKNOWN us Janet Mak FLOOR [employer] LAB BLOOD ORDERABLES Final Res ult [facility] [address] [place] [address], [place] [address] [facility] [place] [employer] [address] [facility], (Nl2) [place] [address] * HIV-1/2 Antigen and Antibodies, Fourth Generation, with Reflexes (08/09/2022 10:19 AM EST) [facility] HIV Antigen/Antibody, 4th Generation NON-REAC TIVE NON-REAC TIVE [facility] [place] [employer] Comment: HIV-1 antigen and HIV-1/HIV-2 antibodies [...] purpose. For additional information please refer to http://education.GenePeeks/faq/VYD071 (This link is being provided for informational/ educational purposes only.) The performance of this assay has not been clinically validated in patients less than 2 years old. Blood Venous blood specimen / Unknown 08/09/2022 10:19 AM EST 08/09/2022 10:20 AM EST Narrative [facility] - 08/12/2022 6:40 PM EST FASTING:UNKNOWN FASTING: UNKNOWN Janet Mak [facility] LAB BLOOD ORDERABLES Final Res ult [address], [facility], [place] [address] [facility] [place] [employer] [facility] [address] [facility], (N[address]) [place] [address] * (ABNORMAL) LIPID PANEL, STANDARD (07/24/2020 3:40 PM EST) [facility] Chol/HDLC Ratio 3.2 <5.0 (calc) [facility] [...] equation in the estimation of LDL-C. Xavier CABRERA et al. SCOTT. 2013;310(19): 8363-6885 (http://education.Zomato/faq/DOE503) Non-HDL Cholesterol 110 <130 mg/dL (calc) [facility] Comment: For patients with diabetes plus 1 major ASCVD risk factor, treating to a non-HDL-C goal of <100 mg/dL (LDL-C of <70 mg/dL) is considered a therapeutic option. Triglycerides 128 <150 mg/dL [facility] 07/24/2020 3:40 PM EST us Jemal Briggs MD LAB BLOOD ORDERABLES Final Resul t [facility] [address] from Last 3 Months or Most Recently Relevant to Health Maintenance Insurance [address] [place] [address]Vibrynt C3 Care Teams Tenant Coordinator Relationship Specialty Start Date End Date Name, MD Jemal [address] [place] [phone] PCP - General Family Medicine 12/24/17
--- OUTSIDE RECORDS SUMMARY | 2025-05-13 16:01 | XMS_ITS | Encounter Summary ---
Author Organization [employer] Address [address] [facility] 7t [place] [address] Care Team Providers Care Model And Dye Person Name Role Phone Name, Jemal HARMON Primary Care Provider [phone] Reason for Visit * Reason Onset Date Comments Results 07/22/2023 Encounter Details Date Type Department Care Team ([facility] Contact Info) Description 07/22/2023 Telephone [facility] MEDICINE [address] [place], [place] [phone] Name, MD Jemal [address] [place] [address] Results Social History Tobacco Use Types Packs/Day [...] t he electric, gas, oil or water [employer] threatened to shut off services in your [...] PM EST T/c placed to pt via [employer] #[id number]. Advised of benign result for right cervicallymph [...] Facility: [facility] Please contact pt at [phone] documented in this encounter Plan of Treatment Upcoming Encounters Date Type Department Care Team (Late st Contact Info) Description 05/26/2025 9:00 AM EST Office Visit [facility] MEDICINE [address] [place] [address] Name, MD Jemal [address] [place] [address] 06/17/2025 3:00 PM EST Clinical Support [facility] DIABETES/NUTRITION [address] [place] [address] Janel Wilkes, JOSE [address] [place] [address] documented as of this encounter Visit Diagnoses Not on filedocumented in this encounter Additional Health Concerns Assessment Noted Time PHQ-9 Depression Total Score: 0 02/05/20 23 9:16 AM EDT documented as of this encounter Care Teams Model And Dye Person Relationship Specialty Start Date End Date Name, MD Jemal [address] [place] [address] PCP - General Family Medicine 12/24/17 documented as of this encounter
--- OUTSIDE RECORDS SUMMARY | 2025-05-13 16:01 | XMS_ITS | Encounter Summary ---
Author Organization [employer] Address [address] [facility] 7t [place] [address] Care Team Providers Care Glove Cutter Name Role Phone Name, Jemal HARMON Primary Care Provider Reason for Visit * Reason Onset Date Comments Follow-up 06/13/2022 Encounter Details Date Type Department Care Team ([facility] Contact Info) Description 06/13/2022 Telephone [facility] [address] [place], [place] [phone] Name, MD Jemal [address] [place] [address] Follow-up Social History Tobacco Use Types Packs/Day [...] check and to assess current symptoms via [place] [employer] Consultant [employer]ell #[id number]. sidney Padron/josie left to return call. * Telephone Encounter - Sully Chintan - 06/13/2022 10:09 AM EST Tc from Pt stated came in the [place] on 06/04 they found a Bacteria in the Urine. Pt statedprovider told her to contact PCP for follow up. PCP Dr. Briggs documented in this encounter Plan of Treatment Upcoming Encounters Date Type Department Care Team ([facility] st Contact Info) Description 05/26/2025 9:00 AM EST Office Visit [facility] [address] [place] [address] Brigitte, MD Jemal [address] [place] [address] 06/17/2025 3:00 PM EST Clinical Support [facility] DIABETES/NUTRITION [address] [place], [place] [phone] Janel Wilkes, JOSE [address] [place] [address] documented as of this encounter Visit Diagnoses Not on filedocumented in this encounter Care Teams Glove Cutter Relationship Specialty Start Date End Date Jemal Briggs MD [address] [place] [address] PCP - General Family Medicine 12/24/17 documented as of this encounter
--- OUTSIDE RECORDS SUMMARY | 2025-05-13 16:01 | XMS_ITS | Encounter Summary ---
Author Organization [employer] Address [address] [facility] 7t [place] [address] Care Team Providers Care Maintenance Scheduler Name Role Phone Name, Jemal HARMON Primary Care Provider [phone] Reason for Visit * Reason Onset Date Comments Nurse Triage 08/12/2023 Encounter Details Date Type Department Care Team ([facility] Contact Info) Description 08/12/2023 Telephone [facility] [address] [place], [place] [phone] Name, MD Jemal [address] [place] [address] Nurse Triage Social History Tobacco Use Types [...] t he electric, gas, oil or water [employer] threatened to shut off services in your [...] 12:03 PM EST Triage call with pacific supervisor train operations [place] [id number] Pt reports cough, sore throat. nasal congestion, [...] worse. Pt is advised to come to [facility] today which is open till 8pm and [...] accepted this outcome Please contact pt at [phone] (Ghanaian) documented in this encounter Plan of Treatment Upcoming Encounters Date Type Department Care Team (Late st Contact Info) Description 05/26/2025 9:00 AM EST Office Visit [facility] [address] [place] [address] Name, MD Jemal [address] [place] [address] 06/17/2025 3:00 PM EST Clinical Support [facility] DIABETES/NUTRITION [address] [place], [place] [phone] Janel [address] [place] [address] documented as of this encounter Visit Diagnoses Not on filedocumented in this encounter Additional Health Concerns Assessment Noted Time PHQ-9 Depression Total Score: 0 02/05/20 23 9:16 AM EDT documented as of this encounter Care Teams Maintenance Scheduler Relationship Specialty Start Date End Date Name, MD Jemal [address] [place] [address] PCP - General Family Medicine 12/24/17 documented as of this encounter
== END 2025-05-13 15:09 | disposition home or self-care (01) ==
LOC: HO.LNP 15:08
PROVIDERS: PCP Internal Medicine Geriatric Medicine; Visit Provider Obstetrics & Gynecology
DX: R87.610 Atypical squamous cells of undetermined significance on cytologic smear of cervix (ASC-US) (principal); R87.810 Cervical high risk human papillomavirus (HPV) DNA test positive
CPT/HCPCS: 57454; 88305

== ENCOUNTER 2025-05-13 15:08 | Outpatient (AMB) | payer MEDICAID, SELFPAY ==
--- NOTE | 2025-05-13 15:09 | A.OFFVIS_ITS ---
Intake Visit Reasons: Colposcopy Underground Utility Locator Required: Yes Underground Utility Locator Language: Nepali Allergies aspirin Allergy (Verified 03/03/25 08:21) Unknown HPI Comments Details: Presenting with a abnormal Pap smear showing ASCUS HPV 16 positive [facility] Medical History Dysplasia of cervix, low grade (ANDERSON 1) Depressed History of eclampsia History of high blood pressure Surgical History History of laparoscopic cholecystectomy (02/28/23) Hx of appendectomy Hx of tubal ligation Family History Father CVD (cardiovascular disease) Mother Asthma History of anxiety History of fibromyalgia Social History Are you a primary health care consultant to a significant other at home: Yes Do you presently have visiting nurse or other home services: No Alcohol intake: current Alcohol intake frequency: a few times a month Patient Tobacco Use Status: Never used Tobacco Current occupational status: employed 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 We thoroughly discussed the procedure itself, including its details, alternatives, and all associated risks. This included but not limited to the following complications such as bleeding, infection, and injury to the vagina, bladder, and vessels, as well as the potential need for transfusion with all its associated risks. Subsequently, the patient sign the consent. Pap smear result: ASCUS/HPV 16 positive. Urine test in office = Negative Procedure: During the procedure, the following steps were performed: A speculum was inserted, and acetic acid was applied. Colposcopy was conducted, allowing visualization of the transformation zone. Acetowhite lesions were identified at the 7+11+12 o'clock position. Cervical biopsies were obtained from the 7+11+12 o'clock position, followed by an endocervical curettage (ECC). Vaginoscopy of the upper vagina revealed no evidence of aceto-white lesions. Hemostasis was achieved using Monsel solution, and the patient tolerated the procedure well. Post-Procedure Instructions: The patient was advised to promptly contact the office or the after hours answering service or go to the emergency room if experiencing a temperature exceeding 100.4?F, abdominal pain, nausea/vomiting, or bleeding. Additionally, the patient was instructed to abstain from vaginal intercourse and bathtub use. The patient confirmed understanding of these instructions. Discharge Instructions: The patient was instructed to schedule a follow-up appointment in 2 weeks for further evaluation and management. Please note that this note was generated using a voice recognition program, and errors may have occurred during home health care coordinator. [id number] of cervix including upper vagina with biopsy and ECC Procedure code (CPT) selection complete Assessment & Plan Assessment & Plan (1) ASCUS with positive high risk HPV cervical: Comment: HPV 16 positive Code(s): R87.610 - Atypical squamous cells of undetermined significance on cytologic smear of cervix (ASC-US); R87.810 - Cervical high risk human papillomavirus (HPV) DNA test positive Category: Medical Plan: Discussed with the patient the result of her abnormal pap, its significance, risk of progression, persistence, and regression. the false positive/negative rate of a Pap smear as a screening test in detecting cervical cancer and the indication for a diagnostic test -colposcopy, biopsy, endocervical curettage. The patient verbalized understanding and agreed with the plan, all questions answered. Colposcopy, biopsy /ECC done, see procedure note Orders: Orders AMB Colposcopy Today R87.610 - Atypical squamous cells of undetermined significance on cytologic smear of cervix (ASC-US), R87.810 - Cervical high risk human papillomavirus (HPV) DNA test positive Coding Level of Care Code Procedure Only Diagnoses ASCUS with positive high risk HPV cervical R87.610; R87.810 CPT Codes Colposcopy - CPT: 10099-Zszldmzve of cervix including upper vagina with biopsy and ECC ([id number])
--- OUTSIDE RECORDS SUMMARY | 2025-05-13 15:25 | XMS_ITS | Clinical Summary ---
Author Organization [facility] Address [address] [place], [place] [phone] Phone Care Team Providers Care Mail Messenger Name Role Phone Name, Jemal HARMON Primary Care Provider [phone] Social History Tobacco Use Types Packs/Day Years [...] file Medical Devices Not on file Insurance [facility] [employer] C3 ACO * Guarantor: Shannan Goldstein Account Type Relation to Patient Date of Phone Billing Address Personal/Family Self 1985 [address] [facility] [address] C3 ACO * Guarantor: Shannan Goldstein Account Type Relation to Patient Date of Phone Billing Address Personal/Family Self 1985 [address] [facility] [address] [place], [place] [phone] [place] [address] C3 ACO * Guarantor: Shannan Goldstein Account Type Relation to Patient Date of Phone Billing Address Personal/Family Self 1985 [address] [facility] [address] [place], [place] [phone] [place] [address] C3 ACO [facility] C3 ACO Care Teams Mail Messenger Relationship Specialty Start Date End Date Name, MD Jemal [address] [place] [id number] PCP - General Internal Medicine 07/16/23 Additional Source Comments The information contained in this document represents components of the legal health record. It is not the complete legal health record.[facility]
== END 2025-05-13 15:30 | disposition home or self-care (01) ==
LOC: HO.HWS 15:08
PROVIDERS: PCP Internal Medicine Geriatric Medicine; Visit Provider Obstetrics & Gynecology
DX: R87.610 Atypical squamous cells of undetermined significance on cytologic smear of cervix (ASC-US) (principal); R87.810 Cervical high risk human papillomavirus (HPV) DNA test positive
CPT/HCPCS: 57454

== ENCOUNTER 2025-05-20 15:00 | Outpatient (REF) | payer MEDICAID, SELFPAY ==
--- OUTSIDE RECORDS SUMMARY | 2025-05-20 16:17 | XMS_ITS | Encounter Summary ---
Author Organization [employer] Address [address] [place] [address] Care Team Providers Care Pest Control Chemical Technician Name Role Phone Name, Jemal HARMON Primary Care Provider [phone] Encounter Details Date Type Department Care Team ([facility] Contact Info) Description 05/13/2025 Orders Only GENERIC EXTERNAL DATA DEPARTMENT Provider, Generic External Data Social History Tobacco Use Types Packs/Day Years [...] Description 05/26/2025 9:00 AM EST Office Visit [facility] MEDICINE [address], [place] [phone] Name, MD Jemal [address] [place] [address] 06/17/2025 3:00 PM EST Clinical Support [facility] DIABETES/NUTRITION [address] [place] [address] Janel Wilkes, JOSE [address] [place] [address] documented as of this encounter Procedures Procedure Name Priority Date/Time Associated Diagnosis Comments HEMATOXYLIN AND EOSIN STAIN Routine 05/13/2025 3:56 PM EDT documented in this encounter Results * Hematoxylin and Eosin Stain (05/13/2025 3:56 PM EDT) 05/13/2025 3:56 PM EDT 05/16/2025 7:12 AM EST [facility] LABS - 05/17/2025 10:57 AM EST ----- ------- Name: Shannan Jacobsen Age/Sex: 40/F [facility] 1985 [id number]#: [id number] Attend Dr: Porfirio Rendon MD Re05/13/25 Status: [facility] REF Location: [facility] Disch: ----- ------- SPEC : [id number] RECD: 05/16/25 STATUS: ANTONIO TUTTLE NUM: [id number] HERMELINDA: 05/13/25-1556 [facility] DR: Porfirio Rendon MD ENTERED: 05/16/25 SP TYPE: Surgical OTHR DR: Jemal Briggs MD ORDERED: HE Stain/11, Gross Micro L4/4 Diagnosis A. Endocervix, curettage: Superficial strips of endocervical epithelium within normal limits; mucoinflammatory material. B. Cervix, 1 o'clock, biopsy: Inflamed cervical transformation zone mucosa with reactive changes. C. Cervix, 7 o'clock, biopsy: - Low-grade squamous intraepithelial lesion (ANDERSON 1). - Endocervical epithelium within normal limits. D. Cervix, 11 o'clock, biopsy: Inflamed cervical transformation zone mucosa with reactive changes. Clinical History ASCUS with positive high risk HPV cervical Microscopic Description A-D. Microscopic sections reviewed. Material Received A. ECC B. Cxbx 1 o'clock C. Cxbx 7 o'clock D. Cxbx 11 o'clock Gross Description A. Received in formalin are multiple turner-white soft tissue fragments mixed with blood and mucus forming in 0.5 cc aggregate, totally submitted in cassette A1. B. Received in formalin is 1 turner-white soft tissue fragment measuring 6 mm, totally submitted in cassette B1. C. Received in formalin are multiple turner-white soft tissue fragments measuring 1-4 mm, totally submitted in cassette C1. D. Received in formalin are multiple turner-white soft tissue fragments measuring 0.5-8 mm, totally submitted in cassette D1. (OWR) CONTINUED ON NEXT PAGE ----- ------- Name: Shanann Jacobsen Age/Sex: 40/F : 1985 Unit#: [id number] Attend Dr: Porfirio Rendon MD Re05/13/25 Status: [facility] REF Location: [facility] Disch: ----- ------- SPEC : [id number] RECD: 05/16/25 STATUS: ANTONIO TUTTLE NUM: [id number] HERMELINDA: 05/13/256 [facility] DR: Porfirio Rendon MD ENTERED: 05/16/25 SP TYPE: Surgical OTHR DR: Jemal Briggs MD ORDERED: HE Stain/11, Gross Micro L4/4 IHC S/NG Disclaimer NOTE: Unless otherwise stated, all tissue is formalin-fixed and paraffin-embedded. Some or all of the immunohistochemical tests reported herein may have been developed and their performance characteristics determined by [facility]. They have not been cleared or approved by the U.S. Food and Drug Administration (FDA). However, the FDA has determined that such clearance or approval is not necessary. This laboratory is certified under the Clinical Laboratory Improvement Amendments of 1988 (CLIA) as qualified to perform high complexity clinical laboratory testing. Copies To: Name,Jemal HARMON [address] [id number] Porfirio Rendon MD [facility] [address] [place] [address] Drive [address] [place] [address] ----- ------- Signed (signature on file) Raul Hollingsworth MD 05/17/25 1057 ----- ------- END OF REPORT us Generic External Data Provider LAB BLOOD ORDERAB LES Final Result [facility] [address] [place] [address] [phone] documented in this encounter Visit Diagnoses Not on filedocumented in this encounter Additional Health Concerns Assessment Noted Time PHQ-9 Depression Total Score: 0 05/12/20 24 10:51 AM EDT documented as of this encounter Care Teams Pest Control Chemical Technician Relationship Specialty Start Date End Date Name, MD Jemal [address] [place] [phone] PCP - General Family Medicine 12/24/17 documented as of this encounter
--- OUTSIDE RECORDS SUMMARY | 2025-05-20 16:17 | XMS_ITS | Encounter Summary ---
Author Organization [employer] Address [address] [place] [address] Care Team Providers Care Pedigree Researcher Name Role Phone Name, Jemal HARMON Primary Care Provider [phone] Reason for Visit * Reason Onset Date Comments Nurse Triage 08/12/2023 Encounter Details Date Type Department Care Team ([facility] Contact Info) Description 08/12/2023 Telephone [facility] MEDICINE [address] [place], [place] [phone] Name, MD Jemal [address] [place] [address] Nurse Triage Social History Tobacco Use Types [...] t he electric, gas, oil or water [employer] threatened to shut off services in your [...] 12:03 PM EST Triage call with [place] [id number] Pt reports cough, sore throat. nasal congestion, [...] worse. Pt is advised to come to [facility] today which is open till 8pm [...] accepted this outcome Please contact pt at [phone] (Moroccan) documented in this encounter Plan of Treatment Upcoming Encounters Date Type Department Care Team (Late st Contact Info) Description 05/26/2025 9:00 AM EST Office Visit [facility] MEDICINE [address] [place] [address] Name, MD eJmal [address] [place] [address] 06/17/2025 3:00 PM EST Clinical Support [facility] DIABETES/NUTRITION [address] [place], [place] [phone] Janel [address] [place] [address] documented as of this encounter Visit Diagnoses Not on filedocumented in this encounter Additional Health Concerns Assessment Noted Time PHQ-9 Depression Total Score: 0 02/05/20 23 9:16 AM EDT documented as of this encounter Care Teams Pedigree Researcher Relationship Specialty Start Date End Date Name, MD Jemal [address] [place] [phone] PCP - General Family Medicine 12/24/17 documented as of this encounter
--- OUTSIDE RECORDS SUMMARY | 2025-05-20 16:17 | XMS_ITS | Encounter Summary ---
Author Organization [employer] Address [address] [place] [address] Care Team Providers Care Special Procedures Tech Name Role Phone Name, Jemal HARMON Primary Care Provider [phone] Reason for Visit * Reason Onset Date Comments Appointment Request 03/28/2025 Encounter Details Date Type Department Care Team ([facility] Contact Info) Description 03/28/[address] [facility] MEDICINE [address] [place], [place] [phone] Name, MD Jemal [address] [place] [address] Appointment Request Social History Tobacco Use Types [...] from pt requesting an apt with the center medical and lab director. Contact pt at [phone] documented in this encounter Plan of Treatment Upcoming Encounters Date Type Department Care Team (Late st Contact Info) Description 05/26/2025 9:00 AM EST Office Visit [facility] MEDICINE [address] [place] [phone] NameJemal MD [address] [place] [phone] 06/17/2025 3:00 PM EST Clinical Support [facility] DIABETES/NUTRITION [address] [place] [phone] [place] [phone] documented as of this encounter Visit Diagnoses Not on filedocumented in this encounter Additional Health Concerns Assessment Noted Time PHQ-9 Depression Total Score: 0 05/12/20 24 10:51 AM EDT documented as of this encounter Care Teams Special Procedures Tech Relationship Specialty Start Date End Date NameJemal MD [address] [place] [phone] PCP - General Family Medicine 12/24/17 documented as of this encounter
--- OUTSIDE RECORDS SUMMARY | 2025-05-20 16:17 | XMS_ITS | Clinical Summary ---
Author Organization [facility] Address [address] [place], [place] [phone] Phone Care Team Providers Care Shuttle Route Vehicle Operator Name Role Phone Name, Jemal HARMON Primary Care Provider [phone] Social History Tobacco Use Types Packs/Day Years [...] file Medical Devices Not on file Insurance [facility] [employer] [address] [place] [address] [place] [address] [place] [address] C3 ACO [facility] C3 ACO Care Teams Shuttle Route Vehicle Operator Relationship Specialty Start Date End Date Name, MD Jemal [address] [place] [phone] PCP - General Internal Medicine 07/16/23 Additional Source Comments The information contained in this document represents components of the legal health record. It is not the complete legal health record.[facility]
--- OUTSIDE RECORDS SUMMARY | 2025-05-20 16:17 | XMS_ITS | Clinical Summary ---
Author Organization [employer] Address [address] [facility] 7t [place] [address] Care Team Providers Care Screen Printing Paster Name Role Phone Name, Jemal HARMON Primary Care Provider [phone] Allergies Active Allergy Reactions Criticality Noted Date [...] HOURS. 9 tablet 4 Active sodium chloride ([place] Nasal [place]) 0.65 % nasal sprayIndications :Cough, unspecified type,Nasal [...] refer patient to the emergency room at [facility] case presented to provider Nolvia Left anterior [...] injections and possible Epi Pen rx through inclusion intern during upcoming appt in 1-2 weeks - [...] Encounters Date Type Department Care Team Description 05/13/2025 Orders Only GENERIC EXTERNAL DATA DEPARTMENT Provider, Generic External Data 04/26/2025 2:30 PM EDT Nutrition [facility] DIABETES/[place] [address] Obesity (BMI 30-39.9) 04/26/2025 Travel 04/11/2025 Orders Only [facility] External Provider, [facility] 03/30/2025 Telephone [facility] MEDICINE [address] [place], [place] [phone] Nutrition appt 03/28/[address] [address] Jemla Briggs MD Appointment Request 02/28/2025 10:00 AM EDT Office Visit [address] [address] Jemal Briggs MD Migraine without aura and without status migrainosus, not intractable (Primary Dx); Atypical squamous cells of undetermined significance on cytologic smear of cervix (ASC-US); Weight gain; Obesity (BMI 30-39.9) 02/28/2025 Results Follow-Up [address] [address] Jemal Briggs MD Comprehensive Metabolic Panel, Hemoglobin A1c, TSH W/Reflex to FT4 02/28/[address] [phone] Beronica King, JOHNATHAN 02/28/2025 Telephone [facility] PEDIATRICS [address] [place], [place] [phone] Jemal Briggs MD Critical Potassium 02/28/2025 Travel 02/25/2025 Telephone [facility] MED[facility] [address] [place] [address] Ania Flor MA Chart Prep 02/21/2025 Patient Outreach [facility] MED & PEDS [address] [place] [address] Jemal Briggs MD Pre-visit Planning (SDOH unable to reach [facility] ) from Last 3 Months Immunizations [...] Description 05/26/2025 9:00 AM EST Office Visit [facility] MEDICINE [address] [place] [address] Name, MD Jemal [address] [place] [address] 06/17/2025 3:00 PM EST Clinical Support [facility] DIABETES/NUTRITION [address] [place] [address] [place] [address] Health Maintenance Due Date Last Done Comments Alcohol/Substance Use Screening 1996 Family Planning (PISQ) 01/06/1999 HPV Vaccines (1 - 3-dose series) 01/06/1999 Hepatitis B Vaccines (1 of 3 - 19+ 3-dose series) 01/06/2003 Colposcopy 01/19/2025 05/06/2024 COVID-19 Vaccine (3 - 2024- season) 2025 05/15/2021, 04/24/2021 Influenza Vaccine (#1) 2025 , 04/18/2020, 07/21/2019, Additional history exists SDOH Screening 05/05/2025 05/05/2024 Depression Screening 05/12/2025 05/12/2024, 05/12/20 Lipid Panel 07/24/2025 07/24/2020 Cervical Cancer Screening 01/18/2026 HPV/Cotest 01/18/2026 01/18/2025, 11/05/2018 Pap Smear 01/18/2026 01/18/2025, 10/12, 11/05/2018 Diabetes: Hemoglobin A1C 02/28/2026 02/28/2025, 112 09/2021 Disability Screening 02/28/2026 02/28/2025 Tobacco Screening 02/28/2026 [...] EOSIN STAIN Routine 05/13/2025 3:56 PM EDT US RETROPERITONEAL COMPLETE Routine 04/11/2025 1:49 PM [...] Recently Relevant to Health Maintenance Results * Hematoxylin and Eosin Stain (05/13/2025 3:56 PM EDT) 05/13/2025 3:56 PM EDT 05/16/2025 7:12 AM EST Yordy [facility] - 05/17/2025 10:57 AM EST ----- ------- Name: Shannan Jacobsen Age/Sex: 40/F : 1985 Unit#: [id number] Attend Dr: Porfirio Rendon MD Re05/13/25 Status: [facility] Location: [facility] Disch: ----- ------- SPEC : [id number] RECD: 05/16/25 STATUS: ANTONIO FERMIN NUM: [id number] HERMELINDA: 05/13/25-1556 [facility] [address]: Porfirio Rendon MD ENTERED: [...] Shannan Jacobsen Age/Sex: 40/F : 1985 Unit#: [id number] Attend Dr: Porfirio Rendon MD Re05/13/25 Status: DEP REF Location: HO.LNP Disch: ----- ------- SPEC : [id number] RECD: 05/16/25 STATUS: ANTONIO TUTTLE NUM: [id number] HERMELINDA: 05/13/25-15[address] [facility] [address]: Porfirio Rendon MD ENTERED: [...] high complexity clinical laboratory testing. Copies To: Jemal Briggs MD [address] [place] [address] Porfirio Rendon MD [facility] Women's Services [address] [place] [phone] ----- ------- Signed (signature on file) Raul Hollingsworth MD 05/17/25 1057 ----- ------- END OF REPORT us Generic External Data Provider LAB BLOOD ORDERAB LES Final Result [facility] [address] [place], [place] [phone] * US Retroperitoneal Complete (04/11/2025 1:49 PM EDT) Anatomical Region Laterality Modality Ultrasound 04/11/2025 1:49 PM EDT Narrative 04/11/2025 2:16 PM EDT [place] [address] Ultrasound Report Signed Patient: Shannan Jacobsen MR#: [id number] 08 : 1985 Acct:[id number] Age/Sex: 40 / F ADM Date: 04/11/25 Loc: .US Attending Dr: Jazmín ZUNIGA Ordering Physician: Jazmín oCurtney Date of Service: 04/11/25 Procedure(s): US retroperitoneal comp Accession Number(s): [id number] cc: Jazmín Courtney [facility]; Name,Jemal HARMON Reason for Exam: R10.9 - [...] 04/11/25 1413 DD/ 1349 TD/TT: 04/11/25 1401 Neuro Urologist: Procedure Note Donotuseinterpreter, Image - 04/11/[address] [address] Ultrasound Report Signed Patient: Sonya JacobsenR#: [id number] 08 : 1985Acct:[id number] Age/Sex: 40 / FADM Date: 04/11/25 Loc: HO.US Attending Dr: Jazmín ZUNIGA Ordering Physician: Jazmín Courtney Date of Service: 04/11/25 Procedure(s): US retroperitoneal comp Accession Number(s): [id number] cc: Jazmín Courtney; Name,Jemal HARMON Reason for [...] 04/11/25 1413 DD/ 1349 TD/TT: 04/11/25 1401 Neuro Urologist: us [facility] External Provider IMG US PROCEDURES Final Result * TSH W/Reflex to FT4 (02/28/2025 10:42 AM EDT) TSH reflex Free T4 2.01 0.32 - 4.0 uIU/mL [facility] Blood Venous blood specimen / Unknown 02/28/2025 10:42 AM EDT 02/28/2025 11:15 AM EDT us Jemal Briggs MD LAB BLOOD ORDERABLES Final Resul t Performing Organization Address [facility] de Phone Number [facility] [address] [place] [phone] * Hemoglobin A1c (02/28/2025 10:42 AM EDT) Hemoglobin A1c 6.0 <6.0 % [facility] Comment:Hemoglobin A1C Refer ence Range Adults: 4.8 - 6.0 % Non diabetic: < 6.0 % Goal: < 7.0 %Additional Action Suggested: > 8.0 %Note: Hemoglobin A1c results are invalid for patients with abnormal amounts of HbF. Blood transfusions may impact the HbA1c concentration in the patient sample. Estimated Average Glucose 126 mg/dL [facility] Comment:eAG = Estimated ave rage glucose which is %A1C expressed asaverage glucose, using the formula of the P0W-CzfeukrDfdqmie Glucose study (ADAG), Diabetes Care, Vol.31,#8,Feb. 2007 Blood Venous blood specimen / Unknown 02/28/2025 10:42 AM EDT 02/28/2025 11:15 AM EDT us Jemal Briggs MD LAB BLOOD ORDERABLES Final Resul t Performing Organization Address [facility] de Phone Number [facility] [address] [place] [phone] * (ABNORMAL) Comprehensive Metabolic Panel (02/28/2025 10:42 AM EDT) Sodium 142 135 - 145 mmol/L [facility] Potassium 2.9(LL) 3.3 - 5.1 mmol/L [facility] Comment:Critical value for t est(s): K Results called to and readback by: JENIFFER Wiley RN Person calling: LYNate:02/28/2025 Time:12:20 Chloride 101 96 - 108 mmol/L [facility] Carbon Dioxide 29 22 - 29 mmol/L [facility] Anion Gap 15 12 - 20 [facility] Urea Nitrogen (BUN) 15 9 - 16 mg/dL [facility] Creatinine, Serum 0.65 0.5 - 1.4 mg/dL [facility] Estimated Glomerular Filt Rate >60 [facility] Comment:Chronic Kidney Disea se: Estimated GFR < 60 mL/min/1.90t3Wkxicv Kidney Disease: Estimated GFR < 15 mL/min/1.73m2 Glucose 123(H) 60 - 115 mg/dL [facility] Calcium 9.1 8.4 - 10.2 mg/dL [facility] Bilirubin, Total 0.5 0.0 - 1.0 mg/dL [facility] Aspartate Amino Transferase 30 5 - 31 U/L [facility] Alanine Aminotransferase 50(H) 0 - 31 U/L [facility] Total Protein 7.0 6.5 - 8.0 g/dL [facility] Albumin Level 4.3 3.5 - 5.0 g/dL [facility] Alkaline Phosphatase 61 39 - 117 U/L [facility] Blood Venous blood specimen / Unknown 02/28/2025 10:42 AM EDT 02/28/2025 11:15 AM EDT us Jemal Name MD LAB BLOOD ORDERABLES Final Resul t [facility] [address] [place] [address] [phone] * (ABNORMAL) HPV DNA, Low/High Risk (01/18/2025 3:30 PM EDT) HPV High Risk Negative Negative [facility] HPV Genotype 16 Positive(A) Negative [facility] HPV Genotype 18 Negative Negative [facility] Comment:HPV testing performe d at [facility] (CLIA#[id number]), [address] [place] [phone].Testing for HPV was performed using the Kim [...] Provider LAB BLOOD ORDERAB LES Final Result Performing Organization Address City/State/[facility] Co de Phone Number [facility] [address] [place] [phone] * Pap Smear (01/18/2025 3:30 PM EDT) 01/18/2025 3:30 PM EDT 01/19/2025 8:30 AM EDT Narrative [facility] - 01/25/2025 2:41 PM EDT ----- ------- Name: Shannan Jacobsen Age/Sex: 40/F : 1985 Unit#: [id number] Attend Dr: Porfirio Rendon MD Re01/18/25 Status: DEP REF Location: [facility] Disch: ----- ------- SPEC : [id number] RECD: 01/19/25 STATUS: ANTONIO TUTTLE NUM: [id number] HERMELINDA: 01/18/[address] [facility] [address]: Porfirio Rendon MD ENTERED: 01/19/25 SP [...] and HPV testing will be performed at [facility] (CLIA #[id number]), [address] [place] [address]. Testing for HPV was performed using the [...] detected. All professional services are performed by [facility] ([address] [place] [address]; ; CLIA #[id number]). The PAP Test is a screening procedure with the inherent possibility of both false negative and false positive results. Results should be interpreted in the context of historic and current clinical findings. Reliability of the PAP Test is enhanced by performing the test on a regular repetitive basis. CONTINUED ON NEXT PAGE ----- ------- Name: Shannan Jacobsen Age/Sex: 40/F : 1985 Unit#: [id number] Attend Dr: Porfirio Rendon MD Re01/18/25 Status: DEP REF Location: [facility] Disch: ----- ------- SPEC : [id number] RECD: 01/19/25 STATUS: ANTONIO TUTTLE NUM: [id number] HERMELINDA: 01/18/[address] [facility] [address]: Porfirio Rendon MD ENTERED: 01/19/25 SP TYPE: Pap Smr ANDREIAHR DR: Jemal Briggs MD ORDERED: Pap Smear, PAP path review Copies To: Jemal Briggs MD [address] [place] [phone] Porfirio Rendon MD [facility] Women's Services [address] [place] [address] [place] [address] ----- ------- Signed (signature on file) Raul Hollingsworth MD 01/25/25 1441 ----- ------- END OF REPORT us Generic External Data Provider LAB CYTOLOGY ORDE RABRAGHU Final Result [facility] [address] [place] [address] [phone] * Colposcopy (05/06/2024 11:02 AM EDT) Historical Provider MD IN CLINIC/BEDSIDE ORDERAB LES Final Result * BI Mammogram Screening Tomosynthesis Bilateral (04/02/2024 3:45 PM EDT) Anatomical Region Laterality Modality Breast Bilateral Mammography 04/02/2024 3:45 PM EDT Narrative 04/15/2024 8:41 AM EDT [facility]'[address] [place] [address] Mammography Report Signed Patient: Shannan Jacobsen MR#: [id number] 08 : 1985 Acct:[id number] Age/Sex: 39 / F ADM Date: 04/02/24 Loc: [facility] Attending Dr: Jemal Briggs MD Ordering Physician: Jemal Briggs MD Results: 1Negative Date of Service: 04/02/24 Follow Up: 1 Year From Orig inal Mammogram Procedure(s): MM tomosynthesis screening BI Accession Number(s): [id number] cc: Jemal Briggs MD EXAMINATION: MM SCREENING [...] 04/15/2024 08:38 AM EDT Dictated By: Anabelle Quinnoes DO Signed By: <Electronically signed by Anabelle Quinones DO in OV> 04/15/24 0838 DD/ 1545 TD/TT: 04/02/24 1604 Neuro Urologist: Procedure Note Donotuseinterpreter, Image - 04/15/2024 [facility] [address] [place] [address] Mammography Report Signed Patient: Yazmin Jacobsen#: [id number] 08 : 1985Acct:[id number] Age/Sex: 39 / FADM Date: 04/02/24 Loc: [facility] Attending Dr: Jemal Briggs MD Ordering Physician: Jemal Briggs MDResults: 1Negative Date of Service: 04/02/24Follow Up: 1 Year From Orig inal Mammogram Procedure(s): MM tomosynthesis screening BI Accession Number(s): [id number] cc: Jemal Briggs MD EXAMINATION: MM SCREENING [...] Anabelle Quinones DO 04/15/2024 08:38 AM EDT Workstation: [employer] Dictated By: Anabelle Quinones DO Signed By: <Electronically signed by Anabelle Quinones DO in OV> 04/15/24 0838 DD/ 1545 TD/TT: 04/02/24 1604 Neuro Urologist: Jemal Briggs MD IMMary BI PROCEDURES Edited Result - Final * Hepatitis C Antibody with Reflex to HCV, RNA, Quantitative, Real-Time PCR (08/09/2022 10:19 AM EST) Hepatitis C Antibody NON-REACT JOSE NON-REACT JOSE AT [facility] [place] [employer] Index <0.02 <1.00 AT [facility] [place] [facility] Comment: HCV antibody was non-reactive. There is no laboratory evidence of HCV infection. In most cases, no further action is required. However, if recent HCV exposure is suspected, a test for HCV RNA (test code 64718) is suggested. For additional information please refer to http://education.[employer]/faq/MCU96p9 (This link is being provided for informational/ educational purposes only.) Blood Venous blood specimen / Unknown 08/09/2022 10:19 AM EST 08/09/2022 10:20 AM EST Narrative [facility] - 08/12/2022 6:40 PM EST FASTING:UNKNOWN FASTING: UNKNOWN Janet Mak [employer] LAB BLOOD ORDERABLES Final Res ult Performing Organization Address [facility]/ZIP Co de Phone Number [facility] [address], [place] [address] AT [facility] [place] [facility] [address] [facility], (N[address]) [place] [address] * HIV-1/2 Antigen and Antibodies, Fourth Generation, with Reflexes (08/09/2022 10:19 AM EST) Pathologist [facility] HIV Antigen/Antibody, 4th Generation NON-REAC TIVE NON-REAC TIVE AT [facility] [place] [facility] Comment: HIV-1 antigen and HIV-1/HIV-2 antibodies were [...] purpose. For additional information please refer to http://education.[employer]/faq/QTG001 (This link is being provided for informational/ educational purposes only.) The performance of this assay has not been clinically validated in patients less than 2 years old. Blood Venous blood specimen / Unknown 08/09/2022 10:19 AM EST 08/09/2022 10:20 AM EST Narrative [facility] - 08/12/2022 6:40 PM EST FASTING:UNKNOWN FASTING: UNKNOWN Janet Mak [facility] LAB BLOOD ORDERABLES Final Res ult [address], [place] [address] AT [facility] [place] [employer] [address] [facility], ([address]) [place] [address] * (ABNORMAL) LIPID PANEL, STANDARD (07/24/2020 3:40 PM EST) Pathologist [facility] Chol/HDLC Ratio 3.2 <5.0 (calc) [facility] Cholesterol, Total 159 <200 mg/dL [facility] HDL Cholesterol 49(L) > OR = 50 mg/dL [facility] LDL Cholesterol 88 mg/dL (calc) [facility] Comment: Reference range: <100 Desirable range <100 mg/dL for primary prevention; <70 mg/dL for patients with CHD or diabetic patients with > or = 2 CHD risk factors. LDL-C is now calculated using the Pastora calculation, which is a validated novel method providing better accuracy than the Friedewald equation in the estimation of LDL-C. Xavier SS et al. SCOTT. 2013;310(19): 7214-2986 (http://education.[employer]/faq/EYX170) Non-HDL Cholesterol 110 <130 mg/dL (calc) [facility] Comment: For patients with diabetes plus 1 major ASCVD risk factor, treating to a non-HDL-C goal of <100 mg/dL (LDL-C of <70 mg/dL) is considered a therapeutic option. Triglycerides 128 <150 mg/dL [facility] 07/24/2020 3:40 PM EST us Jemal Name LAB BLOOD ORDERABLES Final Resul t [facility] [address] from Last 3 Months or Most Recently Relevant to Health Maintenance Insurance [facility] C3 Care Teams Screen Printing Paster Relationship Specialty Start Date End Date Name, MD Jemal [address] [place] [address] PCP - General Family Medicine 12/24/17
--- OUTSIDE RECORDS SUMMARY | 2025-05-20 16:17 | XMS_ITS | Encounter Summary ---
Author Organization [employer] Address [address] [facility] [address]t [place] [address] Care Team Providers Care Marketing Database Coordinator Name Role Phone Name, Jemal HARMON Primary Care Provider [phone] Encounter Details Date Type Department Care Team ([facility] Contact Info) Description 02/09/2025 Orders Only [facility] MED [facility] PEDS [address] [place], [place] [phone] ProviderNadya MD Social History Tobacco Use Types [...] Description 05/26/2025 9:00 AM EST Office Visit [facility] MEDICINE [address] [place] [address] Jemal Briggs MD [address] [place] [address] 06/17/2025 3:00 PM EST Clinical Support [facility] DIABETES/NUTRITION [address] [place] [address] Janel Wilkes, JOSE [address] [place] [address] documented as of this encounter Procedures Procedure [...] documented as of this encounter Care Teams Marketing Database Coordinator Relationship Specialty Start Date End Date Jemal Briggs MD [address] [place] [address] PCP - General Family Medicine 12/24/17 documented as of this encounter
--- OUTSIDE RECORDS SUMMARY | 2025-05-20 16:17 | XMS_ITS | Encounter Summary ---
Author Organization [employer] Address 75 [facility] 7t [place] [address] Care Team Providers Care Chipper Operator Name Role Phone Name, Jemal HARMON Primary Care Provider [phone] Reason for Visit * Reason Onset Date Comments Follow-up 06/13/2022 Encounter Details Date Type Department Care Team ([facility] Contact Info) Description 06/13/2022 Telephone [facility] MEDICINE [address] [place], [place] [phone] Name, MD Jemal [address] [place] [address] Follow-up Social History Tobacco Use Types Packs/Day [...] check and to assess current symptoms via [place] [employer] Donell #[id number]. sidney Padron/josie left to return call. * Telephone Encounter - Sully Chintan - 06/13/2022 10:09 AM EST Tc from Pt stated came in the Walk in offerle on 06/04 they found a Bacteria in the Urine. Pt statedprovider told her to contact PCP for follow up. PCP Dr. Briggs documented in this encounter Plan of Treatment Upcoming Encounters Date Type Department Care Team ([facility] st Contact Info) Description 05/26/2025 9:00 AM EST Office Visit [facility] MED[facility]INE [address] [place] [phone] Brigitte, MD Jemal [address] [place] [address] 06/17/2025 3:00 PM EST Clinical Support [facility] DIABETES/NUTRITION [address] [place], [place] [phone] Janel Wilkes, JOSE [address] [place] [address] documented as of this encounter Visit Diagnoses Not on filedocumented in this encounter Care Teams Chipper Operator Relationship Specialty Start Date End Date Jemal Briggs MD [address] [place] [phone] PCP - General Family Medicine 12/24/17 documented as of this encounter
--- OUTSIDE RECORDS SUMMARY | 2025-05-20 16:17 | XMS_ITS | Encounter Summary ---
Author Organization [employer] Address [address] [facility] 7t [place] [address] Care Team Providers Care Casing Flusher Name Role Phone Name, Jemal HARMON Primary Care Provider [phone] Reason for Visit * Reason Onset Date Comments Results 07/22/2023 Encounter Details Date Type Department Care Team ([facility] Contact Info) Description 07/22/2023 Telephone [facility] MEDICINE [address] [place], [place] [phone] Name, MD Jemal [address] [place] [address] Results Social History Tobacco Use Types Packs/Day [...] t he electric, gas, oil or water [employer] threatened to shut off services in your [...] PM EST T/c placed to pt via [employer] #[id number]. Advised of benign result for right cervicallymph [...] Facility: [facility] Please contact pt at [phone] documented in this encounter Plan of Treatment Upcoming Encounters Date Type Department Care Team (Late st Contact Info) Description 05/26/2025 9:00 AM EST Office Visit [facility] MEDICINE [address] [place] [phone] Name, MD Jemal [address] [place] [address] 06/17/2025 3:00 PM EST Clinical Support [facility] DIABETES/NUTRITION [address] [place] [address] Janel Wilkes, JOSE [address] [place] [address] documented as of this encounter Visit Diagnoses Not on filedocumented in this encounter Additional Health Concerns Assessment Noted Time PHQ-9 Depression Total Score: 0 02/05/20 23 9:16 AM EDT documented as of this encounter Care Teams Casing Flusher Relationship Specialty Start Date End Date Name, MD Jemal [address] [place] [address] PCP - General Family Medicine 12/24/17 documented as of this encounter
== END 2025-05-20 15:01 | disposition home or self-care (01) ==
LOC: HO.MAMMO 15:00
PROVIDERS: PCP Internal Medicine Geriatric Medicine; Visit Provider Internal Medicine Geriatric Medicine
DX: Z12.31 Encounter for screening mammogram for malignant neoplasm of breast (principal)
CPT/HCPCS: 77063; 77067

== ENCOUNTER → 2025-05-20 15:00 | Outpatient (BNV) | payer MEDICAID, SELFPAY | PROVIDERS: PCP Internal Medicine Geriatric Medicine; Visit Provider Internal Medicine | DX: Z12.31 Encounter for screening mammogram for malignant neoplasm of breast (principal) | CPT/HCPCS: 77063; 77067 ==

== ENCOUNTER 2025-05-27 14:29 | Outpatient (REF) | payer MEDICAID, SELFPAY ==
--- OUTSIDE RECORDS SUMMARY | 2025-05-26 09:00 | XMS_ITS | Encounter Summary ---
Author Organization [employer] Address [address] [place] [address] Care Team Providers Care Chest Painting And Sealing Supervisor Name Role Phone Name, Jemal HARMON Primary Care Provider [phone] Reason for Visit * Reason Comments Follow-up Encounter Details Date Type Department Care Team ([facility] Contact Info) Description 05/26/2025 9:00 AM EST Office Visit [facility] MEDICINE [address], [place] [id number] Name, MD Jemal [address] [place] [address] Prediabetes (Primary Dx); Obesity (BMI 30-39.9); Hypokalemia; Dysplasia of cervix, low grade (ANDERSON 1) Social History Tobacco Use Types Packs/Day Years Used Date Smoking Tobacco: Never Passive Smoke Exposure: Never Smokeless Tobacco: Never Alcohol Use Standard Drinks/Week Comments Never 0 (1 standard drink = 0.6 oz pur e alcohol) Depression Answer Date Recorded Patient Health Questionnaire-9 Score 2 05/26/2025 Patient Health Questionnaire-9 Score 2 05/26/2025 Last PHQ-9: Questionnaire Data Not on file 1 07/26/2024 Housing Stability Answer Date Recorded What is [...] Date Recorded Patient Health Questionnaire-2 Score 0 05/26/2025 Internet Access Answer Date Recorded Internet Access [...] Sign Reading Time Taken Comments Blood Pressure 114/82 05/26/2025 9:16 AM EST Pulse 98 05/26/2025 9:16 AM EST Temperature 36.9 C (98.4 F) 05/26/2025 9:16 AM EST Respiratory Rate 20 05/26/2025 9:16 AM EST Oxygen Saturation 96% 05/26/2025 9:16 AM EST Inhaled Oxygen Concentration - - Weight 80.5 kg (177 lb 6 oz) 05/26/2025 9:16 AM EST Height 157.5 cm (5' 2 ) 05/26/2025 9:16 AM EST Body Mass Index 32.44 05/26/2025 9:16 AM EST documented in this encounter Functional Status * Over the past 2 weeks, how often have you been bothered by any of the following problems? Question Answer Date of Assessment Author Patient Health Questionnaire -2 Score 0 05/26/2025 9:42 AM EST Dave Brooks MA * Little interest or pleasure in doing things Answer Date of Assessment Author Not at all 05/26/2025 9:42 AM Anna Schwartz MA * Feeling down, depressed, or hopeless Answer Date of Assessment Author Not at all 05/26/2025 9:42 AM Anna Schwatrz MA * Trouble falling or staying asleep, or sleeping too much Answer Date of Assessment Author Not at all 05/26/2025 9:42 AM Anna Schwartz MA * Feeling tired or having little energy Answer Date of Assessment Author Several days 05/26/2025 9:42 AM Anna Schwartz MA * Poor appetite or overeating Answer Date of Assessment Author Several days 05/26/2025 9:42 AM Anna Schwartz MA * Feeling bad about yourself - or that you are a failure or have let yourself or your family down Answer Date of Assessment Author Not at all 05/26/2025 9:42 AM Anna Schwartz MA * Trouble concentrating on things, such as reading the newspaper or watching television Answer Date of Assessment Author Not at all 05/26/2025 9:42 AM Anna Scwhartz MA * Moving or speaking so slowly that other people could have noticed? Or the opposite - being so fidgety or restless that you have been moving around a lot more than usual. Answer Date of Assessment Author Not at all 05/26/2025 9:42 AM Anna Schwartz MA * Thoughts that you would be better off or hurting yourself in some way Answer Date of Assessment Author Not at all 05/26/2025 9:42 AM Anna Schwartz MA * Patient Health Questionnaire-9 Score Answer Date of Assessment Author 2 05/26/2025 9:42 AM Anna Schwartz MA * How difficult have these problems made it for you to do your work, take care of things at home, or get along with other people? Answer Date of Assessment Author Not difficult at all 05/26/2025 9:42 AM Anna Fernandez MA documented as of this encounter Progress Notes * Jemal Briggs MD - 05/26/2025 9:00 AM EST Subjective Patient ID: Shannan Jacobsen is a 40 y.o. female who presents for Follow-up. Patient comes for a follow-up visit and we discussed several issues. The patient is obese and has prediabetes. Her last hemoglobin A1c is 6. The patient is unable to lose weight with diet and exercise alone. Nutritional interventions have not been helpful so far. The patient is interested in medication to help her to lose weight. She does not have any personal history of pancreatitis. No personal or family history of thyroid cancer. Most recent blood work show hypokalemia. This is secondary to the use of chlorthalidone for hypertension. She has been taking [id number] potassium supplements. I recommended to recheck a BMP and I will send potassium supplementation to her pharmacy as well. We discussed results of recent cervical biopsy that showed ANDERSON-1. She has upcoming appointment withher teletypewriter installer to discuss further therapeutic recommendations. She had cervical biopsies showing the same findings in the past. She refused a flu vaccination today. She plans to come at a future date. Currently she is having very symptomatic allergic rhinitis. She has upcoming appointment for allergy shots and would like to do that prior to the flu vaccination. Review of Systems Constitutional: Negative for chills and fever. HENT: Positive for postnasal drip, rhinorrhea and sneezing. Negative for sore throat. Respiratory: Negative for cough, shortness of breath and wheezing. Cardiovascular: Negative for chest pain, palpitations and leg swelling. Gastrointestinal: Negative for abdominal pain. Objective Vitals: 05/26/25 0916 BP: 114/82 BP Location: Left arm Patient Position: Sitting BP Cuff Size: Adult Pulse: 98 Resp: 20 Temp: 98.4 ??F (36.9 ??C) TempSrc: Oral SpO2: 96% Weight: 177 lb 6 oz (80.5 kg) Height: 5' 2 (1.575 m) Physical Exam Constitutional: Appearance: Normal appearance. She is obese. Cardiovascular: Rate and Rhythm: Normal rate and regular rhythm. Heart sounds: No murmur heard. No gallop. Pulmonary: Effort: Pulmonary effort is normal. No respiratory distress. Breath sounds: Normal breath sounds. No wheezing. Musculoskeletal: Right lower leg: No edema. Left lower leg: No edema. Neurological: Mental Status: She is alert. Latest Reference Range & Units 02/28/25 10:42 Glucose 60 - 115 mg/dL 123 (H) Urea Nitrogen (BUN) 9 - 16 mg/dL 15 Creatinine, Serum 0.5 - 1.4 mg/dL 0.65 Sodium 135 - 145 mmol/L 142 Potassium 3.3 - 5.1 mmol/L 2.9 (LL) Chloride 96 - 108 mmol/L 101 Carbon Dioxide 22 - 29 mmol/L 29 Calcium 8.4 - 10.2 mg/dL 9.1 Albumin Level 3.5 - 5.0 g/dL 4.3 Bilirubin, Total 0.0 - 1.0 mg/dL 0.5 AST 5 - 31 U/L 30 ALT 0 - 31 U/L 50 (H) Anion Gap 12 - 20 15 Total Protein 6.5 - 8.0 g/dL 7.0 Hemoglobin A1c <6.0 % 6.0 TSH reflex Free T4 0.32 - 4.0 uIU/mL 2.01 Alkaline Phosphatase 39 - 117 U/L 61 ESTIMATED AVERAGE GLUCOSE mg/dL 126 Estimated Glomerular Filt Rate >60 (LL): Data is critically low (H): Data is abnormally high Assessment/Plan Diagnoses and all orders for this visit: Prediabetes Comments: I recommended to the patient to avoid sweets and soda, Regular physical activity Continue following with marble cutter operator I will start the patient on Mounjaro 2.5 mg a week and increase the dose gradually as tolerated. We discussed the benefits and side effects of GLP-1 therapy and she is encouraged to call with any problems Orders: - Tirzepatide (Mounjaro) 2.5 MG/0.5ML solution auto-injector; Inject 2.5 mg under the skin 1 (one) time per week. Obesity (BMI 30-39.9) - Tirzepatide (Mounjaro) 2.5 MG/0.5ML solution auto-injector; Inject 2.5 mg under the skin 1 (one)time per week. Hypokalemia Comments: I will send potassium supplements to the pharmacy. She is reminded to recheck BMP next week. Orders: - potassium chloride CR (Klor-Con M20) 20 MEQ ER tablet; Take 1 tablet (20 mEq) by mouth Once per day. Do not crush or chew. Dysplasia of cervix, low grade (ANDERSON 1) Comments: Patient has an upcoming appointment with her teletypewriter installer to discuss further therapeutic recommendations. Future Appointments Date Time Provider Department Center 06/17/2025 3:[address] DIAB NUTR [facility] documented in this encounter Plan of Treatment Upcoming Encounters Date Type Department Care Team (Late st Contact Info) Description 06/17/2025 3:00 PM EST Clinical Support [facility] DIABETES/NUTRITION [address] [place] [address] [place] [address] documented as of this encounter Visit Diagnoses Diagnosis Prediabetes- Primary Other abnormal glucose Obesity (BMI 30-39.9) Hypokalemia Hypopotassemia Dysplasia of cervix, low grade (ANDERSON 1) documented in this encounter Additional Health Concerns Assessment Noted Time PHQ-9 Depression Total Score: 2 05/26/20 25 9:42 AM EST documented as of this encounter Care Teams Chest Painting And Sealing Supervisor Relationship Specialty Start Date End Date Jemal Briggs MD [address] [place] [address] PCP - General Family Medicine 12/24/17 documented as of this encounter
--- NOTE | ~2025-05-27 | US_ITS ---
EXAMINATION: US PELVIS TRANSABDOMINAL AND TRANSVAGINAL HISTORY: R10.2 - Pelvic and perineal pain COMPARISON: Pelvic ultrasound 09/27/2022 TECHNIQUE: Transabdominal and transvaginal evaluation. FINDINGS: LMP:Not documented Uterus: Uterus measures 7.9 x 4 x 2.3 cm. cm. Uterus is anteverted and anteflexed. Myometrium has a normal echotexture. No focal uterine myometrial lesions. Small nabothian cysts. Endometrium: The endometrial stripe measures 4 mm in thickness. Right ovary: The right ovary measures 4.4 x 2.5 x 2.2 cm. Volume 8.9 mL The right ovary is normal in size and echotexture. Left ovary: The left ovary measures 3.3 x 1.8 x 2.5 cm. Volume 7.8 mL The left ovary is normal in size and echotexture. Pelvic fluid: Small free fluid in the cul-de-sac.. US/US pelvic and transvaginal IMPRESSION: Unremarkable pelvic ultrasound. Nonspecific small free fluid in the cul-de-sac. Electronically signed by: Vernon Silva MD 05/27/2025 04:38 PM [facility]
--- OUTSIDE RECORDS SUMMARY | 2025-05-27 21:32 | XMS_ITS | Clinical Summary ---
Author Organization [employer] Address [address] [place] [address] Care Team Providers Care [employer] Salesperson Name Role Phone Name, Jemal HARMON Primary Care Provider [phone] Allergies Active Allergy Reactions Criticality Noted Date [...] REPLACE CAP. 48 g 11/07/19 24 Active montelukast (Singulair) 10 MG tablet TOME 1 TABLETA POR V A ORAL TODOS LOS D 03/09/20 24 Active SUMAtriptan (Imitrex) 25 MG tabletIndicatio ns:Migraine without aura and without status migrainosus, not intractable TAKE 1 TABLET BY MOUTH 1 TIME IF NEEDED FOR MIGRAINE FOR UP TO 1 DOSE. MAY REPEAT DOSE ONCE IN 2 HOURS IF NO RELIEF. DO NOT EXCEED 2 DOSES IN 24 HOURS. 9 tablet 06/09/20 24 Active sodium chloride ([place] Nasal [place]) 0.65 % nasal sprayIndication s:Cough, unspecified type,Nasal congestion 1-2 sprays on each nostril every 2-3 hours as needed for nasal congestion 30 mL 1 11/03/19 25 Active chlorthalidone (Hygroton) 25 MG tabletIndicatio ns:Essential hypertension TOME 1 TABLETA POR VIA ORAL TODOS LOS ROSENBERG 90 tablet 1 01/25/20 25 Active amitriptyline (Elavil) 10 MG tabletIndicatio ns:Migraine without aura and without status migrainosus, not intractable Take 1 tablet (10 mg) by mouth at bedtime. 30 tablet 11 02/29/20 25 025 Active Tirzepatide (Mounjaro) 2.5 MG/0.5ML solution auto-injectorIn dications:Obesi ty (BMI 30-39.9),Predia betes Inject 2.5 mg under the skin 1 (one) time per week. 2 mL 05/26/20 25 025 Active potassium chloride CR (Klor-Con M20) 20 MEQ ER tabletIndicatio ns:Hypokalemia Take 1 tablet (20 mEq) by mouth Once per day. Do not crush or chew. 30 tablet 05/26/20 25 026 Active meloxicam (Mobic) 15 MG tabletIndicatio ns:Rib pain on left side Take 1 tablet (15 mg) by mouth Once per day. 30 tablet 11 04/27/20 24 025 potassium chloride CR (Klor-Con M20) 20 MEQ ER tabletIndicatio ns:Hypokalemia Take 1 tablet (20 mEq) by mouth Once per day. Do not crush or chew. 30 tablet 02/29/20 25 025 Discontinued(R eorder (will not trigger notification to Pharmacy)) potassium chloride CR (Klor-Con M20) 20 MEQ ER tabletIndicatio ns:Hypokalemia Take 1 tablet (20 mEq) by mouth Once per day. Do not crush or chew. 30 tablet 05/26/20 25 025 Discontinued(R eorder (will not trigger notification to Pharmacy)) Active Problems Problem Noted Date Diagnosed Date Dysplasia of cervix, low grade (ANDERSON 1) Prediabetes 05/26/2025 Cough 11/02/2024 Assessment & Plan (11/02/2024 11:13 [...] refer patient to the emergency room at [facility] case presented to provider Nolvia Left anterior [...] injections and possible Epi Pen rx through behavior management specialist during upcoming appt in 1-2 weeks - [...] Encounters Date Type Department Care Team Description 05/26/2025 9:00 AM EST Office Visit [facility] MEDICINE [address] [place] [phone] Name, MD Jemal Prediabetes (Primary Dx); Obesity (BMI 30-39.9); Hypokalemia; Dysplasia of cervix, low grade (ANDERSON 1) 05/26/2025 Travel 05/25/2025 Travel 05/13/2025 Orders Only GENERIC EXTERNAL DATA DEPARTMENT Provider, Generic External Data 04/26/2025 2:30 PM EDT Nutrition [facility] DIABETES/NUTRITION [address] [place] [address] Obesity (BMI 30-39.9) 04/26/2025 Travel 04/11/2025 Orders Only [facility] External Provider, [facility] 03/30/2025 Telephone [facility] MEDICINE [address] [place] [address] Nutrition appt 03/28/[address] [address] Jemal Briggs MD Appointment Request 02/28/2025 10:00 AM EDT Office Visit [address] [address] Jemal Briggs MD Migraine without aura and without status migrainosus, not intractable (Primary Dx); Atypical squamous cells of undetermined significance on cytologic smear of cervix (ASC-US); Weight gain; Obesity (BMI 30-39.9) 02/28/2025 Results Follow-Up [address] [address] Jemal Briggs MD Comprehensive Metabolic Panel, Hemoglobin A1c, TSH W/Reflex to FT4 02/28/[address] [address] Beronica King, JOHNATHAN 02/28/2025 Telephone [facility] PEDIATRICS [address] [place] [address] Jemal Briggs MD Critical Potassium 02/28/2025 Travel 02/25/[address] [address] Ania Flor [place] Chart Prep from Last 3 Months Immunizations Immunization Administration [...] Mass Index 32.44 05/26/2025 9:16 AM EST Plan of Treatment Upcoming Encounters Date Type Department Care Team (Late st Contact Info) Description 06/17/2025 3:00 PM EST Clinical Support [facility] DIABETES/NUTRITION [address], [place] [phone], [place] [phone] Health Maintenance Due Date Last Done Comments Alcohol/Substance Use Screening 1996 Family Planning (PISQ) 01/06/1999 HPV Vaccines (1 - 3-dose series) 01/06/1999 Hepatitis B Vaccines (1 of 3 - 19+ 3-dose series) 01/06/2003 Colposcopy 01/19/2025 05/06/2024 COVID-19 Vaccine ( - 2024- season) 2025 05/15/2021, 04/24/2021 Influenza Vaccine (#1) 2025 , 04/18/2020, 07/21/2019, Additional history exists SDOH Screening 05/05/2025 05/05/2024 Lipid Panel 07/24/2025 07/24/2020 Cervical Cancer Screening 01/18/2026 HPV/Cotest 01/18/2026 01/18/2025, 11/05/2018 Pap Smear 01/18/2026 01/18/2025, 10/12, 11/05/2018 Diabetes: Hemoglobin A1C 02/28/2026 02/28/2025, 05/15 Disability Screening 05/25/2026 05/25/2025 Depression Screening 05/26/2026 05/26/2025, 05/26/20 25 Tobacco Screening 05/26/2026 05/26/2025 Mammogram 05/20/2027 05/20/2025, 03/15, 09/06/2022, Additional history exists DTaP/Tdap/Td Vaccines (3 [...] Name Priority Date/Time Associated Diagnosis Comments US PELVIS TRANSVAGINAL Routine 2:40 PM EST BI MAMMOGRAM SCREENING TOMOSYNTHESIS BILATERAL Routine 05/20/2025 3:10 PM EST HEMATOXYLIN AND EOSIN STAIN Routine 05/13/2025 3:56 [...] EDT COLPOSCOPY Routine 05/06/2024 11:02 AM EDT HEPATITIS C AB W/REFL TO HCV RNA, QN, PCR Routine 08/09/2022 10:19 AM EST Vaginal discharge HIV 1/2 ANTIGEN/ANTIBODY, FOURTH GENERATION W/RFL Routine 08/09/2022 10:19 AM EST Vaginal discharge LIPID PANEL, STANDARD Routine 07/24/2020 3:40 PM EST from Last 3 Months or Most Recently Relevant to Health Maintenance Results * US Pelvis Transvaginal (05/27/2025 2:40 PM EST) Anatomical Region Laterality Modality Pelvis Ultrasound 05/27/2025 2:40 PM EST Narrative 05/27/2025 4:41 PM EST [place] [address] Ultrasound Report Signed Patient: Shannan Jacobsen MR#: [id number] 08 : 1985 Acct:[id number] Age/Sex: 40 / F ADM Date: 05/27/25 Loc: .US Attending Dr: Porfirio Rendon MD Ordering Physician: Porfirio Rendon MD Date of Service: 05/27/25 Procedure(s): US pelvic and transvaginal Accession Number(s): [id number] cc: Name,Jemal HARMON; Porfirio Rendon MD Reason for Exam: R10.2 - Pelvic and perineal pain EXAMINATION: US PELVIS TRANSABDOMINAL AND TRANSVAGINAL HISTORY: R10.2 - Pelvic and perineal pain COMPARISON: Pelvic ultrasound 09/27/2022 TECHNIQUE: Transabdominal and transvaginal evaluation. FINDINGS: LMP:Not documented Uterus: Uterus measures 7.9 x 4 x 2.3 cm. cm. Uterus is anteverted and anteflexed. Myometrium has a normal echotexture. No focal uterine myometrial lesions. Small nabothian cysts. Endometrium: The endometrial stripe measures 4 mm in thickness. Right ovary: The right ovary measures 4.4 x 2.5 x 2.2 cm. Volume 8.9 mL The right ovary is normal in size and echotexture. Left ovary: The left ovary measures 3.3 x 1.8 x 2.5 cm. Volume 7.8 mL The left ovary is normal in size and echotexture. Pelvic fluid: Small free fluid in the cul-de-sac.. US/US pelvic and transvaginal IMPRESSION: Unremarkable pelvic ultrasound. Nonspecific small free fluid in the cul-de-sac. Electronically signed by: Vernon Silva MD 05/27/2025 04:38 PM EST Dictated By: Vernon Silva MD Signed By: <Electronically signed by Vernon Silva MD in OV> 05/27/25 1638 DD/ 1440 TD/TT: 05/27/25 1448 Band Builder: DAWN Procedure Note Donotuseinterpreter, Image - 05/27/2025 [place] [address] Ultrasound Report Signed Patient: Yazmin Jacobsen#: [id number] 08 : 1985Acct:[id number] Age/Sex: 40 / FADM Date: 05/27/25 Loc: HO.US Attending Dr: Porfirio Rendon MD Ordering Physician: Porfirio Rendon MD Date of Service: 05/27/25 Procedure(s): US pelvic and transvaginal Accession Number(s): [id number] cc: Jemal Briggs MD; Porfirio Rendon MD Reason for Exam: R10.2 - Pelvic and perineal pain EXAMINATION: US PELVIS TRANSABDOMINAL AND TRANSVAGINAL HISTORY: R10.2 - Pelvic and perineal pain COMPARISON: Pelvic ultrasound 09/27/2022 TECHNIQUE: Transabdominal and transvaginal evaluation. FINDINGS: LMP:Not documented Uterus: Uterus measures 7.9 x 4 x 2.3 cm. cm. Uterus is anteverted and anteflexed. Myometrium has a normal echotexture. No focal uterine myometrial lesions. Small nabothian cysts. Endometrium: The endometrial stripe measures 4 mm in thickness. Right ovary: The right ovary measures 4.4 x 2.5 x 2.2 cm. Volume 8.9 mL The right ovary is normal in size and echotexture. Left ovary: The left ovary measures 3.3 x 1.8 x 2.5 cm. Volume 7.8 mL The left ovary is normal in size and echotexture. Pelvic fluid: Small free fluid in the cul-de-sac.. US/US pelvic and transvaginal IMPRESSION: Unremarkable pelvic ultrasound. Nonspecific small free fluid in the cul-de-sac. Electronically signed by: Vernon Silva MD 05/27/2025 04:38 PM EST Dictated By: Vernon Silva MD Signed By: <Electronically signed by Vernon Silva MD in OV> 05/27/25 1638 DD/ 1440 TD/TT: 05/27/25 1448 Band Builder: DAWN us [facility] External Provider IMG US PROCEDURES Final Result * BI Mammogram Screening Tomosynthesis Bilateral (05/20/2025 3:10 PM EST) Anatomical Region Laterality Modality Breast Bilateral Mammography 05/20/2025 3:10 PM EST Narrative 05/25/2025 10:59 AM EST [facility] [address] [place] [address] Mammography Report Signed Patient: Shannan Jacosben MR#: [id number] 08 : 1985 Acct:[id number] Age/Sex: 40 / F ADM Date: 05/20/25 Loc: HOMariluMAMMO Attending Dr: Jemal Briggs MD Ordering Physician: Jemal Briggs MD Results: 1Negative Date of Service: 05/20/25 Follow Up: 1 Year From Orig ina Mammogram Procedure(s): MM tomosynthesis screening BI Accession Number(s): [id number] cc: Jemal Briggs MD Reason For Exam: SCREENING EXAMINATION: MM SCREENING DIGITAL BREAST TOMOSYNTHESIS, BILATERAL CLINICAL INFORMATION: Screening. Asymptomatic. COMPARISON: Mammography: Comparison is made with available priors TECHNIQUE: Digital breast mammography with tomosynthesis is performed in both the craniocaudal and mediolateral oblique views along with computer-aided detection (CAD). FINDINGS: There are scattered areas of fibroglandular density. There are no significant masses, abnormal calcifications, or other abnormalities. MM/MM tomosynthesis screening BI IMPRESSION: No mammographic evidence of malignancy. ASSESSMENT: BI-RADS Category 1: Negative RECOMMENDATION: Routine annual mammography screening. 1 year F/U This examination should not preclude the clinical evaluation of a suspicious palpable abnormality. This patient's information was entered into a reminder system with a target due date for their next mammogram. Electronically signed by: Anabelle Quinones DO 05/25/2025 10:56 AM EST Dictated By: Anabelle Quinones DO Signed By: <Electronically signed by Anabelle Quinones DO in OV> 05/25/25 1056 DD/ 1510 TD/TT: 05/20/25 1515 Band Builder: Procedure Note Donotuseinterpreter, Image - 05/25/2025 [facility] [address] [place] [address] Mammography Report Signed Patient: Yazmin Jacobsen#: [id number] 08 : 1985Acct:[id number] Age/Sex: 40 / FADM Date: 05/20/25 Loc: RALPHO Attending Dr: Jemal Briggs MD Ordering Physician: Jemal Briggsesults: 1Negative Date of Service: 05/20/25Follow Up: 1 Year From Orig inal Mammogram Procedure(s): MM tomosynthesis screening BI Accession Number(s): [id number] cc: Jemal Briggs MD Reason For Exam: SCREENING EXAMINATION: MM SCREENING DIGITAL BREAST TOMOSYNTHESIS, BILATERAL CLINICAL INFORMATION: Screening. Asymptomatic. COMPARISON: Mammography: Comparison is made with available priors TECHNIQUE: Digital breast mammography with tomosynthesis is performed in both the craniocaudal and mediolateral oblique views along with computer-aided detection (CAD). FINDINGS: There are scattered areas of fibroglandular density. There are no significant masses, abnormal calcifications, or other abnormalities. MM/MM tomosynthesis screening BI IMPRESSION: No mammographic evidence of malignancy. ASSESSMENT: BI-RADS Category 1: Negative RECOMMENDATION: Routine annual mammography screening. 1 year F/U This examination should not preclude the clinical evaluation of a suspicious palpable abnormality. This patient's information was entered into a reminder system with a target due date for their next mammogram. Electronically signed by: Anabelle Quinones DO 05/25/2025 10:56 AM EST Dictated By: Anabelle Quinones DO Signed By: <Electronically signed by Anabelle Quinones DO in OV> 05/25/25 1056 DD/ 1510 TD/TT: 05/20/25 151 Band Builder: us Jemal CLOUD BI PROCEDURES Final Result * Hematoxylin and Eosin Stain (05/13/2025 3:56 PM EDT) 05/13/2025 3:56 PM EDT 05/16/2025 7:12 AM EST [facility] - 05/17/2025 10:57 AM EST ----- ------- Name: Shannan Jacobsen Age/Sex: 40/F : 1985 Unit#: [id number] Attend Dr: Porfirio Rendon MD Re05/13/25 Status: DEP REF Location: HO.LNP Disch: ----- ------- SPEC : [id number] RECD: 05/16/25 STATUS: ANTONIO TUTTLE NUM: [id number] HERMELINAD: 05/13/[address] [facility] [address]: Porfirio Rendon MD ENTERED: 05/16/25 SP TYPE: Surgical OT DR: Jemal Briggs MD ORDERED: HE Stain/11, [...] Shannan Jacobsen Age/Sex: 40/F : 1985 Unit#: [id number] Attend Dr: Porfirio Rendon MD Re05/13/25 Status: DEP REF Location: LNP Disch: ----- ------- SPEC : [id number] RECD: 05/16/25 STATUS: ANTONIO TUTTLE NUM: [id number] HERMELINDA: 05/13/[address] [facility] [address]: Porfirio Rendon MD ENTERED: 05/16/25 SP TYPE: Surgical OTHR DR: Jemal Briggs MD ORDERED: HE Stain/11, Gross Micro L4/4 IHC S/NG Disclaimer NOTE: Unless otherwise stated, all tissue is formalin-fixed and paraffin-embedded. Some or all of the immunohistochemical tests reported herein may have been developed and their performance characteristics determined by [facility]. They have not been cleared or approved by the U.S. Food and Drug Administration (FDA). However, the FDA has determined that such clearance or approval is not necessary. This laboratory is certified under the Clinical Laboratory Improvement Amendments of 1988 (CLIA) as qualified to perform high complexity clinical laboratory testing. Copies To: Jemal Briggs MD [address] [address] Porfirio Rendon MD [facility] [address] [place] [address] Drive [address] [place] [address] ----- ------- Signed (signature on file) Raul Hollingsworth MD 05/17/25 1057 ----- ------- END OF REPORT us Generic External Data Provider LAB BLOOD ORDERAB LES Final Result [facility] [address] [place] [phone] * US Retroperitoneal Complete (04/11/2025 1:49 PM EDT) Anatomical Region Laterality Modality Ultrasound 04/11/2025 1:49 PM EDT Narrative 04/11/2025 2:16 PM EDT [address] [address] Ultrasound Report Signed Patient: Shannan Jacobsen MR#: [id number] 08 : 1985 Acct:[id number] Age/Sex: 40 / F ADM Date: 04/11/25 Loc: HO.US Attending Dr: Jazmín ZUNIGA Ordering Physician: Jazmín Courtney Date of Service: 04/11/25 Procedure(s): US retroperitoneal comp Accession Number(s): [id number] cc: Jazmín Courtney; Name,Jemal HARMON Reason for [...] 04/11/25 1413 DD/ 1349 TD/TT: 04/11/25 1401 Band Builder: Procedure Note Donotuseinterpreter, Image - 04/11/2025 [place] [address] Ultrasound Report Signed Patient: Yazmin Jacobsen#: [id number] 08 : 1985Acct:[id number] Age/Sex: 40 / FADM Date: 04/11/25 Loc: HO.US Attending Dr: Jazmín ZUNIGA Ordering Physician: Jazmín Courtney Date of Service: 04/11/25 Procedure(s): US retroperitoneal comp Accession Number(s): [id number] cc: Jazmín Courtney; Name,Jemal HARMON Reason for [...] 04/11/2025 02:13 PM EDT Dictated By: Diogo Brenard MD Signed By: <Electronically signed by Diogo Bernard MD in OV> 04/11/25 1413 DD/ 1349 TD/TT: 04/11/25 1401 Band Builder: [facility] External Provider IMG US PROCEDURES Final Result * TSH W/Reflex to FT4 (02/28/2025 10:42 AM EDT) TSH reflex Free T4 2.01 0.32 - 4.0 uIU/mL [facility] Blood Venous blood specimen / Unknown 02/28/2025 10:42 AM EDT 02/28/2025 11:15 AM EDT Result [facility] Jemal Briggs MD LAB BLOOD ORDERABLES Final Resul t [facility] [address] [place] [phone] * Hemoglobin A1c (02/28/2025 10:42 AM EDT) Hemoglobin A1c 6.0 <6.0 % [facility] Comment:Hemoglobin A1C Refer ence Range Adults: 4.8 - 6.0 % Non diabetic: < 6.0 % Goal: < 7.0 %Additional Action Suggested: > 8.0 %Note: Hemoglobin A1c results are invalid for patients with abnormal amounts of HbF. Blood transfusions may impact the HbA1c concentration in the patient sample. Estimated Average Glucose 126 mg/dL [facility] Comment:eAG = Estimated ave rage glucose which is %A1C expressed asaverage glucose, using the formula of the K2H-WrovcotJupwqym Glucose study (ADAG), Diabetes Care, Vol.31,#8,Feb. 2007 Blood Venous blood specimen / Unknown 02/28/2025 10:42 AM EDT 02/28/2025 11:15 AM EDT us Jemal Name LAB BLOOD ORDERABLES Final Resul t [facility] [address] [place] [phone] * (ABNORMAL) Comprehensive Metabolic Panel (02/28/2025 10:42 AM EDT) Pathologist [facility] Sodium 142 135 - 145 mmol/L [facility] Potassium 2.9(LL) 3.3 - 5.1 mmol/L [facility] Comment:Critical value for t est(s): K Results called to and readback by: JENIFFER Wiley RN Person calling: LYNate:02/28/2025 Time:12:20 Chloride 101 96 - 108 mmol/L [facility] Carbon Dioxide 29 22 - 29 mmol/L [facility] Anion Gap 15 12 - 20 [facility] Urea Nitrogen (BUN) 15 9 - 16 mg/dL [facility] Creatinine, Serum 0.65 0.5 - 1.4 mg/dL [facility] Estimated Glomerular Filt Rate >60 [facility] Comment:Chronic Kidney Disea se: Estimated GFR < 60 mL/min/1.96a1Rooleg Kidney Disease: Estimated GFR < 15 mL/min/1.73m2 Glucose 123(H) 60 - 115 mg/dL [facility] Calcium 9.1 8.4 - 10.2 mg/dL [facility] Bilirubin, Total 0.5 0.0 - 1.0 mg/dL [facility] Aspartate Amino Transferase 30 5 - 31 U/L [facility] Alanine Aminotransferase 50(H) 0 - 31 U/L [facility] Total Protein 7.0 6.5 - 8.0 g/dL [facility] Albumin Level 4.3 3.5 - 5.0 g/dL [facility] Alkaline Phosphatase 61 39 - 117 U/L [facility] Blood Venous blood specimen / Unknown 02/28/2025 10:42 AM EDT 02/28/2025 11:15 AM EDT us Jemal Name LAB BLOOD ORDERABLES Final Resul t [facility] [address] [place] [phone] * (ABNORMAL) HPV DNA, Low/High Risk (01/18/2025 3:30 PM EDT) HPV High Risk Negative Negative [facility] HPV Genotype 16 Positive(A) Negative [facility] HPV Genotype 18 Negative Negative [facility] Comment:HPV testing performe d at [facility] (CLIA#[id number]), [address] [place] [address].Testing for HPV was performed using the Kim [...] Provider LAB BLOOD ORDERAB LES Final Result [facility] [address] [place] [phone] * Pap Smear (01/18/2025 3:30 PM EDT) 01/18/2025 3:30 PM EDT 01/19/2025 8:30 AM EDT Narrative [facility] - 01/25/2025 2:41 PM EDT ----- ------- Name: Shannan Jacobsen Age/Sex: 40/F : 1985 Unit#: [id number] Attend Dr: Porfirio Rendon MD Re01/18/25 Status: DEP REF Location: HO.LNP Disch: ----- ------- SPEC : [id number] RECD: 01/19/25 STATUS: ANTONIO TUTTLE NUM: [id number] HERMELINDA: 01/18/[address] [facility] [address]: Porfirio Rendon MD ENTERED: 01/19/25 [...] and HPV testing will be performed at [facility] (CLIA #[id number]), [address] [place] [address]. Testing for HPV was performed using the [employer]get[employer] system. The presence of HPV in the [...] detected. All professional services are performed by [facility] ([address] [place], [place] [id number]; ; CLIA #[id number]). The PAP Test is a screening procedure with the inherent possibility of both false negative and false positive results. Results should be interpreted in the context of historic and current clinical findings. Reliability of the PAP Test is enhanced by performing the test on a regular repetitive basis. CONTINUED ON NEXT PAGE ----- ------- Name: Shannan Jacobsen Age/Sex: 40/F : 1985 Unit#: [id number] Attend Dr: Porfirio Rendon MD Re01/18/25 Status: DEP REF Location: REGINALDOP Disch: ----- ------- SPEC : [id number] RECD: 01/19/25 STATUS: ANTONIO TUTTLE NUM: [id number] HERMELINDA: 01/18/[address] [facility] [address]: Porfirio Rendon MD ENTERED: 01/19/25 SP TYPE: Pap Smr OTHR DR: Jemal Briggs MD ORDERED: Pap Smear, PAP path review Copies To: Jemal Briggs MD [address] [place] [id number] Porfirio Rendon MD [facility] [address] [place] [address] Drive [address] [place] [address] ----- ------- Signed (signature on file) Raul Hollingsworth MD 01/25/25 1441 ----- ------- END OF REPORT Generic External Data Provider LAB CYTOLOGY BLANCA PETERSON Final Result [facility] [address], [place] [phone] * Colposcopy (05/06/2024 11:02 AM EDT) Historical Provider MD IN CLINIC/BEDSIDE ORDERAB LES Final Result * Hepatitis C Antibody with Reflex to HCV, RNA, Quantitative, Real-Time PCR (08/09/2022 10:19 AM EST) Hepatitis C Antibody NON-REACT JOSE NON-REACT JOSE [facility] Index <0.02 <1.00 [facility] Comment: HCV antibody was non-reactive. There is no laboratory evidence of HCV infection. In most cases, no further action is required. However, if recent HCV exposure is suspected, a test for HCV RNA (test code 91834) is suggested. For additional information please refer to http://education.TrackerSphere/faq/CAK42j7 (This link is being provided for informational/ educational purposes only.) Blood Venous blood specimen / Unknown 08/09/2022 10:19 AM EST 08/09/2022 10:20 AM EST Narrative [facility] - 08/12/2022 6:40 PM EST FASTING:UNKNOWN FASTING: UNKNOWN Janet Mak SERVER MANAGER LAB BLOOD ORDERABLES Final Res ult [facility] [address] [facility] [place] [address] [facility] [place] [facility] [address] [facility], ([address]) [place] [address] * HIV-1/2 Antigen and Antibodies, Fourth Generation, with Reflexes (08/09/2022 10:19 AM EST) HIV Antigen/Antibody, 4th Generation NON-REAC TIVE NON-REAC TIVE [facility] [place] [facility] Comment: HIV-1 antigen and HIV-1/HIV-2 antibodies were [...] purpose. For additional information please refer to http://[employer].TrackerSphere/faq/JPE389 (This link is being provided for informational/ educational purposes only.) The performance of this assay has not been clinically validated in patients less than 2 years old. Blood Venous blood specimen / Unknown 08/09/2022 10:19 AM EST 08/09/2022 10:20 AM EST Narrative [facility] - 08/12/2022 6:40 PM EST FASTING:UNKNOWN FASTING: UNKNOWN Janet Mak [facility] LAB BLOOD ORDERABLES Final Res ult [facility] [address] [facility], [facility], [place] [address] [facility] Diagnost [address] [facility], (Nl2) [place] [address] * (ABNORMAL) LIPID PANEL, STANDARD (07/24/2020 3:40 PM EST) [facility] Signature Chol/HDLC Ratio 3.2 <5.0 (calc) [facility] [...] LDL-C. Xavier CABRERA et al. SCOTT. 2013;310(19): 1629-5668 (http://education.Twitpay.com/faq/CKC587) Non-HDL Cholesterol 110 <130 mg/dL (calc) [facility] Comment: For patients with diabetes plus 1 major ASCVD risk factor, treating to a non-HDL-C goal of <100 mg/dL (LDL-C of <70 mg/dL) is considered a therapeutic option. 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
--- OUTSIDE RECORDS SUMMARY | 2025-05-27 21:32 | XMS_ITS | Encounter Summary ---
Author Organization [employer] Address [address] 7[address] [place] [address] Care Team Providers Care Gis Specialist Name Role Phone Name, Jemal HARMON Primary Care Provider [phone] Reason for Visit * Reason Onset Date Comments Appointment Request 03/28/2025 Encounter Details Date Type Department Care Team ([facility] Contact Info) Description 03/28/2025 Telephone [facility] MEDICINE [address] [place], [place] [phone] Name, MD Jemal [address] [place] [address] Appointment Request Social History Tobacco Use Types [...] from pt requesting an apt with the relief salesperson. Contact pt at [phone] documented in this encounter Plan of Treatment Upcoming Encounters Date Type Department Care Team (Late st Contact Info) Description 06/17/2025 3:00 PM EST Clinical Support [facility] DIABETES/NUTRITION [address] [place] [address] Janel Wilkes, JOSE [address] [place] [address] documented as of this encounter Visit Diagnoses Not on filedocumented in this encounter Additional Health Concerns Assessment Noted Time PHQ-9 Depression Total Score: 0 05/12/20 24 10:51 AM EDT documented as of this encounter Care Teams Gis Specialist Relationship Specialty Start Date End Date Name, MD Jemal [address] [place] [address] PCP - General Family Medicine 12/24/17 documented as of this encounter
--- OUTSIDE RECORDS SUMMARY | 2025-05-27 21:32 | XMS_ITS | Encounter Summary ---
Author Organization [employer] Address [address] [facility] 7t [place] [address] Care Team Providers Care Tortilla Maker Name Role Phone Name, Jemal HARMON Primary Care Provider [phone] Reason for Visit * Reason Onset Date Comments Follow-up 06/13/2022 Encounter Details Date Type Department Care Team ([facility] st Contact Info) Description 06/13/2022 Telephone [facility] MEDICINE [address] [place], [place] [phone] Name, MD Jemal [address] [place] [address] Follow-up Social History Tobacco Use Types Packs/Day [...] check and to assess current symptoms via [employer] Screen Printer Donell #[id number]. sidney Padron/josie left to return call. * Telephone Encounter - Sully Chintan - 06/13/2022 10:09 AM EST Tc from Pt stated came in the [facility] on [facility]04 they found a Bacteria in the Urine. Pt statedprovider told her to contact PCP for follow up. PCP Name documented in this encounter Plan of Treatment Upcoming Encounters Date Type Department Care Team ([facility] st Contact Info) Description 06/17/2025 3:00 PM EST Clinical Support [facility] DIABETES/NUTRITION [address] [place] [address] [place] [address] documented as of this encounter Visit Diagnoses Not on filedocumented in this encounter Care Teams Tortilla Maker Relationship Specialty Start Date End Date Name, MD Jemal [address] [place] [address] PCP - General Family Medicine 12/24/17 documented as of this encounter
--- OUTSIDE RECORDS SUMMARY | 2025-05-27 21:32 | XMS_ITS | Encounter Summary ---
Author Organization [employer] Address [address] [place] [address] Care Team Providers Care Hydro Plant Operator Name Role Phone Name, Jemal HARMON Primary Care Provider [phone] Reason for Visit * Reason Onset Date Comments Results 07/22/2023 Encounter Details Date Type Department Care Team ([facility] Contact Info) Description 07/22/2023 Telephone [facility] MEDICINE [address] [place], [place] [phone] Name, MD Jemal [address] [place] [address] Results Social History Tobacco Use Types Packs/Day [...] t he electric, gas, oil or water [employer] threatened to shut off services in your [...] PM EST T/c placed to pt via [employer] Incer [employer] #[id number]. Advised of benign result for right cervicallymph [...] Facility: [facility] Please contact pt at [phone] documented in this encounter Plan of Treatment Upcoming Encounters Date Type Department Care Team (Late st Contact Info) Description 06/17/2025 3:00 PM EST Clinical Support [facility] DIABETES/NUTRITION [address] [place], [place] [phone] Janel Wilkes [address] [place] [address] documented as of this encounter Visit Diagnoses Not on filedocumented in this encounter Additional Health Concerns Assessment Noted Time PHQ-9 Depression Total Score: 0 02/05/20 23 9:16 AM EDT documented as of this encounter Care Teams Hydro Plant Operator Relationship Specialty Start Date End Date Name, MD Jemal [address] [place] [address] PCP - General Family Medicine 12/24/17 documented as of this encounter
--- OUTSIDE RECORDS SUMMARY | 2025-05-27 21:32 | XMS_ITS | Clinical Summary ---
Author Organization [facility] Address [address] [place], [place] [phone] Phone Care Team Providers Care Sergeant Of Corrections Name Role Phone Name, Jemal HARMON Primary Care Provider [phone] Social History Tobacco Use Types Packs/Day Years [...] file Medical Devices Not on file Insurance [facility] [address] [place] [address] [place] [address] [place] [address] [place] [address] C3 ACO [facility] C3 ACO Care Teams Sergeant Of Corrections Relationship Specialty Start Date End Date Name, MD Jemal [address] [place] [id number] PCP - General Internal Medicine 07/16/23 Additional Source Comments The information contained in this document represents components of the legal health record. It is not the complete legal health record.[facility]
--- OUTSIDE RECORDS SUMMARY | 2025-05-27 21:32 | XMS_ITS | Encounter Summary ---
Author Organization [employer] Address [address] [place] [address] Care Team Providers Care Information Strategist Name Role Phone Name, Jemal HARMON Primary Care Provider [phone] Encounter Details Date Type Department Care Team ([facility] Contact Info) Description 02/09/[address] [facility] MED & PEDS [address] [place], [place] [phone] ProviderNadya MD Social History Tobacco Use Types [...] Description 06/17/2025 3:00 PM EST Clinical Support [facility] DIABETES/NUTRITION [address] [place], [place] [phone] Janel [address]kes [address] [place], [place] [phone] documented as of this encounter Procedures Procedure Name Priority Date/Time Associated Diagnosis Comments COLPOSCOPY Routine 05/06/2024 11:02 AM EDT documented in this encounter Results * Colposcopy (05/06/2024 11:02 AM EDT) Historical Provider IN CLINIC/BEDSIDE ORDERAB LES Final Result documented in this encounter Visit Diagnoses Not on filedocumented in this encounter Additional Health Concerns Assessment Noted Time PHQ-9 Depression Total Score: 0 05/12/20 24 10:51 AM EDT documented as of this encounter Care Teams Information Strategist Relationship Specialty Start Date End Date Name, MD Jemal [address] [place] [address] PCP - General Family Medicine 12/24/17 documented as of this encounter
--- OUTSIDE RECORDS SUMMARY | 2025-05-27 21:32 | XMS_ITS | Encounter Summary ---
Author Organization [employer] Address [address] [place] [address] Care Team Providers Care Meat Slicer Name Role Phone Name, Jemal HARMON Primary Care Provider [phone] Encounter Details Date Type Department Care Team (Latest Contact Info) Description 05/26/2025 Travel Social History Tobacco Use Types Packs/Day [...] AM EDT documented as of this encounter Functional Status * Over the past 2 weeks, how often have you been bothered by any of the following problems? Question Answer Date of Assessment Author Patient Health Questionnaire -2 Score 0 05/26/2025 9:42 AM Dave Schwartz MA * Little interest or pleasure in doing things Answer Date of Assessment Author Not at all 05/26/2025 9:42 AM Anna Schwartz MA * Feeling down, depressed, or hopeless Answer Date of Assessment Author Not at all 05/26/2025 9:42 AM Anna Schwartz MA * Trouble falling or staying asleep, [...] 05/26/2025 9:42 AM Anna Schwartz MA * Moving or speaking so slowly [...] Fernandez MA documented as of this encounter Plan of Treatment Upcoming Encounters Date Type Department Care Team (Late st Contact Info) Description 06/17/2025 3:00 PM EST Clinical Support [facility] DIABETES/NUTRITION [address] [place] [address] [place] [address] documented as of this encounter Visit Diagnoses Not on filedocumented in this encounter Additional Health Concerns Assessment Noted Time PHQ-9 Depression Total Score: 2 05/26/20 25 9:42 AM EST documented as of this encounter Care Teams Meat Slicer Relationship Specialty Start Date End Date Name, MD Jemal [address] [place] [address] PCP - General Family Medicine 12/24/17 documented as of this encounter
--- OUTSIDE RECORDS SUMMARY | 2025-05-27 21:32 | XMS_ITS | Encounter Summary ---
Author Organization [employer] Address [address] 7[address] [place] [address] Care Team Providers Care Video Recorder Mechanic Name Role Phone Name, Jemal HARMON Primary Care Provider [phone] Reason for Visit * Reason Onset Date Comments Nurse Triage 08/12/2023 Encounter Details Date Type Department Care Team ([facility] Contact Info) Description 08/12/2023 Telephone [facility] MEDICINE [address] [place], [place] [phone] Name, MD Jemal [address] [place] [address] Nurse Triage Social History Tobacco Use Types [...] t he electric, gas, oil or water [employer] threatened to shut off services in your [...] 12:03 PM EST Triage call with [place] [id number] Pt reports cough, sore throat. nasal congestion, [...] worse. Pt is advised to come to [facility] today which is open till [...] accepted this outcome Please contact pt at [phone] (Khmer) documented in this encounter Plan of Treatment Upcoming Encounters Date Type Department Care Team (Late st Contact Info) Description 06/17/2025 3:00 PM EST Clinical Support [facility] DIABETES/NUTRITION [address] [place] [address] [place] [address] documented as of this encounter Visit Diagnoses Not on filedocumented in this encounter Additional Health Concerns Assessment Noted Time PHQ-9 Depression Total Score: 0 02/05/20 23 9:16 AM EDT documented as of this encounter Care Teams Video Recorder Mechanic Relationship Specialty Start Date End Date Name, MD Jemal [address] [place] [address] PCP - General Family Medicine 12/24/17 documented as of this encounter
--- OUTSIDE RECORDS SUMMARY | 2025-05-27 21:33 | XMS_ITS | Encounter Summary ---
Author Organization [employer] Address [address] [place] [address] Care Team Providers Care Associate Dentist Name Role Phone Name, Jemal HARMON Primary Care Provider [phone] Encounter Details Date Type Department Care Team (Latest Contact Info) Description 05/25/2025 Travel Social History Tobacco Use Types Packs/Day [...] 3:00 PM EST Clinical Support [facility] DIABETES/NUTRITION [address] [place] [address] [place] [address] documented as of this encounter Visit Diagnoses Not on filedocumented in this encounter Additional Health Concerns Assessment Noted Time PHQ-9 Depression Total Score: 0 05/12/20 24 10:51 AM EDT documented as of this encounter Care Teams Associate Dentist Relationship Specialty Start Date End Date Name, MD Jemal [address] [place] [address] PCP - General Family Medicine 12/24/17 documented as of this encounter
== END 2025-05-27 14:30 | disposition home or self-care (01) ==
LOC: HO.US 14:29
PROVIDERS: PCP Internal Medicine Geriatric Medicine; Visit Provider Obstetrics & Gynecology
DX: R10.20 Pelvic and perineal pain unspecified side (principal)
CPT/HCPCS: 76830; 76856

== ENCOUNTER → 2025-05-27 14:30 | Outpatient (BNV) | payer MEDICAID, SELFPAY | PROVIDERS: PCP Internal Medicine Geriatric Medicine; Visit Provider Radiology Diagnostic Ultrasound | DX: R10.20 Pelvic and perineal pain unspecified side (principal) | CPT/HCPCS: 76830; 76856 ==

== ENCOUNTER 2025-06-07 13:29 | Outpatient (AMB) | payer MEDICAID, SELFPAY ==
--- NOTE | 2025-06-07 13:31 | A.OFFVIS_ITS ---
Vital Signs 06/07/25 13:32 Height 5 ft 1 in Weight 175 lb BMI 33.1 BP 108/70 Intake Visit Reasons: 3-4 colpo results Child Welfare Consultant Required: Yes Child Welfare Consultant Language: Molding Process Technician Services: Child Welfare Consultant Present (in person) Child Welfare Consultant Name: Aurora GARCIA Information Interpreted: non-clinical & clinical Accompanied by: Self / Same As Patient Allergies aspirin Allergy (Verified 06/07/25 13:35) Unknown Is last menstrual period known: Yes HPI Comments Details: Presenting post colpo for follow-up. The patient is doing well with no com plaints. The pathology showed the following: A. Endocervix, curettage: Superficial strips of endocervical epithelium within normal limits; mucoinflammatory material. B. Cervix, 1 o'clock, biopsy: Inflamed cervical transformation zone mucosa with reactive changes. C. Cervix, 7 o'clock, biopsy: - Low-grade squamous intraepithelial lesion (ANDERSON 1). - Endocervical epithelium within normal limits. D. Cervix, 11 o'clock, biopsy: Inflamed cervical transformation zone mucosa with reactive changes [facility] Medical History (Updated 06/07/25 @ 13:42 by Porfirio Rendon MD) Dysplasia of cervix, low grade (ANDERSON 1) Depressed History of eclampsia History of high blood pressure Surgical History History of laparoscopic cholecystectomy (02/28/23) Hx of appendectomy Hx of tubal ligation Family History Father CVD (cardiovascular disease) Mother Asthma History of anxiety History of fibromyalgia Social History Are you a primary care technician to a significant other at home: Yes Do you presently have visiting nurse or other home services: No Alcohol intake: current Alcohol intake frequency: a few times a month Patient Tobacco Use Status: Never used Tobacco Current occupational status: employed 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 Sexual orientation: Straight/Heterosexual Gender identity: Female Female Reproductive History Menstrual Age of Menarche: 10 Review of Systems Const All systems reviewed & are unremarkable except as noted in HPI and below Reports as per HPI and Reports no additional complaints GI Reports no additional complaints Reports no additional complaints Physical Exam Vital Signs: Last Vital Signs BP 108/70 06/07/25 13:32 BMI result Body Mass Index 33.1 Assessment & Plan Assessment & Plan (1) Dysplasia of cervix, low grade (ANDERSON 1): Comment: 05/06 ANDERSON 1 02/04 ascus/HPV 16 positive, 06/07 colpo biopsy ANDERSON 1 Code(s): N87.0 - Mild cervical dysplasia Category: Medical Plan: Discussed with the patient the pathology results of the colposcopy biopsies & endocervical curettage ( mild dysplasia-ANDERSON 1). Discussed with the patient the sensitivity specificity, positive and negative predictive value in detecting cervical cancer in addition discussed the regression, persistence and progression rates. Recommended co-testing in 12 months, if cytology and or HPV are abnormal will proceed was colposcopy biopsy and endocervical curettage, if lesions gets worse or stays persistent for 2 years will proceed with loop electric excision procedure. Instructions given to the patient to schedule a co test appointment in 1 year. All questions answered the patient verbalized understanding. Coding Level of Care Code Est Pt Level 3 (35571) Diagnoses Dysplasia of cervix, low grade (ANDERSON 1) N87.0
[2025-06-07 13:32] VITALS: BP 108/70; BMI 33.1
--- OUTSIDE RECORDS SUMMARY | 2025-06-07 17:22 | XMS_ITS | Encounter Summary ---
Author Organization [employer] Address [address] [place] [address] Care Team Providers Care Electrical Instrument Maker Name Role Phone Name, Jemal HARMON Primary Care Provider [phone] Reason for Visit * Reason Onset Date Comments Nurse Triage 08/12/2023 Encounter Details Date Type Department Care Team ([facility] Contact Info) Description 08/12/2023 Telephone [facility] MEDICINE [address] [place], [place] [phone] Name, MD Jemal [address] [place] [address] Nurse Triage Social History Tobacco Use Types [...] t he electric, gas, oil or water [employer] threatened to shut off services in your [...] 12:03 PM EST Triage call with pacific clerical adjuster ID [id number] Pt reports cough, sore throat. nasal congestion, [...] worse. Pt is advised to come to [facility] today which is open till [...] accepted this outcome Please contact pt at [phone] (Danish) documented in this encounter Plan of Treatment Upcoming Encounters Date Type Department Care Team (Late st Contact Info) Description 06/17/2025 3:00 PM EST Clinical Support [facility] DIABETES/NUTRITION [address] [place] [address] [place] [address] documented as of this encounter Visit Diagnoses Not on filedocumented in this encounter Additional Health Concerns Assessment Noted Time PHQ-9 Depression Total Score: 0 02/05/20 23 9:16 AM EDT documented as of this encounter Care Teams Electrical Instrument Maker Relationship Specialty Start Date End Date Name, MD Jemal [address] [place] [address] PCP - General Family Medicine 12/24/17 documented as of this encounter
--- OUTSIDE RECORDS SUMMARY | 2025-06-07 17:22 | XMS_ITS | Encounter Summary ---
Author Organization [employer] Address [address] [place] [address] Care Team Providers Care Studio Sales Associate Name Role Phone Name, Jemal HARMON Primary Care Provider [phone] Reason for Visit * Reason Onset Date Comments Results 07/22/2023 Encounter Details Date Type Department Care Team ([facility] Contact Info) Description 07/22/2023 Telephone [facility] MEDICINE [address] [place], [place] [phone] Name, MD Jemal [address] [place] [address] Results Social History Tobacco Use Types Packs/Day [...] t he electric, gas, oil or water [employer] threatened to shut off services in your [...] PM EST T/c placed to pt via [employer] #[id number]. Advised of benign result for right cervicallymph [...] Facility: [facility] Please contact pt at [phone] documented in this encounter Plan of Treatment Upcoming Encounters Date Type Department Care Team (Late st Contact Info) Description 06/17/2025 3:00 PM EST Clinical Support [facility] DIABETES/NUTRITION [address] [place], [place] [phone] Janel [address] [place] [address] documented as of this encounter Visit Diagnoses Not on filedocumented in this encounter Additional Health Concerns Assessment Noted Time PHQ-9 Depression Total Score: 0 02/05/20 23 9:16 AM EDT documented as of this encounter Care Teams Studio Sales Associate Relationship Specialty Start Date End Date Name, MD Jemal [address] [place] [address] PCP - General Family Medicine 12/24/17 documented as of this encounter
--- OUTSIDE RECORDS SUMMARY | 2025-06-07 17:22 | XMS_ITS | Encounter Summary ---
Author Organization [employer] Address [address] [place] [address] Care Team Providers Care Warehouse Examiner Name Role Phone Name, Jemal HARMON Primary Care Provider [phone] Reason for Visit * Reason Onset Date Comments Follow-up 06/13/2022 Encounter Details Date Type Department Care Team ([facility] st Contact Info) Description 06/13/2022 Telephone [facility] MEDICINE [address] [place], [place] [phone] Name, MD Jemal [address] [place] [address] Follow-up Social History Tobacco Use Types Packs/Day [...] check and to assess current symptoms via [employer] Donell #[id number]. sidney Padron/josie left to return call. * Telephone Encounter - Sully Chintan - 06/13/2022 10:09 AM EST Tc from Pt stated came in the Walk in [place] on 06/04 they found a Bacteria in the Urine. Pt statedprovider told her to contact PCP for follow up. PCP Name documented in this encounter Plan of Treatment Upcoming Encounters Date Type Department Care Team ([facility] st Contact Info) Description 06/17/2025 3:00 PM EST Clinical Support [facility] DIABETES/NUTRITION [address] [place] [address] [place] [address] documented as of this encounter Visit Diagnoses Not on filedocumented in this encounter Care Teams Warehouse Examiner Relationship Specialty Start Date End Date Name, MD Jemal [address] [place] [address] PCP - General Family Medicine 12/24/17 documented as of this encounter
--- OUTSIDE RECORDS SUMMARY | 2025-06-07 17:23 | XMS_ITS | Encounter Summary ---
Author Organization [employer] Address [address] [place] [address] Care Team Providers Care Senior Designer Name Role Phone Name, Jemal HARMON Primary Care Provider [phone] Encounter Details Date Type Department Care Team ([facility] Contact Info) Description 02/09/2025 Orders Only [facility] CHC MED & PEDS [address] [place], [place] [phone] ProviderNadya MD Social History Tobacco Use Types [...] Description 06/17/2025 3:00 PM EST Clinical Support [facility] DIABETES/NUTRITION [address] [place], [place] [phone] Janel [address] [place], [place] [phone] documented as of this encounter Procedures Procedure [...] documented as of this encounter Care Teams Senior Designer Relationship Specialty Start Date End Date Name, MD Jemal [address] [place] [address] PCP - General Family Medicine 12/24/17 documented as of this encounter
--- OUTSIDE RECORDS SUMMARY | 2025-06-07 17:23 | XMS_ITS | Encounter Summary ---
Author Organization [employer] Address [address] [place] [address] Care Team Providers Care General Accountant Name Role Phone Name, Jemal HARMON Primary Care Provider [phone] Reason for Visit * Reason Onset Date Comments Appointment Request 03/28/2025 Encounter Details Date Type Department Care Team ([facility] Contact Info) Description 03/28/2025 Telephone [facility] MEDICINE [address] [place], [place] [phone] Name, MD Jemal [address] [place] [address] Appointment Request Social History Tobacco Use Types [...] from pt requesting an apt with the therapeutic program worker. Contact pt at [phone] documented in this encounter Plan of Treatment Upcoming Encounters Date Type Department Care Team (Late st Contact Info) Description 06/17/2025 3:00 PM EST Clinical Support [facility] DIABETES/NUTRITION [address] [place] [address] Janel Wilkes, JOSE [address] [place] [address] documented as of this encounter Visit Diagnoses Not on filedocumented in this encounter Additional Health Concerns Assessment Noted Time PHQ-9 Depression Total Score: 0 05/12/20 24 10:51 AM EDT documented as of this encounter Care Teams General Accountant Relationship Specialty Start Date End Date Name, MD Jemal [address] [place] [address] PCP - General Family Medicine 12/24/17 documented as of this encounter
--- OUTSIDE RECORDS SUMMARY | 2025-06-07 17:23 | XMS_ITS | Clinical Summary ---
Author Organization [employer] Address [address] [place] [address] Care Team Providers Care Manager Community Development Name Role Phone Name, Jemal HARMON Primary Care Provider [phone] Allergies Active Allergy Reactions Criticality Noted Date [...] 9 tablet 06/09/20 24 Active sodium chloride (Candler Nasal [place]) 0.65 % nasal sprayIndication s:Cough, unspecified type,Nasal [...] at bedtime. 30 tablet 11 02/29/20 25 Active Tirzepatide (Mounjaro) 2.5 MG/0.5ML solution auto-injectorIn dications:Obesi ty (BMI 30-39.9),Predia betes Inject 2.5 mg under the skin 1 (one) time per week. 2 mL 05/26/20 25 025 Active potassium chloride CR (Klor-Con M20) 20 MEQ ER tabletIndicatio ns:Hypokalemia Take 1 tablet (20 mEq) by mouth Once per day. Do not crush or chew. 30 tablet 05/26/20 25 026 Active potassium chloride CR (Klor-Con M20) 20 [...] Dysplasia of cervix, low grade (ANDERSON 1) 5 Prediabetes 05/26/2025 Cough 11/02/2024 Assessment & Plan [...] refer patient to the emergency room at [facility] case presented to provider Nolvia Left anterior [...] injections and possible Epi Pen rx through senior quality methods specialist during upcoming appt in 1-2 weeks [...] Encounters Date Type Department Care Team Description 05/30/2025 Telephone [facility] MEDICINE [address] [place] [address] NameJemal MD Prior Authorization ([place]) 05/26/2025 9:00 AM EST Office Visit [address] [address] Jemal Briggs MD Prediabetes (Primary Dx); Obesity (BMI 30-39.9); Hypokalemia; Dysplasia of cervix, low grade (ANDERSON 1) 05/26/2025 Travel 05/25/2025 Travel 05/13/2025 Orders Only GENERIC EXTERNAL DATA DEPARTMENT Provider, Generic External Data 04/26/2025 2:30 PM EDT Nutrition [facility] DIABETES/NUTRITION [address] [place] [address] Obesity (BMI 30-39.9) 04/26/2025 Travel 04/11/2025 Orders Only [facility] External Provider, [facility] 03/30/[address] Nutrition appt 03/28/2025 Telephone [facility] [address] [place] [address] Name, MD Jemal Appointment Request from Last 3 Months Immunizations Immunization Administration [...] Description 06/17/2025 3:00 PM EST Clinical Support [facility] DIABETES/NUTRITION [address] [place] [address] [place] [address] Health Maintenance Due Date Last Done Comments [...] 05/25/2026 05/25/2025 Depression Screening 05/26/2026 05/26/2025, 05/26/20 Tobacco Screening 05/26/2026 05/26/2025 Mammogram 05/20/2027 05/20/2025, [...] RETROPERITONEAL COMPLETE Routine 04/11/2025 1:49 PM EDT HEMOGLOBIN A1C Routine 02/28/2025 10:42 AM EDT [...] PM EST Narrative 05/27/2025 4:41 PM EST [place] [address] Ultrasound Report Signed Patient: Shannan Jacobsen MR#: [id number] [birth year] : 1985 Acct:[id number] Age/Sex: 40 / F ADM Date: 05/27/25 Loc: .US Attending Dr: Porfirio Rendon MD Ordering Physician: Porfirio Rendon MD Date of Service: 05/27/25 Procedure(s): US pelvic and transvaginal Accession Number(s): [id number] cc: Jemal Briggs MD; Porfirio Rendon MD [...] by: Vernon Silva MD 05/27/2025 04:38 PM [facility] Dictated By: Vernon Silva MD Signed By: <Electronically signed by Vernon Silva MD in OV> 05/27/25 1638 DD/ 1440 TD/TT: 05/27/25 1448 Manufacturing Maintenance Technician: Procedure Note Donotuseinterpreter, Image - 05/27/[address] [address] Ultrasound Report Signed Patient: Yazmin Jacobsen#: [id number] 08 : 1985Acct:[id number] Age/Sex: 40 / FADM Date: 05/27/25 Loc: HO.US Attending Dr: Porfirio Rendon MD Ordering Physician: Porfirio Rendon MD Date of Service: 05/27/25 Procedure(s): US pelvic and transvaginal Accession Number(s): [id number] cc: Brigitte,Jemal HARMON; Porfirio Rendon MD Reason for Exam: [...] 05/27/25 1638 DD/ 1440 TD/TT: 05/27/25 1448 Manufacturing Maintenance Technician: DAWN us [facility] External Provider IMG US PROCEDURES Final Result * BI Mammogram Screening Tomosynthesis Bilateral (05/20/2025 3:10 PM EST) Anatomical Region Laterality Modality Breast Bilateral Mammography 05/20/2025 3:10 PM EST Narrative 05/25/2025 10:59 AM EST [address] [place] [address] Mammography Report Signed Patient: Shannan Jacobsen MR#: [id number] 08 : 1985 Acct:[id number] Age/Sex: 40 / F ADM Date: 05/20/25 Loc: [place] Attending Dr: Jemal Briggs MD Ordering Physician: Jemal Briggs MD Results: 1Negative Date of Service: 05/20/25 Follow Up: 1 Year From Orig inal Mammogram Procedure(s): MM tomosynthesis screening BI Accession Number(s): [id number] cc: Jemal Briggs MD Reason For Exam: [...] by: Anabelle Quinones DO 05/25/2025 10:56 AM [facility] Dictated By: Anabelle Quinones DO Signed By: <Electronically signed by Anabelle Quinones DO in OV> 05/25/25 1056 DD/ 1510 TD/TT: 05/20/25 1515 Manufacturing Maintenance Technician: Procedure Note Donotuseinterpreter, Image - 05/25/2025 [facility] [address] [place], [place] [address] Mammography Report Signed Patient: Sonay JacobsenR#: [id number] 08 : 1985Acct:[id number] Age/Sex: 40 / FADM Date: 05/20/25 Loc: [place] Attending Dr: Jemal Briggs MD Ordering Physician: Name,Jemal MDResults: 1Negative Date of Service: 05/20/25Follow Up: 1 Year From Orig ina Mammogram Procedure(s): MM tomosynthesis screening BI Accession Number(s): [id number] cc: Name,Jemal HARMON Reason For Exam: SCREENING EXAMINATION: MM SCREENING [...] 05/25/25 1056 DD/ 1510 TD/TT: 05/20/25 1515 Manufacturing Maintenance Technician: Jemal Briggs MD [facility] BI PROCEDURES Final Result * Hematoxylin and Eosin Stain (05/13/2025 3:56 PM EDT) 05/13/2025 3:56 PM EDT 05/16/2025 7:12 AM EST [facility] - 05/17/2025 10:57 AM EST ----- ------- Name: Shannan Jacobsen Age/Sex: 40/F : 1985 [id number]#: [id number] Attend Dr: Porfirio Rendon MD Re05/13/25 Status: [facility] REF Location: [facility] Disch: ----- ------- SPEC : [id number] RECD: 05/16/25 STATUS: ANTONIO FERMIN NUM: [id number] HERMELINDA: 05/13/25-1556 [facility] DR: Porfirio Rendon MD ENTERED: 05/16/25 [...] Shannan Jacobsen Age/Sex: 40/F : 1985 Unit#: [id number] Attend Dr: Porfirio Rendon MD Re05/13/25 Status: DEP [facility] Disch: ----- ------- SPEC : [id number] RECD: 05/16/25 STATUS: ANTONIO TUTTLE NUM: [id number] HERMELINDA: 05/13/25-1556 [facility] DR: Porfirio Rendon MD ENTERED: 05/16/25 SP TYPE: Surgical OTHR DR: Jemal Briggs MD ORDERED: HE Stain/11, Gross Micro L4/4 IHC S/NG Disclaimer NOTE: Unless otherwise stated, all tissue is formalin-fixed and paraffin-embedded. Some or all of the immunohistochemical tests reported herein may have been developed and their performance characteristics determined by [facility]. They have not been cleared or approved by the U.S. Food and Drug Administration (FDA). However, the FDA has determined that such clearance or approval is not necessary. This laboratory is certified under the Clinical Laboratory Improvement Amendments of 1988 (CLIA) as qualified to perform high complexity clinical laboratory testing. Copies To: Jemal Briggs MD [address] [place] [address] Porfirio Rendon MD [facility] Women's Services [address] [place] [phone] ----- ------- Signed (signature on file) Raul Hollingsworth MD 05/17/25 1057 ----- ------- END OF REPORT us Generic External Data Provider LAB BLOOD ORDERAB LES Final Result [facility] [address] [place], [place] [phone] * US Retroperitoneal Complete (04/11/2025 1:49 PM EDT) Anatomical Region Laterality Modality Ultrasound 04/11/2025 1:49 PM EDT Narrative 04/11/2025 2:16 PM EDT [place] [address] Ultrasound Report Signed Patient: Shannan Jacobsen MR#: [id number] 08 : 1985 Acct:[id number] Age/Sex: 40 / F ADM Date: 04/11/25 Loc: HO.US Attending Dr: Jazmín ZUNIGA Ordering Physician: Jazmín Courtney Date of Service: 04/11/25 Procedure(s): US retroperitoneal comp Accession Number(s): [id number] cc: Jazmín Courtney [facility]; Name,Jemal HARMON Reason for Exam: R10.9 [...] 04/11/25 1413 DD/ 1349 TD/TT: 04/11/25 1401 Manufacturing Maintenance Technician: Procedure Note Donotuseinterpreter, Image - 04/11/[address] [address] Ultrasound Report Signed Patient: Yazmin Jacobsen#: [id number] 08 : 1985Acct:[id number] Age/Sex: 40 / FADM Date: 04/11/25 Loc: HO.US Attending Dr: Jazmín ZUNIGA Ordering Physician: Jazmín Courtney Date of Service: 04/11/25 Procedure(s): US retroperitoneal comp Accession Number(s): [id number] cc: Jazmín Courtney; Name,Jemal HARMON Reason for [...] 04/11/25 1413 DD/ 1349 TD/TT: 04/11/25 1401 Manufacturing Maintenance Technician: [facility] External Provider IMG US PROCEDURES Final Result * Hemoglobin A1c (02/28/2025 10:42 AM EDT) Hemoglobin A1c 6.0 <6.0 % [facility] Comment:Hemoglobin A1C Refer ence Range Adults: 4.8 - 6.0 % Non diabetic: < 6.0 % Goal: < 7.0 %Additional Action Suggested: > 8.0 %Note: Hemoglobin A1c results are invalid for patients with abnormal amounts of HbF. Blood transfusions may impact the HbA1c concentration in the patient sample. Estimated Average Glucose 126 mg/dL [facility] Comment:eAG = Estimated ave rage glucose which is %A1C expressed asaverage glucose, using the formula of the K5X-ClgkomsXpxizhx Glucose study (ADAG), Diabetes Care, Vol.31,#8,2007 Blood Venous blood specimen / Unknown 02/28/2025 10:42 AM EDT 02/28/2025 11:15 AM EDT us Jemal Name LAB BLOOD ORDERABLES Final Resul t [facility] [address] [place] [phone] * (ABNORMAL) HPV DNA, Low/High Risk (01/18/2025 3:30 PM EDT) HPV High Risk Negative Negative [facility] HPV Genotype 16 Positive(A) Negative [facility] HPV Genotype 18 Negative Negative [facility] Comment:HPV testing performe d at [facility] (CLIA#[id number]), [address] [place] [address].Testing for HPV was performed using the Kim [...] Provider LAB BLOOD ORDERAB LES Final Result [facility] [address] [place] [phone] * Pap Smear (01/18/2025 3:30 PM EDT) 01/18/2025 3:30 PM EDT 01/19/2025 8:30 AM EDT Narrative [facility] - 01/25/2025 2:41 PM EDT ----- ------- Name: Shannan Jacobsen Age/Sex: 40/F : 1985 Unit#: [id number] Attend Dr: Porfirio Rendon MD Re01/18/25 Status: DEP REF Location: [facility] Disch: ----- ------- SPEC : [id number] RECD: 01/19/25 STATUS: ANTONIO TUTTLE NUM: [id number] HERMELINDA: 01/18/25 [facility] DR: Porfirio Rendon MD ENTERED: 01/19/25 [...] and HPV testing will be performed at [facility] (CLIA #[id number]), [address] [place] [address]. Testing for HPV was performed using the [employer] [facility] system. The presence of HPV in the [...] detected. All professional services are performed by [facility] ([address] [place] [address]; ; CLIA #[id number]). The PAP Test is a screening procedure with the inherent possibility of both false negative and false positive results. Results should be interpreted in the context of historic and current clinical findings. Reliability of the PAP Test is enhanced by performing the test on a regular repetitive basis. CONTINUED ON NEXT PAGE ----- ------- Name: Shannan Jacobsen Age/Sex: 40/F : 1985 Unit#: [id number] Attend Dr: Porfirio Rendon MD Re01/18/25 Status: DEP REF Location: [facility] Disch: ----- ------- SPEC : [id number] RECD: 01/19/25 STATUS: ANTONIO TUTTLE NUM: [id number] HERMELINDA: 01/18/25 [facility] DR: Porfirio Rendon MD ENTERED: 01/19/25 SP TYPE: Pap Smr OTHR DR: Jemal Briggs MD ORDERED: Pap Smear, PAP path review Copies To: Jemal Briggs MD [address] [place] [phone] Porfirio Rendon MD [facility] Women[facility] Services [address] [place] [address] [place] [phone] ----- ------- Signed (signature on file) Raul Hollingsworth MD 01/25/25 1441 ----- ------- END OF REPORT Generic External Data Provider LAB CYTOLOGY BLANCA PETERSON Final Result [facility] [address] [place] [address] [phone] * Colposcopy (05/06/2024 11:02 AM EDT) Historical Provider MD IN CLINIC/BEDSIDE ORDERAB LES Final Result * Hepatitis C Antibody with Reflex to HCV, RNA, Quantitative, Real-Time PCR (08/09/2022 10:19 AM EST) Hepatitis C Antibody NON-REACT JOSE NON-REACT JOSE [employer] [place] [facility] Index <0.02 <1.00 [employer] [place] [facility] Comment: HCV antibody was non-reactive. There is no laboratory evidence of HCV infection. In most cases, no further action is required. However, if recent HCV exposure is suspected, a test for HCV RNA (test code 34586) is suggested. For additional information please refer to http://education.INgrooves/faq/VZW71e3 (This link is being provided for informational/ educational purposes only.) Blood Venous blood specimen / Unknown 08/09/2022 10:19 AM EST 08/09/2022 10:20 AM EST Narrative [facility] - 08/12/2022 6:40 PM EST FASTING:UNKNOWN FASTING: UNKNOWN Janet Mak FELT CEMENTER LAB BLOOD ORDERABLES Final Res ult [facility] [address] [facility], [address], [place] [address] [employer] [place] [facility] [address] [facility], (Nl2) [place] [address] * HIV-1/2 Antigen and Antibodies, Fourth Generation, with Reflexes (08/09/2022 10:19 AM EST) HIV Antigen/Antibody, 4th Generation NON-REAC TIVE NON-REAC TIVE [employer] [place] [facility] Comment: HIV-1 antigen and HIV-1/HIV-2 antibodies [...] purpose. For additional information please refer to http://education.INgrooves/faq/XQM518 (This link is being provided for informational/ educational purposes only.) The performance of this assay has not been clinically validated in patients less than 2 years old. Blood Venous blood specimen / Unknown 08/09/2022 10:19 AM EST 08/09/2022 10:20 AM EST Narrative [facility] - 08/12/2022 6:40 PM EST FASTING:UNKNOWN FASTING: UNKNOWN Janet Mak [facility] LAB BLOOD ORDERABLES Final Res ult [facility] [address] [place] [address] [employer] [place] [employer] [address] [facility], (Nl2) [place] [address] * (ABNORMAL) LIPID PANEL, STANDARD (07/24/2020 3:40 [...] LDL-C. Xavier CABRERA et al. SCOTT. 2013;310(19): 0852-7060 (http://education.ElectroJet.[employer] Medical/faq/SQK264) Non-HDL Cholesterol 110 <130 mg/dL (calc) [facility] Comment: For patients with diabetes plus 1 major ASCVD risk factor, treating to a non-HDL-C goal of <100 mg/dL (LDL-C of <70 mg/dL) is considered a therapeutic option. Triglycerides 128 <150 mg/dL [facility] 07/24/2020 3:40 PM EST us Jemal Briggs MD LAB BLOOD ORDERABLES Final Resul t [facility] [address] from Last 3 Months or Most Recently Relevant to Health Maintenance Insurance [employer] C3 Care Teams Manager Community Development Relationship Specialty Start Date End Date Name, MD Jemal [address] [place] [address] PCP - General Family Medicine 12/24/17
--- OUTSIDE RECORDS SUMMARY | 2025-06-07 17:23 | XMS_ITS | Clinical Summary ---
Author Organization [facility] Address [address] [place], [place] [phone] Phone Care Team Providers Care Cement Finisher Apprentice Name Role Phone Name, Jemal HARMON Primary Care Provider [phone] Social History Tobacco Use Types Packs/Day Years [...] file Medical Devices Not on file Insurance [facility] [employer] [address] [place] [address] [place] [address] [place] [address] [place] [address] C3 ACO [facility] C3 ACO Care Teams Cement Finisher Apprentice Relationship Specialty Start Date End Date Name, MD Jemal [address] [place] [address] PCP - General Internal Medicine 07/16/23 Additional Source Comments The information contained in this document represents components of the legal health record. It is not the complete legal health record.[facility]
== END 2025-06-07 13:51 | disposition home or self-care (01) ==
LOC: HO.HWS 13:29
PROVIDERS: PCP Internal Medicine Geriatric Medicine; Visit Provider Obstetrics & Gynecology
DX: N87.0 Mild cervical dysplasia (principal)
CPT/HCPCS: 99213

== ENCOUNTER 2025-06-07 13:29 | Outpatient (REF) | payer MEDICAID, SELFPAY | END 2025-06-07 13:30 | disposition home or self-care (01) | LOC: HO.LAB 13:29 | PROVIDERS: PCP Internal Medicine Geriatric Medicine; Visit Provider Obstetrics & Gynecology | DX: R10.A3 Flank pain, bilateral (principal); N39.0 Urinary tract infection, site not specified; N20.0 Calculus of kidney; N87.0 Mild cervical dysplasia | CPT/HCPCS: 81003; 87086; 87088; 99212 ==

== ENCOUNTER 2025-06-07 15:13 | Outpatient (AMB) | payer MEDICAID, SELFPAY ==
--- NOTE | 2025-06-07 15:24 | A.OFFVIS_ITS ---
Intake Visit Reasons: 6m/US Intake Note: Patient is present for 6M/US Urology Medication:NONE Antibiotic Allergy:NONE Blood Thinner:NONE Chief Scientific Officer Required: Yes Chief Scientific Officer Services: Chief Scientific Officer Present Chief Scientific Officer Name: Shola [id number] Allergies aspirin Allergy (Verified 06/07/25 15:56) Unknown Medication List - Last Reconciled 06/07/25 by NADIA Wu albuterol sulfate 90 mcg/actuation (Ventolin HFA) inhalation Q4H PRN chlorthalidone 25 mg PO DAILY fexofenadine (Jenny Allergy) 180 mg PO DAILY fluticasone propionate 50 mcg/actuation intranasal ketotifen fumarate 0.025%(0.035%) 1 drp ophthalmic (eye) BID PRN montelukast 10 mg PO DAILY HPI Comments Details: Shannan is a very pleasant 40 year-old Greek-speaking female patient of Dr. Briggs who was accompanied by her partner at today's office visit. She has a past medical history of depression and hypertension. She presents to the office today for follow-up of her nephrolithiasis. In discussion with the patient today she reports to be doing and feeling well. She reports since her last office visit here approximately 6 months ago she has experienced episodes of flank pain b ilaterally. She describes these episodes as self-limiting and infrequent. Recent retroperitoneal ultrasound results reviewed with the patient today 04/07 bilateral kidneys with normal parenchymal echotexture and thickness. No renal masses, renal calculi or hydronephrosis noted bilaterally. The urinary bladder is unremarkable. Postvoid bladder volume 5 mL. In office urinalysis results reviewed with the patient today 3+ leukocytes negative nitrates. She does report noting intermittent episodes of dysuria. We did discuss potential for UTI given urinalysis as well as dysuria. She otherwise denies urinary urgency, urinary frequency, incontinence, nocturia, hematuria, foul smelling urine, changes to urinary stream, fever, and or chills. All questions were answered. She otherwise offers no other issues or concerns at this time. [facility] Medical History Dysplasia of cervix, low grade (ANDERSON 1) Depressed History of eclampsia History of high blood pressure Surgical History History of laparoscopic cholecystectomy (02/28/23) Hx of appendectomy Hx of tubal ligation Family History Father CVD (cardiovascular disease) Mother Asthma History of anxiety History of fibromyalgia Social History Are you a primary daycare manager to a significant other at home: Yes Do you presently have visiting nurse or other home services: No Alcohol intake: current Alcohol intake frequency: a few times a month Patient Tobacco Use Status: Never used Tobacco Current occupational status: employed 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 Sexual orientation: Straight/Heterosexual Gender identity: Female Female Reproductive History Menstrual Age of Menarche: 10 Review of Systems Const All systems reviewed & are unremarkable except as noted in HPI and below Results AMB Urinalysis, Automated UA Leukoctes 500 Anthony/uL Last Edit by JOSEPH Patton on 06/07/25 16:48 UA Nitrite Negative Last Edit by JOSEPH Patton on 06/07/25 16:48 UA Urobilinogen 0.2 mg/dL Last Edit by JOSEPH Patton on 06/07/25 16:4 8 UA Protein 15 mg/dL Last Edit by JOSEPH Patton on 06/07/25 16:48 UA pH 6.0 Last Edit by JOSEPH Patton on 06/07/25 16:48 UA Blood 0 Ghulam/uL Last Edit by JOSEPH Patton on 06/07/25 16:48 UA Specific Cathay 1.020 Last Edit by JOSEPH Patton on 06/07/25 16: 48 UA Ketone Negative Last Edit by JOSEPH Patton on 06/07/25 16:48 UA Bilirubin 0 mg/dL Last Edit by JOSEPH Patton on 06/07/25 16:48 UA Glucose 0 mg/dL Last Edit by JOSEPH Patton on 06/07/25 16:48 Results Reviewed Results Reviewed: Laboratory Last Values Urine pH (Auto) 6.0 06/07/25 16:47 Specific Cathay (Auto) 1.020 06/07/25 16:47 Urine Protein (Auto) 15 mg/dL 06/07/25 16:47 Glucose (UA)(Auto) 0 mg/dL 06/07/25 16:47 Urine Ketones (Auto) Negative 06/07/25 16:47 Urine Blood (Auto) 0 Ghulam/uL 06/07/25 16:47 Urine Nitrite (Auto) Negative 06/07/25 16:47 Urine Bilirubin (Auto) 0 mg/dL 06/07/25 16:47 Urine Urobilinogen (Auto) 0.2 mg/dL 06/07/25 16:47 Leukocyte Esterase (Auto) 500 Anthony/uL 06/07/25 16:47 Date of Service: 04/11/25 Procedure(s): US retroperitoneal comp FINDINGS: Right kidney: The right kidney measures 11.1 x 5.3 x 6.0 cm. Renal parenchymal echotexture and thickness are normal. There are no masses. There is no hydronephrosis or renal calculi. Left Kidney: The left kidney measures 11.0 x 5.9 x 5.2 cm. Renal parenchymal echotexture and thickness are normal. There is an 8 x 10 x 8 mm cyst in the interpolar region. There is no hydronephrosis or renal calculi. The urinary bladder is unremarkable. Bilateral ureteral jets are identified. Before voiding, the urinary bladder measured 7.3 x 4.8 x 7.6 cm, for an estimated volume of 139 mL. After voiding, the urinary bladder measured 2.8 x 1.2 x 2.4 cm, for an estimated volume of 4.3 mL. IMPRESSION: 1. 10 mm left renal cyst. Otherwise unremarkable retroperitoneal ultrasound. 2. Post void bladder residual of 4.3 mL. Assessment & Plan Assessment & Plan (1) Flank pain: Code(s): R10.9 - Unspecified abdominal pain Category: Medical (2) UTI (urinary tract infection): Code(s): N39.0 - Urinary tract infection, site not specified Category: Medical Plan In office urinalysis results with the patient today; as noted above; will send for urine culture; will await results Start Bactrim as discussed and prescribed. Most recent retroperitoneal ultrasound results with the patient today; as noted above. We did discussed importance of adequate hydration relation to nephrolithiasis as well as overall health and well-being. All questions were answered. We discussed worsening symptoms. Follow-up in 3 months with [facility]; or sooner with any issues, concerns, and or questions. Orders: Orders Urine Culture 06/07/25 N39.0 - Urinary tract infection, site not specified AMB Urinalysis Automated 06/07/25 Z13.9 - Encounter for screening, unspecified Medications: New sulfamethoxazole-trimethoprim 800-160 mg (Bactrim DS) 1 tab PO BID 10 tabs 0RF 5 days N39.0 - Urinary tract infection, site not specified Patient Instructions: The patient had an opportunity to ask questions regarding the treatment plan. All questions were answered. Physical exam, labs, and imaging were discussed and reviewed in detail. As well as risks, benefits, and discussion of treatment choices. No major barriers to understanding were identified. The patient expressed understanding and agreement with the above treatment plan. The patient was made aware they should contact our office by phone for worsening of their current condition, the appearance of new symptoms, or with any questions or concerns. Compliance is encouraged with any medications and follow up testing that is ordered. It is a privilege to be allowed the opportunity to participate in? your urological care.? Again, if you have any questions or concerns If you have any questions or concerns please do not hesitate to contact me. The office is [phone]. This note is constructed using voice recognition software. While every effort has been made to ensure accuracy equipment maintenance engineer errors may have been included. Yours sincerely, NADIA Wu Coding Level of Care Code Est Pt Level 4 (37162) Diagnoses Flank pain R10.9 UTI (urinary tract infection) N39.0
== END 2025-06-07 16:09 | disposition home or self-care (01) ==
LOC: HO.HUSH 15:14
PROVIDERS: PCP Internal Medicine Geriatric Medicine; Visit Provider Nurse Practitioner Family
DX: Z13.9 Encounter for screening, unspecified (principal)

== ENCOUNTER 2025-07-03 04:04 | Emergency (ER) | payer MEDICAID, SELFPAY ==
--- OUTSIDE RECORDS SUMMARY | 2025-06-30 16:00 | XMS_ITS | Encounter Summary ---
Author Organization [employer] Address [address] [place] [address] Care Team Providers Care Floater Operator Name Role Phone Name, Jemal HARMON Primary Care Provider [phone] Reason for Visit * Reason Comments Cough Nasal Congestion Encounter Details Date Type Department Care Team ([facility] Contact Info) Description 06/30/2025 4:00 PM EST Office Visit [facility] [address] [place], [place] [phone] Angelika Razo FNP [address] [place] [address] Acute upper respiratory infection (Primary Dx); Upper respiratory symptom Social History Tobacco Use Types Packs/Day Years [...] Sign Reading Time Taken Comments Blood Pressure 128/83 06/30/2025 3:44 PM EST Pulse 94 06/30/2025 3:44 PM EST Temperature 37 C (98.6 F) 06/30/2025 3:44 PM EST Respiratory Rate 20 06/30/2025 3:44 PM EST Oxygen Saturation 100% 06/30/2025 3:44 PM EST Inhaled Oxygen Concentration - - Weight 79.4 kg (175 lb) 06/30/2025 3:44 PM EST Height 157.5 cm (5' 2 ) 06/30/2025 3:44 PM EST Body Mass Index 32.01 06/30/2025 3:44 PM EST documented in this encounter Progress Notes * MEHNAZ Schuster - 06/30/2025 4:00 PM EST SUBJECTIVE Shannan Jacobsen is a 40 y.o. female who presents for Cough and Nasal Congestion. Reports - Onset of symptoms today, June 30, 2025 - Chills developed during the day - Cough causing chest pain, started in the morning - Headache and pain around ears - Pressure all over face, including under eyes - Burning sensation in eyes - Low appetite, no feeling of hunger - Denies nasal congestion - Denies asthma - History of allergies, uses Ventolin inhaler when allergies act up, which helps with cough during allergy episodes - Reports cough with phlegm, unpleasant taste, difficulty expectorating Review of Systems Constitutional: Positive for appetite change and chills. Negative for fever. HENT: Negative for sore throat. Respiratory: Positive for cough. Negative for chest tightness, shortness of breath and wheezing. Cardiovascular: Negative for chest pain and palpitations. Neurological: Positive for headaches. Psychiatric/Behavioral: Negative for suicidal ideas. Allergies[1] OBJECTIVE Vitals: 06/30/25 1544 BP: 128/83 BP Location: Right arm Patient Position: Sitting BP Cuff Size: Adult Pulse: 94 Resp: 20 Temp: 98.6 ??F (37 ??C) TempSrc: Oral SpO2: 100% Weight: 175 lb (79.4 kg) Height: 5' 2 (1.575 m) Results - COVID-19 test: negative - Influenza test: negative Physical Exam Vitals reviewed. Constitutional: Appearance: Normal appearance. HENT: Head: Atraumatic. Right Ear: Tympanic membrane, ear canal and external ear normal. Left Ear: Tympanic membrane, ear canal and external ear normal. Cardiovascular: Rate and Rhythm: Normal rate and regular rhythm. Pulses: Normal pulses. Heart sounds: Normal heart sounds. No murmur heard. Pulmonary: Effort: Pulmonary effort is normal. Breath sounds: Normal breath sounds. No wheezing. Neurological: Mental Status: She is alert and oriented to person, place, and time. Psychiatric: Mood and Affect: Mood normal. Behavior: Behavior normal. Assessment/Plan Problem List Items Addressed This Visit None Visit Diagnoses Acute upper respiratory infection - Primary Upper respiratory symptom - Symptoms consistent with a viral infection. COVID-19 and influenza tests negative, but early onset may limit test sensitivity. No evidence of bacterial infection. Likely etiology acute viral upper respiratory infection Differential diagnosis Acute viral sinusitis - Recommended supportive care including increased fluid intake, rest, and acetaminophen (Tylenol) for symptom relief. Advised use of Ventolin inhaler as prescribed for SOB or wheezing. Patient advised to return for re-evaluation if symptoms does not improve or worsens. Relevant Orders Influenza A (ID NOW Rapid Molecular) Influenza B (ID NOW Rapid Molecular) POCT COVID-19 Ag Otto ID NOW This note was drafted using Ambient (AI) technology. The patient/patient's guardian has been informed and has consented to the use of this technology: Yes No future appointments. [1] Allergies Allergen Reactions Gramineae Pollens documented in this encounter Plan of Treatment Scheduled Orders Name Type Priority Associated Diagnoses Orde r Schedule Influenza A (ID NOW Rapid Molecular) Point of Care Testing Routine Upper respiratory symptom Ordered: 06/30/2025 Influenza B (ID NOW Rapid Molecular) Point of Care Testing Routine Upper respiratory symptom Ordered: 06/30/2025 POCT COVID-19 Ag Otto ID NOW Point of Care Testing Routine Upper respiratory symptom Ordered: 06/30/2025 documented as of this encounter Visit Diagnoses Diagnosis Acute upper respiratory infection- Primary Acute upper respiratory infections of unspecified site Upper respiratory symptom documented in this encounter Additional Health Concerns Assessment Noted Time PHQ-9 Depression Total Score: 2 05/26/20 25 9:42 AM EST documented as of this encounter Care Teams Floater Operator Relationship Specialty Start Date End Date Name, MD Jemal [address] [place] [address] PCP - General Family Medicine 12/24/17 documented as of this encounter
--- NOTE | ~2025-07-03 | XR_ITS ---
CLINICAL HISTORY: cough 1 view chest x-ray Comparison: 11/02/2024 Findings: No consolidation or effusion. Heart size is normal. No acute fracture. IMPRESSION: 1. No acute findings. This document has been electronically signed by: Stephon Salinas MD on 07/03/2025 06:02:04
[2025-07-03 04:07] VITALS: BP 109/65; PULSE 101; RESP 16; TEMP 36.8; O2SAT 96; BMI 31.9
--- NOTE | 2025-07-03 04:16 | ED.GENADULT ---
HPI - General Adult General Chief complaint: Upper Respiratory Symptoms Stated complaint: flu like symptoms Time Seen by Provider: 07/03/25 04:16 Source: patient Mode of arrival: ambulatory Limitations: no limitations History of Present Illness ED Provider: Dr. Shelton [facility] narrative: This is a 40-year-old female presented hospital today for generalized body aches, chills, cough, sore throat, headache has been going on since . No sick contacts at home. Patient states she is unable to have much p.o. intake. She does feel dehydrated. She is requesting IV fluid at this time. She has been taking [id number] decongestant medication without much alleviation. Related Data Home Medications ?Medication ?Instructions ?Recorded ?Confirmed chlorthalidone 25 mg tablet 25 mg PO DAILY 05/15/20 12/03/24 albuterol sulfate 90 mcg/actuation inhalation Q4H PRN 10/31/23 12/03/24 aerosol inhaler (Ventolin HFA) fluticasone propionate 50 intranasal 10/31/23 12/03/24 mcg/actuation nasal spray,suspension ketotifen fumarate 0.025 % (0.035 1 drp ophthalmic (eye) BID PRN 10/31/23 12/03/24 %) eye drops montelukast 10 mg tablet 10 mg PO DAILY 10/31/23 12/03/24 Previous Rx's ?Medication ?Instructions ?Recorded fexofenadine 180 mg tablet 180 mg PO DAILY #14 tabs 04/13/22 (Jenny Allergy) metronidazole 500 mg tablet 500 mg PO BID 7 days #14 tabs 06/13/25 benzonatate 200 mg capsule 200 mg PO TID PRN cough #20 caps 07/03/25 ondansetron 4 mg disintegrating 4 mg PO Q8H PRN nausea and 07/03/25 tablet vomiting #14 tabs Allergies Allergy/AdvReac Type Severity Reaction Status Date / Time aspirin Allergy Unknown Verified 07/03/25 04:08 Review of Systems Review of Systems: Pertinent review of systems as mentioned in [facility]. All other system otherwise negative. [facility] Past Medical History [facility] Narrative: Medical history as mentioned in [facility] Medical History Dysplasia of cervix, low grade ([place] 1) Depressed History of eclampsia History of high blood pressure Surgical History History of laparoscopic cholecystectomy (02/28/23) Hx of appendectomy Hx of tubal ligation Family History Family History Father CVD (cardiovascular disease) Mother Asthma History of anxiety History of fibromyalgia Social History Social History Are you a primary home care rn to a significant other at home: Yes Do you presently have visiting nurse or other home services: No Alcohol intake: current Alcohol intake frequency: a few times a month Patient Tobacco Use Status: Never used Tobacco Advance Directives: No Advance Directives Information Provided: Yes Do you have a plan to hurt others: No Plan Current occupational status: employed 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 Sexual orientation: Straight/Heterosexual Gender identity: Female Physical Exam ED Exam Exam: General: Pleasant, no distress, interacting appropriately Head: Normacephalic, atraumatic ENT: oral mucosa moist, neck supple, no tracheal deviation Cardiovascular: Regular rate, regular rhythm, no murmurs, rubbing, gallops Respiratory: CTAB, no wheeze, rales, rhonchi Gastrointestinal: Soft, non distended, non tender, non guarding Neurological: Awake and alert, no facial droop noted Skin: Warm and dry Psychiatric: Appropriate mood and thoughts Vital Signs: Vital Signs - 24 hr 07/03/25 04:07 07/03/25 04:45 Temperature 98.3 F 99.8 F Pulse Rate 101 H 82 Respiratory Rate 16 16 Blood Pressure 109/65 116/59 L Pulse Oximetry 96 95 Oxygen Delivery Method Room Air Room Air BMI result Body Mass Index 31.9 Medications Administered Discontinued Medications Generic Name Dose Route Start Last Admin Trade Name Freq PRN Reason Stop Dose Admin Acetaminophen 975 mg 07/03/25 04:34 07/03/25 05:01 Acetaminophen 325 Mg Tablet PO 07/03/25 04:35 975 mg ONCE ONE Administration Guaifenesin/Codeine Phosphate 10 ml 07/03/25 04:35 07/03/25 05:01 Guaifen/Codeine Sf 200/20/10ml 10 Ml Liquid PO 07/03/25 04:36 10 ml ONCE ONE Administration Sodium Chloride 1,000 mls @ 999 mls/hr 07/03/25 04:45 07/03/25 05:01 Ns IV 07/03/25 05:45 999 mls/hr .Q1H1M JOSEPH Administration Ketorolac Tromethamine 15 mg 07/03/25 04:34 07/03/25 05:01 Ketorolac Tromethamine 15 Mg/Ml Vial IVPUSH 07/03/25 04:35 15 mg ONCE ONE Administration Medical Decision Making Medical Decision Making [facility] Narrative: 40-year-old female presented hospital today for body aches chills cough. Positive for flu X-ray pending at this time we will plan to give patient some Tylenol p.o., IV Toradol and I bolus IV fluid. We will plan to give patient some cough syrup for her cough as well. We will plan to reassess patient afterward. Chest x-ray is negative for any signs of pneumonia. Viral swab was positive for influenza A. On reassessment patient is feeling better. We will plan to discharge patient does time. Differential Diagnosis Differential Diagnoses: The differential diagnosis associated with the presentation includes Flu, body ache, COVID, RSV, pneumonia Lab Data [facility] Lab Attestation statement: I reviewed the patient's lab results. Labs: Lab Results 07/03/25 Range/Units 04:14 Influenza Type A (PCR) POSITIVE A (Negative) Influenza Type B (PCR) NEGATIVE (Negative) RSV RNA Qual (PCR) NEGATIVE (Negative) SARS-CoV-2 RNA (RT-PCR) NEGATIVE (Negative) Independent Interpretation I performed an independent interpretation of an: Plain X-Ray Radiology Impression Discussion of test interpretation with radiology: I have reviewed the radiologist's reading. Discharge Plan Discharge Clinical Impression: Influenza A Patient Disposition: Home, Self-Care Instructions: Influenza (ED) Additional Instructions: You may take tylenol and ibuprofen as needed for your body aches. Follow up with your primary care doctor. Prescriptions: New benzonatate 200 mg capsule 200 mg PO TID PRN (Reason: cough) Qty: 20 0RF ondansetron 4 mg tablet,disintegrating 4 mg PO Q8H PRN (Reason: nausea and vomiting) Qty: 14 0RF No Action metronidazole 500 mg tablet 500 mg PO BID 7 Days Qty: 14 0RF fexofenadine [Jenny Allergy] 180 mg tablet 180 mg PO DAILY Qty: 14 0RF chlorthalidone 25 mg tablet 25 mg PO DAILY montelukast 10 mg tablet 10 mg PO DAILY ketotifen fumarate 0.025 % (0.035 %) drops 1 drp ophthalmic (eye) BID PRN fluticasone propionate 50 mcg/actuation spray,suspension intranasal albuterol sulfate [Ventolin HFA] 90 mcg/actuation HFA aerosol inhaler inhalation Q4H PRN Stand Alone Forms: Work/School Release Print Language: Danish
[2025-07-03 04:45] VITALS: BP 116/59; PULSE 82; RESP 16; TEMP 37.7; O2SAT 95
[2025-07-03 04:56] LABS: Resp Syncy Virus RNA Qual PCR NEGATIVE (Negative); SARS COV2 PCR INHOUSE NEGATIVE (Negative)
[2025-07-03] MEDS: guaiFEN/Codeine SF 200/20/10ML 10 ML LIQUID PO (05:01)
--- OUTSIDE RECORDS SUMMARY | 2025-07-03 05:12 | XMS_ITS | Clinical Summary ---
Author Organization [employer] Address [address] [place] [address] Care Team Providers Care District Recruiter Name Role Phone Name, Jemal HARMON Primary Care Provider [phone] Allergies Active Allergy Reactions Criticality Noted Date [...] D 4 Active SUMAtriptan (Imitrex) 25 MG tabletIndications :Migraine without aura and without status migrainosus, not intractable TAKE 1 TABLET BY MOUTH 1 TIME IF NEEDED FOR MIGRAINE FOR UP TO 1 DOSE. MAY REPEAT DOSE ONCE IN 2 HOURS IF NO RELIEF. DO NOT EXCEED 2 DOSES IN 24 HOURS. 9 tablet 4 Active sodium chloride ([place] Nasal Seadrift) 0.65 % nasal sprayIndications: Cough, unspecified type,Nasal [...] mouth at bedtime. 30 tablet 11 5 Active Tirzepatide (Mounjaro) 2.5 MG/0.5ML solution auto-injectorIndi cations:Obesity (BMI 30-39.9),Prediabe gustavo Inject 2.5 mg under the skin 1 (one) time per week. 2 mL 06/13/2025 3:05 PM EST 5 07/13/20 25 Active potassium chloride CR (Klor-Con M20) 20 MEQ ER tabletIndications :Hypokalemia Take 1 tablet (20 mEq) by mouth Once per day. Do not crush or chew. 30 tablet 5 05/26/20 26 Active Ventolin HFA 108 (90 Base) MCG/ACT inhaler Inhale 2 puffs every 4 (four) hours if needed for shortness of breath or wheezing. Active Azelastine HCl 137 MCG/SPRAY solution Administer 1 spray into each nostril 2 times daily. 5 Active Active Problems Problem Noted Date Diagnosed [...] refer patient to the emergency room at [facility] case presented to provider Nolvia Left [...] injections and possible Epi Pen rx through knitting teacher during upcoming appt in 1-2 weeks - [...] Encounters Date Type Department Care Team Description 07/03/2025 Orders Only GENERIC EXTERNAL DATA DEPARTMENT Provider, Generic External Data 06/30/2025 4:00 PM EST Office Visit [facility] [address] [place] [phone] Angelika Razo FNP Acute upper respiratory infection (Primary Dx); Upper respiratory symptom 06/30/2025 Travel 06/07/2025 Orders Only GENERIC EXTERNAL DATA DEPARTMENT Provider, Generic External Data 05/30/2025 Telephone [facility] MEDICINE [address] [place] [address] Name, MD Jemal Prior Authorization ([facility]) 05/26/2025 9:00 AM EST Office Visit [facility] MEDICINE [address] [place] [address] NameJemal MD Prediabetes (Primary Dx); Obesity (BMI 30-39.9); Hypokalemia; Dysplasia of cervix, low grade (ANDERSON 1) 05/26/2025 Travel 05/25/2025 Travel 05/13/2025 Orders Only GENERIC EXTERNAL DATA DEPARTMENT Provider, Generic External Data 04/26/2025 2:30 PM EDT Nutrition [facility] DIABETES/NUTRITION [address] [place] [address] Obesity (BMI 30-39.9) 04/26/2025 Travel 04/11/2025 Orders Only [facility] External Provider, [facility] from Last 3 Months Immunizations Immunization Administration [...] Mass Index 32.01 06/30/2025 3:44 PM EST Plan of Treatment Health Maintenance Due Date Last Done Comments Alcohol/Substance Use Screening 1996 Family Planning (PISQ) 01/06/1999 HPV Vaccines (1 - 3-dose series) 01/06/1999 Hepatitis B Vaccines (1 of 3 - 19+ 3-dose series) 01/06/2003 Colposcopy 01/19/2025 05/06/2024 COVID-19 Vaccine ( - season) 2025 05/15/2021, 04/24/2021 Influenza Vaccine (#1) 2025 , 04/18/2020, 07/21/2019, Additional history exists SDOH Screening 05/05/2025 05/05/2024 Lipid Panel 07/24/2025 07/24/2020 Cervical Cancer Screening 01/18/2026 HPV/Cotest 01/18/2026 01/18/2025, 11/05/2018 Pap Smear 01/18/2026 01/18/2025, 10/12, 11/05/2018 Diabetes: Hemoglobin A1C 02/28/2026 02/28/2025, 05/15 Disability Screening 05/25/2026 05/25/2025 Depression Screening 05/26/2026 05/26/2025, 05/26/20 25 Tobacco Screening 06/30/2026 06/30/2025 Mammogram 05/20/2027 05/20/2025, 03/15, 09/06/2022, Additional history [...] Procedure Name Priority Date/Time Associated Diagnosis Comments SARS COV2/INFLUENZA A/B AND RSV RNA QL NAAT Routine 07/03/2025 4:14 AM EST CULTURE, URINE, ROUTINE Routine 06/07/20 3:13 PM EST US PELVIS TRANSVAGINAL Routine 2:40 PM EST BI MAMMOGRAM SCREENING TOMOSYNTHESIS BILATERAL Routine 05/20/2025 3:10 PM EST HEMATOXYLIN AND EOSIN STAIN Routine 05/13/2025 3:56 PM EDT US RETROPERITONEAL COMPLETE Routine 04/11/2025 1:49 PM EDT HEMOGLOBIN A1C Routine 02/28/2025 10:42 AM EDT Weight gain HPV DNA, LOW/HIGH RISK Routine 5 3:30 PM EDT PAP SMEAR Routine 01/18/2025 [...] Recently Relevant to Health Maintenance Results * (ABNORMAL) SARS-CoV-2 RNA, Influenza A/B, and RSV RNA, Ql NAAT (07/03/2025 4:14 AM EST) Influenza A PCR POSITIVE(A) Negative [facility] Influenza B PCR NEGATIVE Negative [facility] Resp Syncy Virus RNA Qual PCR NEGATIVE Negative [facility] SARS COV2 PCR NEGATIVE Negative [facility] Comment:All test results mus t be correlated with clinical findings.Negative results do not preclude SARS-CoV2, influenza Avirus, influenza B virus and/or RSV infectionand should not be used as the sole basis for treatment orother patient management decisions. Negative results must becombined with clinical observations, patient history, andepidemiological information.This test has not been evaluated for monitoring treatment ofinfection.This test has been authorized by the FDA under an EmergencyUse Authorization (EUA) for use by authorized laboratories.Testing performed on the [employer] GeneXpert utilizingreal-time RT-PCR.All SARS CoV2 and positive influenza A/B results arereported to JIMMY [facility]. 07/03/2025 4:14 AM EST 07/03/2025 4:18 AM EST us Generic External Data Provider LAB MICROBIOLOGY - GENERAL ORDERABLES Final Result [facility] [address] [place] [phone] * Culture, Urine, Routine (06/07/2025 3:13 PM EST) Urine Urine specimen obtained by clean catch procedure / Unknown 06/07/2025 3:13 PM EST 06/07/2025 5:21 PM EST Comment:UACC Narrative [facility] - 06/12/2025 8:35 AM EST Gardnerella vaginalis Quant > 100,000 cfu/mL Susc N/A Susceptibility not routinely performed on this isolate. Specimen Source: Urine clean catch us Generic External Data Provider LAB MICROBIOLOGY - GENERAL ORDERABLES Final Result [facility] [address] [place] [phone] * US Pelvis Transvaginal (05/27/2025 2:40 PM EST) Anatomical Region Laterality Modality Pelvis Ultrasound 05/27/2025 2:40 PM EST Narrative 05/27/2025 4:41 PM EST [address] [address] Ultrasound Report Signed Patient: Shannan Jacobsen MR#: [id number] 08 : 1985 Acct:[id number] Age/Sex: 40 / F ADM Date: 05/27/25 Loc: .US Attending Dr: Porfirio Rendon MD Ordering Physician: Porfirio Rendon MD Date of Service: 05/27/25 Procedure(s): US pelvic and transvaginal Accession Number(s): [id number] cc: Brigitte,Jemal HARMON; Porfirio Rendon MD Reason [...] 05/27/25 1638 DD/ 1440 TD/TT: 05/27/25 1448 Computer Security Specialist: Procedure Note Donotuseinterpreter, Image - 05/27/2025 [place] [address] Ultrasound Report Signed Patient: Yazmin Jacobsen#: [id number] 08 : 1985Acct:[id number] Age/Sex: 40 / FADM Date: 05/27/25 Loc: .US Attending Dr: Porfirio Rendon MD Ordering Physician: Porfirio Rendon MD Date of Service: 05/27/25 Procedure(s): US pelvic and transvaginal Accession Number(s): [id number] cc: Jemal Briggs MD; Porfirio Rendon MD [...] 05/27/25 1638 DD/ 1440 TD/TT: 05/27/25 1448 Computer Security Specialist: DAWN [facility] External Provider IMG US PROCEDURES Final Result * BI Mammogram Screening Tomosynthesis Bilateral (05/20/2025 3:10 PM EST) Anatomical Region Laterality Modality Breast Bilateral Mammography 05/20/2025 3:10 PM EST Narrative 05/25/2025 10:59 AM EST [facility] [address] [place] [address] Mammography Report Signed Patient: Shannan Jacobsen MR#: [id number] [birth year] : 1985 Acct:[id number] Age/Sex: 40 / F ADM Date: 05/20/25 Loc: [place] Attending Dr: Jemal Briggs MD Ordering Physician: Name,Jemal MD Results: 1Negative Date of Service: 05/20/25 Follow Up: 1 Year From Orig inal Mammogram Procedure(s): MM tomosynthesis screening BI Accession Number(s): [id number] cc: Jemal Briggs MD Reason For Exam: [...] by: Anabelle Quinones DO 05/25/2025 10:56 AM [facility] Dictated By: Anabelle Quinones DO Signed By: <Electronically signed by Anabelle Quinones DO in OV> 05/25/25 1056 DD/ 1510 TD/TT: 05/20/25 1515 Computer Security Specialist: Procedure Note Donotuseinterpreter, Image - 05/25/2025 [facility] [address] [place] [address] Mammography Report Signed Patient: Sonya JacobsenR#: [id number] 08 : 1985Acct:[id number] Age/Sex: 40 / FADM Date: 05/20/25 Loc: [place] Attending Dr: Jemal Briggs MD Ordering Physician: Jemal Briggsesults: 1Negative Date of Service: 05/20/25Follow Up: 1 Year From Orig inal Mammogram Procedure(s): MM tomosynthesis screening BI Accession Number(s): [id number] cc: Name,Jemal HARMON Reason For Exam: SCREENING [...] 05/25/25 1056 DD/ 1510 TD/TT: 05/20/25 1515 Computer Security Specialist: Jemal Briggs MD [facility] BI PROCEDURES Final Result * Hematoxylin and Eosin Stain (05/13/2025 3:56 PM EDT) 05/13/2025 3:56 PM EDT 05/16/2025 7:12 AM EST [facility] - 05/17/2025 10:57 AM EST ----- ------- Name: JacobsenShannan Age/Sex: 40/F : 1985 Unit#: [id number] Attend Dr: Porfirio Rendon MD Re05/13/25 Status: [facility] REF Location: [facility] Disch: ----- ------- SPEC : [id number] RECD: 05/16/25 STATUS: ANTONIO TUTTLE NUM: [id number] HERMELINDA: 05/13/[address] [facility] [address]: Porfirio Rendon MD ENTERED: 05/16/25 SP TYPE: Surgical OTHR DR: Jemal Briggs MD ORDERED: HE /11, Gross Micro L4/4 Diagnosis A. Endocervix, curettage: [...] Shannan Jacobsen Age/Sex: 40/F : 1985 Unit#: [id number] Attend Dr: Porfirio Rendon MD Re05/13/25 Status: DEP REF Location: [facility] Disch: ----- ------- SPEC : [id number] RECD: 05/16/25 STATUS: ANTONIO TUTTLE NUM: [id number] HERMELINDA: 05/13/[address] [facility] [address]: Porfirio Rendon MD ENTERED: 05/16/25 SP TYPE: Surgical OTHR DR: Jemal Briggs MD ORDERED: HE Stain/11, Gross Micro L4/4 IHC S/NG Disclaimer NOTE: Unless otherwise stated, all tissue is formalin-fixed and paraffin-embedded. Some or all of the immunohistochemical tests reported herein may have been developed and their performance characteristics determined by [facility]. They have not been cleared or approved by the U.S. Food and Drug Administration (FDA). However, the FDA has determined that such clearance or approval is not necessary. This laboratory is certified under the Clinical Laboratory Improvement Amendments of 1988 (CLIA) as qualified to perform high complexity clinical laboratory testing. Copies To: Name,Jemal HARMON [address] [address] Porfirio Rendon MD [facility] Women[facility] Services [address] [place] [address] Drive [address] [place] [address] ----- ------- Signed (signature on file) Raul Hollingsworth MD 05/17/25 1057 ----- ------- END OF REPORT us Generic External Data Provider LAB BLOOD ORDERAB LES Final Result [facility] [address] [place] [address] [phone] * US Retroperitoneal Complete (04/11/2025 1:49 PM EDT) Anatomical Region Laterality Modality Ultrasound 04/11/2025 1:49 PM EDT Narrative 04/11/2025 2:16 PM EDT [address] [address] Ultrasound Report Signed Patient: Shannan Jacobsen MR#: [id number] 08 : 1985 Acct:[id number] Age/Sex: 40 / F ADM Date: 04/11/25 Loc: HO.US Attending Dr: Jazmín ZUNIGA Ordering Physician: Jazmín Courtney Date of Service: 04/11/25 Procedure(s): US retroperitoneal comp Accession Number(s): [id number] cc: Jazmín Courtney; Name,Jemal HARMON Reason for [...] 04/11/25 1413 DD/ 1349 TD/TT: 04/11/25 1401 Computer Security Specialist: Procedure Note Donotuseinterpreter, Image - 04/11/[address] [address] Ultrasound Report Signed Patient: Yazmin Jacobsen#: [id number] 08 : 1985Acct:[id number] Age/Sex: 40 / FADM Date: 04/11/25 Loc: HO.US Attending Dr: Jazmín ZUNIGA Ordering Physician: Jazmín Courtney Date of Service: 04/11/25 Procedure(s): US retroperitoneal comp Accession Number(s): [id number] cc: RozJazmín [facility]-; Name,Jemal HARMON Reason for Exam: R10.9 - [...] 04/11/25 1413 DD/ 1349 TD/TT: 04/11/25 1401 Computer Security Specialist: [facility] External Provider IMG US PROCEDURES Final Result * Hemoglobin A1c (02/28/2025 10:42 AM EDT) Hemoglobin A1c 6.0 <6.0 % [facility] Comment:Hemoglobin A1C Refer ence Range Adults: 4.8 - 6.0 % Non diabetic: < 6.0 % Goal: < 7.0 %Additional Action Suggested: > 8.0 %Note: Hemoglobin A1c results are invalid for patients with abnormal amounts of HbF. Blood transfusions may impact the HbA1c concentration in the patient sample. Estimated Average Glucose 126 mg/dL [facility] Comment:eAG = Estimated ave rage glucose which is %A1C expressed asaverage glucose, using the formula of the D9R-SydrcrlPhidejs Glucose study (ADAG), Diabetes Care, Vol.31,#8,Feb. 2007 Blood Venous blood specimen / Unknown 02/28/2025 10:42 AM EDT 02/28/2025 11:15 AM EDT us Jemal Briggs MD LAB BLOOD ORDERABLES Final Resul t [facility] [address] [place] [phone] * (ABNORMAL) HPV DNA, Low/High Risk (01/18/2025 3:30 PM EDT) HPV High Risk Negative Negative [facility] HPV Genotype 16 Positive(A) Negative [facility] HPV Genotype 18 Negative Negative [facility] Comment:HPV testing performe d at [facility] (CLIA#[id number]), [address] [place] [address].Testing for HPV was performed using the Kim [...] Provider LAB BLOOD ORDERAB LES Final Result [facility] [address] [place] [address] [phone] * Pap Smear (01/18/2025 3:30 PM EDT) 01/18/2025 3:30 PM EDT 01/19/2025 8:30 AM EDT [facility] - 01/25/2025 2:41 PM EDT ----- ------- Name: Shannan Jacobsen Age/Sex: 40/F : 1985 Unit#: [id number] Attend Dr: Porfirio Rendon MD Re01/18/25 Status: DEP REF Location: [facility] Disch: ----- ------- SPEC : [id number] RECD: 01/19/25 STATUS: SOUDuarte REQ NUM: [id number] HERMELINDA: 01/18/[address] [facility] [address]: Porfirio Rendon MD ENTERED: [...] will be performed at [facility] (CLIA #[id number]), [address] [place] [address]. Testing for HPV was performed using the [...] detected. All professional services are performed by [facility] ([address] [place] [address]; ; CLIA #[id number]). The PAP Test is a screening procedure with the inherent possibility of both false negative and false positive results. Results should be interpreted in the context of historic and current clinical findings. Reliability of the PAP Test is enhanced by performing the test on a regular repetitive basis. CONTINUED ON NEXT PAGE ----- ------- Name: Shannan Jacobsen Age/Sex: 40/F : 1985 Unit#: [id number] Attend Dr: Porfirio Rendon MD Re01/18/25 Status: DEP REF Location: [facility] Disch: ----- ------- SPEC : [id number] RECD: 01/19/25 STATUS: ANTONIO TUTTLE NUM: [id number] HERMELINDA: 01/18/[address] [facility] [address]: Porfirio Rendon MD ENTERED: 01/19/25 SP TYPE: Pap Smr OTHR DR: Jemal Briggs MD ORDERED: Pap Smear, PAP path review Copies To: Jemal Briggs MD [address] [place] [address] Porfirio Rendon MD [facility] Women[facility] Services [address] [place] [address] [address] [place], [place] [phone] ----- ------- Signed (signature on file) Raul Hollingsworth MD 01/25/25 1441 ----- ------- END OF REPORT Generic External Data Provider LAB CYTOLOGY BLANCA PETERSON Final Result [facility] [address] [place] [phone] * Colposcopy (05/06/2024 11:02 AM EDT) Historical Provider MD IN CLINIC/BEDSIDE ORDERAB LES Final Result * Hepatitis C Antibody with Reflex to HCV, RNA, Quantitative, Real-Time PCR (08/09/2022 10:19 AM EST) Hepatitis C Antibody NON-REACT JOSE NON-REACT JOSE [employer] [place] [facility] Index <0.02 <1.00 [employer] [place] [facility] Comment: HCV antibody was non-reactive. There is no laboratory evidence of HCV infection. In most cases, no further action is required. However, if recent HCV exposure is suspected, a test for HCV RNA (test code 39589) is suggested. For additional information please refer to http://education.Lifestreams/faq/HXY33i8 (This link is being provided for informational/ educational purposes only.) Blood Venous blood specimen / Unknown 08/09/2022 10:19 AM EST 08/09/2022 10:20 AM EST Narrative [facility] - 08/12/2022 6:40 PM EST FASTING:UNKNOWN FASTING: UNKNOWN Janet Mak [facility] LAB BLOOD ORDERABLES Final Res ult [facility] [address], [place] [address] [employer] [place] [address] [facility], (Nl2) [place] [address] * HIV-1/2 Antigen and Antibodies, Fourth Generation, with Reflexes (08/09/2022 10:19 AM EST) HIV Antigen/Antibody, 4th Generation NON-REAC TIVE NON-REAC TIVE [employer] [place] [facility] Comment: HIV-1 antigen and HIV-1/HIV-2 antibodies were [...] purpose. For additional information please refer to http://[employer].Lifestreams/faq/KIW121 (This link is being provided for informational/ educational purposes only.) The performance of this assay has not been clinically validated in patients less than 2 years old. Blood Venous blood specimen / Unknown 08/09/2022 10:19 AM EST 08/09/2022 10:20 AM EST Narrative [facility] - 08/12/2022 6:40 PM EST FASTING:UNKNOWN FASTING: UNKNOWN us Janet Mak [facility] LAB BLOOD ORDERABLES Final Res ult [facility] [address], [place] [address] [employer] [facility] [address] [facility], (Nl2) [place] [address] * (ABNORMAL) LIPID PANEL, STANDARD (07/24/2020 3:40 PM EST) [facility] Signature Chol/HDLC Ratio 3.2 <5.0 (calc) [facility] [...] LDL-C. Xavier CABRERA et al. SCOTT. 2013;310(19): 0375-7506 (http://education.[employer]/faq/KVA837) Non-HDL Cholesterol 110 <130 mg/dL (calc) [facility] Comment: For patients with diabetes plus 1 major ASCVD risk factor, treating to a non-HDL-C goal of <100 mg/dL (LDL-C of <70 mg/dL) is considered a therapeutic option. Triglycerides 128 <150 mg/dL [facility] 07/24/2020 3:40 PM EST us Jemal Briggs MD LAB BLOOD ORDERABLES Final Resul t [facility] [address] from Last 3 Months or Most Recently Relevant to Health Maintenance Insurance [employer] Care Teams District Recruiter Relationship Specialty Start Date End Date Name, MD Jemal [address] [place] [address] PCP - General Family Medicine 12/24/17
--- OUTSIDE RECORDS SUMMARY | 2025-07-03 05:12 | XMS_ITS | Encounter Summary ---
Author Organization [employer] Address [address] 7[address] [place] [address] Care Team Providers Care Commission Associate Name Role Phone Name, Jemal HARMON Primary Care Provider [phone] Reason for Visit * Reason Onset Date Comments Nurse Triage 08/12/2023 Encounter Details Date Type Department Care Team ([facility] Contact Info) Description 08/12/2023 Telephone [facility] MEDIC[facility] [address] [place], [place] [phone] Name, MD Jemal [address] [place] [address] Nurse Triage Social History Tobacco Use Types [...] t he electric, gas, oil or water [employer] threatened to shut off services in your [...] 12:03 PM EST Triage call with pacific historic interpreter [place] [id number] Pt reports cough, sore throat. nasal congestion, [...] worse. Pt is advised to come to [facility] today which is open till 8pm [...] accepted this outcome Please contact pt at [phone] (Maori) documented in this encounter Plan of Treatment Not on file documented as of this encounter Visit Diagnoses Not on filedocumented in this encounter Additional Health Concerns Assessment Noted Time PHQ-9 Depression Total Score: 0 02/05/20 23 9:16 AM EDT documented as of this encounter Care Teams Commission Associate Relationship Specialty Start Date End Date Name, MD Jemal [address] [place] [address] PCP - General Family Medicine 12/24/17 documented as of this encounter
--- OUTSIDE RECORDS SUMMARY | 2025-07-03 05:12 | XMS_ITS | Encounter Summary ---
Author Organization [employer] Address [address] 7[address] [place] [address] Care Team Providers Care Family Literacy Coordinator Name Role Phone Name, Jemal HARMON Primary Care Provider Reason for Visit * Reason Onset Date Comments Results 07/22/2023 Encounter Details Date Type Department Care Team ([facility] Contact Info) Description 07/22/2023 Telephone [facility] MEDICINE [address] [place], [place] [phone] Name, MD Jemal [address] [place] [address] Results Social History Tobacco Use Types Packs/Day [...] t he electric, gas, oil or water [employer] threatened to shut off services in your [...] PM EST T/c placed to pt via [employer] #[id number]. Advised of benign result for right cervicallymph [...] Facility: [facility] Please contact pt at [phone] documented in this encounter Plan of Treatment Not on file documented as of this encounter Visit Diagnoses Not on filedocumented in this encounter Additional Health Concerns Assessment Noted Time PHQ-9 Depression Total Score: 0 02/05/20 23 9:16 AM EDT documented as of this encounter Care Teams Family Literacy Coordinator Relationship Specialty Start Date End Date Name, MD Jemal [address] [place] [address] PCP - General Family Medicine 12/24/17 documented as of this encounter
--- OUTSIDE RECORDS SUMMARY | 2025-07-03 05:12 | XMS_ITS | Encounter Summary ---
Author Organization [employer] Address [address] [facility] 7t [place] [address] Care Team Providers Care Cashier Host/Hostess Name Role Phone Name, Jmeal HARMON Primary Care Provider [phone] Reason for Visit * Reason Onset Date Comments Follow-up 06/13/2022 Encounter Details Date Type Department Care Team ([facility] st Contact Info) Description 06/13/2022 Telephone [facility] MEDICINE [address] [place], [place] [phone] Name, MD Jemal [address] [place] [address] Follow-up Social History Tobacco Use Types Packs/Day [...] check and to assess current symptoms via [place] [facility] Anest[facility] Nurse Donell #[id number]. sidney Padron/josie left to return call. * Telephone Encounter - Sully Chintan - 06/13/2022 10:09 AM EST Tc from [place] they found a Bacteria in the Urine. Pt statedprovider told her to contact PCP for follow up. PCP Name documented in this encounter Plan of Treatment Not on file documented as of this encounter Visit Diagnoses Not on filedocumented in this encounter Care Teams Cashier Host/Hostess Relationship Specialty Start Date End Date Name, MD Jemal [address] [place] [address] PCP - General Family Medicine 12/24/17 documented as of this encounter
--- OUTSIDE RECORDS SUMMARY | 2025-07-03 05:12 | XMS_ITS | Encounter Summary ---
Author Organization [employer] Address [address] [place] [address] Care Team Providers Care Negative Spotter Name Role Phone Name, Jemal HARMON Primary Care Provider [phone] Encounter Details Date Type Department Care Team (Latest Contact Info) Description 06/30/2025 Travel Social History Tobacco Use Types Packs/Day [...] documented as of this encounter Care Teams Negative Spotter Relationship Specialty Start Date End Date Name, MD Jemal [address] [place] [address] PCP - General Family Medicine 12/24/17 documented as of this encounter
--- OUTSIDE RECORDS SUMMARY | 2025-07-03 05:13 | XMS_ITS | Clinical Summary ---
Author Organization [facility] Address [address] [place], [place] [id number] Phone Care Team Providers Care Field Merchandiser Name Role Phone Name, Jemal HARMON Primary Care Provider [phone] Social History Tobacco Use Types Packs/Day Years [...] file Medical Devices Not on file Insurance [facility] [address] [place] [address] [place] [address] [place] [address] [place] [address] C3 ACO [facility] [employer] ACO Care Teams Field Merchandiser Relationship Specialty Start Date End Date Name, MD Jemal [address] [place] [id number] PCP - General Internal Medicine 07/16/23 Additional Source Comments The information contained in this document represents components of the legal health record. It is not the complete legal health record.[facility]
--- OUTSIDE RECORDS SUMMARY | 2025-07-03 05:13 | XMS_ITS | Encounter Summary ---
Author Organization [employer] Address [address] [place] [address] Care Team Providers Care Chemical Waste Management Technician Name Role Phone Name, Jemal HARMON Primary Care Provider [phone] Reason for Visit * Reason Onset Date Comments Appointment Request 03/28/2025 Encounter Details Date Type Department Care Team ([facility] Contact Info) Description 03/28/2025 Telephone [facility] [address] [place], [place] [phone] Name, MD Jemal [address] [place] [address] Appointment Request Social History Tobacco Use Types [...] from pt requesting an apt with the servicer. Contact pt at [phone] documented in this encounter Plan of Treatment Not on file documented as of this encounter Visit Diagnoses Not on filedocumented in this encounter Additional Health Concerns Assessment Noted Time PHQ-9 Depression Total Score: 0 05/12/20 24 10:51 AM EDT documented as of this encounter Care Teams Chemical Waste Management Technician Relationship Specialty Start Date End Date Name, MD Jemal [address] [place] [address] PCP - General Family Medicine 12/24/17 documented as of this encounter
--- OUTSIDE RECORDS SUMMARY | 2025-07-03 05:13 | XMS_ITS | Encounter Summary ---
Author Organization [employer] Address [address] [place] [address] Care Team Providers Care Energy Conservation Specialist Name Role Phone Name, Jemal HARMON Primary Care Provider [phone] Encounter Details Date Type Department Care Team ([facility] Contact Info) Description 07/03/2025 Orders Only GENERIC EXTERNAL DATA [...] on file documented as of this encounter Procedures Procedure Name Priority Date/Time Associated Diagnosis Comments SARS COV2/INFLUENZA A/B AND RSV RNA QL NAAT Routine 07/03/2025 4:14 AM EST documented in this encounter Results * (ABNORMAL) SARS-CoV-2 RNA, Influenza A/B, and RSV RNA, Ql NAAT (07/03/2025 4:14 AM EST) Influenza A PCR POSITIVE(A) Negative [facility] Influenza B PCR NEGATIVE Negative [facility] Resp Syncy Virus RNA Qual PCR NEGATIVE Negative [facility] SARS COV2 PCR NEGATIVE Negative [facility] Comment:All test results mus t [...] use by authorized laboratories.Testing performed on the Wiper GeneXpert utilizingreal-time RT-PCR.All SARS CoV2 and positive influenza A/B results arereported to [facility]. 07/03/2025 4:14 AM EST 07/03/2025 4:18 AM EST us Generic External Data Provider LAB MICROBIOLOGY - GENERAL ORDERABLES Final Result [facility] [address] [place] [address] [phone] documented in this encounter Visit Diagnoses Not on filedocumented in this encounter Additional Health Concerns Assessment Noted Time PHQ-9 Depression Total Score: 2 05/26/20 25 9:42 AM EST documented as of this encounter Care Teams Energy Conservation Specialist Relationship Specialty Start Date End Date Name, MD Jemal [address] [place] [address] PCP - General Family Medicine 12/24/17 documented as of this encounter
--- OUTSIDE RECORDS SUMMARY | 2025-07-03 05:13 | XMS_ITS | Encounter Summary ---
Author Organization [employer] Address [address] [place] [address] Care Team Providers Care Joint Creaser Name Role Phone Name, Jemal HARMON Primary Care Provider [phone] Encounter Details Date Type Department Care Team ([facility] Contact Info) Description 02/09/2025 Orders Only [facility] [address] [place], [place] [phone] ProviderNadya MD Social History Tobacco Use Types [...] (05/06/2024 11:02 AM EDT) us Historical Provider MD IN CLINIC/BEDSIDE ORDERAB LES Final Result documented in this encounter Visit Diagnoses Not on filedocumented in this encounter Additional Health Concerns Assessment Noted Time PHQ-9 Depression Total Score: 0 05/12/20 24 10:51 AM EDT documented as of this encounter Care Teams Joint Creaser Relationship Specialty Start Date End Date Name, MD Jemal [address] [place] [address] PCP - General Family Medicine 12/24/17 documented as of this encounter
[2025-07-03 07:18] VITALS: BP 122/74; PULSE 74; RESP 18; TEMP 37.4; O2SAT 96
== END 2025-07-03 07:23 | disposition home or self-care (01) ==
PROVIDERS: Emergency Provider Student in an Organized Health Care Education/Training Program; PCP Internal Medicine Geriatric Medicine
DX: J10.1 Influenza due to other identified influenza virus with other respiratory manifestations (principal); R05.9 Cough, unspecified; Z03.818 Encounter for observation for suspected exposure to other biological agents ruled out; I10 Essential (primary) hypertension; Z79.899 Other long term (current) drug therapy
CPT/HCPCS: 71045; 87637; 96361; 96374; 99283; 99284; J1885

== ENCOUNTER → 2025-07-03 05:22 | Outpatient (BNV) | payer MEDICAID, SELFPAY | PROVIDERS: Emergency Provider Student in an Organized Health Care Education/Training Program; PCP Internal Medicine Geriatric Medicine; Visit Provider Specialist | DX: R05.9 Cough, unspecified (principal) | CPT/HCPCS: 71045 ==